=== PATIENT | male | born 1975 | race Two or more races ===

== ENCOUNTER 2020-06-29 11:03 | Outpatient (REF) | payer OTHER, SELFPAY | END 2020-06-29 11:04 | disposition home or self-care (01) | LOC: HO.LAB 11:03 | PROVIDERS: Visit Provider Internal Medicine | DX: Z20.828 Contact with and (suspected) exposure to other viral communicable diseases (principal) | CPT/HCPCS: 87635 ==

== ENCOUNTER 2020-07-10 10:02 | Outpatient (REF) | payer OTHER, SELFPAY | END 2020-07-10 10:03 | disposition home or self-care (01) | LOC: HO.LAB 10:02 | PROVIDERS: Visit Provider Internal Medicine | DX: Z20.828 Contact with and (suspected) exposure to other viral communicable diseases (principal) | CPT/HCPCS: 87635 ==

== ENCOUNTER 2020-07-26 12:36 | Outpatient (REF) | payer SELFPAY ==
[2020-07-26 15:12] LABS: Cholesterol 180 mg/dL
== END 2020-07-26 12:37 | disposition home or self-care (01) ==
LOC: HO.LNC 12:36
PROVIDERS: Visit Provider Pathology Anatomic Pathology & Clinical Pathology
DX: Z76.89 Persons encountering health services in other specified circumstances (principal)
CPT/HCPCS: 82465

== ENCOUNTER 2020-07-26 13:37 | Outpatient (REF) | payer SELFPAY | END 2020-07-26 13:38 | disposition home or self-care (01) | LOC: HO.LNC 13:37 | PROVIDERS: Visit Provider Pathology Anatomic Pathology & Clinical Pathology | DX: Z13.89 Encounter for screening for other disorder (principal) ==

== ENCOUNTER 2020-08-20 08:12 | Outpatient (REF) | payer OTHER, SELFPAY | END 2020-08-20 08:13 | disposition home or self-care (01) | LOC: HO.LAB 08:12 | PROVIDERS: Visit Provider Internal Medicine | DX: Z20.828 Contact with and (suspected) exposure to other viral communicable diseases (principal) | CPT/HCPCS: C9803; U0003 ==

== ENCOUNTER 2020-08-29 12:34 | Outpatient (REF) | payer OTHER, SELFPAY ==
[2020-08-29 13:30] LABS: Anion Gap 11 (12-20); Blood Urea Nitrogen 12 mg/dL (9-16); Carbon Dioxide 27 mmol/L (22-29); Chloride 105 mmol/L (96-108); Estimated Glomerular Filt Rate > 60; Potassium 4.5 mmol/l (3.3-5.1); Sodium 138 mmol/L (135-145)
== END 2020-08-29 12:35 | disposition home or self-care (01) ==
LOC: HO.LAB 12:34
PROVIDERS: PCP Internal Medicine; Visit Provider Internal Medicine Hypertension Specialist
DX: I10 Essential (primary) hypertension (principal); N40.0 Benign prostatic hyperplasia without lower urinary tract symptoms
CPT/HCPCS: 80051; 82565; 84520

== ENCOUNTER 2020-09-20 16:26 | Outpatient (REF) | payer OTHER, SELFPAY | END 2020-09-20 16:27 | disposition home or self-care (01) | LOC: HO.LAB 16:26 | PROVIDERS: Visit Provider Internal Medicine | DX: Z20.828 Contact with and (suspected) exposure to other viral communicable diseases (principal) | CPT/HCPCS: 36415; C9803; U0003 ==

== ENCOUNTER 2020-10-17 13:02 | Outpatient (REF) | payer SELFPAY ==
[2020-10-17 15:04] LABS: Cholesterol 143 mg/dL
== END 2020-10-17 13:03 | disposition home or self-care (01) ==
LOC: HO.LNC 13:02
PROVIDERS: Visit Provider Pathology Anatomic Pathology & Clinical Pathology
DX: Z13.89 Encounter for screening for other disorder (principal)
CPT/HCPCS: 36415; 82465

== ENCOUNTER 2020-10-23 02:58 | Emergency (ER) | payer OTHER, SELFPAY ==
--- NOTE | ~2020-10-23 | CT_ITS ---
EXAMINATION: CT ABDOMEN AND PELVIS WITH CONTRAST CLINICAL INFORMATION: Diffuse abdominal pain. COMPARISON: 04/02/2018. TECHNIQUE: Contiguous axial thin section helical images of the abdomen and pelvis were performed following the administration of 100 mL of intravenous Omnipaque 300. The data set was reformatted in the coronal and sagittal planes and reviewed on an independent workstation. The examination is significantly limited secondary to extensive and repeated patient motion. DLP: 763 mGy-cm. FINDINGS: Evaluation of the lung bases is limited secondary to extensive patient motion, though there are likely multiple areas of groundglass opacification within the lung bases, particularly within the lingula and the left lower lobe. The visualized portions of the heart are unremarkable. The liver is of normal size and attenuation without focal lesions nor intrahepatic biliary ductal dilation. A normal gallbladder is identified. There is no wall thickening or discernible pericholecystic fluid. The spleen, pancreas, adrenal glands are unremarkable. Both kidneys are of normal size and attenuation without hydronephrosis or nephrolithiasis. Following the administration of IV contrast, prompt symmetric nephrograms are displayed. There is no abdominal free fluid. There is neither mesenteric nor retroperitoneal lymphadenopathy. Normal unopacified loops of small and large bowel are identified. A normal appendix is identified. There is no pelvic free fluid. The urinary bladder is unremarkable. There is neither pelvic nor inguinal lymphadenopathy. Bone windows: Neither sclerotic nor lytic bone lesions are identified. CT/CT abdomen pelvis w con IMPRESSION: Significantly limited exam secondary to extensive and repeated patient motion. Limited evaluation of the lung bases secondary to extensive patient motion, though there are likely multiple areas of groundglass opacification within the lung bases, particularly the lingula and left lower lobe concerning for pneumonia. Recommendation is for a followup chest series to be obtained following treatment and/or resolution of symptoms to assure resolution of this appearance. No acute abdominal or pelvic inflammatory or infectious processes demonstrated on this limited exam. Automated exposure control (Care Dose) Adjustment of the mA and/or kv according to patient size (this includes techniques or standardized protocols for targeted exams where dose is matched to indication / reason for exam; i.e. extremities or head).
[2020-10-23 04:58] VITALS: BP 145/102; PULSE 107; RESP 18; TEMP 37.8; O2SAT 96; BMI 33.2
[2020-10-23 05:28] LABS: Basophils Percent Auto 0.2 % (0-2); Eosinophils Percent Auto 0.2 % (0-4); Hematocrit 44.3 % (42-52); Hemoglobin 14.7 g/dl (14.0-18.0); Lymphocytes Absolute Auto 1.9 X10*3/uL (1.2-4.9); Lymphocytes Percent Auto 34.3 % (20-40); MANUAL DIFF FLAG NO; Mean Corpuscular HGB Conc 33.2 g/dl (31.0-36.0); Mean Corpuscular Hemoglobin 28.6 pg (27.0-33.0); Mean Corpuscular Volume 86.2 fL (80-98); Mean Platelet Volume 9.1 fL (9.4-12.4); Monocytes Absolute Auto 0.4 X10*3/uL (0.1-1.2); Neutrophils Absolute Auto 3.2 X10*3/uL (2.0-8.3); Neutrophils Percent Auto 57.3 % (45-73); Platelet Count 270 X10*3/uL (160-400); Red Blood Count 5.14 X10*6/uL (4.60-5.80); Red Cell Distribution Width 12.5 % (11.0-16.0); White Blood Count 5.5 X10*3/uL (4.8-10.8)
[2020-10-23 05:34] LABS: Glucose Urine UA NEG (NEG); Leukocyte Esterase Urine NEG (NEG); Nitrite Urine NEG (NEG); Specific Gravity - Urine >= 1.030 (1.005-1.025); Urine Blood 1+ (NEG); Urine Ketones 40 MG/DL (NEG); Urine Protein TRACE MG/DL (NEG-TRACE)
[2020-10-23 05:35] LABS: Appearance Urine CLEAR; Color Urine DARK YELLOW
[2020-10-23 05:36] VITALS: BP 139/99; PULSE 112; RESP 22; TEMP 37; O2SAT 96
--- NOTE | 2020-10-23 05:39 | ED.ABDPAIN ---
HPI - Abdominal Pain General Chief Complaint: Abdominal Pain Stated Complaint: Headache/Abd pain/Nausea Time Seen by Provider: 10/23/20 05:25 Source: patient Mode of arrival: ambulatory Limitations: no limitations History of Present Illness HPI narrative: Patient comes to emergency room complaining of 3 weeks of abdominal pain. Patient reports black stools for 3 days. Patient states he has had issues with internal hemorrhoids in the past. Patient states the abdominal pain is constant, nonradiating, diffuse, sharp. Patient denies vomiting or diarrhea, complaining of constant nausea. Denies hematuria Related Data Previous Rx's Medication Instructions Recorded bisacodyl 5 mg tablet,delayed 5 mg PO BID #60 tab 07/03/20 release fesoterodine 4 mg tablet,extended 4 mg PO DAILY 90 Days #90 tab 08/01/20 release 24 hr ergocalciferol (vitamin D2) 1,250 1,250 mcg PO QWEEK #4 cap 09/15/20 mcg (50,000 unit) capsule tramadol 50 mg tablet 50 mg PO TID PRN 30 Days #90 tab 09/26/20 umeclidinium 62.5 mcg/actuation 1 inh INHALATION DAILY 30 Days #30 10/13/20 blister powder for inhalation ea azithromycin 250 mg PO DAILY 5 Days #5 tab 10/23/20 Allergies Allergy/AdvReac Type Severity Reaction Status Date / Time gabapentin [GABAPENTIN] Allergy Unknown SEVERE Unverified 05/31/20 17:48 H/A,BLURRY VISION,MOOD CHANGE Gabapentin Allergy Unknown headaches, Uncoded 04/18/20 00:00 blurring of vision, depression Review of Systems Review of Systems Constitutional : No Weight loss, No Fever, No Chills, No Night Sweats, No Fatigue, No Malaise ENT/Mouth : No Hearing loss, No Ear Pain, No Nasal Congestion, No Sinus Pain, No Hoarseness, No sore throat, No Rhinorrhea, No Swallowing Difficulty Eyes: No Eye Pain, No Swelling, No Redness, No Foreign Body, No Discharge, No Vision Changes Cardiovascular : No Chest Pain, No SOB, No Dyspnea on Exertion, No Orthopnea, No Edema, No Palpitations Respiratory : No Cough, No Sputum, No Wheezing, No Smoke Exposure, No Dyspnea Gastrointestinal : Complaining of Nausea, No Vomiting, No Diarrhea, No Constipation, complaining of diffuse abdominal pain, complaining of black stool for the last 3 days Genitourinary : no irregular bleeding, No Dysuria, No Urinary Frequency, No Hematuria, No Urinary Incontinence, No Urgency, No Flank Pain, No Urinary Flow Changes, No Hesitancy Musculoskeletal : No joint pain, No Myalgias, No Joint Swelling Skin : No Skin Lesions, No rash Neuro : No Weakness, No Numbness, No Paresthesias, No Loss of Consciousness, No Dizziness, No Headache Psych : No Anxiety/Panic, No Depression, No SI/HI/AH/VH, No Social Issues, Heme/Lymph: No Bruising, No Bleeding,No Lymphadenopathy Endocrine : No Polyuria, No Polydipsia, No Temperature Intolerance Physical Exam Vital Signs: Vital Signs: Last Vital Signs Temp 98.6 F 10/23/20 05:36 Pulse 112 H 10/23/20 05:36 Resp 22 H 10/23/20 05:42 BP 139/99 H 10/23/20 05:36 Pulse Ox 96 10/23/20 05:36 Body Mass Index 33.2 Appearance: Alert. Oriented X3. No acute distress. Eyes: Pupils equal, round and reactive to light. ENT: Pharynx normal. Neck: Normal inspection. Neck supple. No lymph nodes noted. No crepitus CVS: Normal heart rate and rhythm. Pulses normal. Normal S1 and S2 Respiratory: No respiratory distress. Breath sounds normal. No Wheezing. No rales Abdomen: Soft , mild diffuse tenderness. No rigidity. No distention. good BS x4, JOHN shows brown stool Skin: Skin warm and dry. Normal skin color. Normal skin turgor. Extremities: No lower extremity edema. No lower extremity edema. No Lacerations. No Rash Neuro: Oriented X 3. No motor deficit. No sensory deficit. Moving all extermities. No slurred speech. Course Course Course Narrative: Patient states that he feels much better, no longer having abdominal pain or headache. I discussed with the patient that his CT scan did not show any acute pathology in the abdomen, however it is possible that he is starting to develop pneumonia. I also discussed with the patient that his guaiac stool was positive, likely secondary to hemorrhoids. However, I discussed with the patient that he may need another colonoscopy. His H&H is stable. MDM - Abdominal Pain Lab Data Result diagrams: 10/23/20 05:23 10/23/20 05:23 Labs: Lab Results 10/23/20 10/23/20 10/23/20 Range/Units 05:18 05:23 05:23 WBC 5.5 (4.8-10.8) X10*3/uL RBC 5.14 (4.60-5.80) X10*6/uL Hgb 14.7 (14.0-18.0) g/dl Hct 44.3 (42-52) % MCV 86.2 (80-98) fL MCH 28.6 (27.0-33.0) pg MCHC 33.2 (31.0-36.0) g/dl RDW 12.5 (11.0-16.0) % Plt Count 270 (160-400) X10*3/uL MPV 9.1 L (9.4-12.4) fL Immature Gran % (Auto) 0.0 (0.0-0.4) % Neut % (Auto) 57.3 (45-73) % Lymph % (Auto) 34.3 (20-40) % Ransom % (Auto) 8.0 (2-11) % Eos % (Auto) 0.2 (0-4) % Baso % (Auto) 0.2 (0-2) % Lymph # (Auto) 1.9 (1.2-4.9) X10*3/uL Ransom # (Auto) 0.4 (0.1-1.2) X10*3/uL Eos # (Auto) 0.0 (0.0-0.4) X10*3/uL Baso # (Auto) 0.0 (0.0-0.2) X10*3/uL Abs Immat Gran (auto) 0.00 (0.00-0.03) X10*3/uL Absolute Neuts (auto) 3.2 (2.0-8.3) X10*3/uL Absolute Nucleated RBC 0.000 (0.0-0.012) X10*3/uL Nucleated RBC % (auto) 0.0 (0.0-0.2) /100WBC Hold Blue Top SEE NOTE Sodium (135-145) mmol/L Potassium (3.3-5.1) mmol/L Chloride (96-108) mmol/L Carbon Dioxide (22-29) mmol/L Anion Gap (12-20) BUN (9-16) mg/dL Creatinine (0.5-1.4) mg/dL Estim Creat Clear Calc Estimated GFR Random Glucose (60-115) mg/dL Lactic Acid (0.5-2.0) mmol/L Calcium (8.4-10.2) mg/dL Total Bilirubin (0.0-1.0) mg/dL Direct Bilirubin (0.0-0.5) mg/dL AST (5-37) U/L ALT (0-40) U/L Alkaline Phosphatase (39-117) U/L Total Protein (6.5-8.0) g/dL Albumin (3.5-5.0) g/dL Lipase (8-78) U/L Urine Color DARK YELLOW Urine Appearance CLEAR Urine pH 6.0 (5.0-8.0) Ur Specific [place] >= 1.030 H (1.005-1.025) Urine Protein TRACE (NEG-TRACE) MG/DL Urine Glucose (UA) NEG (NEG) MG/DL Urine Ketones 40 (NEG) MG/DL Urine Blood 1+ H (NEG) Urine Nitrite NEG (NEG) Ur Leukocyte Esterase NEG (NEG) Urine RBC 0-2 (0) /HPF Urine WBC 0-2 (0-4) /HPF Ur Squamous Epith Cells TRACE /LPF Urine Bacteria NONE /LPF Urine Mucus 3+ /LPF Stool Occult Blood (NEG) COVID-19 ([facility]) (Negative) COVID-19 Clin Com 10/23/20 10/23/20 10/23/20 Range/Units 05:23 05:23 05:24 WBC (4.8-10.8) X10*3/uL RBC (4.60-5.80) X10*6/uL Hgb (14.0-18.0) g/dl Hct (42-52) % MCV (80-98) fL MCH (27.0-33.0) pg MCHC (31.0-36.0) g/dl RDW (11.0-16.0) % Plt Count (160-400) X10*3/uL MPV (9.4-12.4) fL Immature Gran % (Auto) (0.0-0.4) % Neut % (Auto) (45-73) % Lymph % (Auto) (20-40) % Ransom % (Auto) (2-11) % Eos % (Auto) (0-4) % Baso % (Auto) (0-2) % Lymph # (Auto) (1.2-4.9) X10*3/uL Ransom # (Auto) (0.1-1.2) X10*3/uL Eos # (Auto) (0.0-0.4) X10*3/uL Baso # (Auto) (0.0-0.2) X10*3/uL Abs Immat Gran (auto) (0.00-0.03) X10*3/uL Absolute Neuts (auto) (2.0-8.3) X10*3/uL Absolute Nucleated RBC (0.0-0.012) X10*3/uL Nucleated RBC % (auto) (0.0-0.2) /100WBC Hold Blue Top Sodium 137 (135-145) mmol/L Potassium 3.6 (3.3-5.1) mmol/L Chloride 102 (96-108) mmol/L Carbon Dioxide 24 (22-29) mmol/L Anion Gap 15 (12-20) BUN 11 (9-16) mg/dL Creatinine 0.91 (0.5-1.4) mg/dL Estim Creat Clear Calc 118.1 Estimated GFR > 60 Random Glucose 114 (60-115) mg/dL Lactic Acid 0.8 (0.5-2.0) mmol/L Calcium 8.5 (8.4-10.2) mg/dL Total Bilirubin 0.6 0.6 (0.0-1.0) mg/dL Direct Bilirubin 0.3 (0.0-0.5) mg/dL AST 30 29 (5-37) U/L ALT 11 12 (0-40) U/L Alkaline Phosphatase 100 101 (39-117) U/L Total Protein 7.1 7.0 (6.5-8.0) g/dL Albumin 4.1 4.2 (3.5-5.0) g/dL Lipase 24 (8-78) U/L Urine Color Urine Appearance Urine pH (5.0-8.0) Ur Specific [place] (1.005-1.025) Urine Protein (NEG-TRACE) MG/DL Urine Glucose (UA) (NEG) MG/DL Urine Ketones (NEG) MG/DL Urine Blood (NEG) Urine Nitrite (NEG) Ur Leukocyte Esterase (NEG) Urine RBC (0) /HPF Urine WBC (0-4) /HPF Ur Squamous Epith Cells /LPF Urine Bacteria /LPF Urine Mucus /LPF Stool Occult Blood (NEG) COVID-19 ([facility]) (Negative) COVID-19 Clin Com 10/23/20 10/23/20 Range/Units 05:33 05:34 WBC (4.8-10.8) X10*3/uL RBC (4.60-5.80) X10*6/uL Hgb (14.0-18.0) g/dl Hct (42-52) % MCV (80-98) fL MCH (27.0-33.0) pg MCHC (31.0-36.0) g/dl RDW (11.0-16.0) % Plt Count (160-400) X10*3/uL MPV (9.4-12.4) fL Immature Gran % (Auto) (0.0-0.4) % Neut % (Auto) (45-73) % Lymph % (Auto) (20-40) % Ransom % (Auto) (2-11) % Eos % (Auto) (0-4) % Baso % (Auto) (0-2) % Lymph # (Auto) (1.2-4.9) X10*3/uL Ransom # (Auto) (0.1-1.2) X10*3/uL Eos # (Auto) (0.0-0.4) X10*3/uL Baso # (Auto) (0.0-0.2) X10*3/uL Abs Immat Gran (auto) (0.00-0.03) X10*3/uL Absolute Neuts (auto) (2.0-8.3) X10*3/uL Absolute Nucleated RBC (0.0-0.012) X10*3/uL Nucleated RBC % (auto) (0.0-0.2) /100WBC Hold Blue Top Sodium (135-145) mmol/L Potassium (3.3-5.1) mmol/L Chloride (96-108) mmol/L Carbon Dioxide (22-29) mmol/L Anion Gap (12-20) BUN (9-16) mg/dL Creatinine (0.5-1.4) mg/dL Estim Creat Clear Calc Estimated GFR Random Glucose (60-115) mg/dL Lactic Acid (0.5-2.0) mmol/L Calcium (8.4-10.2) mg/dL Total Bilirubin (0.0-1.0) mg/dL Direct Bilirubin (0.0-0.5) mg/dL AST (5-37) U/L ALT (0-40) U/L Alkaline Phosphatase (39-117) U/L Total Protein (6.5-8.0) g/dL Albumin (3.5-5.0) g/dL Lipase (8-78) U/L Urine Color Urine Appearance Urine pH (5.0-8.0) Ur Specific [place] (1.005-1.025) Urine Protein (NEG-TRACE) MG/DL Urine Glucose (UA) (NEG) MG/DL Urine Ketones (NEG) MG/DL Urine Blood (NEG) Urine Nitrite (NEG) Ur Leukocyte Esterase (NEG) Urine RBC (0) /HPF Urine WBC (0-4) /HPF Ur Squamous Epith Cells /LPF Urine Bacteria /LPF Urine Mucus /LPF Stool Occult Blood POS (NEG) COVID-19 ([facility]) Negative (Negative) COVID-19 Clin Com See Note Imaging Data CT scan - abdomen: Radiologist's impression: FINDINGS: Evaluation of the lung bases is limited secondary to extensive patient motion, though there are likely multiple areas of groundglass opacification within the lung bases, particularly within the lingula and the left lower lobe. The visualized portions of the heart are unremarkable. The liver is of normal size and attenuation without focal lesions nor intrahepatic biliary ductal dilation. A normal gallbladder is identified. There is no wall thickening or discernible pericholecystic fluid. The spleen, pancreas, adrenal glands are unremarkable. Both kidneys are of normal size and attenuation without hydronephrosis or nephrolithiasis. Following the administration of IV contrast, prompt symmetric nephrograms are displayed. There is no abdominal free fluid. There is neither mesenteric nor retroperitoneal lymphadenopathy. Normal unopacified loops of small and large bowel are identified. A normal appendix is identified. There is no pelvic free fluid. The urinary bladder is unremarkable. There is neither pelvic nor inguinal lymphadenopathy. Bone windows: Neither sclerotic nor lytic bone lesions are identified. CT/CT abdomen pelvis w con IMPRESSION: Significantly limited exam secondary to extensive and repeated patient motion. Limited evaluation of the lung bases secondary to extensive patient motion, though there are likely multiple areas of groundglass opacification within the lung bases, particularly the lingula and left lower lobe concerning for pneumonia. Recommendation is for a followup chest series to be obtained following treatment and/or resolution of symptoms to assure resolution of this appearance. Discharge Plan Discharge Clinical Impression: Pneumonia Qualifiers: Pneumonia type: due to unspecified organism Laterality: left Lung location: lower lobe of lung Qualified Code(s): J18.9 - Pneumonia, unspecified organism Abdominal pain Qualifiers: Abdominal location: generalized Qualified Code(s): R10.84 - Generalized abdominal pain Patient Disposition: Home, Self-Care Instructions: Community Acquired Pneumonia (ED), Abdominal Pain (ED) Additional Instructions: Please start the antibiotic tomorrow. Please follow-up with your primary care physician tomorrow. If you have any worsening or new symptoms, please return to the emergency room or call 911 Prescriptions: New azithromycin 250 mg tablet 250 mg PO DAILY 5 Days Qty: 5 RF: 0 No Action bisacodyl 5 mg tablet,delayed release (DR/EC) 5 mg PO BID Qty: 60 RF: 6 Toviaz 4 mg tablet extended release 24 hr 4 mg PO DAILY 90 Days Qty: 90 RF: 1 ergocalciferol (vitamin D2) [Vitamin D2] 1,250 mcg (50,000 unit) capsule 1,250 mcg PO QWEEK Qty: 4 RF: 5 tramadol 50 mg tablet 50 mg PO TID PRN (Reason: pain) 30 Days Qty: 90 RF: 0 Incruse Ellipta 62.5 mcg/actuation blister with device 1 inh inhalation DAILY 30 Days Qty: 30 RF: 5 PMFSH Past Medical History Medical History Hemorrhoids Hypertension Surgical History No significant past surgical history Social History Social History Alcohol intake: current Alcohol intake frequency: a few times a month Smoking Status: Never smoker Use of substances other than those prescribed or required for medical reasons: No Advance Directives: No Advance Directives Information Provided: No
[2020-10-23 05:42] VITALS: RESP 22
[2020-10-23 05:42] LABS: Lactic Acid 0.8 mmol/L (0.5-2.0)
[2020-10-23] MEDS: Morphine Sulfate 4 MG/ML CARTRIDGE IVPUSH (05:42)
[2020-10-23] MEDS: ondansetron HCL 4 MG/2 ML VIAL IVPUSH (05:42)
[2020-10-23 05:43] LABS: Mucus Urine 3+ /LPF; RBC Urine 0-2 /HPF (0); Squamous Epithelial Cell Urine TRACE /LPF; WBC Urine 0-2 /HPF (0-4)
[2020-10-23 05:47] LABS: OBS Int Ctl Valid YES; OBS1 POS (NEG)
[2020-10-23 05:54] LABS: COVID-19 Test Negative (Negative)
[2020-10-23 06:01] LABS: Alanine Aminotransferase 11 U/L (0-40); Albumin Level 4.1 g/dL (3.5-5.0); Alkaline Phosphatase 100 U/L (39-117); Anion Gap 15 (12-20); Aspartate Amino Transferase 30 U/L (5-37); Bilirubin Total 0.6 mg/dL (0.0-1.0); Blood Urea Nitrogen 11 mg/dL (9-16); Calcium 8.5 mg/dL (8.4-10.2); Carbon Dioxide 24 mmol/L (22-29); Chloride 102 mmol/L (96-108); Creatinine Clr Calc Pharmacy 118.1; Estimated Glomerular Filt Rate > 60; Glucose Random 114 mg/dL (60-115); Potassium 3.6 mmol/L (3.3-5.1); Sodium 137 mmol/L (135-145); Total Protein 7.1 g/dL (6.5-8.0)
[2020-10-23 06:06] LABS: Alanine Aminotransferase 12 U/L (0-40); Albumin Level 4.2 g/dL (3.5-5.0); Alkaline Phosphatase 101 U/L (39-117); Aspartate Amino Transferase 29 U/L (5-37); Bilirubin Direct 0.3 mg/dL (0.0-0.5); Bilirubin Total 0.6 mg/dL (0.0-1.0); Lipase 24 U/L (8-78)
[2020-10-23] MEDS: iohexoL 350 MG/ML 100 ML INFUS..BTL 85 ML IV (06:34)
[2020-10-23 07:07] VITALS: BP 128/92; PULSE 104; RESP 15; O2SAT 96
[2020-10-23] MEDS: Azithromycin 500 MG TABLET PO (07:08)
== END 2020-10-23 07:20 | disposition home or self-care (01) ==
PROVIDERS: Emergency Provider Emergency Medicine; PCP Internal Medicine
DX: J18.9 Pneumonia, unspecified organism (principal); K64.8 Other hemorrhoids; R10.9 Unspecified abdominal pain; R51.9 Headache, unspecified; R10.84 Generalized abdominal pain; Z20.822 Contact with and (suspected) exposure to COVID-19; Z79.899 Other long term (current) drug therapy
CPT/HCPCS: 36415; 74177; 80053; 80076; 81001; 82248; 82272; 83605; 83690; 85025; 87635; 96374; 96375; 99284; J2270; J2405; Q9967

== ENCOUNTER 2020-11-08 12:20 | Outpatient (REF) | payer OTHER, SELFPAY ==
--- NOTE | ~2020-11-08 | XR_ITS ---
EXAMINATION: XR CHEST CLINICAL INFORMATION: Pneumonia. COMPARISON: 07/16/2018 TECHNIQUE: 2 views of the chest were obtained. FINDINGS: Stable cardiac and mediastinal silhouette. Mild bronchial wall thickening in bilateral lower lobes. Question of patchy hazy opacity in the left lower lobe. No lobar consolidation. No effusion, edema or pneumothorax. XR/XR chest 2V IMPRESSION: Bronchial wall thickening. Left basilar opacity may reflect infiltrate/developing pneumonia. Recommendation is for a follow up chest series to be obtained following treatment and/or resolution of symptoms to assure resolution of this appearance.
== END 2020-11-08 12:21 | disposition home or self-care (01) ==
LOC: HO.XRAY 12:20
PROVIDERS: PCP Internal Medicine; Visit Provider Internal Medicine
DX: J18.9 Pneumonia, unspecified organism (principal)
CPT/HCPCS: 71046

== ENCOUNTER → 2020-11-16 12:58 | Outpatient (BNVA) | payer OTHER, SELFPAY | PROVIDERS: PCP Internal Medicine; Visit Provider Nurse Practitioner | DX: Z13.89 Encounter for screening for other disorder (principal) | CPT/HCPCS: Q3014 ==

== ENCOUNTER 2020-12-18 08:28 | Day surgery (SDC) | payer OTHER, SELFPAY ==
[2020-12-12 12:06] VITALS: BMI 34.1
--- NOTE | 2020-12-17 09:32 | P.CONAN_ITS ---
Documented by User: Ella Salas 12/17/20 09:32 HPI - Anesthesia Eval Consult details Narrative: 45yo M for Colonoscopy PMFSH Active Problems Active Problems: All Active Problems (Updated 11/16/20 @ 13:37 by JACOBO Samuel) Pneumonia (Acute) Colon cancer screening (Acute) GERD (gastroesophageal reflux disease) (Acute) Obesity (BMI 30-39.9) (Acute) Blurred vision, right eye (Acute) Abdominal pain (Acute) Overactive bladder (Acute) Lumbar degenerative disc disease (Acute) Vitamin D deficiency (Acute) Past Medical History Medical History Abdominal pain Blurred vision, right eye Hemorrhoids Hypertension Lumbar degenerative disc disease Obesity (BMI 30-39.9) Overactive bladder Vitamin D deficiency Surgical History Surgical History H/O colonoscopy Hx of eye surgery Hx of hemorrhoidectomy Hx of rectal sphincterotomy Social History Social History Household Members: None Alcohol intake: current Alcohol intake frequency: does not drink Smoking Status: Never smoker Use of substances other than those prescribed or required for medical reasons: No Have you been hit, kicked, punched, or otherwise hurt by someone within the past year? If so, by whom?: No Advance Directives Information Provided: No Recently lost weight without trying: No Meds Allergies Allergy/AdvReac Type Severity Reaction Status Date / Time gabapentin [GABAPENTIN] Allergy Unknown SEVERE Verified 11/16/20 12:59 H/A,BLURRY VISION,MOOD CHANGE Home Medications Medication Instructions Recorded Confirmed Last Taken Type amlodipine 5 mg tablet 5 mg PO DAILY 10/26/20 12/12/20 Unknown History cetirizine 10 mg tablet 10 mg PO DAILY 10/26/20 12/12/20 Unknown History Exam Exam Date and Time: December 17, [id number] Height,Weight and Vital Signs: Height 5 ft 9 in Weight 104.78 kg Assessment and Plan Assessment Anesthesia Assessment: Chart Reviewed Documented by User: Torri Francois 12/18/20 09:19 [facility] Past Medical History Medical History Abdominal pain Blurred vision, right eye Hemorrhoids Hypertension Lumbar degenerative disc disease Obesity (BMI 30-39.9) Overactive bladder Vitamin D deficiency Surgical History Surgical History H/O colonoscopy Hx of eye surgery Hx of hemorrhoidectomy Hx of rectal sphincterotomy Social History Social History Household Members: None Alcohol intake: current Alcohol intake frequency: does not drink Smoking Status: Never smoker Use of substances other than those prescribed or required for medical reasons: No Have you been hit, kicked, punched, or otherwise hurt by someone within the past year? If so, by whom?: No Advance Directives Information Provided: No Recently lost weight without trying: No Meds Allergies Allergy/AdvReac Type Severity Reaction Status Date / Time gabapentin [GABAPENTIN] Allergy Unknown SEVERE Verified 11/16/20 12:59 H/A,BLURRY VISION,MOOD CHANGE Home Medications Medication Instructions Recorded Confirmed Last Taken Type amlodipine 5 mg tablet 5 mg PO DAILY 10/26/20 12/12/20 Unknown History cetirizine 10 mg tablet 10 mg PO DAILY 10/26/20 12/12/20 Unknown History Exam Airway Mallampati Class: II TM Dist: >3cm Neck ROM: Full Assessment and Plan Assessment Anesthesia Assessment: Anesthesia Plan Discussed and Chart Reviewed Final Anesthetic Review NPO: Yes ASA Class: II Final Preanesthetic Review: No Changes in Pt Med Stat, Meds/Allgs Chart Reviewed, Consent Obtained/Reviewed and Anes Risks/Benef Reviewed Patient Risk: Low Procedure Risk: Low Assessment/Block/Sedation in SS: Assess/Block/Sedation-SS Anesthetic Plan Anesthetic Plan: MAC: Disposition: Standard PACU
[2020-12-18 08:57] VITALS: BP 129/88; PULSE 73; RESP 18; TEMP 36.4; O2SAT 99
[2020-12-18] MEDS: Lactated Ringers 1,000 ML 100 ML IVCONT (08:59)
--- NOTE | 2020-12-18 09:38 | W.PM.OPN ---
Operative Note Operative Note Date of Service: 12/18/20 Narrative: Pre-op diagnosis: Colon cancer screening, rectal bleeding Post-op diagnosis: other (colon polyps, diverticulosis, hemorrhoids) Procedure: COLONOSCOPY TILL CECUM WITH BIOPSIES AND SNARE POLYPECTOMY Consent: Indications for the procedure and potential complications of bleeding, perforation, reaction to medications and missed diagnosis were discussed with the patient and informed consent was obtained. Instrument: Olympus PCF H 190 L variable stiffness pediatric colonoscope Monitoring: Vital signs and clinical assessment, intermittent blood pressure monitoring, continuous EKG monitoring, Pulse oximetry and Carbon Dioxide monitoring were done throughout the procedure. Colon withdrawl time was 19 minutes. Procedure: The patient was placed in the left lateral decubitis position and pre-procedure medications were administered. After a digital rectal examination of the ano-rectum, the video colonoscope was inserted into the rectum and advanced through the colon to the cecum. The colonoscope was slowly withdrawn in a retrograde panoramic fashion and the colon mucosa was carefully examined including a retroflexed view of the rectum. Findings and interventions are described below. Procedure Difficulty: Without difficulty Findings: Terminal Ileum: Not evaluated Cecum: Normal Ascending Colon: Moderate diverticulosis A 4-5 mm diminutive appearing polyp in proximal ascending colon removed with the cold biopsy and Transverse Colon: 7-8 mm sessile polyp removed with a cold snare. Moderate diverticulosis Descending Colon: Moderate diverticulosis Sigmoid Colon: Moderate diverticulosis Rectum: Multiple 4-5 mm diminutive polyps on retroflexed examination of the rectum 1 was removed with the cold biopsy Ano-rectum: Large internal hemorrhoids Colon preparation: Good Impression and Post Procedure Diagnosis: Colonoscopy Findings: Three polyps removed Moderate diverticulosis seen in the entire colon Large hemorrhoids on retroflexed exam. Rectal bleeding likely from hemorrhoids - no other source found on colonoscopy. Plan: Await pathology results. Pt advised to start using Hydrocortisone rectal cream 1-2 times a day as needed for rectal bleeding. Patient to schedule a follow up appointment in the GI Clinic with Billie Mcneal NP . If bleeding persists, consider referring to Dr Kovacs for band ligation of hemorrhoids or hemorrhoidectomy (Pt is status post hemorrhoide[place] [address] Kovacs). Repeat Colonoscopy interval based on path results - in 3-5 years if polyps are adenomatous and 10 years if polyps are hyperplastic. Above findings were reviewed with the patient and colon polyps and diverticulosis handouts were given in the discharge area Surgeon: Jonathan Kern MD Anesthesia: MAC (Mallorie Rincon) Edger Machine Helper: Torri Thomas Estimated blood loss (mL): 0 Pathology: other (A. AC polyp, B. TC polyp x 1, C. Rectal polyp x 1) Condition: stable Disposition: PACU
--- NOTE | 2020-12-18 09:38 | MHC.SHP ---
Pre-Procedural Eval Section A The patient is an INPATIENT: No The History & Physical has been completed within 30 days and I have reviewed it.: No Section B Chief Complaint: Screening Details of Present Illness: Colon cancer screening, rectal bleeding Relevant Family History (Specify if Yes): No Relevant Social History: Tobacco Use (past smoker) Present Medications: see Short Stay Collaborative assessment Medical History: Significant History (Abdominal pain Blurred vision, right eye Hemorrhoids Hypertension Lumbar degenerative disc disease Obesity (BMI 30-39.9) Overactive bladder Vitamin D deficiency) History of Previous Operations: Relevant previous surgery/procedure and date(s) (History of colonoscopy) Allergies: Allergies Allergy/AdvReac Type Severity Reaction Status Date / Time gabapentin [GABAPENTIN] Allergy Unknown SEVERE Verified 11/16/20 12:59 H/A,BLURRY VISION,MOOD CHANGE Review of Systems Sugical H&P ROS: Negative: Cardiovascular, Respiratory and Psychiatric and Yes, Specify: Gastrointestinal (abd pain, rectal bleeding) Exam Surgical H&P Exam: Normal: Heart, Normal: Lungs, Normal: Extremities and Normal: Abdomen Plan Diagnosis/Plan: Unchanged I have reviewed the history and physical and performed a pertinent physical examination on my patient. No changes have occurred unless specified.
[2020-12-18 10:25] VITALS: BP 100/73; PULSE 98; RESP 16; TEMP 36.2; O2SAT 94
[2020-12-18 10:40] VITALS: BP 122/90; PULSE 84; RESP 18; TEMP 36.2; O2SAT 98
== END 2020-12-18 11:00 | disposition home or self-care (01) ==
PROVIDERS: PCP Internal Medicine; Visit Provider Internal Medicine Gastroenterology
PROC: 0DJD8ZZ Inspection of Lower Intestinal Tract, Via Natural or Artificial Opening Endoscopic (ICD-10-PCS; CPT 45378; principal; 2020-12-18 10:10)
DX: Z12.11 Encounter for screening for malignant neoplasm of colon (principal); D12.3 Benign neoplasm of transverse colon; K63.5 Polyp of colon; K62.1 Rectal polyp; K57.30 Diverticulosis of large intestine without perforation or abscess without bleeding; K64.8 Other hemorrhoids; K21.9 Gastro-esophageal reflux disease without esophagitis; E66.9 Obesity, unspecified; Z68.34 Body mass index [BMI] 34.0-34.9, adult; Z79.899 Other long term (current) drug therapy; Z88.8 Allergy status to other drugs, medicaments and biological substances
CPT/HCPCS: 45385; 45380; 88305; J3010

== ENCOUNTER → 2021-01-09 14:57 | Outpatient (BNVA) | payer OTHER, SELFPAY | PROVIDERS: PCP Internal Medicine; Visit Provider Nurse Practitioner | DX: Z13.89 Encounter for screening for other disorder (principal) | CPT/HCPCS: Q3014 ==

== ENCOUNTER → 2021-02-07 08:49 | Outpatient (BNVA) | payer OTHER, SELFPAY | PROVIDERS: PCP Internal Medicine; Referring Provider Internal Medicine; Visit Provider Surgery | DX: K64.8 Other hemorrhoids (principal) | CPT/HCPCS: 46600; 99202 ==

== ENCOUNTER → 2021-07-11 15:25 | Outpatient (BNVA) | payer OTHER, SELFPAY | PROVIDERS: PCP Internal Medicine; Visit Provider Nurse Practitioner | DX: Z13.89 Encounter for screening for other disorder (principal) | CPT/HCPCS: Q3014 ==

== ENCOUNTER 2021-07-30 07:30 | Outpatient (REF) | payer OTHER, SELFPAY ==
[2021-07-30 07:56] LABS: MANUAL DIFF FLAG NO
[2021-07-30 08:00] LABS: Basophils Percent Auto 0.5 % (0-2); Eosinophils Absolute Auto 0.2 X10*3/uL (0.0-0.4); Eosinophils Percent Auto 1.9 % (0-4); Hematocrit 47.7 % (42.0-52.0); Hemoglobin 15.5 g/dl (14.0-18.0); Imm Gran Abs Auto 0.02 X10*3/uL (0.00-0.03); Imm Gran Pct Auto 0.2 % (0.0-0.4); Lymphocytes Absolute Auto 2.8 X10*3/uL (1.2-4.9); Lymphocytes Percent Auto 33.4 % (20-40); Mean Corpuscular HGB Conc 32.5 g/dl (31.0-36.0); Mean Corpuscular Hemoglobin 28.6 pg (27.0-33.0); Mean Platelet Volume 8.9 fL (9.4-12.4); Monocytes Absolute Auto 0.6 X10*3/uL (0.1-1.2); Monocytes Percent Auto 6.7 % (2-11); Neutrophils Absolute Auto 4.7 x10*3/uL (2.0-8.3); Neutrophils Percent Auto 57.3 % (45-73); Platelet Count 289 X10*3/uL (160-400); Red Blood Count 5.42 X10*6/uL (4.60-5.80); Red Cell Distribution Width 13.2 % (11.0-16.0); White Blood Count 8.3 X10*3/uL (4.8-10.8)
[2021-07-30 08:31] LABS: Alanine Aminotransferase 13 U/L (0-40); Albumin Level 4.1 g/dL (3.5-5.0); Alkaline Phosphatase 107 U/L (39-117); Anion Gap 11 (12-20); Aspartate Amino Transferase 18 U/L (5-37); Bilirubin Total 0.7 mg/dL (0.0-1.0); Blood Urea Nitrogen 11 mg/dL (9-16); Calcium 9.3 mg/dL (8.4-10.2); Carbon Dioxide 25 mmol/L (22-29); Chloride 107 mmol/L (96-108); Cholesterol 154 mg/dL; Estimated Glomerular Filt Rate > 60; Glucose Fasting 126 mg/dL (60-99); HDL Cholesterol 28 mg/dL; LDL Cholesterol Calculated 100 mg/dl; Potassium 4.4 mmol/L (3.3-5.1); Sodium 139 mmol/L (135-145); Total Protein 6.9 g/dL (6.5-8.0); Triglycerides 133 mg/dL
[2021-07-30 08:53] LABS: TSH reflex Free T4 0.93 uIU/mL (0.32-4.0); Vitamin D 25-OH Total 32.2 ng/mL (>30)
[2021-07-30 09:05] LABS: Appearance Urine CLEAR; Color Urine YELLOW; Glucose Urine UA NEG (NEG); Leukocyte Esterase Urine NEG (NEG); Nitrite Urine NEG (NEG); PH 5.5 (5.0-8.0); Specific Gravity - Urine >= 1.030 (1.005-1.025); UACC Culture Trigger NO; Urine Blood TRACE (NEG); Urine Ketones NEG (NEG); Urine Protein NEG (NEG-TRACE)
[2021-07-30 09:18] LABS: Mucus Urine 1+ /LPF; RBC Urine 0-2 /HPF (0); Squamous Epithelial Cell Urine TRACE /LPF; WBC Urine 0 /HPF (0-4)
== END 2021-07-30 07:31 | disposition home or self-care (01) ==
LOC: HO.LAB 07:30
PROVIDERS: PCP Internal Medicine; Visit Provider Internal Medicine
DX: I10 Essential (primary) hypertension (principal); B35.1 Tinea unguium; E55.9 Vitamin D deficiency, unspecified; E78.5 Hyperlipidemia, unspecified; E66.9 Obesity, unspecified; K59.00 Constipation, unspecified; K21.9 Gastro-esophageal reflux disease without esophagitis
CPT/HCPCS: 36415; 80053; 80061; 81001; 82306; 84443; 85025

== ENCOUNTER 2021-10-21 16:57 | Emergency (ER) | payer OTHER, SELFPAY ==
[2021-10-21 17:12] VITALS: BP 122/87; PULSE 86; RESP 18; TEMP 36.5; O2SAT 97; BMI 33.2
[2021-10-21] MEDS: predniSONE 20 MG TABLET 60 MG PO (19:14)
[2021-10-21] MEDS: Ketorolac Tromethamine 60 MG/2 ML VIAL IM (19:14)
--- NOTE | 2021-10-21 19:23 | ED.BACK ---
HPI - Back Pain/Injury General Chief Complaint: Back Pain/Injury Stated Complaint: back pain Time Seen by Provider: 10/21/21 19:01 Source: patient Mode of arrival: ambulatory Limitations: no limitations History of Present Illness HPI Narrative: 38-year-old male with chronic back issues presents to ED for low back pain that began this morning. Patient denies any fall or recent trauma. Patient states no dysuria, hematuria, abdominal pain, flank pain, fever, chills, or paralysis of lower extremities. Patient denies any urinary/bowel incontinence. Patient came in for Toradol shot which he states is helpful. Patient states have follow up with tomorrow with spine surgeon/ pain managment tomorrow. Related Data Home Medications Medication Instructions Recorded Confirmed amlodipine 5 mg tablet 5 mg PO DAILY 10/26/20 07/30/21 cetirizine 10 mg tablet 10 mg PO DAILY 10/26/20 07/30/21 Previous Rx's Medication Instructions Recorded bisacodyl 5 mg tablet,delayed 5 mg PO BID #60 tab 07/03/20 release hydrocortisone 2.5 % topical cream 1 appl [place] BID PRN #30 g 11/16/20 with perineal applicator (Proctosol HC) hydrocortisone 2.5 % topical cream 1 appl NH BID-QID PRN 30 Days #30 g 12/18/20 with perineal applicator lorazepam 0.5 mg tablet 0.5 mg PO BID PRN 30 Days #60 tab 06/19/21 omeprazole 40 mg capsule,delayed 40 mg PO DAILY 30 Days #30 cap 07/11/21 release docusate sodium 100 mg capsule 100 mg PO BID #60 cap 07/31/21 (Colace) ergocalciferol (vitamin D2) 1,250 1,250 mcg PO QWEEK #4 cap 08/26/21 mcg (50,000 unit) capsule (Vitamin D2) mirabegron 50 mg tablet,extended 50 mg PO DAILY #30 tab 08/26/21 release 24 hr (Myrbetriq) tramadol 50 mg tablet 50 mg PO TID PRN 30 Days #90 tab 09/23/21 zolpidem 10 mg tablet 10 mg PO BEDTIME PRN 30 Days #30 09/23/21 tab umeclidinium 62.5 mcg/actuation 1 inh PO DAILY #30 ea 01/12/22 blister powder for inhalation (Incruse Ellipta) ketorolac 10 mg tablet 10 mg PO QID PRN 5 Days #20 tab 10/21/21 prednisone 20 mg tablet 60 mg PO DAILY 5 Days #15 tab 10/21/21 Allergies Allergy/AdvReac Type Severity Reaction Status Date / Time gabapentin [GABAPENTIN] Allergy Unknown SEVERE Verified 10/21/21 17:12 H/A,BLURRY VISION,MOOD CHANGE Review of Systems Review of Systems: Chronic back pain Yes all other systems are reviewed and are negative [facility], [facility] Past Medical History Medical History (Updated 10/21/21 @ 19:34 by EFRAIN Moreno) Abdominal pain Anxiety Asthma Benign essential hypertension Benign prostatic hyperplasia Blurred vision, right eye Constipation Dyslipidemia Hypertension Impaired fasting glucose Insomnia Lumbar degenerative disc disease Obesity (BMI 30-39.9) Obstructive sleep apnea Overactive bladder Vitamin D deficiency Surgical History H/O colonoscopy Hx of eye surgery Hx of hemorrhoidectomy Hx of rectal sphincterotomy Family History Family History Brother Diabetes Social History Social History Household Members: None Housing: Apartment Alcohol intake: current Alcohol intake frequency: holidays/special occasions only Patient Tobacco Use Status: Former Tobacco user (3.5 years ago) Quit Date: 3.5 years ago e-Cigarette/Vaping Use: Never Used Second Hand Smoke Exposure: Yes Advance Directives: No Advance Directives Information Provided: Yes service: No Current occupational status: employed and disabled Physical Exam Vital Signs: Vital Signs: Last Vital Signs Temp 97.7 F 10/21/21 17:12 Pulse 89 10/21/21 19:45 Resp 18 10/21/21 19:45 BP 126/85 10/21/21 19:45 Pulse Ox 98 10/21/21 19:45 BMI result Body Mass Index 33.2 Const: General: cooperative, healthy appearing, comfortable, no acute distress, well developed, alert, awake and Physically active Orientation/consciousness: oriented to time and patient oriented x3 HENMT: Head: Yes normal to inspection, Yes No palpable skull fracture present, Yes normocephalic, Yes atraumatic and No abrasion Eyes: General: appearance normal, both eyes and all related structures Neck: Neck: Yes normal visual inspection, Yes full ROM, Yes no lymphadenopathy, Yes no meningeal signs, Yes trachea midline, Yes supple, No anterior neck swelling and No tender Chest: Chest palpation & inspection: normal inspection of the chest and normal palpation of entire chest wall Resp: Effort & Inspection: normal respiratory effort and able to speak in complete sentences Auscultation: clear to auscultation bilaterally Cardio: Jugular venous distension: no JVD Heart sounds: S1 normal heart sound present and S2 normal heart sound present GI: Inspection: Yes normal to inspection Palpation (GI): Soft to palpation, not firm, nontender, no guarding and not rigid : General: No CVA tenderness and Yes no CVA tenderness Back/Spine/Pelvis: Back: no CVA tenderness, No CVA tenderness and back tenderness (Lumbar) Skin: General skin exam: no rashes or lesions noted and elasticity normal Neuro: General: oriented to time, patient oriented x3, gait normal, no meningeal signs and CN's II-XI intact bilaterally Cranial nerves: Yes CN's II-XII intact bilaterally Extrem: General: Yes normal to inspection and Yes full ROM Psych: Appearance: grossly normal, well kempt and not disheveled Course Course Course Narrative: No need for repeat imaging. Reevaluation(s) Reevaluation #1: Patient has normal gait. Negative for any neuro deficits. Patient denies any urinary/bowel incontinence. Patient denies any trauma any abdominal pain. Patient states no complaints. Patient does not want any imaging and will follow-up with the spine surgeon AND PAIN management doctor tomorrow. NOT SUSPECTING EPIDURAL ABSCESS, CAUDA EQUINA, OR FRACTURE Time: 19:32 Discharge Plan Discharge Clinical Impression: Chronic back pain Patient Disposition: Home, Self-Care Instructions: Chronic Back Pain (DC) Additional Instructions: Please follow-up with the spine surgeon and pain management doctor tomorrow. Return to ED immediately for any urinary/bowel incontinence, abdominal pain, nausea, vomiting, fever, chills, flank pain, dysuria, hematuria, paralysis of lower extremity, worsening back pain, or any other concerning symptoms. Prescriptions: New ketorolac 10 mg tablet 10 mg PO QID PRN (Reason: pain) 5 Days Qty: 20 0RF Rx Instructions: patient received 60mg IM Toradol in the ED prednisone 20 mg tablet 60 mg PO DAILY 5 Days Qty: 15 0RF No Action bisacodyl 5 mg tablet,delayed release (DR/EC) 5 mg PO BID Qty: 60 6RF hydrocortisone 2.5 % cream with perineal applicator 1 appl NH BID-QID PRN (Reason: hemorrhoids) 30 Days Qty: 30 2RF lorazepam 0.5 mg tablet 0.5 mg PO BID PRN (Reason: anxiety) 30 Days Qty: 60 0RF Rx Instructions: 1 tablet Orally twice a day as needed for anxiety docusate sodium [Colace] 100 mg capsule 100 mg PO BID Qty: 60 3RF ergocalciferol (vitamin D2) [Vitamin D2] 1,250 mcg (50,000 unit) capsule 1,250 mcg PO QWEEK Qty: 4 5RF Myrbetriq 50 mg tablet extended release 24 hr 50 mg PO DAILY Qty: 30 2RF tramadol 50 mg tablet 50 mg PO TID PRN (Reason: pain) 30 Days Qty: 90 0RF zolpidem 10 mg tablet 10 mg PO BEDTIME PRN (Reason: insomnia) 30 Days Qty: 30 0RF Incruse Ellipta 62.5 mcg/actuation blister with device 1 inh PO DAILY Qty: 30 5RF amlodipine 5 mg tablet 5 mg PO DAILY 0RF cetirizine 10 mg tablet 10 mg PO DAILY 0RF hydrocortisone [Proctosol HC] 2.5 % cream with perineal applicator 1 appl NH BID PRN (Reason: hemorrhoids) Qty: 30 3RF omeprazole 40 mg capsule,delayed release(DR/EC) 40 mg PO DAILY 30 Days Qty: 30 6RF Stand Alone Forms: Work/School Release Interventions: ED Discharge Assessment Last Done: 10/21/21 19:45 Discharge Date/Time: 10/21/21 19:47 Print Language: Greek
[2021-10-21 19:45] VITALS: BP 126/85; PULSE 89; RESP 18; O2SAT 98
== END 2021-10-21 19:47 | disposition home or self-care (01) ==
PROVIDERS: Emergency Provider Internal Medicine; PCP Internal Medicine
DX: G89.29 Other chronic pain (principal); M54.50 Low back pain, unspecified
CPT/HCPCS: 96372; 99284; J1885

== ENCOUNTER → 2021-12-10 13:39 | Outpatient (BNVA) | payer OTHER, SELFPAY | PROVIDERS: PCP Internal Medicine; Visit Provider Internal Medicine Pulmonary Disease | DX: J45.20 Mild intermittent asthma, uncomplicated (principal) | CPT/HCPCS: 99202 ==

== ENCOUNTER 2021-12-18 12:53 | Outpatient (REF) | payer OTHER, SELFPAY ==
--- NOTE | 2021-12-18 09:59 | PFT_ITS ---
INDICATION: Asthma. SPIROMETRY: FEV1 to FVC of 91% with an FEV1 of 3.39 L, which is 88% predicted, an FVC of 3.75 L which is 77% predicted. Post bronchodilators, the patient did have a significant improvement of the FEV1 by 12%. The maximum voluntary ventilation 74% predicted. LUNG VOLUMES: Total lung capacity 72% predicted with an expiratory reserve volume of 46% predicted. DIFFUSION CAPACITY: DLCO 90% predicted. COMPARISONS: None available. INTERPRETATION: There is no obstructive ventilatory defect, although there is a significant response to bronchodilators noted. The patient also has a mild decrease in maximum voluntary ventilation, which is secondary to likely deconditioning. Cannot rule out neuromuscular conditions. However, the patient does have a restrictive ventilatory defect, consistent with mild restrictive lung disease, probably this could be secondary to the elevated BMI, although parenchymal lung conditions and/or neuromuscular conditions cannot be ruled out. Diffusion capacity is within normal limits. Clinical correlation warranted. MD GUILLERMO Chaves/MARIO / [id number]
== END 2021-12-18 12:54 | disposition home or self-care (01) ==
LOC: HO.RESP 12:53
PROVIDERS: PCP Internal Medicine; Visit Provider Internal Medicine Pulmonary Disease
DX: J45.20 Mild intermittent asthma, uncomplicated (principal); R06.00 Dyspnea, unspecified; Z87.891 Personal history of nicotine dependence
CPT/HCPCS: 94060; 94727; 94729

== ENCOUNTER 2022-01-01 13:27 | Outpatient (REF) | payer OTHER, SELFPAY ==
[2022-01-01 14:12] LABS: MANUAL DIFF FLAG NO
[2022-01-01 14:40] LABS: Basophils Absolute Auto 0.1 X10*3/uL (0.0-0.2); Basophils Percent Auto 0.6 % (0-2); Eosinophils Absolute Auto 0.2 X10*3/uL (0.0-0.4); Eosinophils Percent Auto 2.1 % (0-4); Hematocrit 43.1 % (42.0-52.0); Hemoglobin 13.7 g/dl (14.0-18.0); Imm Gran Abs Auto 0.03 X10*3/uL (0.00-0.03); Imm Gran Pct Auto 0.4 % (0.0-0.4); Lymphocytes Absolute Auto 2.5 X10*3/uL (1.2-4.9); Mean Corpuscular HGB Conc 31.8 g/dl (31.0-36.0); Mean Corpuscular Hemoglobin 27.7 pg (27.0-33.0); Mean Corpuscular Volume 87.2 fL (80.0-98.0); Monocytes Absolute Auto 0.7 X10*3/uL (0.1-1.2); Monocytes Percent Auto 7.7 % (2-11); Neutrophils Percent Auto 59.2 % (45-73); Platelet Count 369 X10*3/uL (160-400); Red Blood Count 4.94 X10*6/uL (4.60-5.80); White Blood Count 8.5 X10*3/uL (4.8-10.8)
== END 2022-01-01 13:28 | disposition home or self-care (01) ==
LOC: HO.LAB 13:27
PROVIDERS: PCP Internal Medicine; Visit Provider Internal Medicine Pulmonary Disease
DX: J45.20 Mild intermittent asthma, uncomplicated (principal); Z91.09 Other allergy status, other than to drugs and biological substances; Z87.891 Personal history of nicotine dependence
CPT/HCPCS: 36415; 82785; 85025; 86003; 99212

== ENCOUNTER → 2022-01-22 14:17 | Outpatient (BNVA) | payer OTHER, SELFPAY | PROVIDERS: PCP Internal Medicine; Visit Provider Internal Medicine Pulmonary Disease | DX: J45.20 Mild intermittent asthma, uncomplicated (principal); Z91.09 Other allergy status, other than to drugs and biological substances | CPT/HCPCS: 99212 ==

== ENCOUNTER 2022-01-31 07:40 | Outpatient (REF) | payer OTHER, SELFPAY ==
[2022-01-31 07:50] LABS: MANUAL DIFF FLAG NO
[2022-01-31 08:04] LABS: Basophils Percent Auto 0.6 % (0-2); Eosinophils Absolute Auto 0.1 X10*3/uL (0.0-0.4); Eosinophils Percent Auto 2.1 % (0-4); Hematocrit 44.8 % (42.0-52.0); Hemoglobin 14.3 g/dl (14.0-18.0); Imm Gran Abs Auto 0.02 X10*3/uL (0.00-0.03); Imm Gran Pct Auto 0.3 % (0.0-0.4); Lymphocytes Absolute Auto 2.3 X10*3/uL (1.2-4.9); Lymphocytes Percent Auto 37.6 % (20-40); Mean Corpuscular HGB Conc 31.9 g/dl (31.0-36.0); Mean Corpuscular Hemoglobin 28.2 pg (27.0-33.0); Mean Corpuscular Volume 88.4 fL (80.0-98.0); Mean Platelet Volume 8.8 fL (9.4-12.4); Monocytes Absolute Auto 0.5 X10*3/uL (0.1-1.2); Monocytes Percent Auto 8.7 % (2-11); Neutrophils Absolute Auto 3.2 x10*3/uL (2.0-8.3); Neutrophils Percent Auto 50.7 % (45-73); Platelet Count 331 X10*3/uL (160-400); Red Blood Count 5.07 X10*6/uL (4.60-5.80); Red Cell Distribution Width 13.2 % (11.0-16.0); White Blood Count 6.2 X10*3/uL (4.8-10.8)
[2022-01-31 08:21] LABS: Estimated Average Glucose 117 mg/dL; Hemoglobin A1C 149.3061 umol/L; Hemoglobin A1c % 5.7 %
[2022-01-31 08:36] LABS: Alanine Aminotransferase 9 U/L (0-40); Alkaline Phosphatase 96 U/L (39-117); Anion Gap 9 (12-20); Aspartate Amino Transferase 16 U/L (5-37); Bilirubin Total 0.8 mg/dL (0.0-1.0); Blood Urea Nitrogen 10 mg/dL (9-16); Calcium 9.4 mg/dL (8.4-10.2); Carbon Dioxide 25 mmol/L (22-29); Chloride 108 mmol/L (96-108); Cholesterol 167 mg/dL; Estimated Glomerular Filt Rate > 60; Glucose Fasting 126 mg/dL (60-99); HDL Cholesterol 30 mg/dL; LDL Cholesterol Calculated 120 mg/dl; Potassium 4.3 mmol/L (3.3-5.1); Sodium 138 mmol/L (135-145); Total Protein 6.7 g/dL (6.5-8.0); Triglycerides 86 mg/dL
[2022-01-31 08:47] LABS: Appearance Urine HAZY; Color Urine YELLOW; Glucose Urine UA NEG (NEG); Leukocyte Esterase Urine NEG (NEG); Nitrite Urine NEG (NEG); Specific Gravity - Urine >= 1.030 (1.005-1.025); Urine Blood NEG (NEG); Urine Ketones NEG (NEG); Urine Protein NEG (NEG-TRACE)
[2022-01-31 08:50] LABS: TSH reflex Free T4 0.73 uIU/mL (0.32-4.0); Vitamin D 25-OH Total 32.1 ng/mL (>30)
== END 2022-01-31 07:41 | disposition home or self-care (01) ==
LOC: HO.LAB 07:40
PROVIDERS: PCP Internal Medicine; Visit Provider Internal Medicine
DX: E55.9 Vitamin D deficiency, unspecified (principal); E78.00 Pure hypercholesterolemia, unspecified; R73.01 Impaired fasting glucose; I10 Essential (primary) hypertension
CPT/HCPCS: 36415; 80053; 80061; 81003; 82306; 83036; 84443; 85025

== ENCOUNTER 2022-03-07 08:23 | Outpatient (REF) | payer OTHER, SELFPAY | END 2022-03-07 08:24 | disposition home or self-care (01) | LOC: HO.MDS 08:23 | PROVIDERS: Visit Provider Internal Medicine Pulmonary Disease | DX: J45.50 Severe persistent asthma, uncomplicated (principal) | CPT/HCPCS: J2357 ==

== ENCOUNTER 2022-03-13 12:44 | Outpatient (REF) | payer OTHER, SELFPAY | END 2022-03-13 12:45 | disposition home or self-care (01) | LOC: HO.MDS 12:44 | PROVIDERS: Visit Provider Internal Medicine Pulmonary Disease | DX: J45.50 Severe persistent asthma, uncomplicated (principal) | CPT/HCPCS: 96372; J2357 ==

== ENCOUNTER 2022-03-27 07:50 | Outpatient (REF) | payer OTHER, SELFPAY | END 2022-03-27 07:51 | disposition home or self-care (01) | LOC: HO.MDS 07:50 | PROVIDERS: Visit Provider Internal Medicine Pulmonary Disease | DX: J45.50 Severe persistent asthma, uncomplicated (principal) | CPT/HCPCS: 96372; J2357 ==

== ENCOUNTER 2022-04-10 07:48 | Outpatient (REF) | payer OTHER, SELFPAY | END 2022-04-10 07:49 | disposition home or self-care (01) | LOC: HO.MDS 07:48 | PROVIDERS: Visit Provider Internal Medicine Pulmonary Disease | DX: J45.50 Severe persistent asthma, uncomplicated (principal) | CPT/HCPCS: 96372; J2357 ==

== ENCOUNTER → 2022-04-15 14:07 | Outpatient (BNVA) | payer OTHER, SELFPAY | PROVIDERS: PCP Internal Medicine; Visit Provider Internal Medicine Pulmonary Disease | DX: J45.20 Mild intermittent asthma, uncomplicated (principal); Z91.09 Other allergy status, other than to drugs and biological substances; Z79.899 Other long term (current) drug therapy | CPT/HCPCS: 99212 ==

== ENCOUNTER 2022-04-24 07:50 | Outpatient (REF) | payer OTHER, SELFPAY | END 2022-04-24 07:51 | disposition home or self-care (01) | LOC: HO.MDS 07:50 | PROVIDERS: Visit Provider Internal Medicine Pulmonary Disease | DX: J45.50 Severe persistent asthma, uncomplicated (principal) | CPT/HCPCS: 96372; J2357 ==

== ENCOUNTER 2022-05-08 07:40 | Outpatient (REF) | payer OTHER, SELFPAY | END 2022-05-08 07:41 | disposition home or self-care (01) | LOC: HO.MDS 07:40 | PROVIDERS: Visit Provider Internal Medicine Pulmonary Disease | DX: J45.50 Severe persistent asthma, uncomplicated (principal) | CPT/HCPCS: 96372; J2357 ==

== ENCOUNTER 2022-05-22 07:44 | Outpatient (REF) | payer OTHER, SELFPAY | END 2022-05-22 07:45 | disposition home or self-care (01) | LOC: HO.MDS 07:44 | PROVIDERS: Visit Provider Internal Medicine Pulmonary Disease | DX: J45.50 Severe persistent asthma, uncomplicated (principal) | CPT/HCPCS: 96372; J2357 ==

== ENCOUNTER 2022-06-05 07:59 | Outpatient (REF) | payer OTHER, SELFPAY | END 2022-06-05 08:00 | disposition home or self-care (01) | LOC: HO.MDS 07:59 | PROVIDERS: Visit Provider Internal Medicine Pulmonary Disease | DX: J45.50 Severe persistent asthma, uncomplicated (principal) | CPT/HCPCS: 96372; J2357 ==

== ENCOUNTER 2022-06-19 06:58 | Outpatient (REF) | payer OTHER, SELFPAY ==
[2022-06-19 07:11] LABS: MANUAL DIFF FLAG NO
[2022-06-19 07:31] LABS: Basophils Absolute Auto 0.1 X10*3/uL (0.0-0.2); Basophils Percent Auto 0.4 % (0-2); Eosinophils Absolute Auto 0.1 X10*3/uL (0.0-0.4); Eosinophils Percent Auto 0.9 % (0-4); Hematocrit 43.9 % (42.0-52.0); Hemoglobin 14.4 g/dl (14.0-18.0); Imm Gran Abs Auto 0.04 X10*3/uL (0.00-0.03); Imm Gran Pct Auto 0.3 % (0.0-0.4); Lymphocytes Absolute Auto 3.3 X10*3/uL (1.2-4.9); Lymphocytes Percent Auto 28.7 % (20-40); Mean Corpuscular HGB Conc 32.8 g/dl (31.0-36.0); Mean Corpuscular Hemoglobin 28.9 pg (27.0-33.0); Mean Corpuscular Volume 88.2 fL (80.0-98.0); Mean Platelet Volume 8.8 fL (9.4-12.4); Monocytes Absolute Auto 0.7 X10*3/uL (0.1-1.2); Monocytes Percent Auto 5.7 % (2-11); Neutrophils Absolute Auto 7.3 x10*3/uL (2.0-8.3); Platelet Count 324 X10*3/uL (160-400); Red Blood Count 4.98 X10*6/uL (4.60-5.80); Red Cell Distribution Width 14.1 % (11.0-16.0); White Blood Count 11.4 X10*3/uL (4.8-10.8)
[2022-06-19 07:40] LABS: Estimated Average Glucose 123 mg/dL; Hemoglobin A1c % 5.9 %
[2022-06-19 07:56] LABS: Appearance Urine Clear; Color Urine Yellow; Glucose Urine UA Negative (Negative); Leukocyte Esterase Urine Negative (Negative); Nitrite Urine Negative (Negative); Urine Blood Negative (Negative); Urine Ketones Negative (Negative); Urine Protein Negative (Neg-Trace)
[2022-06-19 08:21] LABS: Alanine Aminotransferase 9 U/L (0-40); Albumin Level 4.1 g/dL (3.5-5.0); Alkaline Phosphatase 88 U/L (39-117); Anion Gap 12 (12-20); Aspartate Amino Transferase 17 U/L (5-37); Bilirubin Total 0.7 mg/dL (0.0-1.0); Blood Urea Nitrogen 14 mg/dL (9-16); Calcium 9.2 mg/dL (8.4-10.2); Carbon Dioxide 25 mmol/L (22-29); Chloride 106 mmol/L (96-108); Cholesterol 174 mg/dL; Estimated Glomerular Filt Rate > 60; Glucose Fasting 102 mg/dL (60-99); HDL Cholesterol 41 mg/dL; LDL Cholesterol Calculated 120 mg/dl; Potassium 4.6 mmol/L (3.3-5.1); Sodium 138 mmol/L (135-145); Total Protein 6.7 g/dL (6.5-8.0); Triglycerides 65 mg/dL
[2022-06-19 08:23] LABS: TSH reflex Free T4 1.37 uIU/mL (0.32-4.0); Vitamin D 25-OH Total 23.8 ng/mL (>30)
== END 2022-06-19 06:59 | disposition home or self-care (01) ==
LOC: HO.LAB 06:58
PROVIDERS: PCP Internal Medicine; Visit Provider Internal Medicine
DX: E78.00 Pure hypercholesterolemia, unspecified (principal); E55.9 Vitamin D deficiency, unspecified; I10 Essential (primary) hypertension; R73.01 Impaired fasting glucose
CPT/HCPCS: 36415; 80053; 80061; 81003; 82306; 83036; 84443; 85025

== ENCOUNTER 2022-06-19 07:22 | Outpatient (REF) | payer OTHER, SELFPAY | END 2022-06-19 07:23 | disposition home or self-care (01) | LOC: HO.MDS 07:22 | PROVIDERS: Visit Provider Internal Medicine Pulmonary Disease | DX: J45.50 Severe persistent asthma, uncomplicated (principal) | CPT/HCPCS: 96372; J2357 ==

== ENCOUNTER 2022-07-03 07:45 | Outpatient (REF) | payer OTHER, SELFPAY | END 2022-07-03 07:46 | disposition home or self-care (01) | LOC: HO.MDS 07:45 | PROVIDERS: Visit Provider Internal Medicine Pulmonary Disease | DX: J45.50 Severe persistent asthma, uncomplicated (principal) | CPT/HCPCS: 96372; J2357 ==

== ENCOUNTER 2022-07-17 08:55 | Outpatient (REF) | payer OTHER, SELFPAY | END 2022-07-17 08:56 | disposition home or self-care (01) | LOC: HO.MDS 08:55 | PROVIDERS: Visit Provider Internal Medicine Pulmonary Disease | DX: J45.50 Severe persistent asthma, uncomplicated (principal) | CPT/HCPCS: 96372 ==

== ENCOUNTER → 2022-07-29 13:53 | Outpatient (BNVA) | payer OTHER, SELFPAY | PROVIDERS: PCP Internal Medicine; Visit Provider Nurse Practitioner Family | DX: M51.36 Other intervertebral disc degeneration, lumbar region (principal); M47.816 Spondylosis without myelopathy or radiculopathy, lumbar region; M54.16 Radiculopathy, lumbar region; M46.1 Sacroiliitis, not elsewhere classified | CPT/HCPCS: 99202 ==

== ENCOUNTER 2022-08-14 07:15 | Outpatient (REF) | payer OTHER, SELFPAY | END 2022-08-14 07:16 | disposition home or self-care (01) | LOC: HO.MDS 07:15 | PROVIDERS: Visit Provider Internal Medicine Pulmonary Disease | DX: J45.50 Severe persistent asthma, uncomplicated (principal) | CPT/HCPCS: 96372 ==

== ENCOUNTER → 2022-08-22 08:20 | Outpatient (BNVA) | payer OTHER, SELFPAY | PROVIDERS: PCP Internal Medicine; Visit Provider Nurse Practitioner Family | DX: M47.26 Other spondylosis with radiculopathy, lumbar region (principal); M51.36 Other intervertebral disc degeneration, lumbar region | CPT/HCPCS: Q3014 ==

== ENCOUNTER 2022-08-28 06:56 | Outpatient (REF) | payer OTHER, SELFPAY | END 2022-08-28 06:57 | disposition home or self-care (01) | LOC: HO.MDS 06:56 | PROVIDERS: Visit Provider Internal Medicine Pulmonary Disease | DX: J45.50 Severe persistent asthma, uncomplicated (principal) | CPT/HCPCS: 96372 ==

== ENCOUNTER 2022-09-11 07:07 | Outpatient (REF) | payer OTHER, SELFPAY | END 2022-09-11 07:08 | disposition home or self-care (01) | LOC: HO.MDS 07:07 | PROVIDERS: Visit Provider Internal Medicine Pulmonary Disease | DX: J45.50 Severe persistent asthma, uncomplicated (principal) | CPT/HCPCS: 96372 ==

== ENCOUNTER 2022-09-25 07:03 | Outpatient (REF) | payer OTHER, SELFPAY | END 2022-09-25 07:04 | disposition home or self-care (01) | LOC: HO.MDS 07:03 | PROVIDERS: Visit Provider Internal Medicine Pulmonary Disease | DX: J45.50 Severe persistent asthma, uncomplicated (principal) | CPT/HCPCS: 96372; J2357 ==

== ENCOUNTER 2022-10-07 06:24 | Outpatient (REF) | payer OTHER, SELFPAY | END 2022-10-07 06:25 | disposition home or self-care (01) | LOC: CF 06:24 | PROVIDERS: Visit Provider Anesthesiology | DX: Z13.89 Encounter for screening for other disorder (principal) ==

== ENCOUNTER 2022-10-09 06:22 | Outpatient (REF) | payer OTHER, SELFPAY ==
[2022-10-09 06:34] LABS: MANUAL DIFF FLAG NO
[2022-10-09 07:33] LABS: Basophils Absolute Auto 0.1 X10*3/uL (0.0-0.2); Basophils Percent Auto 0.8 % (0-2); Eosinophils Absolute Auto 0.1 X10*3/uL (0.0-0.4); Eosinophils Percent Auto 1.8 % (0-4); Hematocrit 40.7 % (42.0-52.0); Hemoglobin 13.2 g/dl (14.0-18.0); Imm Gran Abs Auto 0.02 X10*3/uL (0.00-0.03); Imm Gran Pct Auto 0.3 % (0.0-0.4); Lymphocytes Absolute Auto 2.6 X10*3/uL (1.2-4.9); Lymphocytes Percent Auto 33.2 % (20-40); Mean Corpuscular HGB Conc 32.4 g/dl (31.0-36.0); Mean Corpuscular Hemoglobin 28.4 pg (27.0-33.0); Mean Corpuscular Volume 87.7 fL (80.0-98.0); Mean Platelet Volume 9.5 fL (9.4-12.4); Monocytes Absolute Auto 0.6 X10*3/uL (0.1-1.2); Monocytes Percent Auto 7.3 % (2-11); Neutrophils Absolute Auto 4.4 x10*3/uL (2.0-8.3); Neutrophils Percent Auto 56.6 % (45-73); Platelet Count 295 X10*3/uL (160-400); Red Blood Count 4.64 X10*6/uL (4.60-5.80); Red Cell Distribution Width 13.5 % (11.0-16.0); White Blood Count 7.8 X10*3/uL (4.8-10.8)
[2022-10-09 07:41] LABS: Estimated Average Glucose 123 mg/dL; Hemoglobin A1c % 5.9 %
[2022-10-09 08:00] LABS: Alanine Aminotransferase 10 U/L (0-40); Albumin Level 3.9 g/dL (3.5-5.0); Alkaline Phosphatase 76 U/L (39-117); Anion Gap 11 (12-20); Aspartate Amino Transferase 17 U/L (5-37); Bilirubin Total 0.5 mg/dL (0.0-1.0); Blood Urea Nitrogen 10 mg/dL (9-16); Calcium 9.1 mg/dL (8.4-10.2); Carbon Dioxide 24 mmol/L (22-29); Chloride 108 mmol/L (96-108); Cholesterol 156 mg/dL; Estimated Glomerular Filt Rate > 60; Glucose Fasting 115 mg/dL (60-99); HDL Cholesterol 29 mg/dL; LDL Cholesterol Calculated 111 mg/dl; Sodium 139 mmol/L (135-145); Total Protein 6.2 g/dL (6.5-8.0); Triglycerides 82 mg/dL
[2022-10-09 08:17] LABS: TSH reflex Free T4 0.71 uIU/mL (0.32-4.0); Vitamin D 25-OH Total 18.6 ng/mL (>30)
[2022-10-09 08:20] LABS: Appearance Urine Clear; Color Urine Yellow; Glucose Urine UA Negative (Negative); Leukocyte Esterase Urine Negative (Negative); Nitrite Urine Negative (Negative); Specific Gravity - Urine >= 1.030 (1.005-1.025); Urine Blood Negative (Negative); Urine Ketones Negative (Negative); Urine Protein Negative (Neg-Trace)
[2022-10-14 23:03] LABS: Immunoglobulin E 831 kU/L (<OR=114)
== END 2022-10-09 06:23 | disposition home or self-care (01) ==
LOC: HO.LAB 06:22
PROVIDERS: Internal Medicine Pulmonary Disease; PCP Internal Medicine; Visit Provider Internal Medicine
DX: I10 Essential (primary) hypertension (principal); E11.9 Type 2 diabetes mellitus without complications; E55.9 Vitamin D deficiency, unspecified; R30.0 Dysuria; J45.20 Mild intermittent asthma, uncomplicated; E78.00 Pure hypercholesterolemia, unspecified
CPT/HCPCS: 36415; 80053; 80061; 81003; 82306; 82785; 83036; 84443; 85025

== ENCOUNTER 2022-10-09 06:36 | Outpatient (REF) | payer OTHER, SELFPAY | END 2022-10-09 06:37 | disposition home or self-care (01) | LOC: HO.MDS 06:36 | PROVIDERS: Visit Provider Internal Medicine Pulmonary Disease | DX: J45.50 Severe persistent asthma, uncomplicated (principal) | CPT/HCPCS: 96372 ==

== ENCOUNTER 2022-10-23 06:42 | Outpatient (REF) | payer OTHER, SELFPAY | END 2022-10-23 06:43 | disposition home or self-care (01) | LOC: HO.MDS 06:42 | PROVIDERS: Visit Provider Internal Medicine Pulmonary Disease | DX: J45.50 Severe persistent asthma, uncomplicated (principal) | CPT/HCPCS: 96372 ==

== ENCOUNTER 2022-10-28 06:09 | Outpatient (REF) | payer OTHER, SELFPAY ==
--- NOTE | ~2022-10-28 | FL_ITS ---
EXAMINATION: XR FLUOROSCOPY WITH IMAGES CLINICAL INFORMATION: M47.816 - Spondylosis without myelopathy or radiculopathy, lumbar region COMPARISON: Radiographs 09/01/2019 TECHNIQUE: Fluoroscopy Supervised By: Dr. Lb Ivy. Fluoroscopy Time: 0.8 minutes. Cumulative Dose: 36.9 mGy. DAP: 10.0 Gycm2. Images: 6. FINDINGS: There are spinal needles overlying the bilateral outer L3, L4, and L5 neural foramen. There is contrast seen in the respective nerve sheaths. Some early transforaminal epidural extension is suggested. No visible vascular communication. FL/FL guidance in treatment room IMPRESSION: Fluoroscopy for pain management procedures.
== END 2022-10-28 06:10 | disposition home or self-care (01) ==
LOC: CF 06:09
PROVIDERS: Visit Provider Anesthesiology
DX: M47.816 Spondylosis without myelopathy or radiculopathy, lumbar region (principal)
CPT/HCPCS: 64493; 64494

== ENCOUNTER → 2022-10-30 08:17 | Outpatient (BNVA) | payer OTHER, SELFPAY | PROVIDERS: PCP Internal Medicine; Visit Provider Nurse Practitioner Family | DX: M47.26 Other spondylosis with radiculopathy, lumbar region (principal); M51.36 Other intervertebral disc degeneration, lumbar region | CPT/HCPCS: Q3014 ==

== ENCOUNTER 2022-11-06 07:01 | Outpatient (REF) | payer OTHER, SELFPAY | END 2022-11-06 07:02 | disposition home or self-care (01) | LOC: HO.MDS 07:01 | PROVIDERS: Visit Provider Internal Medicine Pulmonary Disease | DX: J45.50 Severe persistent asthma, uncomplicated (principal) | CPT/HCPCS: 96372 ==

== ENCOUNTER 2022-11-10 18:18 | Emergency (ER) | payer OTHER, SELFPAY ==
[2022-11-10 19:11] VITALS: BP 147/96; PULSE 92; RESP 16; TEMP 36.7; O2SAT 97; BMI 33.2
--- NOTE | 2022-11-10 19:13 | ED.BACK ---
HPI - Back Pain/Injury General Chief Complaint: Extremity Problem Stated Complaint: lower back pain numbness down leg Time Seen by Provider: 11/10/22 21:07 Related Data Previous Rx's Medication Instructions Recorded fluticasone furoate 200 1 inh inhalation DAILY 30 days #1 02/14/22 mcg-vilanterol 25 mcg/dose ea inhalation powder (Breo Ellipta) ketorolac 10 mg tablet 10 mg PO QID PRN pain 5 days #20 02/14/22 tabs omalizumab 150 mg/mL subcutaneous 300 mg (2 mL) subcut Q2W 28 days 03/10/22 syringe (Xolair) #4 mL omeprazole 40 mg capsule,delayed 40 mg PO DAILY #30 caps 03/24/22 release albuterol sulfate 90 mcg/actuation 2 puff inhalation Q4-6H PRN 04/15/22 aerosol inhaler shortness of breath or wheezing 30 days #8.5 grams lorazepam 0.5 mg tablet 0.5 mg PO BID PRN anxiety 30 days 05/09/22 #60 tabs amlodipine 5 mg tablet 5 mg PO DAILY 90 days #90 tabs 08/17/22 cetirizine 10 mg tablet 10 mg PO DAILY PRN allergy 08/17/22 symptoms 90 days #90 tabs mirabegron 50 mg tablet,extended 50 mg PO DAILY 30 days #30 tabs 09/16/22 release 24 hr (Myrbetriq) ergocalciferol (vitamin D2) 1,250 1,250 mcg PO QWEEK 3 months #13 10/10/22 mcg (50,000 unit) capsule (Vitamin caps D2) metformin 500 mg tablet,extended 500 mg PO QPM 90 days #90 tabs 10/10/22 release 24 hr umeclidinium 62.5 mcg/actuation 1 inh inhalation DAILY #30 ea 10/16/22 blister powder for inhalation (Incruse Ellipta) tramadol 50 mg tablet 50 mg PO TID PRN pain 30 days #90 10/24/22 tabs zolpidem 10 mg tablet 10 mg PO BEDTIME PRN insomnia 30 10/24/22 days #30 tabs cyclobenzaprine 10 mg tablet 10 mg PO TID PRN muscle spasm #7 11/10/22 tabs methylprednisolone 4 mg tablets in 4 mg PO DAILY #21 ea 11/10/22 a dose pack (Medrol (Mekhi)) Allergies Allergy/AdvReac Type Severity Reaction Status Date / Time gabapentin [GABAPENTIN] Allergy Unknown SEVERE Verified 10/30/22 08:18 H/A,BLURRY VISION,MOOD CHANGE PMF Past Medical History Medical History Abdominal pain Allergic rhinitis Anxiety Asthma Benign essential hypertension Benign prostatic hyperplasia Blurred vision, right eye Constipation Dyslipidemia Hypertension Impaired fasting glucose Insomnia Lumbar degenerative disc disease Obesity (BMI 30-39.9) Obstructive sleep apnea Overactive bladder Vitamin D deficiency Surgical History H/O colonoscopy Hx of eye surgery Hx of hemorrhoidectomy Hx of rectal sphincterotomy Family History Family History Brother Diabetes Social History Social History Household Members: None Housing: Apartment Alcohol intake: current Alcohol intake frequency: holidays/special occasions only Patient Tobacco Use Status: Former Tobacco user Quit Date: 3.5 years ago e-Cigarette/Vaping Use: Never Used Second Hand Smoke Exposure: Yes Advance Directives: No Advance Directives Information Provided: Yes service: No Current occupational status: employed Cognitive needs: No Hearing needs: No Vision needs: No Physical Exam Vital Signs: Vital Signs: Last Vital Signs Temp 98.3 F 11/10/22 19:52 Pulse 86 11/10/22 19:52 Resp 18 11/10/22 19:52 BP 125/86 11/10/22 19:52 Pulse Ox 100 11/10/22 19:52 O2 Del Method 11/10/22 19:52 BMI result Body Mass Index 33.2 Course Course Course Narrative: RME - 47 y/o male with history of chronic low back pain presents to the ER with worsening right sided low back pain and numbness down the leg since he had 6 injections in his back here on 10/[address] Ivy. Has been taking Tramadol. Pain is worse after the injections. No bowel/bladder incontinence. Will need chart review - treatment of pain and discharge with pain management follow up. Stable to go back to the waiting room until treatment room is available. Medications Administered Discontinued Medications Generic Name Dose Route Start Last Admin Trade Name Freq PRN Reason Stop Dose Admin Acetaminophen 975 mg 11/10/22 21:40 11/10/22 22:04 Acetaminophen 325 Mg Tablet PO 11/10/22 21:41 975 mg ONCE ONE Administration Cyclobenzaprine HCl 10 mg 11/10/22 21:40 11/10/22 22:04 Cyclobenzaprine Hcl 10 Mg Tablet PO 11/10/22 21:41 10 mg ONCE ONE Administration Dexamethasone 10 mg 11/10/22 21:40 11/10/22 22:05 Dexamethasone 2 Mg Tablet PO 11/10/22 21:41 10 mg ONCE ONE Administration Ketorolac Tromethamine 30 mg 11/10/22 21:40 11/10/22 22:05 Ketorolac Tromethamine 30 Mg/Ml Vial IM 11/10/22 21:41 30 mg ONCE ONE Administration Discharge Plan Discharge Clinical Impression: Lumbar radiculopathy, right Patient Disposition: Home, Self-Care Instructions: Lumbar Radiculopathy (ED) Prescriptions: New methylprednisolone [Medrol (Mekhi)] 4 mg tablets,dose pack 4 mg PO DAILY Qty: 21 0RF Rx Instructions: Take as directed cyclobenzaprine 10 mg tablet 10 mg PO TID PRN (Reason: muscle spasm) Qty: 7 0RF No Action Xolair 150 mg/mL syringe 300 mg subcut Q2W 28 Days Qty: 4 12RF omeprazole 40 mg capsule,delayed release(DR/EC) 40 mg PO DAILY Qty: 30 6RF lorazepam 0.5 mg tablet 0.5 mg PO BID PRN (Reason: anxiety) 30 Days Qty: 60 0RF Rx Instructions: 1 tablet Orally twice a day as needed for anxiety amlodipine 5 mg tablet 5 mg PO DAILY 90 Days Qty: 90 1RF cetirizine 10 mg tablet 10 mg PO DAILY PRN (Reason: allergy symptoms) 90 Days Qty: 90 1RF Myrbetriq 50 mg tablet extended release 24 hr 50 mg PO DAILY 30 Days Qty: 30 2RF Incruse Ellipta 62.5 mcg/actuation blister with device 1 inh inhalation DAILY Qty: 30 0RF tramadol 50 mg tablet 50 mg PO TID PRN (Reason: pain) 30 Days Qty: 90 0RF zolpidem 10 mg tablet 10 mg PO BEDTIME PRN (Reason: insomnia) 30 Days Qty: 30 0RF ketorolac 10 mg tablet 10 mg PO QID PRN (Reason: pain) 5 Days Qty: 20 0RF Rx Instructions: patient received 60mg IM Toradol in the ED Breo Ellipta 200-25 mcg/dose blister with device 1 inh inhalation DAILY 30 Days Qty: 1 6RF ergocalciferol (vitamin D2) [Vitamin D2] 1,250 mcg (50,000 unit) capsule 1,250 mcg PO QWEEK 90 Days Qty: 13 3RF metformin 500 mg tablet extended release 24 hr 500 mg PO QPM 90 Days Qty: 90 1RF albuterol sulfate 90 mcg/actuation HFA aerosol inhaler 2 puff inhalation Q4-6H PRN (Reason: shortness of breath or wheezing) 30 Days Qty: 8.5 3RF Referrals: Liam Hoskins MD [Physician] - 3 days Interventions: ED Discharge Assessment Last Done: 11/10/22 22:10 Discharge Date/Time: 11/10/22 22:11
[2022-11-10 19:52] VITALS: BP 125/86; PULSE 86; RESP 18; TEMP 36.8; O2SAT 100
--- NOTE | 2022-11-10 21:41 | ED.GENADULT ---
HPI - General Adult General Chief complaint: Extremity Problem Stated complaint: lower back pain numbness down leg Time Seen by Provider: 11/10/22 21:07 Source: patient Mode of arrival: ambulatory Limitations: no limitations History of Present Illness HPI narrative: 47-year-old male presents with lumbar radiculopathy on the right side. Patient has a longstanding history of lumbar radiculopathy. He has had multiple injections in the past. Over the last 3 days, patient's pain is become more severe which she describes in the is an 07/24. His last injection was on the 28 of October. Pain radiates the right leg. Is worse with movement and certain positions. It is associated with mild right lower extremity weakness and numbness tingling. Denies any saddle paresthesias, loss of bowel or bladder control. Denies any fevers, midline pain or other neurologic deficits. Patient often has symptoms on bilateral sides sometimes left greater than right. Symptoms are similar to his previous experience with back pain. Related Data Previous Rx's Medication Instructions Recorded fluticasone furoate 200 1 inh inhalation DAILY 30 days #1 02/14/22 mcg-vilanterol 25 mcg/dose ea inhalation powder (Breo Ellipta) ketorolac 10 mg tablet 10 mg PO QID PRN pain 5 days #20 02/14/22 tabs omalizumab 150 mg/mL subcutaneous 300 mg (2 mL) subcut Q2W 28 days 03/10/22 syringe (Xolair) #4 mL omeprazole 40 mg capsule,delayed 40 mg PO DAILY #30 caps 03/24/22 release albuterol sulfate 90 mcg/actuation 2 puff inhalation Q4-6H PRN 04/15/22 aerosol inhaler shortness of breath or wheezing 30 days #8.5 grams lorazepam 0.5 mg tablet 0.5 mg PO BID PRN anxiety 30 days 05/09/22 #60 tabs amlodipine 5 mg tablet 5 mg PO DAILY 90 days #90 tabs 08/17/22 cetirizine 10 mg tablet 10 mg PO DAILY PRN allergy 08/17/22 symptoms 90 days #90 tabs mirabegron 50 mg tablet,extended 50 mg PO DAILY 30 days #30 tabs 09/16/22 release 24 hr (Myrbetriq) ergocalciferol (vitamin D2) 1,250 1,250 mcg PO QWEEK 3 months #13 10/10/22 mcg (50,000 unit) capsule (Vitamin caps D2) metformin 500 mg tablet,extended 500 mg PO QPM 90 days #90 tabs 10/10/22 release 24 hr umeclidinium 62.5 mcg/actuation 1 inh inhalation DAILY #30 ea 10/16/22 blister powder for inhalation (Incruse Ellipta) tramadol 50 mg tablet 50 mg PO TID PRN pain 30 days #90 10/24/22 tabs zolpidem 10 mg tablet 10 mg PO BEDTIME PRN insomnia 30 10/24/22 days #30 tabs cyclobenzaprine 10 mg tablet 10 mg PO TID PRN muscle spasm #7 11/10/22 tabs methylprednisolone 4 mg tablets in 4 mg PO DAILY #21 ea 11/10/22 a dose pack (Medrol (Mekhi)) Allergies Allergy/AdvReac Type Severity Reaction Status Date / Time gabapentin [GABAPENTIN] Allergy Unknown SEVERE Verified 10/30/22 08:18 H/A,BLURRY VISION,MOOD CHANGE Review of Systems Review of Systems: CONSTITUTIONAL: Denies weight loss, fever and chills. HEENT: Denies changes in vision and hearing. RESPIRATORY: Denies SOB and cough. CV: Denies palpitations no CP. GI: Denies abdominal pain, nausea, vomiting and diarrhea. : Denies dysuria and urinary frequency. MSK: Denies myalgia and joint pain. Positive back pain SKIN: Denies rash and pruritus. NEUROLOGICAL: Denies headache and syncope. Mild paresthesias PSYCHIATRIC: Denies recent changes in mood. Denies anxiety and depression. All other ROS are negative unless in HPI PMFSH Past Medical History Medical History Abdominal pain Allergic rhinitis Anxiety Asthma Benign essential hypertension Benign prostatic hyperplasia Blurred vision, right eye Constipation Dyslipidemia Hypertension Impaired fasting glucose Insomnia Lumbar degenerative disc disease Obesity (BMI 30-39.9) Obstructive sleep apnea Overactive bladder Vitamin D deficiency Surgical History H/O colonoscopy Hx of eye surgery Hx of hemorrhoidectomy Hx of rectal sphincterotomy Family History Family History Brother Diabetes Social History Social History Household Members: None Housing: Apartment Alcohol intake: current Alcohol intake frequency: holidays/special occasions only Patient Tobacco Use Status: Former Tobacco user Quit Date: 3.5 years ago e-Cigarette/Vaping Use: Never Used Second Hand Smoke Exposure: Yes Advance Directives: No Advance Directives Information Provided: Yes service: No Current occupational status: employed Cognitive needs: No Hearing needs: No Vision needs: No Physical Exam ED Vital Signs: Vital Signs - 24 hr 11/10/22 19:11 11/10/22 19:52 Temperature 98.0 F 98.3 F Pulse Rate 92 86 Respiratory Rate 16 18 Blood Pressure 147/96 H 125/86 Pulse Oximetry 97 100 Oxygen Delivery Method Room Air Room Air BMI result Body Mass Index 33.2 GEN: Well developed, no acute distress, alert, oriented HEENT: Normocephalic, atraumatic, normal external ears, nose appears normal Eyes: Normal to appearance Neck: Supple, no lymphadenopathy Respiratory: Talks in complete sentences, no respiratory distress Extremities: No clubbing cyanosis or edema Neurologic: No focal neurologic deficits, cranial nerves 2-12 intact, gait normal, strength is 5/5 bilateral lower extremities, deep tendon reflexes are 2+ in bilateral Skin: No rash Back: Right lumbar paraspinous tenderness, no midline tenderness Course Course Course Narrative: 47-year-old male with history of lumbar radiculopathy presents with right lumbar radiculopathy. He has no saddle paresthesias or loss of bowel or bladder control to suggest acute cauda equina syndrome. Has no fevers, midline tenderness or additional focal deficits to suggest epidural abscess. His examination again is most consistent with lumbar radiculopathy associated with musculoskeletal back pain. He will receive steroids, NSAIDs, Tylenol, muscle relaxers and be discharged to follow-up with his primary care provider. I have discussed all discharge instructions. He understands the use of medications. He has tramadol at home for additional pain control. Patient does report that his doctor has recommended avoidance of NSAIDs due to a past history of renal dysfunction. However, single dose should not cause any major dysfunction. Medical Decision Making Medical Decision Making MDM Narrative: 47-year-old male presents with lumbar radiculopathy. Examination is most consistent with lumbar radiculopathy likely secondary to degenerative disc disease or spondylosis. He has no loss of bowel or bladder control to suggest acute cauda equina syndrome. Denies intravenous drug abuse, no midline tenderness, no fevers to suggest epidural abscess. Differential Diagnosis Differential Diagnoses: The differential diagnosis associated with the presentation includes (Lumbar radiculopathy, degenerative disc disease, spinal stenosis, muscle spasm, contusion) Admission/Observation Consideration of admission/observation: Escalation of care including admission/observation considered External Record Review External record reviewed: Office record (Pain management 10/30/2022) Tests considered The following testing was considered but not selected: X-ray, CT scan, MRI Prescription Management I considered prescription management with: Pain Medication Discharge Plan Discharge Clinical Impression: Lumbar radiculopathy, right Patient Disposition: Home, Self-Care Instructions: Lumbar Radiculopathy (ED) Prescriptions: New methylprednisolone [Medrol (Mekhi)] 4 mg tablets,dose pack 4 mg PO DAILY Qty: 21 0RF Rx Instructions: Take as directed cyclobenzaprine 10 mg tablet 10 mg PO TID PRN (Reason: muscle spasm) Qty: 7 0RF No Action Xolair 150 mg/mL syringe 300 mg subcut Q2W 28 Days Qty: 4 12RF omeprazole 40 mg capsule,delayed release(DR/EC) 40 mg PO DAILY Qty: 30 6RF lorazepam 0.5 mg tablet 0.5 mg PO BID PRN (Reason: anxiety) 30 Days Qty: 60 0RF Rx Instructions: 1 tablet Orally twice a day as needed for anxiety amlodipine 5 mg tablet 5 mg PO DAILY 90 Days Qty: 90 1RF cetirizine 10 mg tablet 10 mg PO DAILY PRN (Reason: allergy symptoms) 90 Days Qty: 90 1RF Myrbetriq 50 mg tablet extended release 24 hr 50 mg PO DAILY 30 Days Qty: 30 2RF Incruse Ellipta 62.5 mcg/actuation blister with device 1 inh inhalation DAILY Qty: 30 0RF tramadol 50 mg tablet 50 mg PO TID PRN (Reason: pain) 30 Days Qty: 90 0RF zolpidem 10 mg tablet 10 mg PO BEDTIME PRN (Reason: insomnia) 30 Days Qty: 30 0RF ketorolac 10 mg tablet 10 mg PO QID PRN (Reason: pain) 5 Days Qty: 20 0RF Rx Instructions: patient received 60mg IM Toradol in the ED Breo Ellipta 200-25 mcg/dose blister with device 1 inh inhalation DAILY 30 Days Qty: 1 6RF ergocalciferol (vitamin D2) [Vitamin D2] 1,250 mcg (50,000 unit) capsule 1,250 mcg PO QWEEK 90 Days Qty: 13 3RF metformin 500 mg tablet extended release 24 hr 500 mg PO QPM 90 Days Qty: 90 1RF albuterol sulfate 90 mcg/actuation HFA aerosol inhaler 2 puff inhalation Q4-6H PRN (Reason: shortness of breath or wheezing) 30 Days Qty: 8.5 3RF Referrals: Liam Hoskins MD [Physician] - 3 days
[2022-11-10] MEDS: Acetaminophen 325 MG TABLET 975 MG PO (22:04)
[2022-11-10] MEDS: Cyclobenzaprine HCl 10 MG TABLET PO (22:04)
[2022-11-10] MEDS: dexAMETHasone 2 MG TABLET 10 MG PO (22:05)
[2022-11-10] MEDS: Ketorolac Tromethamine 30 MG/ML VIAL IM (22:05)
== END 2022-11-10 22:11 | disposition home or self-care (01) ==
PROVIDERS: Emergency Provider Emergency Medicine; PCP Internal Medicine
DX: M54.16 Radiculopathy, lumbar region (principal); E78.5 Hyperlipidemia, unspecified; I10 Essential (primary) hypertension; Z87.891 Personal history of nicotine dependence; Z79.899 Other long term (current) drug therapy
CPT/HCPCS: 96372; 99283; 99284; J1885; J8540

== ENCOUNTER 2022-11-20 07:08 | Outpatient (REF) | payer OTHER, SELFPAY | END 2022-11-20 07:09 | disposition home or self-care (01) | LOC: HO.MDS 07:08 | PROVIDERS: Visit Provider Internal Medicine Pulmonary Disease | DX: J45.50 Severe persistent asthma, uncomplicated (principal) | CPT/HCPCS: 96372 ==

== ENCOUNTER 2022-11-28 09:58 | Day surgery (SDC) | payer OTHER, SELFPAY ==
[2022-11-24 16:43] VITALS: BMI 33.2
--- NOTE | 2022-11-27 11:57 | HO.ANESPROP2 ---
Documented by User: Ella Salas NP 11/27/22 11:57 HPI - Anesthesia Eval Consult details Narrative: 47yo M for Bilateral Therapeutic L3-L4-DRL5 Medial Branch Blocks PMFSH Active Problems Active Problems: All Active Problems (Updated 11/11/22 @ 00:01 by Panfilo Paniagua) Sacroiliitis (Acute) Lumbar back pain with radiculopathy affecting left lower extremity (Acute) Lumbar spondylosis (Acute) Allergic rhinitis (Acute) Environmental allergies (Acute) Throat discomfort (Acute) Onychomycosis (Acute) Otitis media (Acute) Anxiety (Acute) Insomnia (Acute) Benign prostatic hyperplasia (Acute) Obstructive sleep apnea (Acute) Constipation (Acute) Impaired fasting glucose (Acute) Asthma (Acute) Dyslipidemia (Acute) Benign essential hypertension (Acute) Hemorrhoids (Acute) Hemorrhoids, internal, with bleeding (Acute) Tubular adenoma of colon (Acute) Pneumonia (Acute) Colon cancer screening (Acute) GERD (gastroesophageal reflux disease) (Acute) Obesity (BMI 30-39.9) (Acute) Blurred vision, right eye (Acute) Abdominal pain (Acute) Overactive bladder (Acute) Lumbar degenerative disc disease (Acute) Vitamin D deficiency (Acute) Past Medical History Medical History Abdominal pain Allergic rhinitis Anxiety Asthma Benign essential hypertension Benign prostatic hyperplasia Blurred vision, right eye Constipation Dyslipidemia Hypertension Impaired fasting glucose Insomnia Lumbar degenerative disc disease Obesity (BMI 30-39.9) Obstructive sleep apnea Overactive bladder Vitamin D deficiency Family History Family History Brother Diabetes Surgical History Surgical History (Updated 11/28/22 @ 10:17 by Zuleika Ruiz RN) H/O colonoscopy History of prostate surgery Hx of eye surgery Hx of hemorrhoidectomy Hx of rectal sphincterotomy Social History Social History Household Members: None Housing: Apartment Alcohol intake: current Alcohol intake frequency: holidays/special occasions only Patient Tobacco Use Status: Former Tobacco user Quit Date: 4 yrs ago e-Cigarette/Vaping Use: Never Used Second Hand Smoke Exposure: Yes Use of substances other than those prescribed or required for medical reasons: No Are you DNR?: No Advance Directives: No Advance Directives Information Provided: Yes service: No Current occupational status: employed Cognitive needs: No Hearing needs: No Vision needs: No Meds Allergies Allergy/AdvReac Type Severity Reaction Status Date / Time gabapentin [GABAPENTIN] Allergy Unknown SEVERE Verified 11/28/22 10:24 H/A,BLURRY VISION,MOOD CHANGE Exam Exam Date and Time: November 27, 2022 1157 Height,Weight and Vital Signs: Height 5 ft 9 in Weight 102.058 kg Pertinent Lab Results Pertinent Lab Results: Laboratory Tests 10/09/22 10/09/22 06:32 06:32 WBC 7.8 Hgb 13.2 L Hct 40.7 L Plt Count 295 Sodium 139 Potassium 4.0 Chloride 108 Carbon Dioxide 24 BUN 10 Creatinine 0.96 Assessment and Plan Assessment Anesthesia Assessment: Chart Reviewed Documented by User: Paulo Juarez MD 11/28/22 11:17 [facility] Past Medical History Medical History Abdominal pain Allergic rhinitis Anxiety Asthma Benign essential hypertension Benign prostatic hyperplasia Blurred vision, right eye Constipation Dyslipidemia Hypertension Impaired fasting glucose Insomnia Lumbar degenerative disc disease Obesity (BMI 30-39.9) Obstructive sleep apnea Overactive bladder Vitamin D deficiency Family History Family History Brother Diabetes Family history of problems with anesthesia: No Surgical History Surgical History (Updated 11/28/22 @ 10:17 by Zuleika Ruiz, RN) H/O colonoscopy History of prostate surgery Hx of eye surgery Hx of hemorrhoidectomy Hx of rectal sphincterotomy History of Problems with Anesthesia: No Social History Social History Household Members: None Housing: Apartment Alcohol intake: current Alcohol intake frequency: holidays/special occasions only Patient Tobacco Use Status: Former Tobacco user Quit Date: 4 yrs ago e-Cigarette/Vaping Use: Never Used Second Hand Smoke Exposure: Yes Use of substances other than those prescribed or required for medical reasons: No Are you DNR?: No Advance Directives: No Advance Directives Information Provided: Yes service: No Current occupational status: employed Cognitive needs: No Hearing needs: No Vision needs: No Meds Allergies Allergy/AdvReac Type Severity Reaction Status Date / Time gabapentin [GABAPENTIN] Allergy Unknown SEVERE Verified 11/28/22 10:24 H/A,BLURRY VISION,MOOD CHANGE Exam Airway Mallampati Class: III TM Dist: >3cm Neck ROM: Limited Heart: rrr Lungs: cta Assessment and Plan Assessment Anesthesia Assessment: Anesthesia Plan Discussed Final Anesthetic Review Family History of Problems with Anesthesia: No History of Problems with Anesthesia: No NPO: Yes ASA Class: III Final Preanesthetic Review: No Changes in Pt Med Stat, Meds/Allgs Chart Reviewed, Consent Obtained/Reviewed and Anes Risks/Benef Reviewed Patient Risk: Intermediate Procedure Risk: Low Anesthetic Plan Anesthetic Plan: MAC: Disposition: Standard PACU
--- NOTE | ~2022-11-28 | FL_ITS ---
EXAMINATION: XR FLUOROSCOPY WITH IMAGES CLINICAL INFORMATION: Pain management. COMPARISON: None available. TECHNIQUE: Fluoroscopy Supervised By: Dr. Lb Ivy. Fluoroscopy Time: 0.8 minutes. Cumulative Dose: 10.8 mGy. DAP: 94 Gy-cm2. Images: 6. FINDINGS: There are 6 digital images obtained revealing needle positioned bilaterally adjacent to the L5, L4 and L3 vertebrae with contrast opacifying the soft tissues. Visualized bones are grossly unremarkable. FL/FL guidance in OR IMPRESSION: Fluoroscopy guidance was provided to referring physician for pain management.
[2022-11-28 10:20] VITALS: BMI 33.2
[2022-11-28 10:28] VITALS: BP 128/84; PULSE 64; RESP 15; TEMP 36.1; O2SAT 98
--- NOTE | 2022-11-28 10:56 | MHC.SHP ---
Pre-Procedural Eval Section A Date of Service: 11/28/22 The patient is an INPATIENT: No Changes since office visit: Yes Patient answered all questions The History & Physical has been completed within 30 days and I have reviewed it.: No Section B Chief Complaint: Spondylosis without myelopathy or radiculopathy, Details of Present Illness: as above Relevant Family History (Specify if Yes): No Relevant Social History: None Present Medications: see Short Stay Collaborative assessment Medical History: No relevant PMH History of Previous Operations: No relevant previous surgery Allergies: Allergies Allergy/AdvReac Type Severity Reaction Status Date / Time gabapentin [GABAPENTIN] Allergy Unknown SEVERE Verified 11/28/22 10:24 H/A,BLURRY VISION,MOOD CHANGE Review of Systems Sugical H&P ROS: Negative: Constitution, Cardiovascular, Respiratory, Neurological, Psychiatric, Hem-Onc, Allergic/Immunologic, Gastrointestinal, Genitourinary, Musculoskeletal, Integumentary, Endocrine and Eyes/Ears/Nose/Throat Exam Surgical H&P Exam: Normal: HEENT, Normal: Heart, Normal: Lungs, Normal: Extremities, Normal: Abdomen, Normal: Skin and Normal: Neurological Plan Diagnosis/Plan: Unchanged I have reviewed the history and physical and performed a pertinent physical examination on my patient. No changes have occurred unless specified. Time Spent With Patient Time: Total time managing care of this patient today ____ minutes.
--- NOTE | 2022-11-28 11:28 | P.OP_ITS ---
Operative Note Operative Note Date of Service: 11/28/22 Narrative: Therapeutic medial branch block L3,L4 dorsal ramus L5 bilateral.? ? ?Informed consent was explained to the patient. All questions were explained and? answered.? The patient was taken inside the operating room where she was positioned prone on the operating table. Time-out was performed delineating correct site, side, the nature of the procedure, patient's allergy, preoperative antibiotic if needed.? All operating room staff was participating in OR time-out procedure. ? ? The lower back was prepped with ChloraPrep and draped with sterile towels.? C- arm was brought over the operating field and sq picture of L4-, L5 vertebra and S1 AREA were delineated on the screen.? Point of interest were delineated as confluence of superior articular process of L4 and L5 vertebra bilaterally with corresponding transverse processes as well as confluence of the sacral alae bilaterally with superior articular process of S1.? The projection of the point of interest to the skin were injected with the small amount of local anesthetic lidocaine 2% 1-1.5 cc.? After that 22 gauge 5 inch spinal needle was driven sequentially to the points of interest in tunnel vision fashion. After needles gently contacted the bone at the point of interests the needle was injected with small amount of the contrast.? The injection of the contrast did not demonstrate any intravascular or intrathecal spread of the contrast.? After that injection of the? ropivacaine 0.5%-1cc mixed with kenalog was performed at each needle location.?total dose of kenalog 80 mg. ? Upon completion of the injections? needle was? removed and sterile Band-Aids were applied.? The patient tolerated procedure very well.
[2022-11-28 11:58] VITALS: BP 110/78; PULSE 83; RESP 16; TEMP 36.3; O2SAT 95
--- NOTE | 2022-11-28 12:03 | P.BOP_ITS ---
Brief Operative Note Date of Service: 11/28/22 Pre-op diagnosis: spondylosis lumbar without myelo/radiculopathy Post-op diagnosis: same Procedure: Therapeutic MBB L3- L4- L5 bilateral Surgeon: Lb Ivy MD Anesthesia: MAC Was an Commercial [employer] Pilot used for this Procedure?: No Estimated blood loss (mL): 1 Condition: stable Disposition: PACU
[2022-11-28 12:13] VITALS: BP 118/86; PULSE 66; RESP 16; O2SAT 98
[2022-11-28 12:24] VITALS: BP 124/89; PULSE 66; RESP 16; TEMP 36.6; O2SAT 98
== END 2022-11-28 12:35 | disposition home or self-care (01) ==
PROVIDERS: PCP Internal Medicine; Visit Provider Anesthesiology
PROC: (CPT 64493; principal; 2022-11-28 11:30)
DX: M47.816 Spondylosis without myelopathy or radiculopathy, lumbar region (principal); M51.36 Other intervertebral disc degeneration, lumbar region; I10 Essential (primary) hypertension; J45.909 Unspecified asthma, uncomplicated; R73.01 Impaired fasting glucose; G47.33 Obstructive sleep apnea (adult) (pediatric); E66.9 Obesity, unspecified; Z68.33 Body mass index [BMI] 33.0-33.9, adult; F41.1 Generalized anxiety disorder; Z79.51 Long term (current) use of inhaled steroids; Z79.84 Long term (current) use of oral hypoglycemic drugs; Z79.899 Other long term (current) drug therapy; Z88.8 Allergy status to other drugs, medicaments and biological substances; Z87.891 Personal history of nicotine dependence
CPT/HCPCS: 64493; 64494; J2795; J3010; J3301; Q9965; Q9967

== ENCOUNTER 2022-12-05 15:01 | Outpatient (REF) | payer OTHER, SELFPAY | END 2022-12-05 15:02 | disposition home or self-care (01) | LOC: HO.MDS 15:01 | PROVIDERS: Visit Provider Internal Medicine Pulmonary Disease | DX: J45.50 Severe persistent asthma, uncomplicated (principal) | CPT/HCPCS: 96372; J2357 ==

== ENCOUNTER → 2022-12-11 15:03 | Outpatient (BNVA) | payer OTHER, SELFPAY | PROVIDERS: PCP Internal Medicine; Visit Provider Internal Medicine Pulmonary Disease | DX: J45.20 Mild intermittent asthma, uncomplicated (principal); Z91.09 Other allergy status, other than to drugs and biological substances; Z79.899 Other long term (current) drug therapy | CPT/HCPCS: 99212 ==

== ENCOUNTER 2022-12-18 08:20 | Outpatient (REF) | payer OTHER, SELFPAY | END 2022-12-18 08:21 | disposition home or self-care (01) | LOC: HO.MDS 08:20 | PROVIDERS: Visit Provider Internal Medicine Pulmonary Disease | DX: J45.50 Severe persistent asthma, uncomplicated (principal) | CPT/HCPCS: 96372 ==

== ENCOUNTER 2023-01-01 11:04 | Outpatient (REF) | payer OTHER, SELFPAY | END 2023-01-01 11:05 | disposition home or self-care (01) | LOC: HO.MDS 11:04 | PROVIDERS: Visit Provider Internal Medicine Pulmonary Disease | DX: J45.50 Severe persistent asthma, uncomplicated (principal) | CPT/HCPCS: 96372; J2357 ==

== ENCOUNTER 2023-01-07 08:34 | Outpatient (REF) | payer OTHER, SELFPAY ==
[2023-01-07 08:47] LABS: MANUAL DIFF FLAG NO
[2023-01-07 09:01] LABS: Basophils Absolute Auto 0.1 X10*3/uL (0.0-0.2); Basophils Percent Auto 0.7 % (0-2); Eosinophils Absolute Auto 0.1 X10*3/uL (0.0-0.4); Eosinophils Percent Auto 1.4 % (0-4); Hematocrit 42.8 % (42.0-52.0); Hemoglobin 13.7 g/dl (14.0-18.0); Imm Gran Abs Auto 0.01 X10*3/uL (0.00-0.03); Imm Gran Pct Auto 0.1 % (0.0-0.4); Lymphocytes Absolute Auto 2.6 X10*3/uL (1.2-4.9); Lymphocytes Percent Auto 35.6 % (20-40); Mean Corpuscular Hemoglobin 28.2 pg (27.0-33.0); Mean Corpuscular Volume 88.1 fL (80.0-98.0); Mean Platelet Volume 8.6 fL (9.4-12.4); Monocytes Absolute Auto 0.6 X10*3/uL (0.1-1.2); Monocytes Percent Auto 8.1 % (2-11); Neutrophils Absolute Auto 3.9 x10*3/uL (2.0-8.3); Neutrophils Percent Auto 54.1 % (45-73); Platelet Count 330 X10*3/uL (160-400); Red Blood Count 4.86 X10*6/uL (4.60-5.80); Red Cell Distribution Width 13.9 % (11.0-16.0); White Blood Count 7.3 X10*3/uL (4.8-10.8)
[2023-01-07 09:17] LABS: Estimated Average Glucose 120 mg/dL; Hemoglobin A1c % 5.8 %
[2023-01-07 09:30] LABS: Alanine Aminotransferase 7 U/L (0-40); Albumin Level 3.8 g/dL (3.5-5.0); Alkaline Phosphatase 69 U/L (39-117); Anion Gap 10 (12-20); Aspartate Amino Transferase 14 U/L (5-37); Bilirubin Total 0.6 mg/dL (0.0-1.0); Blood Urea Nitrogen 13 mg/dL (9-16); Carbon Dioxide 25 mmol/L (22-29); Chloride 110 mmol/L (96-108); Cholesterol 164 mg/dL; Estimated Glomerular Filt Rate > 60; Glucose Fasting 108 mg/dL (60-99); HDL Cholesterol 33 mg/dL; LDL Cholesterol Calculated 119 mg/dl; Sodium 141 mmol/L (135-145); Triglycerides 61 mg/dL
[2023-01-07 09:48] LABS: TSH reflex Free T4 0.57 uIU/mL (0.32-4.0); Vitamin D 25-OH Total 28.1 ng/mL (>30)
== END 2023-01-07 08:35 | disposition home or self-care (01) ==
LOC: HO.LAB 08:34
PROVIDERS: PCP Internal Medicine; Visit Provider Internal Medicine
DX: E55.9 Vitamin D deficiency, unspecified (principal); I10 Essential (primary) hypertension; R73.01 Impaired fasting glucose; E78.00 Pure hypercholesterolemia, unspecified
CPT/HCPCS: 36415; 80053; 80061; 82306; 83036; 84443; 85025

== ENCOUNTER → 2023-01-08 09:27 | Outpatient (BNVA) | payer OTHER, SELFPAY | PROVIDERS: PCP Internal Medicine; Visit Provider Nurse Practitioner Family | DX: M46.1 Sacroiliitis, not elsewhere classified (principal); M51.36 Other intervertebral disc degeneration, lumbar region; M47.816 Spondylosis without myelopathy or radiculopathy, lumbar region | CPT/HCPCS: 99212 ==

== ENCOUNTER 2023-01-15 10:46 | Outpatient (REF) | payer OTHER, SELFPAY | END 2023-01-15 10:47 | disposition home or self-care (01) | LOC: HO.MDS 10:46 | PROVIDERS: Visit Provider Internal Medicine Pulmonary Disease | DX: J45.50 Severe persistent asthma, uncomplicated (principal) | CPT/HCPCS: 96372 ==

== ENCOUNTER 2023-02-20 07:27 | Outpatient (REF) | payer OTHER, SELFPAY | END 2023-02-20 07:28 | disposition home or self-care (01) | LOC: HO.MDS 07:27 | PROVIDERS: Visit Provider Internal Medicine Pulmonary Disease | DX: J45.50 Severe persistent asthma, uncomplicated (principal) | CPT/HCPCS: 96372; J2357 ==

== ENCOUNTER 2023-03-06 07:38 | Outpatient (REF) | payer OTHER, SELFPAY | END 2023-03-06 07:39 | disposition home or self-care (01) | LOC: HO.MDS 07:38 | PROVIDERS: Visit Provider Internal Medicine Pulmonary Disease | DX: J45.50 Severe persistent asthma, uncomplicated (principal) | CPT/HCPCS: 96372 ==

== ENCOUNTER 2023-03-12 10:03 | Day surgery (SDC) | payer OTHER, SELFPAY ==
[2023-03-09 14:39] VITALS: BMI 32.5
--- NOTE | 2023-03-11 10:56 | HO.ANESPROP2 ---
Documented by User: Ella Salas NP 03/11/23 10:58 HPI - Anesthesia Eval Consult details Narrative: 48yo M for Bilateral Therapeutic L3-L4-DRL5 Medial Branch Block s/p same 11/2022 with MAC [facility] Active Problems Active Problems: All Active Problems (Updated 11/28/22 @ 10:16 by Zuleika Ruiz, RN) Pneumonia (Acute) Colon cancer screening (Acute) GERD (gastroesophageal reflux disease) (Acute) Tubular adenoma of colon (Acute) Hemorrhoids, internal, with bleeding (Acute) Hemorrhoids (Acute) Otitis media (Acute) Onychomycosis (Acute) Throat discomfort (Acute) Environmental allergies (Acute) Lumbar spondylosis (Acute) Lumbar back pain with radiculopathy affecting left lower extremity (Acute) Sacroiliitis (Acute) Allergic rhinitis (Acute) Anxiety (Acute) Insomnia (Acute) Benign prostatic hyperplasia (Acute) Obstructive sleep apnea (Acute) Constipation (Acute) Impaired fasting glucose (Acute) Asthma (Acute) Dyslipidemia (Acute) Benign essential hypertension (Acute) Obesity (BMI 30-39.9) (Acute) Blurred vision, right eye (Acute) Abdominal pain (Acute) Overactive bladder (Acute) Lumbar degenerative disc disease (Acute) Vitamin D deficiency (Acute) Past Medical History Medical History Abdominal pain Allergic rhinitis Anxiety Asthma Benign essential hypertension Benign prostatic hyperplasia Blurred vision, right eye Constipation Dyslipidemia Hypertension Impaired fasting glucose Insomnia Lumbar degenerative disc disease Obesity (BMI 30-39.9) Obstructive sleep apnea Overactive bladder Vitamin D deficiency Family History Family History Brother Diabetes Family history of problems with anesthesia: No Surgical History Surgical History H/O colonoscopy History of prostate surgery History of surgery Hx of eye surgery Hx of hemorrhoidectomy Hx of rectal sphincterotomy History of Problems with Anesthesia: No Social History Social History Household Members: None Housing: Apartment Alcohol intake: current Alcohol intake frequency: holidays/special occasions only Patient Tobacco Use Status: Former Tobacco user Quit Date: 2018 e-Cigarette/Vaping Use: Never Used Second Hand Smoke Exposure: Yes Use of substances other than those prescribed or required for medical reasons: No Are you DNR?: No Advance Directives: No Advance Directives Information Provided: Yes Advance Directives on File: No service: No Current occupational status: employed Cognitive needs: No Hearing needs: No Vision needs: No Meds Allergies Allergy/AdvReac Type Severity Reaction Status Date / Time gabapentin [GABAPENTIN] Allergy Unknown SEVERE Verified 03/12/23 10:31 H/A,BLURRY VISION,MOOD CHANGE Exam Exam Date and Time: March 11, 2023 1056 Height,Weight and Vital Signs: Height 5 ft 9 in Weight 99.79 kg Pertinent Lab Results Pertinent Lab Results: Laboratory Tests 01/07/23 01/07/23 08:46 08:46 WBC 7.3 Hgb 13.7 L Hct 42.8 Plt Count 330 Sodium 141 Potassium 4.0 Chloride 110 H Carbon Dioxide 25 BUN 13 Creatinine 0.88 Assessment and Plan Assessment Anesthesia Assessment: Chart Reviewed Final Anesthetic Review Family History of Problems with Anesthesia: No History of Problems with Anesthesia: No Documented by User: Paulo Juarez MD 03/12/23 11:14 [facility] Past Medical History Medical History Abdominal pain Allergic rhinitis Anxiety Asthma Benign essential hypertension Benign prostatic hyperplasia Blurred vision, right eye Constipation Dyslipidemia Hypertension Impaired fasting glucose Insomnia Lumbar degenerative disc disease Obesity (BMI 30-39.9) Obstructive sleep apnea Overactive bladder Vitamin D deficiency Family History Family History Brother Diabetes Surgical History Surgical History H/O colonoscopy History of prostate surgery History of surgery Hx of eye surgery Hx of hemorrhoidectomy Hx of rectal sphincterotomy Social History Social History Household Members: None Housing: Apartment Alcohol intake: current Alcohol intake frequency: holidays/special occasions only Patient Tobacco Use Status: Former Tobacco user Quit Date: 2018 e-Cigarette/Vaping Use: Never Used Second Hand Smoke Exposure: Yes Use of substances other than those prescribed or required for medical reasons: No Are you DNR?: No Advance Directives: No Advance Directives Information Provided: Yes Advance Directives on File: No service: No Current occupational status: employed Cognitive needs: No Hearing needs: No Vision needs: No Meds Allergies Allergy/AdvReac Type Severity Reaction Status Date / Time gabapentin [GABAPENTIN] Allergy Unknown SEVERE Verified 03/12/23 10:31 H/A,BLURRY VISION,MOOD CHANGE Exam Airway Mallampati Class: III TM Dist: >3cm Neck ROM: Limited Heart: rrr Lungs: cta Assessment and Plan Assessment Anesthesia Assessment: Anesthesia Plan Discussed Final Anesthetic Review NPO: Yes ASA Class: III Final Preanesthetic Review: No Changes in Pt Med Stat, Meds/Allgs Chart Reviewed, Consent Obtained/Reviewed and Anes Risks/Benef Reviewed Patient Risk: Intermediate Procedure Risk: Low Anesthetic Plan Anesthetic Plan: MAC: and Agree w/ Assess. and Plan Disposition: Standard PACU
[2023-03-12] MEDS: Lactated Ringers 1,000 ML 100 ML IVCONT (10:21)
[2023-03-12 10:29] VITALS: BP 135/85; PULSE 74; RESP 18; TEMP 36.4; O2SAT 98
--- NOTE | 2023-03-12 11:33 | MHC.SHP ---
Pre-Procedural Eval Section A Date of Service: 03/12/23 The patient is an INPATIENT: No Changes since office visit: Yes Patient answered all questions The History & Physical has been completed within 30 days and I have reviewed it.: No Section B Chief Complaint: Spondylosis without myelopathy or radiculopathy Details of Present Illness: as above Relevant Family History (Specify if Yes): No Relevant Social History: None Present Medications: see Short Stay Collaborative assessment Medical History: No relevant PMH History of Previous Operations: No relevant previous surgery Allergies: Allergies Allergy/AdvReac Type Severity Reaction Status Date / Time gabapentin [GABAPENTIN] Allergy Unknown SEVERE Verified 03/12/23 10:31 H/A,BLURRY VISION,MOOD CHANGE Review of Systems Sugical H&P ROS: Negative: Constitution, Cardiovascular, Respiratory, Neurological, Psychiatric, Hem-Onc, Allergic/Immunologic, Gastrointestinal, Genitourinary, Integumentary, Endocrine and Eyes/Ears/Nose/Throat and Yes, Specify: Musculoskeletal (as above) Exam Surgical H&P Exam: Normal: HEENT, Normal: Heart, Normal: Lungs, Normal: Extremities, Normal: Abdomen, Normal: Skin and Normal: Neurological Plan Diagnosis/Plan: Unchanged I have reviewed the history and physical and performed a pertinent physical examination on my patient. No changes have occurred unless specified. Time Spent With Patient Time: Total time managing care of this patient today ____5 minutes.
--- NOTE | 2023-03-12 12:14 | P.BOP_ITS ---
Brief Operative Note Date of Service: 03/12/23 Pre-op diagnosis: spondylosis lumbar without myelo/radiculopathy Post-op diagnosis: same Procedure: Therapeutic L3- L4- L5 MBB Surgeon: Lb Ivy MD Anesthesia: MAC Was an Spring Machine Operator used for this Procedure?: No Estimated blood loss (mL): 0 Condition: stable Disposition: PACU
[2023-03-12 12:17] VITALS: BP 122/83; PULSE 93; RESP 16; TEMP 36.8; O2SAT 97
--- NOTE | 2023-03-12 12:20 | P.OP_ITS ---
Operative Note Operative Note Date of Service: 03/12/23 Narrative: Therapeutic medial branch block L3,L4 dorsal ramus L5 bilateral.? ? ?Informed consent was explained to the patient. All questions were explained and? answered.? The patient was taken inside the operating room where she was positioned prone on the operating table. ASA monitors were applied and the patient was sedated. Time-out was performed delineating correct site, side, the nature of the procedure, patient's allergy, . All operating room staff was participating in OR time-out procedure. ? ? The lower back was prepped with ChloraPrep and draped with sterile towels.? C- arm was brought over the operating field and sq picture of L4-, L5 vertebra and S1 AREA were delineated on the screen.? Point of interest were delineated as confluence of superior articular process of L4 and L5 vertebra bilaterally with corresponding transverse processes as well as confluence of the sacral alae bilaterally with superior articular process of S1.? The projection of the point of interest to the skin were injected with the small amount of local anesthetic lidocaine 2% 1-1.5 cc.? After that 22 gauge 5 inch spinal needle was driven sequentially to the points of interest in tunnel vision fashion. After needle gently contacted the bone at the point of interests the needle was injected with small amount of the contrast.? The injection of the contrast did not demonstrate any intravascular or intrathecal spread of the contrast.? After that injection of the? ropivacaine 0.5%-1cc mixed with kenalog was performed at each needle location. Total dose of kenalog was 80 mg,??after that the needles were removed and Bandaids were applied. ? Upon completion of the injections? needle was? removed and sterile Band-Aids were applied.? The patient tolerated procedure very well
[2023-03-12 12:32] VITALS: BP 122/93; PULSE 86; RESP 16; O2SAT 97
[2023-03-12 12:50] VITALS: BP 126/87; PULSE 63; RESP 16; TEMP 36.2; O2SAT 97
== END 2023-03-12 13:51 | disposition home or self-care (01) ==
PROVIDERS: PCP Internal Medicine; Visit Provider Anesthesiology
PROC: (CPT 64493; principal; 2023-03-12 11:30)
DX: M47.816 Spondylosis without myelopathy or radiculopathy, lumbar region (principal); M46.1 Sacroiliitis, not elsewhere classified; M51.36 Other intervertebral disc degeneration, lumbar region; I10 Essential (primary) hypertension; J45.909 Unspecified asthma, uncomplicated
CPT/HCPCS: 64493; 64494; J2795; J3301; Q9967

== ENCOUNTER 2023-03-20 08:02 | Outpatient (REF) | payer OTHER, SELFPAY | END 2023-03-20 08:03 | disposition home or self-care (01) | LOC: HO.MDS 08:02 | PROVIDERS: Visit Provider Internal Medicine Pulmonary Disease | DX: J45.50 Severe persistent asthma, uncomplicated (principal) | CPT/HCPCS: 96372 ==

== ENCOUNTER 2023-04-03 08:10 | Outpatient (REF) | payer OTHER, SELFPAY | END 2023-04-03 08:11 | disposition home or self-care (01) | LOC: HO.MDS 08:10 | PROVIDERS: Visit Provider Internal Medicine Pulmonary Disease | DX: J45.50 Severe persistent asthma, uncomplicated (principal) | CPT/HCPCS: 96372; J2357 ==

== ENCOUNTER 2023-04-17 07:50 | Outpatient (REF) | payer OTHER, SELFPAY | END 2023-04-17 07:51 | disposition home or self-care (01) | LOC: HO.MDS 07:50 | PROVIDERS: Visit Provider Internal Medicine Pulmonary Disease | DX: J45.50 Severe persistent asthma, uncomplicated (principal) | CPT/HCPCS: 96372 ==

== ENCOUNTER 2023-04-21 14:09 | Outpatient (AMB) | payer OTHER, SELFPAY ==
--- NOTE | 2023-04-21 14:15 | A.OFFVIS_ITS ---
Intake Vital Signs 04/21/23 14:16 Height 5 ft 9 in Weight 225 lb BMI 33.2 BP 122/90 H Blood Pressure Location Lt brachial Position Sitting Respiration 14 Pulse 75 Pulse Source Pulse Oximeter Pulse Oximetry (%) 98 Oxygen Delivery Method Room Air Intake Visit Reasons: s/p B/L Therapeutic L3-L4-DRL5 MBBs 03/12/23 Allergies gabapentin [GABAPENTIN] Allergy (Unknown, Verified 04/21/23 14:17) SEVERE H/A,BLURRY VISION,MOOD CHANGE Medication List - Last Reconciled 04/21/23 by Sabrina Angulo LPN [adjustable straight point cane with offset handle As directed] albuterol sulfate 90 mcg/actuation 2 puffs inhalation Q4-6H PRN 30 days amlodipine 5 mg PO DAILY 90 days cetirizine 10 mg PO DAILY PRN 90 days cyclobenzaprine 10 mg PO TID PRN ergocalciferol (vitamin D2) (Vitamin D2) 1,250 mcg PO QWEEK 3 months fluticasone furoate-vilanterol 200-25 mcg/dose (Breo Ellipta) 1 inh inhalation DAILY 30 days [HANDHELD SHOWER HEAD As directed] lorazepam 0.5 mg PO BID PRN 30 days metformin ER 500 mg PO QPM 90 days mirabegron ER (Myrbetriq) 50 mg PO DAILY 30 days omalizumab (Xolair) 300 mg (2 mL) subcut Q2W 28 days omeprazole 40 mg PO DAILY tramadol 50 mg PO TID PRN 30 days zolpidem 10 mg PO BEDTIME PRN 30 days HPI HPI Comments History of Present Illness Details Patient presents today to assess response to repeat Bilateral Therapeutic L3-L4 DR L5 MBBs on 03/12/[address] Ivy. Patient reports 90% ongoing pain relief and reports improved daily activities, mobility, sleep, and social interactions. Patient reports no pain with lumbar extension. Patient reports left sided radicular pain in his left leg posteriorly with intermittent weakness, numbness and tingling in his lower leg and foot. Pain increases with movements, bending or walking and improved with resting. He is interested to undergo L5-S1 TFESI for his symptoms. Denies any fever, abdominal or groin pain, bladder or bowel incontinence or saddle anesthesia. Past Procedure: 03/12/23: Bilateral Therapeutic L3-L4 DR L5 MBB- 90% ongoing pain relief 11/28/22: Bilateral Therapeutic L3-L4 DR L5 MBB- 85% ongoing pain relief 10/28/22: Bilateral Diagnostic L3-L4 DR L5 MBB-80% pain relief for 2 days PRIOR: Patient is a pleasant 47 years old male with a history of significant degenerative changes at L3-S1 presents today for initial back pain evaluation. He attributes his chronic back pain to work related injury in [place] in 2000 which has resulted in 2 herniated discs. Denies recent trauma, injury or falls. Patient moved to [place] in 2008 and was followed by [facility] and [facility] to manage his pain and has received multiple injections, mainly steroid injections, physical therapy, aqua therapy, and TENS unit. He reports the most recent injection was 2 months ago with good relief for his left sided radiculopathy symptoms. His pain is axial but also radiates into his left side and left lateral buttock, hip into his left lower extremity laterally and anteriorly in cortés with associated numbness and tingling in his lateral left thigh and toes. Patient reports weakness in his LLE. Pain is described as constant aching, hot burning, stabbing, sharp and numbness. Worse with prolonged walking, standing, changing position or cold weather changes. Patient reports pain affects his daily activities, functioning, sleep, social interactions, and quality of life. Patient reports he completed lumbar spine MRI at [facility] 2 months ago, this report is not available today. Currently he takes Tylenol and tramadol prescribed by his PCP and heat therapy with partial symptom relief. Denies any fever, malaise, abdominal or groin pain, bowel or bladder incontinence or saddle anesthesia. Patient was evaluated by Dr. Crocker in 2010 and 2016. At his last neurosurgical evaluation, Dr. Crocker discussed lumbar decompression with partial discectomy to relieve his leg symptoms or two level spinal fusion for back pain symptoms. Patient states he declined surgical options at that time. He states injections are effective but provide short term pain relief. Patient states physical therapy in the past worsened his symptoms. Denies history of diabetes. Most recent A1C was 5.9. [facility] Medical History Abdominal pain Allergic rhinitis Anxiety Asthma Benign essential hypertension Benign prostatic hyperplasia Blurred vision, right eye Constipation Dyslipidemia Hypertension Impaired fasting glucose Insomnia Lumbar degenerative disc disease Obesity (BMI 30-39.9) Obstructive sleep apnea Overactive bladder Vitamin D deficiency Surgical History H/O colonoscopy History of prostate surgery History of surgery Hx of eye surgery Hx of hemorrhoidectomy Hx of rectal sphincterotomy Family History Brother Diabetes Social History Household Members: None Housing: Apartment Alcohol intake: current Alcohol intake frequency: holidays/special occasions only Patient Tobacco Use Status: Former Tobacco user Quit Date: 2018 e-Cigarette/Vaping Use: Never Used Second Hand Smoke Exposure: Yes service: No Current occupational status: employed Cognitive needs: No Hearing needs: No Vision needs: No Review of Systems Const All systems reviewed & are unremarkable except as noted in HPI and below Physical Exam Vital Signs: Last Vital Signs Pulse 75 04/21/23 14:16 Resp 14 04/21/23 14:16 BP 122/90 H 04/21/23 14:16 Pulse Ox 98 04/21/23 14:16 Oxygen Delivery Method Room Air 04/21/23 14:16 BMI result Body Mass Index 33.2 General: Appears afebrile. Alert and oriented. Mood and affect appropriate. Follows and participates in conversation appropriately. Respiratory effort is unlabored. No cough. Able to transition from sit to stand unassisted. Ambulates with bilaterally normal heel strike and toe off. Back/Spine/Pelvis Cervical Spine: normal cervical lordosis, cervical ROM normal and No Cervical spine tenderness Thoracic/Lumbar Spine: thoracic and lumbar spine normal to inspection, Lasegue's sign positive on the left and localized, pain with thoraco-lumbar ROM, paraspinal muscle tenderness on the left greater than right, thoraco-lumbar ROM limited (due to pain) with forward flexion, No thoracic spinal tenderness, lumbar spinal tenderness at L4 and at L5 and straight leg raise positive left at 40 degrees Sacroiliac joints: bilaterally (+Jenifer, +Damon's left>right) tender to palpation Results Reviewed Results Reviewed: Assessment & Plan Assessment & Plan (1) Lumbar back pain with radiculopathy affecting left lower extremity: Code(s): M54.16 - Radiculopathy, lumbar region (2) Lumbar spondylosis: Code(s): M47.816 - Spondylosis without myelopathy or radiculopathy, lumbar region (3) Lumbar degenerative disc disease: Code(s): M51.36 - Other intervertebral disc degeneration, lumbar region (4) Sacroiliitis: Code(s): M46.1 - Sacroiliitis, not elsewhere classified Plan Patient is status post Bilateral Diagnostic L3-L4 DR L5 MBBs on 03/12/23 with ongoing 90% pain relief for low axial low back pain. For left sided radicular back pain, will schedule for Left L5-S1 TFESI with local and fluoroscopy. He has mild tenderness in projection of both sacroiliac joint as well but worse left leg pain with SLR testing with dorsiflexion. All q uestions were answered and patient is in agreement plan. Follow up after injections and sooner as needed. Justification for interventional therapy: ? Patient with average pain > 6/10 ? Patient has exhausted conservative therapy, physical therapy, opioids, muscle relaxants The risks, consequences, alternatives, and benefits of various treatment options were discussed with the patient in great detail, including conservative management, injections and procedures. I informed him of the hyperglycemic effects of steroids. Coding Level of Care Code Est Pt Level 4 (37834) Diagnoses Lumbar back pain with radiculopathy affecting left lower extremity M54.16 Lumbar spondylosis M47.816 Lumbar degenerative disc disease M51.36 Sacroiliitis M46.1
[2023-04-21 14:16] VITALS: BP 122/90; PULSE 75; RESP 14; O2SAT 98; BMI 33.2
== END 2023-04-21 14:27 | disposition home or self-care (01) ==
PROVIDERS: PCP Internal Medicine; Visit Provider Nurse Practitioner Family
DX: M54.16 Radiculopathy, lumbar region (principal); M47.816 Spondylosis without myelopathy or radiculopathy, lumbar region; M51.36 Other intervertebral disc degeneration, lumbar region; M46.1 Sacroiliitis, not elsewhere classified
CPT/HCPCS: 99214

== ENCOUNTER → 2023-04-21 14:09 | Outpatient (BNVA) | payer OTHER, SELFPAY | PROVIDERS: PCP Internal Medicine; Visit Provider Nurse Practitioner Family | DX: M54.16 Radiculopathy, lumbar region (principal); M47.816 Spondylosis without myelopathy or radiculopathy, lumbar region; M51.36 Other intervertebral disc degeneration, lumbar region; M46.1 Sacroiliitis, not elsewhere classified | CPT/HCPCS: 99212 ==

== ENCOUNTER 2023-05-01 08:06 | Outpatient (REF) | payer OTHER, SELFPAY | END 2023-05-01 08:07 | disposition home or self-care (01) | LOC: HO.MDS 08:06 | PROVIDERS: Visit Provider Internal Medicine Pulmonary Disease | DX: J45.50 Severe persistent asthma, uncomplicated (principal) | CPT/HCPCS: 96372 ==

== ENCOUNTER 2023-05-11 07:33 | Outpatient (REF) | payer OTHER, SELFPAY ==
[2023-05-11 07:42] LABS: MANUAL DIFF FLAG NO
[2023-05-11 08:19] LABS: Basophils Absolute Auto 0.1 X10*3/uL (0.0-0.2); Basophils Percent Auto 0.9 % (0-2); Eosinophils Absolute Auto 0.1 X10*3/uL (0.0-0.4); Eosinophils Percent Auto 1.8 % (0-4); Hemoglobin 13.8 g/dl (14.0-18.0); Imm Gran Abs Auto 0.02 X10*3/uL (0.00-0.03); Imm Gran Pct Auto 0.3 % (0.0-0.4); Lymphocytes Absolute Auto 2.6 X10*3/uL (1.2-4.9); Lymphocytes Percent Auto 33.1 % (20-40); Mean Corpuscular HGB Conc 32.1 g/dl (31.0-36.0); Mean Corpuscular Hemoglobin 28.9 pg (27.0-33.0); Mean Platelet Volume 9.3 fL (9.4-12.4); Monocytes Absolute Auto 0.7 X10*3/uL (0.1-1.2); Monocytes Percent Auto 8.2 % (2-11); Neutrophils Absolute Auto 4.4 x10*3/uL (2.0-8.3); Neutrophils Percent Auto 55.7 % (45-73); Platelet Count 284 X10*3/uL (160-400); Red Blood Count 4.78 X10*6/uL (4.60-5.80); Red Cell Distribution Width 13.5 % (11.0-16.0); White Blood Count 7.9 X10*3/uL (4.8-10.8)
[2023-05-11 08:25] LABS: Estimated Average Glucose 114 mg/dL; Hemoglobin A1c % 5.6 % (<6.0)
[2023-05-11 09:02] LABS: Alanine Aminotransferase 9 U/L (0-40); Albumin Level 3.9 g/dL (3.5-5.0); Alkaline Phosphatase 75 U/L (39-117); Anion Gap 10 (12-20); Aspartate Amino Transferase 15 U/L (5-37); Bilirubin Total 0.4 mg/dL (0.0-1.0); Blood Urea Nitrogen 14 mg/dL (9-16); Calcium 9.3 mg/dL (8.4-10.2); Carbon Dioxide 23 mmol/L (22-29); Chloride 112 mmol/L (96-108); Cholesterol 161 mg/dL (<200); Estimated Glomerular Filt Rate > 60; Glucose Fasting 110 mg/dL (60-99); HDL Cholesterol 30 mg/dL (>40); LDL Cholesterol Calculated 102 mg/dL (<100); Potassium 3.7 mmol/L (3.3-5.1); Sodium 141 mmol/L (135-145); Total Protein 6.8 g/dL (6.5-8.0); Triglycerides 148 mg/dL (<150)
[2023-05-11 09:23] LABS: TSH reflex Free T4 1.15 uIU/mL (0.32-4.0); Vitamin D 25-OH Total 28.6 ng/mL (>30)
[2023-05-11 10:52] LABS: Appearance Urine Clear; Color Urine Yellow; Glucose Urine UA Negative (Negative); Leukocyte Esterase Urine Negative (Negative); Nitrite Urine Negative (Negative); PH 5.5 (5.0-9.0); Specific Gravity - Urine >= 1.030 (1.005-1.025); Urine Blood Negative (Negative); Urine Ketones Trace mg/dL (Negative); Urine Protein Negative (Neg-Trace)
== END 2023-05-11 07:34 | disposition home or self-care (01) ==
LOC: HO.LAB 07:33
PROVIDERS: PCP Internal Medicine; Visit Provider Internal Medicine
DX: E78.00 Pure hypercholesterolemia, unspecified (principal); R30.0 Dysuria; R73.01 Impaired fasting glucose; E55.9 Vitamin D deficiency, unspecified; I10 Essential (primary) hypertension
CPT/HCPCS: 36415; 80053; 80061; 81003; 82306; 83036; 84443; 85025

== ENCOUNTER 2023-05-14 11:15 | Outpatient (AMB) | payer OTHER, SELFPAY ==
[2023-05-14 11:24] VITALS: BP 110/80; PULSE 79; O2SAT 98; BMI 33.1
--- NOTE | 2023-05-14 11:24 | A.OFFPC_ITS ---
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 Required: No Accompanied by: Self / Same As Patient Allergies gabapentin [GABAPENTIN] Allergy (Unknown, Verified 05/14/23 11:47) SEVERE H/A,BLURRY VISION,MOOD CHANGE Medication List - Last Reconciled 05/14/23 by Aayush Jay MD [adjustable straight point cane with offset handle As directed] albuterol sulfate 90 mcg/actuation 2 puffs inhalation Q4-6H PRN 30 days amlodipine 5 mg PO DAILY 90 days cetirizine 10 mg PO DAILY PRN 90 days cyclobenzaprine 10 mg PO TID PRN ergocalciferol (vitamin D2) (Vitamin D2) 1,250 mcg PO QWEEK 3 months fluticasone furoate-vilanterol 200-25 mcg/dose (Breo Ellipta) 1 inh inhalation DAILY 30 days [HANDHELD SHOWER HEAD As directed] lorazepam 0.5 mg PO BID PRN 30 days metformin ER 500 mg PO QPM 90 days mirabegron ER (Myrbetriq) 50 mg PO DAILY 30 days omalizumab (Xolair) 300 mg (2 mL) subcut Q2W 28 days omeprazole 40 mg PO DAILY tramadol 50 mg PO TID PRN 30 days zolpidem 10 mg PO BEDTIME PRN 30 days Tobacco use date assessed: 05/14/23 Dental Screening Dental Screen Date: 05/14/23 Did you have a dental visit in the last 12 months?: Yes Did you have a dental problem in the last 6 months where you did not have access to dental care?: No Was dental information given to patient?: Patient has dentist HPI lumbar DDD, dyslipidemia, vitamin D deficiency HPI Details Patient comes in today for his follow up visit States that he feels okay He denies any headaches or dizziness Denies any chest pains, no SOB No nausea/vomiting, no abdominal pain No change in bowel habits noted States that his low back pain remains adequately controlled with his current Rx and management; he is scheduled for a TFESI in a few weeks on 06/02/23 Needs a few of his Rx refilled today Had his follow up labs done a few days ago - to discuss his results [facility] Medical History Abdominal pain Allergic rhinitis Anxiety Asthma Benign essential hypertension Benign prostatic hyperplasia Blurred vision, right eye Constipation Dyslipidemia Hypertension Impaired fasting glucose Insomnia Lumbar degenerative disc disease Obesity (BMI 30-39.9) Obstructive sleep apnea Overactive bladder Vitamin D deficiency Surgical History H/O colonoscopy History of prostate surgery History of surgery Hx of eye surgery Hx of hemorrhoidectomy Hx of rectal sphincterotomy Family History Brother Diabetes Social History Household Members: None Housing: Apartment Alcohol intake: current Alcohol intake frequency: holidays/special occasions only Patient Tobacco Use Status: Former Tobacco user Quit Date: 2018 e-Cigarette/Vaping Use: Never Used Second Hand Smoke Exposure: Yes service: No Current occupational status: employed Cognitive needs: No Hearing needs: No Vision needs: No Questionnaire PHQ-9 Over the last 2 weeks, how often have you been bothered by any of the following problems? 1. Little interest or pleasure in doing things: not at all 2. Feeling down, depressed, or hopeless: not at all 3. Trouble falling or staying asleep, or sleeping too much: not at all 4. Feeling tired or having little energy: not at all 5. Poor appetite or overeating: not at all 6. Feeling bad about yourself - or that you are a failure or have let yourself or your family down: not at all 7. Trouble concentrating on things, such as reading the newspaper or watching television: not at all 8. Moving or speaking so slowly that other people could have noticed. Or the opposite - being so fidgety or restless that you have been moving around a lot more than usual: not at all 9. Thoughts that you would be better off or of hurting yourself in some way: not at all Total score: 0 Depression Screening Interpretation: Negative [id number] - PHQ-9 Billing: Yes Source: Developed by Drs. Александр Andre, Muriel Guido, Shiv Treadwell and colleagues, with an educational sharon from [employer]. Thrive Questionnaire Date Thrive assessed: 05/14/23 I am a: Patient What is your living situation today?: I have a steady place to live Within the past 12 months, did the food you bought not last and you didn't have the money to get more?: Never true Within the past 12 months, did you worry whether your food would run out before you got money to buy more?: Never true Do you have trouble paying for medicines?: No Do you have trouble getting transportation to medical appointments?: No Do you have trouble paying your heating and electricity bill?: No Do you have trouble taking care of your child, family member or friend?: No Do you have trouble with day-to-day activities such as bathing, preparing meals, shopping, managing finances, etc.?: No Are you currently unemployed and looking for a job?: No Are you interested in more education?: No Please select the resources that you would like help with: None Currently or been in a relationship where the following occur: no concerns reported AUDIT C Alcohol Use Questionnaire (AUDIT-C) 1. How often do you have a drink containing alcohol?: Monthly or less 2. How many drinks containing alcohol do you have on a typical day when you are drinking?: 1 or 2 3. How often do you have six or more drinks on one occasion?: Never Total Score: 1 Score Reviewed/Action Taken: Yes WILMER-7 AMB Questionnaire WILMER-7 Date WILMER - 7 assessed: 05/14/23 Feeling nervous, anxious, or on edge: 0 = Not at all Not being able to stop or control worryin = Not at all Worrying too much about different things: 0 = Not at all Trouble relaxin = Not at all Being so restless that it is hard to sit still: 0 = Not at all Becoming easily annoyed or irritable: 0 = Not at all Feeling afraid as if something awful might happen: 0 = Not at all Total WILMER-7 score (0-4 normal; 5-9 mild; 10-14 moderate; 15-21 severe): 0 Source: Developed by Muriel Lane, Shiv Treadwell and colleagues, with an educational sharon from [employer]. Review of Systems Const Denies fatigue, Denies fever(s) and Denies headache(s) ENT Denies dysphagia, Denies dizziness, Denies otalgia, Denies headache(s), Denies odynophagia and Denies sore throat Card Denies chest pain, Denies palpitations and Denies dyspnea Resp Denies cough, Denies dyspnea and Denies wheezing GI Denies abdominal pain, Denies constipation, Denies dysphagia, Denies heartburn, Denies diarrhea, Denies nausea, Denies odynophagia and Denies vomiting Denies dysuria, Denies nocturia and Denies urinary frequency Musc Reports back pain (over the lumbar spine - chronic) Neuro Denies dizziness and Denies headache(s) Endo Denies fatigue and Denies palpitations Aller/Immun Denies wheezing Physical exam (Primary Care) Vital Signs: Last Vital Signs Pulse 79 05/14/23 11:24 BP 110/80 05/14/23 11:24 Pulse Ox 98 05/14/23 11:24 Oxygen Delivery Method Room Air 05/14/23 11:24 BMI result Body Mass Index 33.1 Tobacco/Smoking Status: Tobacco use Status Tobacco use date assessed 05/14/23 05/14/23 11:28 Patient Tobacco Use Status Former Tobacco user 05/14/23 11:28 e-Cigarette/Vaping Use Never Used 05/14/23 11:28 PHQ-9: PHQ-9 Score PHQ-9: Total score 0 05/14/23 11:49 Depression Screening Interpretation: Negative Thrive Assessment: Date of Thrive Assessment Date Thrive assessed 05/14/23 05/14/23 11:28 Currently or been in a relationship where the following occur: no concerns reported Const General: no acute distress and alert HENMT Ears: TM's normal bilaterally and EAC's normal Throat: Yes posterior oropharynx normal and Yes tonsils normal (no TP congestion) Neck Neck: Yes no lymphadenopathy and Yes supple Resp Auscultation: clear to auscultation bilaterally, no rales and no wheezes Cardio Rate: regular rate Rhythm: regular rhythm Heart sounds: no murmurs GI Palpation (GI): Soft to palpation and nontender Auscultation: normal bowel sounds Back/Spine/Pelvis Thoracic/Lumbar Spine: lumbar spinal tenderness Extrem General: Yes no clubbing, cyanosis or edema Results Reviewed Results Reviewed: Laboratory Tests 05/11/23 05/11/23 05/11/23 07:41 07:41 07:41 WBC 7.9 Hgb 13.8 L Hct 43.0 Plt Count 284 Sodium 141 Potassium 3.7 Creatinine 0.85 Estimated GFR > 60 Fasting Glucose 110 H Hemoglobin A1c % 5.6 Calcium 9.3 AST 15 ALT 9 Triglycerides 148 Cholesterol 161 LDL Cholesterol, Calc 102 H HDL Cholesterol 30 L 25-OH Vitamin D Total 28.6 TSH 1.15 Ur Specific [place] Urine Protein Urine Glucose (UA) Urine Blood 05/11/23 09:16 WBC Hgb Hct Plt Count Sodium Potassium Creatinine Estimated GFR Fasting Glucose Hemoglobin A1c % Calcium AST ALT Triglycerides Cholesterol LDL Cholesterol, Calc HDL Cholesterol 25-OH Vitamin D Total TSH Ur Specific [place] >= 1.030 H Urine Protein Negative Urine Glucose (UA) Negative Urine Blood Negative Assessment and Plan Assessment & Plan (1) Lumbar degenerative disc disease: Code(s): M51.36 - Other intervertebral disc degeneration, lumbar region Plan: Reinforced activity and weight lifting restrictions Continue Tramadol 50 mg TID PRN Follow up with [facility] Pain Management as scheduled He had MBB trial a few months ago with reportedly around 85% symptomatic improvement and is scheduled for TFESI in a few weeks on 06/02/23 (2) Asthma: Code(s): J45.909 - Unspecified asthma, uncomplicated Qualifiers: Asthma complication type: uncomplicated Asthma persistence: intermittent Asthma severity: mild Qualified Code(s): J45.20 - Mild intermi ttent asthma, uncomplicated Plan: Stable Continue Incruse Ellipta 62.5 mcg 1 inhalation QD and Albuterol HFA 2 inhalations Q 6 hours PRN Is currently still on Xolair injections 300 mg every [address] up [address] Garber (pulmonary) as scheduled (3) Benign essential hypertension: Code(s): I10 - Essential (primary) hypertension Plan: Reinforced low sodium diet - goal is systolic BP of 120 mm or less Continue Amlodipine 5 mg QD (4) Dyslipidemia: Code(s): E78.5 - Hyperlipidemia, unspecified Plan: Results of his labs done a few days ago reviewed and discussed with patient Reinforced low cholesterol diet Will recheck his labs in 4 months for follow-up (5) Impaired fasting glucose: Code(s): R73.01 - Impaired fasting glucose Plan: HgbA1c was at 5.6% on his labs done a few days ago; was previously at 5.8% Reinforced low calorie diet/exercise as tolerated Continue Metformin ER 500 mg QD (6) Obstructive sleep apnea: Comment: no cpap used Code(s): G47.33 - Obstructive sleep apnea (adult) (pediatric) Plan: Continues to use his CPAP device when sleeping at night daily (7) Allergic rhinitis: Code(s): J30.9 - Allergic rhinitis, unspecified Qualifiers: Allergic rhinitis seasonality: unspecified Allergic rhinitis trigger: unspecified Qualified Code(s): J30.9 - Allergic rhinitis, unspecified Plan: Continue Cetirizine 10 mg QD PRN (8) Vitamin D deficiency: Code(s): E55.9 - Vitamin D deficiency, unspecified Plan: Improving - continue Vitamin D2 66246 units once a week (9) GERD (gastroesophageal reflux disease): Code(s): K21.9 - Gastro-esophageal reflux disease without esophagitis Qualifiers: Esophagitis presence: without esophagitis Qualified Code(s): K21.9 - Gastro-esophageal reflux disease without esophagitis Plan: Dietary restrictions reinforced Continue Omeprazole 40 mg QD Follow up with GI as scheduled (10) Constipation: Code(s): K59.00 - Constipation, unspecified Qualifiers: Constipation type: unspecified constipation type Qualified Code(s): K59.00 - Constipation, unspecified Plan: Reinforced increased oral fluids and dietary fiber Continue Bisacodyl 5 mg BID PRN (11) Overactive bladder: Code(s): N32.81 - Overactive bladder Plan: Continue Myrbetriq ER 50 mg QD Follow up with urology as scheduled (12) Benign prostatic hyperplasia: Code(s): N40.0 - Benign prostatic hyperplasia without lower urinary tract symptoms Qualifiers: Lower urinary tract symptom detail: urinary frequency Lower urinary tract symptom presence: symptoms present Qualified Code(s): N40.1 - Benign prostatic hyperplasia with lower urinary tract symptoms; R35.0 - Frequency of micturition Plan: Follow up with urology as scheduled (13) Insomnia: Code(s): G47.00 - Insomnia, unspecified Qualifiers: Insomnia type: unspecified Qualified Code(s): G47.00 - Insomnia, unspecified Plan: Sleep hygiene reinforced Continue Zolpidem 10 mg Q HS PRN (14) Anxiety: Code(s): F41.9 - Anxiety disorder, unspecified Plan: Continue Lorazepam 0.5 mg BID PRN (15) Obesity (BMI 30-39.9): Code(s): E66.9 - Obesity, unspecified Plan: Reinforced diet/exercise as tolerated/lose weight Per request, will refer him to weight management as he has been struggling trying to lose weight on his own Plan Follow up in 4 months Orders: Orders Complete Blood Count Auto Diff 4 Months I10 - Essential (primary) hypertension Comprehensive [place]. Panel Fast 4 Months E78.00 - Pure hypercholesterolemia, unspecified Lipid Panel 4 Months E78.00 - Pure hypercholesterolemia, unspecified UA CC w/rflx Micro + Cult 4 Months R30.0 - Dysuria Vitamin D 25-OH Total 4 Months E55.9 - Vitamin D deficiency, unspecified Hemoglobin A1c 4 Months R73.01 - Impaired fasting glucose Referrals Medical Weight Management Referral E66.9 - Obesity, unspecified Medications: Refilled tramadol 50 mg PO TID 30 days PRN 90 tabs 0RF pain M51.36 - Other intervertebral disc degeneration, lumbar region zolpidem 10 mg PO BEDTIME 30 days PRN 30 tabs 0RF insomnia amlodipine 5 mg PO DAILY 90 days 90 tabs 1RF albuterol sulfate 90 mcg/actuation 2 puffs inhalation Q4-6H 30 days PRN 8.5 grams 3RF shortness of breath or wheezing fluticasone furoate-vilanterol 200-25 mcg/dose (Breo Ellipta) 1 inh inhalation DAILY 30 days 1 ea 6RF Coding Level of Care Code Est Pt Level 4 (98668) Diagnoses Lumbar degenerative disc disease M51.36 Asthma J45.20 Asthma complication type: uncomplicated Asthma persistence: intermittent Asthma severity: mild Benign essential hypertension I10 Dyslipidemia E78.5 Impaired fasting glucose R73.01 Obstructive sleep apnea G47.33 Allergic rhinitis J30.9 Allergic rhinitis seasonality: unspecified Allergic rhinitis trigger: unspecified Vitamin D deficiency E55.9 GERD (gastroesophageal reflux disease) K21.9 Esophagitis presence: without esophagitis Constipation K59.00 Constipation type: unspecified constipation type Overactive bladder N32.81 Benign prostatic hyperplasia N40.1; R35.0 Lower urinary tract symptom detail: urinary frequency Lower urinary tract symptom presence: symptoms present Insomnia G47.00 Insomnia type: unspecified Anxiety F41.9 Obesity (BMI 30-39.9) E66.9
== END 2023-05-14 11:58 | disposition home or self-care (01) ==
PROVIDERS: Visit Provider Internal Medicine
DX: I10 Essential (primary) hypertension (principal); J45.20 Mild intermittent asthma, uncomplicated; E55.9 Vitamin D deficiency, unspecified; K21.9 Gastro-esophageal reflux disease without esophagitis; F41.9 Anxiety disorder, unspecified; M51.36 Other intervertebral disc degeneration, lumbar region; E78.5 Hyperlipidemia, unspecified; R73.01 Impaired fasting glucose; G47.33 Obstructive sleep apnea (adult) (pediatric); J30.9 Allergic rhinitis, unspecified; K59.00 Constipation, unspecified; N32.81 Overactive bladder
CPT/HCPCS: 99214

== ENCOUNTER 2023-05-15 08:29 | Outpatient (REF) | payer OTHER, SELFPAY | END 2023-05-15 08:30 | disposition home or self-care (01) | LOC: HO.MDS 08:29 | PROVIDERS: Visit Provider Internal Medicine Pulmonary Disease | DX: J45.50 Severe persistent asthma, uncomplicated (principal) | CPT/HCPCS: 96372 ==

== ENCOUNTER 2023-06-02 06:07 | Outpatient (REF) | payer OTHER, SELFPAY ==
--- NOTE | ~2023-06-02 | FL_ITS ---
EXAMINATION: XR FLUOROSCOPY WITH IMAGES CLINICAL INFORMATION: Radiculopathy, lumbar region. COMPARISON: None available. TECHNIQUE: Fluoroscopy Supervised By: Dr. Lb Ivy. Fluoroscopy Time: 0.6 minutes. Cumulative Dose: 13.0 mGy. DAP: 0.211 Gycm2. Images: 2. FINDINGS: Images demonstrate needle placement and contrast injection of the left epidural space at L5-S1. FL/FL guidance in treatment room IMPRESSION: Fluoroscopy guidance for pain management procedure.
== END 2023-06-02 06:08 | disposition home or self-care (01) ==
LOC: CF 06:07
PROVIDERS: Visit Provider Anesthesiology
DX: M54.16 Radiculopathy, lumbar region (principal); M47.816 Spondylosis without myelopathy or radiculopathy, lumbar region
CPT/HCPCS: 64483; J3301; Q9967

== ENCOUNTER 2023-06-02 07:20 | Outpatient (AMB) | payer OTHER, SELFPAY ==
[2023-06-02 07:26] VITALS: BP 126/80; PULSE 80; RESP 18; O2SAT 98; BMI 33.1
--- NOTE | 2023-06-02 07:26 | MHC.OFFVIS ---
Intake Vital Signs 06/02/23 07:26 06/02/23 08:41 Height 5 ft 9 in 5 ft 9 in Weight 224 lb 224 lb BMI 33.1 33.1 BP 126/80 130/74 Blood Pressure Location Lt brachial Rt brachial Position Sitting Sitting Respiration 18 18 Pulse 80 80 Pulse Source Pulse Oximeter Pulse Oximeter Pulse Oximetry (%) 98 98 Oxygen Delivery Method Room Air Room Air Comment Pre-Op post-op Intake Visit Reasons: L L5-S1 TFESI/LOCAL Allergies gabapentin [GABAPENTIN] Allergy (Unknown, Verified 06/02/23 07:27) SEVERE H/A,BLURRY VISION,MOOD CHANGE PFSH Medical History Abdominal pain Allergic rhinitis Anxiety Asthma Benign essential hypertension Benign prostatic hyperplasia Blurred vision, right eye Constipation Dyslipidemia Hypertension Impaired fasting glucose Insomnia Lumbar degenerative disc disease Obesity (BMI 30-39.9) Obstructive sleep apnea Overactive bladder Vitamin D deficiency Surgical History H/O colonoscopy History of prostate surgery History of surgery Hx of eye surgery Hx of hemorrhoidectomy Hx of rectal sphincterotomy Family History Brother Diabetes Social History Household Members: None Housing: Apartment Alcohol intake: current Alcohol intake frequency: holidays/special occasions only Patient Tobacco Use Status: Former Tobacco user Quit Date: 2018 e-Cigarette/Vaping Use: Never Used Second Hand Smoke Exposure: Yes service: No Current occupational status: employed Cognitive needs: No Hearing needs: No Vision needs: No Physical Exam Vital Signs: Last Vital Signs Pulse 80 06/02/23 08:41 Resp 18 06/02/23 08:41 BP 130/74 06/02/23 08:41 Pulse Ox 98 06/02/23 08:41 Oxygen Delivery Method Room Air 06/02/23 08:41 BMI result Body Mass Index 33.1 Assessment & Plan Assessment & Plan (1) Lumbar spondylosis: Code(s): M47.816 - Spondylosis without myelopathy or radiculopathy, lumbar region (2) Lumbar back pain with radiculopathy affecting left lower extremity: Code(s): M54.16 - Radiculopathy, lumbar region Plan Left L5- S1 Transforaminal epidural steroid injection Informed consent was thoroughly explained to the patient before the procedure. The patient came to the operating room. She was positioned prone on operating table with a pillow under her abdomen. Time-out was performed delineating correct site and side of the procedure, nature of the injection, name and date of of the patient. The lower back of the patient was prepped with ChloraPrep and draped with sterile utility towels. C-arm was brought over the operating field and sq picture of L5 vertebra was demonstrated on the screen. The left side was chosen as the side of the injection. Tilting machine ipsilateral to the right at the level of L5 the most prominent picture of the left S1 superior articular process was obtained on the screen. At the projection of the lateral border of the SAP S1 to the skin small amount of lidocaine 1% 3-4 cc was injected to anesthetize the skin and s/q tissues. After that 5 in 22 gauge Quincke point needle was inserted through the skin wheal and was advanced to were the L5-S1 foramina on anterior posterior, lateral and oblique views intermittently.When needle tip contacted the bone the needle was deviated laterally and after that medially to advance it below the SAP and into the L5- S1 foramina. On lateral view the needle appeared to be at the lateral portion of the foramina. When tip of the needle entered foramina projection on AP view injection of the contrast was performed demonstrating epidural and perineural spread of the contrast. After that injection of the treatment medicine 2 cc of preservative-free lidocaine 1% mixed with Kenalog 40 mg was injected into the foramina. Injection of the contrast and injection of the treatment medicine was observed live on the screen. No intrathecal and no intravascular spread of the contrast was noted. The needle was removed and bandaid was applied, the patient tolerated procedure well. Orders: Orders FL guidance in treatment room Today M54.16 - Radiculopathy, lumbar region Coding Level of Care Code Procedure Only Diagnoses Lumbar spondylosis M47.816 Lumbar back pain with radiculopathy affecting left lower extremity M54.16
[2023-06-02 08:41] VITALS: BP 130/74; PULSE 80; RESP 18; O2SAT 98; BMI 33.1
== END 2023-06-02 08:34 | disposition home or self-care (01) ==
LOC: HO.PMCPRC 07:20
PROVIDERS: PCP Internal Medicine; Visit Provider Anesthesiology
DX: M47.26 Other spondylosis with radiculopathy, lumbar region (principal)
CPT/HCPCS: 64483

== ENCOUNTER 2023-06-12 07:38 | Outpatient (REF) | payer OTHER, SELFPAY | END 2023-06-12 07:39 | disposition home or self-care (01) | LOC: HO.MDS 07:38 | PROVIDERS: Visit Provider Internal Medicine Pulmonary Disease | DX: J45.50 Severe persistent asthma, uncomplicated (principal) | CPT/HCPCS: 96372 ==

== ENCOUNTER 2023-06-26 12:37 | Outpatient (REF) | payer OTHER, SELFPAY | END 2023-06-26 12:38 | disposition home or self-care (01) | LOC: HO.MDS 12:37 | PROVIDERS: Visit Provider Internal Medicine Pulmonary Disease | DX: J45.50 Severe persistent asthma, uncomplicated (principal) | CPT/HCPCS: 96372 ==

== ENCOUNTER 2023-07-10 08:30 | Outpatient (REF) | payer OTHER, SELFPAY | END 2023-07-10 08:31 | disposition home or self-care (01) | LOC: HO.MDS 08:30 | PROVIDERS: Visit Provider Internal Medicine Pulmonary Disease | DX: J45.50 Severe persistent asthma, uncomplicated (principal) | CPT/HCPCS: 96372 ==

== ENCOUNTER 2023-07-24 11:31 | Outpatient (REF) | payer OTHER, SELFPAY | END 2023-07-24 11:32 | disposition home or self-care (01) | LOC: HO.MDS 11:31 | PROVIDERS: Visit Provider Internal Medicine Pulmonary Disease | DX: J45.50 Severe persistent asthma, uncomplicated (principal) | CPT/HCPCS: 96372 ==

== ENCOUNTER 2023-08-13 14:00 | Outpatient (REF) | payer OTHER, SELFPAY | END 2023-08-13 14:01 | disposition home or self-care (01) | LOC: HO.MDS 14:00 | PROVIDERS: Visit Provider Internal Medicine Pulmonary Disease | DX: J45.50 Severe persistent asthma, uncomplicated (principal) | CPT/HCPCS: 96372 ==

== ENCOUNTER 2023-08-27 09:21 | Outpatient (REF) | payer OTHER, SELFPAY | END 2023-08-27 09:22 | disposition home or self-care (01) | LOC: HO.MDS 09:21 | PROVIDERS: Visit Provider Internal Medicine Pulmonary Disease | DX: J45.50 Severe persistent asthma, uncomplicated (principal) | CPT/HCPCS: 96372 ==

== ENCOUNTER 2023-09-04 09:48 | Outpatient (AMB) | payer OTHER, SELFPAY ==
--- NOTE | 2023-09-04 09:49 | MHC.OFFVIS ---
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 Ivy. Patient reports 90% pain relief for left radicular symptoms for 3 months. He reports left sided back pain has returned last week. Pain is rated at 8/10 today. Patient reports increased back pain with movements and lumbar extension. We discussed long-term effects of repeated cortisone injections and returned to topic of peripheral nerve stimulation and RFA procedures. Patient reports he is interested to pursue Sprint PNS trial for axial low back pain, starting with left side first, followed by right side. Denies any fever, abdominal or groin pain, bladder or bowel incontinence or saddle anesthesia. Past Procedure: 06/02/23: Left L5-S1 TFESI-80% pain relief for 3 months 03/12/23: Bilateral Therapeutic L3-L4 DR L5 MBB- 90% ongoing pain relief 11/28/22: Bilateral Therapeutic L3-L4 DR L5 MBB- 85% ongoing pain relief 10/28/22: Bilateral Diagnostic L3-L4 DR L5 MBB-80% pain relief for 2 days PRIOR: Patient is a pleasant 47 years old male with a history of significant degenerative changes at L3-S1 presents today for initial back pain evaluation. He attributes his chronic back pain to work related injury in [place] in 2000 which has resulted in 2 herniated discs. Denies recent trauma, injury or falls. Patient moved to [place] in 2008 and was followed by [facility] and [facility] to manage his pain and has received multiple injections, mainly steroid injections, physical therapy, aqua therapy, and TENS unit. He reports the most recent injection was 2 months ago with good relief for his left sided radiculopathy symptoms. His pain is axial but also radiates into his left side and left lateral buttock, hip into his left lower extremity laterally and anteriorly in cortés with associated numbness and tingling in his lateral left thigh and toes. Patient reports weakness in his LLE. Pain is described as constant aching, hot burning, stabbing, sharp and numbness. Worse with prolonged walking, standing, changing position or cold weather changes. Patient reports pain affects his daily activities, functioning, sleep, social interactions, and quality of life. Patient reports he completed lumbar spine MRI at [facility] 2 months ago, this report is not available today. Currently he takes Tylenol and tramadol prescribed by his PCP and heat therapy with partial symptom relief. Denies any fever, malaise, abdominal or groin pain, bowel or bladder incontinence or saddle anesthesia. Patient was evaluated by Dr. Crocker in 2010 and 2016. At his last neurosurgical evaluation, Dr. Crocker discussed lumbar decompression with partial discectomy to relieve his leg symptoms or two level spinal fusion for back pain symptoms. Patient states he declined surgical options at that time. He states injections are effective but provide short term pain relief. Patient states physical therapy in the past worsened his symptoms. Denies history of diabetes. Most recent A1C was 5.9. [facility] Medical History Allergic rhinitis Anxiety Insomnia Benign prostatic hyperplasia Obstructive sleep apnea Constipation Impaired fasting glucose Asthma Dyslipidemia Benign essential hypertension Obesity (BMI 30-39.9) Blurred vision, right eye Abdominal pain Overactive bladder Lumbar degenerative disc disease Vitamin D deficiency Hypertension Surgical History History of surgery History of prostate surgery Hx of eye surgery Hx of hemorrhoidectomy Hx of rectal sphincterotomy H/O colonoscopy Family History Brother Diabetes Social History Household Members: None Housing: Apartment Alcohol intake: current Alcohol intake frequency: holidays/special occasions only Patient Tobacco Use Status: Former Tobacco user Quit Date: 2018 e-Cigarette/Vaping Use: Never Used Second Hand Smoke Exposure: Yes service: No Current occupational status: employed Cognitive needs: No Hearing needs: No Vision needs: No Review of Systems Const All systems reviewed & are unremarkable except as noted in HPI and below Physical Exam General: Appears afebrile. Alert and oriented. Mood and affect appropriate. Follows and participates in conversation appropriately. Respiratory effort is unlabored. No cough. Able to transition from sit to stand unassisted. Ambulates with bilaterally normal heel strike and toe off. Back/Spine/Pelvis Other: Limited lumbar ROM due to pain. Mild paraspinal tenderness to palpation in the lumbar spine. Lumbar extension reproduces moderate and flexion reproduces mild symptoms. Painful facet loading bilaterally, left>right. Cervical Spine: cervical ROM normal, cervical muscular tenderness and No Cervical spine tenderness Thoracic/Lumbar Spine: thoracic and lumbar spine normal to inspection, No Thoracic/lumbar spine scar(s), Lasegue's sign negative, straight leg raise negative bilaterally, pain with thoraco-lumbar ROM, paraspinal muscle tenderness, thoraco-lumbar ROM limited, No thoracic spinal tenderness and lumbar spinal tenderness (L4-S1) Pelvis: no buttock tenderness Sacroiliac joints: bilaterally (mild pain with +Damon's) tender to palpation Results Reviewed Results Reviewed: Assessment & Plan Assessment & Plan (1) Lumbar spondylosis: Code(s): M47.816 - Spondylosis without myelopathy or radiculopathy, lumbar region (2) Lumbar degenerative disc disease: Code(s): M51.36 - Other intervertebral disc degeneration, lumbar region (3) Sacroiliitis: Code(s): M46.1 - Sacroiliitis, not elsewhere classified Plan Schedule for Bilateral L3 medial branch Sprint PNS trial with local, oral Ativan and fluoroscopy for chronic axial low back pain. Will start with left side first, followed by the right side. Informational pamphlet provided. Expectations, risks and benefits were reviewed. Patient is aware he will be contacted to schedule this procedure. All questions were answered and patient is in agreement plan. Follow up after Sprint PNS trial and sooner as needed. Justification for interventional therapy: ? Patient with average pain > 6/10 ? Patient has exhausted conservative therapy, physical therapy, opioids, muscle relaxants ? Bilateral Diagnostic L3-L4 DR L5 MBB-80% pain relief for 2 days The risks, consequences, alternatives, and benefits of various treatment options were discussed with the patient in great detail, including conservative management, injections and procedures. Coding Level of Care Code Est Pt Level 4 (07205) Diagnoses Lumbar spondylosis M47.816 Lumbar degenerative disc disease M51.36 Sacroiliitis M46.1
[2023-09-04 09:53] VITALS: BP 133/96; PULSE 80; O2SAT 98; BMI 33.1
== END 2023-09-04 10:01 | disposition home or self-care (01) ==
PROVIDERS: PCP Internal Medicine; Visit Provider Nurse Practitioner Family
DX: M47.816 Spondylosis without myelopathy or radiculopathy, lumbar region (principal); M51.36 Other intervertebral disc degeneration, lumbar region; M46.1 Sacroiliitis, not elsewhere classified
CPT/HCPCS: 99214

== ENCOUNTER → 2023-09-04 09:48 | Outpatient (BNVA) | payer OTHER, SELFPAY | PROVIDERS: PCP Internal Medicine; Visit Provider Nurse Practitioner Family | DX: M47.816 Spondylosis without myelopathy or radiculopathy, lumbar region (principal); M51.36 Other intervertebral disc degeneration, lumbar region; M46.1 Sacroiliitis, not elsewhere classified | CPT/HCPCS: 99212 ==

== ENCOUNTER 2023-09-10 09:56 | Outpatient (REF) | payer OTHER, SELFPAY | END 2023-09-10 09:57 | disposition home or self-care (01) | LOC: HO.MDS 09:56 | PROVIDERS: Visit Provider Internal Medicine Pulmonary Disease | DX: J45.50 Severe persistent asthma, uncomplicated (principal) | CPT/HCPCS: 96372 ==

== ENCOUNTER 2023-09-22 07:22 | Outpatient (REF) | payer OTHER, SELFPAY ==
[2023-09-22 07:42] LABS: MANUAL DIFF FLAG NO
[2023-09-22 08:28] LABS: Basophils Absolute Auto 0.1 X10*3/uL (0.0-0.2); Basophils Percent Auto 0.7 % (0-2); Eosinophils Absolute Auto 0.1 X10*3/uL (0.0-0.4); Eosinophils Percent Auto 1.7 % (0-4); Hematocrit 41.8 % (42.0-52.0); Hemoglobin 13.2 g/dl (14.0-18.0); Imm Gran Abs Auto 0.02 X10*3/uL (0.00-0.03); Imm Gran Pct Auto 0.3 % (0.0-0.4); Lymphocytes Absolute Auto 2.4 X10*3/uL (1.2-4.9); Lymphocytes Percent Auto 33.9 % (20-40); Mean Corpuscular HGB Conc 31.6 g/dl (31.0-36.0); Mean Corpuscular Hemoglobin 27.5 pg (27.0-33.0); Mean Corpuscular Volume 87.1 fL (80.0-98.0); Mean Platelet Volume 9.4 fL (9.4-12.4); Monocytes Absolute Auto 0.6 X10*3/uL (0.1-1.2); Neutrophils Absolute Auto 3.8 x10*3/uL (2.0-8.3); Neutrophils Percent Auto 54.4 % (45-73); Platelet Count 306 X10*3/uL (160-400); Red Cell Distribution Width 13.7 % (11.0-16.0)
[2023-09-22 08:33] LABS: Estimated Average Glucose 117 mg/dL; Hemoglobin A1c % 5.7 % (<6.0)
[2023-09-22 09:12] LABS: Alanine Aminotransferase 7 U/L (0-40); Albumin Level 3.9 g/dL (3.5-5.0); Alkaline Phosphatase 76 U/L (39-117); Anion Gap 9 (12-20); Aspartate Amino Transferase 18 U/L (5-37); Bilirubin Total 0.7 mg/dL (0.0-1.0); Blood Urea Nitrogen 12 mg/dL (9-16); Calcium 9.3 mg/dL (8.4-10.2); Carbon Dioxide 26 mmol/L (22-29); Chloride 109 mmol/L (96-108); Cholesterol 143 mg/dL (<200); Estimated Glomerular Filt Rate > 60; Glucose Fasting 102 mg/dL (60-99); HDL Cholesterol 27 mg/dL (>40); LDL Cholesterol Calculated 97 mg/dL (<100); Potassium 3.7 mmol/L (3.3-5.1); Sodium 140 mmol/L (135-145); Total Protein 6.7 g/dL (6.5-8.0); Triglycerides 96 mg/dL (<150)
[2023-09-22 09:22] LABS: Appearance Urine Clear; Color Urine Yellow; Glucose Urine UA Negative (Negative); Leukocyte Esterase Urine Negative (Negative); Nitrite Urine Negative (Negative); PH 5.5 (5.0-9.0); Specific Gravity - Urine 1.025 (1.005-1.025); UMIC TRIGGER UACC YES; Urine Blood Trace (Negative); Urine Ketones Negative (Negative); Urine Protein Negative (Neg-Trace)
[2023-09-22 09:26] LABS: Vitamin D 25-OH Total 26.9 ng/mL (>30)
[2023-09-22 09:29] LABS: Bacteria Urine None Seen (None Seen); Hyaline Casts Urine 0-2 /LPF (0-2); RBC Urine 0-2 /HPF (0-2); Squamous Epithelial Cell Urine 0-2 /HPF (0-2); WBC Urine 0-5 /HPF (0-5)
== END 2023-09-22 07:23 | disposition home or self-care (01) ==
LOC: HO.LAB 07:22
PROVIDERS: PCP Internal Medicine; Visit Provider Internal Medicine
DX: E55.9 Vitamin D deficiency, unspecified (principal); R30.0 Dysuria; E78.00 Pure hypercholesterolemia, unspecified; R73.01 Impaired fasting glucose; I10 Essential (primary) hypertension
CPT/HCPCS: 36415; 80053; 80061; 81001; 82306; 83036; 85025

== ENCOUNTER 2023-09-24 10:08 | Outpatient (REF) | payer OTHER, SELFPAY | END 2023-09-24 10:09 | disposition home or self-care (01) | LOC: HO.MDS 10:08 | PROVIDERS: Visit Provider Internal Medicine Pulmonary Disease | DX: J45.50 Severe persistent asthma, uncomplicated (principal) | CPT/HCPCS: 96372 ==

== ENCOUNTER 2023-09-24 10:44 | Outpatient (AMB) | payer OTHER, SELFPAY ==
[2023-09-24 10:45] VITALS: BP 114/82; PULSE 74; O2SAT 99; BMI 33.4
--- NOTE | 2023-09-24 10:45 | A.OFFPC_ITS ---
Vital Signs 09/24/23 10:45 Height 5 ft 9 in Weight 226 lb BMI 33.4 BP 114/82 Blood Pressure Location Lt brachial Position Sitting Pulse 74 Pulse Source Pulse Oximeter Pulse Oximetry (%) 99 Oxygen Delivery Method Room Air Intake Visit Reasons: HTN, IFG, dyslipidemia, asthma, lumbar DDD Instrumentation Chemist Required: No Accompanied by: Self / Same As Patient Allergies gabapentin [GABAPENTIN] Allergy (Unknown, Verified 09/24/23 11:46) SEVERE H/A,BLURRY VISION,MOOD CHANGE Medication List - Last Reconciled 09/24/23 by Aayush Jay MD [adjustable straight point cane with offset handle As directed] albuterol sulfate 90 mcg/actuation 2 puffs inhalation Q4-6H PRN 30 days amlodipine 5 mg PO DAILY 90 days cetirizine 10 mg PO DAILY PRN 90 days cyclobenzaprine 10 mg PO TID PRN ergocalciferol (vitamin D2) (Vitamin D2) 1,250 mcg PO QWEEK 3 months fluticasone furoate-vilanterol 200-25 mcg/dose (Breo Ellipta) 1 inh inhalation DAILY 30 days [HANDHELD SHOWER HEAD As directed] lorazepam 0.5 mg PO BID PRN 30 days metformin ER 500 mg PO QPM 90 days mirabegron ER (Myrbetriq) 50 mg PO DAILY 30 days omalizumab (Xolair) 300 mg (2 mL) subcut Q2W 28 days omeprazole 40 mg PO DAILY tramadol 50 mg PO TID PRN 30 days zolpidem 10 mg PO BEDTIME PRN 30 days Tobacco use date assessed: 09/24/23 Dental Screening Dental Screen Date: 09/24/23 Did you have a dental visit in the last 12 months?: Yes Did you have a dental problem in the last 6 months where you did not have access to dental care?: No Was dental information given to patient?: Patient has dentist HPI HTN, IFG, dyslipidemia, asthma, lumbar DDD HPI Details Patient comes in today for his follow up visit States that he feels okay He denies any headaches or dizziness Denies any chest pains, no SOB - states that his asthma has been well-controlled on Xolair injections and he just had his injection earlier this morning No nausea/vomiting, no abdominal pain No change in bowel habits noted Needs his Vitamin D Rx refilled Is also scheduled to get his 1st dose of shingles vaccine at his pharmacy later today - states that his came down with shingles last month and is still having a hard time from it States that he did not catch it and so he scheduled his own shingles vaccine CARIN He continues to follow up with pain management for his low back pain, which he states is adequately controlled Had his follow up labs done a couple of days ago - to discuss his results [facility] Medical History Allergic rhinitis Anxiety Insomnia Benign prostatic hyperplasia Obstructive sleep apnea Constipation Impaired fasting glucose Asthma Dyslipidemia Benign essential hypertension Obesity (BMI 30-39.9) Blurred vision, right eye Abdominal pain Overactive bladder Lumbar degenerative disc disease Vitamin D deficiency Hypertension Surgical History History of surgery History of prostate surgery Hx of eye surgery Hx of hemorrhoidectomy Hx of rectal sphincterotomy H/O colonoscopy Family History Brother Diabetes Social History Household Members: None Housing: Apartment Alcohol intake: current Alcohol intake frequency: holidays/special occasions only Patient Tobacco Use Status: Former Tobacco user Quit Date: 2018 e-Cigarette/Vaping Use: Never Used Second Hand Smoke Exposure: Yes service: No Current occupational status: employed Cognitive needs: No Hearing needs: No Vision needs: No Questionnaire PHQ-9 Over the last 2 weeks, how often have you been bothered by any of the following problems? 1. Little interest or pleasure in doing things: not at all 2. Feeling down, depressed, or hopeless: not at all 3. Trouble falling or staying asleep, or sleeping too much: not at all 4. Feeling tired or having little energy: not at all 5. Poor appetite or overeating: not at all 6. Feeling bad about yourself - or that you are a failure or have let yourself or your family down: not at all 7. Trouble concentrating on things, such as reading the newspaper or watching television: not at all 8. Moving or speaking so slowly that other people could have noticed. Or the opposite - being so fidgety or restless that you have been moving around a lot more than usual: not at all 9. Thoughts that you would be better off or of hurting yourself in some way: not at all Total score: 0 Depression Screening Interpretation: Negative Depression Screening Done: Yes 62371 - PHQ-9 Billing: Yes Source: Developed by Drs. Александр Andre, Muriel Guido, Shiv Treadwell and colleagues, with an educational sharon from [employer]. Thrive Questionnaire Date Thrive assessed: 09/24/23 I am a: Patient What is your living situation today?: I have a steady place to live Within the past 12 months, did the food you bought not last and you didn't have the money to get more?: Never true Within the past 12 months, did you worry whether your food would run out before you got money to buy more?: Never true Do you have trouble paying for medicines?: No Do you have trouble getting transportation to medical appointments?: No Do you have trouble paying your heating and electricity bill?: No Do you have trouble taking care of your child, family member or friend?: No Do you have trouble with day-to-day activities such as bathing, preparing meals, shopping, managing finances, etc.?: No Are you currently unemployed and looking for a job?: No Are you interested in more education?: No Please select the resources that you would like help with: None Currently or been in a relationship where the following occur: no concerns reported AUDIT C Alcohol Use Questionnaire (AUDIT-C) 1. How often do you have a drink containing alcohol?: Monthly or less 2. How many drinks containing alcohol do you have on a typical day when you are drinking?: 1 or 2 3. How often do you have six or more drinks on one occasion?: Never Total Score: 1 Score Reviewed/Action Taken: Yes WILMER-7 AMB Questionnaire WILMER-7 Date WILMER - 7 assessed: 09/24/23 Feeling nervous, anxious, or on edge: 0 = Not at all Not being able to stop or control worryin = Not at all Worrying too much about different things: 0 = Not at all Trouble relaxin = Not at all Being so restless that it is hard to sit still: 0 = Not at all Becoming easily annoyed or irritable: 0 = Not at all Feeling afraid as if something awful might happen: 0 = Not at all Total WILMER-7 score (0-4 normal; 5-9 mild; 10-14 moderate; 15-21 severe): 0 Source: Developed by Drs. Александр Andre, Muriel Guido, Shiv Treadwell and colleagues, with an educational sharon from [employer]. Review of Systems Const Denies chills, Denies fatigue, Denies fever(s) and Denies headache(s) ENT Denies dysphagia, Denies dizziness, Denies otalgia, Denies headache(s), Denies odynophagia and Denies sore throat Card Denies chest pain, Denies palpitations and Denies dyspnea Resp Denies cough, Denies dyspnea and Denies wheezing GI Denies abdominal pain, Denies constipation, Denies dysphagia, Denies heartburn, Denies diarrhea, Denies nausea, Denies odynophagia and Denies vomiting Denies dysuria, Denies nocturia and Denies urinary frequency Musc Reports back pain (over the lumbar spine - chronic) Skin/Breast Denies rash Neuro Denies dizziness and Denies headache(s) Endo Denies fatigue and Denies palpitations Aller/Immun Denies wheezing Physical exam (Primary Care) Vital Signs: Last Vital Signs Pulse 74 09/24/23 10:45 BP 114/82 09/24/23 10:45 Pulse Ox 99 09/24/23 10:45 Oxygen Delivery Method Room Air 09/24/23 10:45 BMI result Body Mass Index 33.4 Tobacco/Smoking Status: Tobacco use Status Tobacco use date assessed 09/24/23 09/24/23 10:49 Patient Tobacco Use Status Former Tobacco user 09/24/23 10:49 e-Cigarette/Vaping Use Never Used 09/24/23 10:49 PHQ-9: PHQ-9 Score PHQ-9: Total score 0 09/24/23 10:49 Depression Screening Interpretation: Negative Thrive Assessment: Date of Thrive Assessment Date Thrive assessed 09/24/23 09/24/23 10:49 Currently or been in a relationship where the following occur: no concerns reported Const General: no acute distress and alert HENMT Ears: TM's normal bilaterally and EAC's normal Throat: Yes posterior oropharynx normal and Yes tonsils normal (no TP congestion) Neck Neck: Yes no lymphadenopathy and Yes supple Resp Auscultation: clear to auscultation bilaterally, no rales and no wheezes Cardio Rate: regular rate Rhythm: regular rhythm Heart sounds: no murmurs GI Palpation (GI): Soft to palpation and nontender Auscultation: normal bowel sounds Back/Spine/Pelvis Thoracic/Lumbar Spine: lumbar spinal tenderness Extrem General: Yes no clubbing, cyanosis or edema Results Reviewed Results Reviewed: Laboratory Tests 09/22/23 09/22/23 09/22/23 07:36 07:36 07:40 WBC 7.0 Hgb 13.2 L Hct 41.8 L Plt Count 306 Sodium Potassium 3.7 Creatinine 0.98 Estimated GFR > 60 Fasting Glucose 102 H Hemoglobin A1c % 5.7 Calcium 9.3 AST 18 ALT 7 Triglycerides 96 Cholesterol 143 LDL Cholesterol, Calc 97 HDL Cholesterol 27 L 25-OH Vitamin D Total 26.9 L Urine pH 5.5 Ur Specific [place] 1.025 Urine Protein Negative Urine Glucose (UA) Negative Urine Blood Trace H 09/22/23 07:40 WBC Hgb Hct Plt Count Sodium 140 Potassium Creatinine Estimated GFR Fasting Glucose Hemoglobin A1c % Calcium AST ALT Triglycerides Cholesterol LDL Cholesterol, Calc HDL Cholesterol 25-OH Vitamin D Total Urine pH Ur Specific [place] Urine Protein Urine Glucose (UA) Urine Blood Assessment and Plan Assessment & Plan (1) Asthma: Code(s): J45.909 - Unspecified asthma, uncomplicated Qualifiers: Asthma severity: mild Asthma persistence: intermittent Asthma complication type: uncomplicated Qualified Code(s): J45.20 - Mild intermittent asthma, uncomplicated Plan: Stable Continue Incruse Ellipta 62.5 mcg 1 inhalation QD and Albuterol HFA 2 inhalations Q 6 hours PRN Is currently still on Xolair injections 300 mg every 2 weeks - just got his injection earlier today Follow up with Dr. Garber (pulmonary) as scheduled (2) Benign essential hypertension: Code(s): I10 - Essential (primary) hypertension Plan: Reinforced low sodium diet - goal is systolic BP of 120 mm or less Continue Amlodipine 5 mg QD (3) Dyslipidemia: Code(s): E78.5 - Hyperlipidemia, unspecified Plan: Results of his labs done a couple of days ago reviewed and discussed with patient Reinforced low cholesterol diet Will recheck his labs and fasting lipids in 3 months for follow-up (4) Impaired fasting glucose: Code(s): R73.01 - Impaired fasting glucose Plan: HgbA1c was at 5.7% on his labs done a couple of days ago; was previously at 5.6% Reinforced low calorie diet/exercise as tolerated Continue Metformin ER 500 mg QD (5) Lumbar degenerative disc disease: Code(s): M51.36 - Other intervertebral disc degeneration, lumbar region Plan: Reinforced activity and weight lifting restrictions Continue Tramadol 50 mg TID PRN He had MBB trial a few months ago with reportedly around 85% symptomatic improvement; subsequently had TFESI in May 2023 and is currently being scheduled for a Sprint PNS trial Follow up with [facility] as scheduled (6) Obstructive sleep apnea: Comment: no cpap used Code(s): G47.33 - Obstructive sleep apnea (adult) (pediatric) Plan: Continues to use his CPAP device when sleeping at night daily (7) Allergic rhinitis: Code(s): J30.9 - Allergic rhinitis, unspecified Qualifiers: Allergic rhinitis trigger: unspecified Allergic rhinitis seasonality: unspecified Qualified Code(s): J30.9 - Allergic rhinitis, unspecified Plan: Continue Cetirizine 10 mg QD PRN (8) Vitamin D deficiency: Code(s): E55.9 - Vitamin D deficiency, unspecified Plan: Continue Vitamin D2 56690 units once a week - Rx refilled States that he was out of his Rx for about 3 weeks recently (9) GERD (gastroesophageal reflux disease): Code(s): K21.9 - Gastro-esophageal reflux disease without esophagitis Qualifiers: Esophagitis presence: without esophagitis Qualified Code(s): K21.9 - Gastro-esophageal reflux disease without esophagitis Plan: Dietary restrictions reinforced Continue Omeprazole 40 mg QD Follow up with GI as scheduled (10) Constipation: Code(s): K59.00 - Constipation, unspecified Qualifiers: Constipation type: unspecified constipation type Qualified Code(s): K59.00 - Constipation, unspecified Plan: Reinforced increased oral fluids and dietary fiber Continue Bisacodyl 5 mg BID PRN (11) Overactive bladder: Code(s): N32.81 - Overactive bladder Plan: Continue Myrbetriq ER 50 mg QD Follow up with urology as scheduled (12) Benign prostatic hyperplasia: Code(s): N40.0 - Benign prostatic hyperplasia without lower urinary tract symptoms Qualifiers: Lower urinary tract symptom presence: symptoms present Lower urinary tract symptom detail: urinary frequency Qualified Code(s): N40.1 - Benign prostatic hyperplasia with lower urinary tract symptoms; R35.0 - Frequency of micturition Plan: Follow up with urology as scheduled (13) Insomnia: Code(s): G47.00 - Insomnia, unspecified Qualifiers: Insomnia type: unspecified Qualified Code(s): G47.00 - Insomnia, unspecified Plan: Sleep hygiene reinforced Continue Zolpidem 10 mg Q HS PRN (14) Anxiety: Code(s): F41.9 - Anxiety disorder, unspecified Plan: Continue Lorazepam 0.5 mg BID PRN (15) Obesity (BMI 30-39.9): Code(s): E66.9 - Obesity, unspecified Plan: Reinforced diet/exercise as tolerated/lose weight Plan Follow up in 3 months Orders: Orders Comprehensive [place]. Panel Fast 3 Months E78.00 - Pure hypercholesterolemia, unspecified Hemoglobin A1c 3 Months R73.01 - Impaired fasting glucose Complete Blood Count Auto Diff 3 Months I10 - Essential (primary) hypertension Lipid Panel 3 Months E78.00 - Pure hypercholesterolemia, unspecified Medications: Refilled ergocalciferol (vitamin D2) (Vitamin D2) 1,250 mcg PO QWEEK 3 months 13 caps 3RF E55.9 - Vitamin D deficiency, unspecified Coding Level of Care Code Est Pt Level 4 (08168) Diagnoses Mild intermittent asthma without complication J45.20 Asthma severity: mild Asthma persistence: intermittent Asthma complication type: uncomplicated Benign essential hypertension I10 Dyslipidemia E78.5 Impaired fasting glucose R73.01 Lumbar degenerative disc disease M51.36 Obstructive sleep apnea G47.33 Allergic rhinitis, unspecified seasonality, unspecified trigger J30.9 Allergic rhinitis trigger: unspecified Allergic rhinitis seasonality: unspecified Vitamin D deficiency E55.9 Gastroesophageal reflux disease without esophagitis K21.9 Esophagitis presence: without esophagitis Constipation, unspecified constipation type K59.00 Constipation type: unspecified constipation type Overactive bladder N32.81 Benign prostatic hyperplasia with urinary frequency N40.1; R35.0 Lower urinary tract symptom presence: symptoms present Lower urinary tract symptom detail: urinary frequency Insomnia, unspecified type G47.00 Insomnia type: unspecified Anxiety F41.9 Obesity (BMI 30-39.9) E66.9
== END 2023-09-24 11:53 | disposition home or self-care (01) ==
PROVIDERS: PCP Internal Medicine; Visit Provider Internal Medicine
DX: J45.20 Mild intermittent asthma, uncomplicated (principal); I10 Essential (primary) hypertension; E78.5 Hyperlipidemia, unspecified; R73.01 Impaired fasting glucose; M51.36 Other intervertebral disc degeneration, lumbar region; E55.9 Vitamin D deficiency, unspecified; Z68.33 Body mass index [BMI] 33.0-33.9, adult; K21.9 Gastro-esophageal reflux disease without esophagitis; K59.00 Constipation, unspecified; N32.81 Overactive bladder; N40.1 Benign prostatic hyperplasia with lower urinary tract symptoms; E66.9 Obesity, unspecified
CPT/HCPCS: 99214

== ENCOUNTER 2023-10-08 10:28 | Outpatient (REF) | payer OTHER, SELFPAY | END 2023-10-08 10:29 | disposition home or self-care (01) | LOC: HO.MDS 10:28 | PROVIDERS: Visit Provider Internal Medicine Pulmonary Disease | DX: J45.50 Severe persistent asthma, uncomplicated (principal) | CPT/HCPCS: 96372; J2795 ==

== ENCOUNTER 2023-10-08 10:41 | Day surgery (SDC) | payer OTHER, SELFPAY ==
--- NOTE | ~2023-10-08 | FL_ITS ---
EXAMINATION: XR FLUOROSCOPY WITH IMAGES CLINICAL INFORMATION: History of lumbar radiculopathy. COMPARISON: 06/02/2023 TECHNIQUE: Fluoroscopy Supervised By: Dr. Ivy. Fluoroscopy Time: 0.1 min. Cumulative Dose: 4.03 mGy. DAP: 1.06 Gycm2. Images: 2 FL/FL guidance in OR FINDINGS AND IMPRESSION: The main purpose of this report is to document use of fluoroscopic imaging equipment during lumbar spine insertion of SPRINT PNS system. Please refer to the procedure report.
[2023-10-08 11:28] VITALS: BMI 34.3
[2023-10-08 11:57] VITALS: BP 132/93; PULSE 66; RESP 16; TEMP 36.2; O2SAT 96
[2023-10-08] MEDS: Lactated Ringers 1,000 ML 100 ML IVCONT (11:59)
--- NOTE | 2023-10-08 14:05 | P.CONAN_ITS ---
Documented by User: Ella Salas NP 10/07/23 10:43 HPI - Anesthesia Eval Consult details Narrative: 48yo M for Left L3 Medial Branch peripheral Nerve Stimulator - SPRINT s/p Bilateral Therapeutic L3-L4-DRL5 Medial Branch Block 02/2023 with GA ? mask s/p same 11/2022 with MAC PMFSH Active Problems Active Problems: All Active Problems (Updated 11/28/22 @ 10:16 by Zuleika Ruiz RN) Pneumonia (Acute) Colon cancer screening (Acute) GERD (gastroesophageal reflux disease) (Acute) Tubular adenoma of colon (Acute) Hemorrhoids, internal, with bleeding (Acute) Hemorrhoids (Acute) Otitis media (Acute) Onychomycosis (Acute) Throat discomfort (Acute) Environmental allergies (Acute) Lumbar spondylosis (Acute) Lumbar back pain with radiculopathy affecting left lower extremity (Acute) Sacroiliitis (Acute) Allergic rhinitis (Acute) Anxiety (Acute) Insomnia (Acute) Benign prostatic hyperplasia (Acute) Obstructive sleep apnea (Acute) Constipation (Acute) Impaired fasting glucose (Acute) Asthma (Acute) Dyslipidemia (Acute) Benign essential hypertension (Acute) Obesity (BMI 30-39.9) (Acute) Blurred vision, right eye (Acute) Abdominal pain (Acute) Overactive bladder (Acute) Lumbar degenerative disc disease (Acute) Vitamin D deficiency (Acute) Past Medical History Medical History Allergic rhinitis Anxiety Insomnia Benign prostatic hyperplasia Obstructive sleep apnea Constipation Impaired fasting glucose Asthma Dyslipidemia Benign essential hypertension Obesity (BMI 30-39.9) Blurred vision, right eye Abdominal pain Overactive bladder Lumbar degenerative disc disease Vitamin D deficiency Hypertension Family History Family History Brother Diabetes Family history of problems with anesthesia: No Surgical History Surgical History History of surgery History of prostate surgery Hx of eye surgery Hx of hemorrhoidectomy Hx of rectal sphincterotomy H/O colonoscopy History of Problems with Anesthesia: No Social History Social History Household Members: None Housing: Apartment Alcohol intake: current Alcohol intake frequency: holidays/special occasions only Patient Tobacco Use Status: Former Tobacco user Quit Date: 2018 e-Cigarette/Vaping Use: Never Used Second Hand Smoke Exposure: Yes service: No Current occupational status: employed Cognitive needs: No Hearing needs: No Vision needs: No Meds Allergies Allergy/AdvReac Type Severity Reaction Status Date / Time gabapentin [GABAPENTIN] Allergy Unknown SEVERE Verified 10/08/23 11:34 H/A,BLURRY VISION,MOOD CHANGE Exam Pertinent Lab Results Pertinent Lab Results: Laboratory Tests 09/22/23 07:40 WBC 7.0 Hgb 13.2 L Hct 41.8 L Plt Count 306 Sodium 140 Potassium 3.7 Chloride 109 H Carbon Dioxide 26 BUN 12 Creatinine 0.98 Assessment and Plan Assessment Anesthesia Assessment: Chart Reviewed Final Anesthetic Review Family History of Problems with Anesthesia: No History of Problems with Anesthesia: No Documented by User: Zuleika Vickers DO 10/08/23 14:09 [facility] Past Medical History Medical History Allergic rhinitis Anxiety Insomnia Benign prostatic hyperplasia Obstructive sleep apnea Constipation Impaired fasting glucose Asthma Dyslipidemia Benign essential hypertension Obesity (BMI 30-39.9) Blurred vision, right eye Abdominal pain Overactive bladder Lumbar degenerative disc disease Vitamin D deficiency Hypertension Family History Family History Brother Diabetes Family history of problems with anesthesia: No Surgical History Surgical History History of surgery History of prostate surgery Hx of eye surgery Hx of hemorrhoidectomy Hx of rectal sphincterotomy H/O colonoscopy History of Problems with Anesthesia: No Social History Social History Household Members: None Housing: Apartment Alcohol intake: current Alcohol intake frequency: holidays/special occasions only Patient Tobacco Use Status: Former Tobacco user Quit Date: 2018 e-Cigarette/Vaping Use: Never Used Second Hand Smoke Exposure: Yes service: No Current occupational status: employed Cognitive needs: No Hearing needs: No Vision needs: No Meds Allergies Allergy/AdvReac Type Severity Reaction Status Date / Time gabapentin [GABAPENTIN] Allergy Unknown SEVERE Verified 10/08/23 11:34 H/A,BLURRY VISION,MOOD CHANGE Exam Exam Date and Time: October 08, 2023 1405 Height,Weight and Vital Signs: Height 5 ft 9 in Weight 105.233 kg Vital Signs Temperature 97.1 F 10/08/23 11:57 Pulse Rate 66 10/08/23 11:57 Respiratory Rate 16 10/08/23 11:57 Blood Pressure 132/93 H 10/08/23 11:57 Pulse Oximetry 96 10/08/23 11:57 Oxygen Delivery Method Room Air 10/08/23 11:57 Temperature 97.1 F 10/08/23 11:57 Pulse Rate 66 10/08/23 11:57 Respiratory Rate 16 10/08/23 11:57 Blood Pressure 132/93 H 10/08/23 11:57 Pulse Oximetry 96 10/08/23 11:57 Oxygen Delivery Method Room Air 10/08/23 11:57 Airway Mallampati Class: III TM Dist: >3cm Neck ROM: Full Loose/Missing/Broken Teeth: No Heart: S1S2 Lungs: CTAB Assessment and Plan Assessment Anesthesia Assessment: Anesthesia Plan Discussed and Chart Reviewed Final Anesthetic Review Family History of Problems with Anesthesia: No History of Problems with Anesthesia: No NPO: Yes ASA Class: III Final Preanesthetic Review: No Changes in Pt Med Stat, Meds/Allgs Chart Reviewed, Consent Obtained/Reviewed and Anes Risks/Benef Reviewed Patient Risk: Intermediate Procedure Risk: Low Anesthetic Plan Anesthetic Plan: MAC: and Agree w/ Assess. and Plan Disposition: Standard PACU
--- NOTE | 2023-10-08 14:13 | MHC.SHP ---
Pre-Procedural Eval Section A Date of Service: 10/08/23 The patient is an INPATIENT: No Changes since office visit: Yes Patient answered all questions The History & Physical has been completed within 30 days and I have reviewed it.: No Section B Chief Complaint: Spondylosis without myelopathy or radiculopathy, Details of Present Illness: As above Relevant Family History (Specify if Yes): No Relevant Social History: None Present Medications: see Short Stay Collaborative assessment Medical History: No relevant PMH History of Previous Operations: No relevant previous surgery Allergies: Allergies Allergy/AdvReac Type Severity Reaction Status Date / Time gabapentin [GABAPENTIN] Allergy Unknown SEVERE Verified 10/08/23 11:34 H/A,BLURRY VISION,MOOD CHANGE Review of Systems Sugical H&P ROS: Negative: Constitution, Cardiovascular, Respiratory, Neurological, Psychiatric, Hem-Onc, Allergic/Immunologic, Gastrointestinal, Genitourinary, Musculoskeletal, Integumentary, Endocrine and Eyes/Ears/Nose/Throat Exam Surgical H&P Exam: Normal: HEENT, Normal: Heart, Normal: Lungs, Normal: Extremities, Normal: Abdomen, Normal: Skin and Normal: Neurological Plan Diagnosis/Plan: Unchanged I have reviewed the history and physical and performed a pertinent physical examination on my patient. No changes have occurred unless specified. Time Spent With Patient Time: Total time managing care of this patient today ____ minutes.
--- NOTE | 2023-10-08 14:56 | P.BOP_ITS ---
Brief Operative Note Date of Service: 10/08/23 Pre-op diagnosis: Spondylosis lumbar without myelopathy or radiculopathy. Post-op diagnosis: same Procedure: PNS sprint left L4 Implants: None permanent Surgeon: Lb Ivy MD Anesthesia: MAC Was an Honey Liquefier used for this Procedure?: No Estimated blood loss (mL): 1 Condition: stable Disposition: PACU
--- NOTE | 2023-10-08 14:56 | W.PM.OPN ---
Operative Note Operative Note Date of Service: 10/08/23 Narrative: Sprint PNS L4 left side After the risks, benefits and alternatives were discussed with the patient and informed consent was obtained, patient was placed in the prone position and padded to foster comfort. Time out was performed delineating correct site and side of the procedure , name and of the patient, patient participated in time out procedure. the lower back of the patient was prepped with ChloraPrep and draped with full body fenestrated drape. ?Sterily draped C-arm was brought over the operating field and clear picture of the lumbar spine was demonstrated on the screen. Left L4 lamina was chosen as the target of the tip of the needle position. Projection of the L3 lamina was chosen as the start of the needle advancement. That point was chosen as the local anesthetic infiltration point. After identifying and marking the intended target, the skin around the planned entry point and the subcutaneous tissues were injected with local anesthetic forming skin wheal.. ?A percutaneous sleeve and stimulating probe lead introduction system were assembled, inserted and advanced through the skin wheal to the? point of interest under C-arm view in oblique vision fashion, the introducer needle was delivered to a location in proximity to the multifidus muscles at the left lamina of L4. Multiple stimulation parameters were used to deliver stimulation to the? nerve in concert with stimulating at multiple positions around the nerve. Nerve target acquisition was confirmed noting generation of? in the? corresponding to the nerve being stimulated. Various electrical parameter combinations were tested, and the lead location was adjusted? until the patient indicated? overlapping the distribution of the patient?s typical region of pain. The stimulating probe was removed from the introducer and a percutaneous lead was guided through the needle and delivered to a location in similar proximity to the nerve. Final location was verified with electrical stimulation. The introducer needle was removed, and the exposed end of the percutaneous lead was attached to an external stimulator unit. Various electrical parameter combinations were again tested until the patient indicated paresthesia or muscle tension overlapping the distribution of the patient?s typical region of pain. After confirming that lead impedance was in the normal range, the external unit was detached, the needle was removed, and the lead was anchored at the skin. The lead was threaded into the connector block and electrical continuity and desired patient response was confirmed. The connector block was attached to the external stimulator unit. The site was covered with a sterile occlusive dressing and an? image was taken to document final placement. ?Upon completion of the procedure the patient was taken outside the OR where he recovered uneventfully he went home without immediate complications.
[2023-10-08 14:58] VITALS: BP 121/85; PULSE 83; RESP 12; TEMP 36.6; O2SAT 98
[2023-10-08 15:13] VITALS: BP 123/81; PULSE 68; RESP 18; TEMP 36.6; O2SAT 98
== END 2023-10-08 15:45 | disposition home or self-care (01) ==
PROVIDERS: PCP Internal Medicine; Visit Provider Anesthesiology
PROC: (CPT 64555; principal; 2023-10-08 12:40)
DX: M47.816 Spondylosis without myelopathy or radiculopathy, lumbar region (principal); G89.29 Other chronic pain; M51.36 Other intervertebral disc degeneration, lumbar region; M46.1 Sacroiliitis, not elsewhere classified; R53.1 Weakness; Z87.828 Personal history of other (healed) physical injury and trauma; R20.0 Anesthesia of skin; R20.2 Paresthesia of skin; I10 Essential (primary) hypertension; R73.01 Impaired fasting glucose; J45.909 Unspecified asthma, uncomplicated; G47.33 Obstructive sleep apnea (adult) (pediatric); Z87.891 Personal history of nicotine dependence; Z88.8 Allergy status to other drugs, medicaments and biological substances; Z79.899 Other long term (current) drug therapy; Z98.890 Other specified postprocedural states
CPT/HCPCS: 64555; C1778; J2250; J3010

== ENCOUNTER → 2023-10-08 10:41 | Outpatient (BNV) | payer OTHER, SELFPAY | PROVIDERS: PCP Internal Medicine; Visit Provider Anesthesiology | DX: M47.816 Spondylosis without myelopathy or radiculopathy, lumbar region (principal) | CPT/HCPCS: 64555 ==

== ENCOUNTER 2023-10-15 09:11 | Outpatient (AMB) | payer OTHER, SELFPAY ==
--- NOTE | 2023-10-15 09:28 | A.OFFVIS_ITS ---
Intake Vital Signs 10/15/23 09:29 Height 5 ft 9 in Weight 232 lb BMI 34.3 BP 120/84 Blood Pressure Location Lt brachial Position Sitting Respiration 18 Pulse 84 Pulse Source Pulse Oximeter Pulse Oximetry (%) 97 Oxygen Delivery Method Room Air Intake Visit Reasons: S/p (L) L3 Medial Branch SPRINT PNS 10/08/23 Allergies adhesive tape Allergy (Intermediate, Verified 10/15/23 09:27) Skin sloughing with cardiac leads and IV securement device gabapentin [GABAPENTIN] Allergy (Unknown, Verified 10/15/23 09:27) SEVERE H/A,BLURRY VISION,MOOD CHANGE HPI HPI Comments History of Present Illness Details Enmanuel presents to the office today for follow up, 1 week s/p Left L3 MB Sprint PNS placement. Patient tolerated procedure well, has been managing adjustment of stimulation with assistance from Sprint technical sales representatives without difficulties. Denies any untoward effects of the device. Pain today is 3/10, he reports pain relief with improvement of function and mobility since placement of the device. He would like to proceed with right L3 medial branch Sprint placement as discussed at previous visit. Prior: Patient presents today to assess response to Left L5-S1 TFESI on 06/02/[address] Ivy. Patient reports 90% pain relief for left radicular symptoms for 3 months. He reports left sided back pain has returned last week. Pain is rated at 8/10 today. Patient reports increased back pain with movements and lumbar extension. We discussed long-term effects of repeated cortisone injections and returned to topic of peripheral nerve stimulation and RFA procedures. Patient reports he is interested to pursue Sprint PNS trial for axial low back pain, starting with left side first, followed by right side. Denies any fever, abdominal or groin pain, bladder or bowel incontinence or saddle anesthesia. Past Procedure: 10/08/23: Left L3 MB Sprint PNS 06/02/23: Left L5-S1 TFESI-80% pain reli ef for 3 months 03/12/23: Bilateral Therapeutic L3-L4 D R L5 MBB- 90% ongoing pain relief 11/28/22: Bilateral Therapeutic L3-L4 DR L5 MBB- 85% ongoing pain relief 10/28/22: Bilateral Diagnostic L3-L4 DR L5 MBB-80% pain relief for 2 days PRIOR: Patient is a pleasant 47 years old male with a history of significant degenerative changes at L3-S1 presents today for initial back pain evaluation. He attributes his chronic back pain to work related injury in [place] in 2000 which has resulted in 2 herniated discs. Denies recent trauma, injury or falls. Patient moved to [place] in 2008 and was [place] [facility] to manage his pain and has received multiple injections, mainly steroid injections, physical therapy, aqua therapy, and TENS unit. He reports the most recent injection was 2 months ago with good relief for his left sided radiculopathy symptoms. His pain is axial but also radiates into his left side and left lateral buttock, hip into his left lower extremity laterally and anteriorly in cortés with associated numbness and tingling in his lateral left thigh and toes. Patient reports weakness in his LLE. Pain is described as constant aching, hot burning, stabbing, sharp and numbness. Worse with prolonged walking, standing, changing position or cold weather changes. Patient reports pain affects his daily activities, functioning, sleep, social interactions, and quality of life. Patient reports he completed lumbar spine MRI at [facility] 2 months ago, this report is not available today. Currently he takes Tylenol and tramadol prescribed by his PCP and heat therapy with partial symptom relief. Denies any fever, malaise, abdominal or groin pain, bowel or bladder incontinence or saddle anesthesia. Patient was evaluated by Dr. Crocker in 2010 and 2016. At his last neurosurgical evaluation, Dr. Crocker discussed lumbar decompression with partial discectomy to relieve his leg symptoms or two level spinal fusion for back pain symptoms. Patient states he declined surgical options at that time. He states injections are effective but provide short term pain relief. Patient states physical therapy in the past worsened his symptoms. Denies history of diabetes. Most recent A1C was 5.9. [facility] Medical History Allergic rhinitis Anxiety Insomnia Benign prostatic hyperplasia Obstructive sleep apnea Constipation Impaired fasting glucose Asthma Dyslipidemia Benign essential hypertension Obesity (BMI 30-39.9) Blurred vision, right eye Abdominal pain Overactive bladder Lumbar degenerative disc disease Vitamin D deficiency Hypertension Surgical History History of surgery History of prostate surgery Hx of eye surgery Hx of hemorrhoidectomy Hx of rectal sphincterotomy H/O colonoscopy Family History Brother Diabetes Social History Household Members: None Housing: Apartment Alcohol intake: current Alcohol intake frequency: holidays/special occasions only Comment: preop pain 02/21 Patient Tobacco Use Status: Former Tobacco user Quit Date: 2018 e-Cigarette/Vaping Use: Never Used Second Hand Smoke Exposure: Yes service: No Current occupational status: employed Cognitive needs: No Hearing needs: No Vision needs: No Review of Systems Const All systems reviewed & are unremarkable except as noted in HPI and below Physical Exam Vital Signs: Last Vital Signs Pulse 84 10/15/23 09:29 Resp 18 10/15/23 09:29 BP 120/84 10/15/23 09:29 Pulse Ox 97 10/15/23 09:29 Oxygen Delivery Method Room Air 10/15/23 09:29 BMI result Body Mass Index 34.3 General: awake, alert, oriented. Answers questions appropriately. Fully engaged in examination. Skin: warm, dry, intact. Sprint PNS device to lower back, insertion site without erythema or exudate. HEENT: Normocephalic. Hearing intact. Cardiac: External chest normal in appearance. Respiratory: No cough, audible wheezing or stridor. Abdomen: without gross distension. MS: No obvious swelling or deformities. Able to stand on bilateral tiptoes and bilateral heels.? Able to transition from sit to stand unassisted. Neurological: Oriented to person, place, time and situation. Thought process intact. No gait abnormalities appreciated. Psychiatric: Appropriate mood and affect. Good judgment and insight. Assessment & Plan Assessment & Plan (1) Lumbar spondylosis: Code(s): M47.816 - Spondylosis without myelopathy or radiculopathy, lumbar region (2) Lumbar degenerative disc disease: Code(s): M51.36 - Other intervertebral disc degeneration, lumbar region (3) Sacroiliitis: Code(s): M46.1 - Sacroiliitis, not elsewhere classified Plan Enmanuel presented to the office today for follow-up 1 week status post left L3 medial branch Sprint placement. Patient tolerating well, adjusting stimulation as needed without difficulty. Denies any untoward effects. Dressing was changed in the office today by Sprint technical sales representatives. Schedule for right L3 medial branch Sprint PNS trial with local and sedation. Patient advised he will be contacted to schedule the procedure. All questions and concerns were addressed, patient agrees with the plan. Follow-up in the office after procedure, sooner if needed. Coding Level of Care Code Est Pt Level 3 (79622) Diagnoses Lumbar spondylosis M47.816 Lumbar degenerative disc disease M51.36 Sacroiliitis M46.1
[2023-10-15 09:29] VITALS: BP 120/84; PULSE 84; RESP 18; O2SAT 97; BMI 34.3
== END 2023-10-15 09:41 | disposition home or self-care (01) ==
PROVIDERS: PCP Internal Medicine; Visit Provider Registered Nurse Emergency
DX: M47.816 Spondylosis without myelopathy or radiculopathy, lumbar region (principal); M51.36 Other intervertebral disc degeneration, lumbar region; M46.1 Sacroiliitis, not elsewhere classified
CPT/HCPCS: 99024

== ENCOUNTER → 2023-10-15 09:11 | Outpatient (BNVA) | payer OTHER, SELFPAY | PROVIDERS: PCP Internal Medicine; Visit Provider Registered Nurse Emergency | DX: M47.816 Spondylosis without myelopathy or radiculopathy, lumbar region (principal); M51.36 Other intervertebral disc degeneration, lumbar region; M46.1 Sacroiliitis, not elsewhere classified; Z98.890 Other specified postprocedural states | CPT/HCPCS: 99212 ==

== ENCOUNTER 2023-10-22 09:50 | Outpatient (REF) | payer OTHER, SELFPAY | END 2023-10-22 09:51 | disposition home or self-care (01) | LOC: HO.MDS 09:50 | PROVIDERS: Visit Provider Internal Medicine Pulmonary Disease | DX: J45.50 Severe persistent asthma, uncomplicated (principal) | CPT/HCPCS: 96372; J2357 ==

== ENCOUNTER 2023-11-05 11:20 | Outpatient (REF) | payer OTHER, SELFPAY | END 2023-11-05 11:21 | disposition home or self-care (01) | LOC: HO.MDS 11:20 | PROVIDERS: Visit Provider Internal Medicine Pulmonary Disease | DX: J45.50 Severe persistent asthma, uncomplicated (principal) | CPT/HCPCS: 96372 ==

== ENCOUNTER 2023-11-19 08:20 | Outpatient (REF) | payer OTHER, SELFPAY ==
[2023-11-19 08:25] VITALS: BP 128/89; PULSE 76; RESP 18; TEMP 36.3; O2SAT 99; BMI 33.2
[2023-11-19] MEDS: Omalizumab 150 MG/ML SYRINGE 300 MG SUBCUT (08:31)
--- NOTE | 2023-11-19 08:35 | HO.INF ---
08:31am- second xolair injection given in right upper arm.
== END 2023-11-19 08:21 | disposition home or self-care (01) ==
LOC: HO.MDS 08:20
PROVIDERS: Visit Provider Internal Medicine Pulmonary Disease
DX: J45.50 Severe persistent asthma, uncomplicated (principal)
CPT/HCPCS: 96372

== ENCOUNTER 2023-11-20 10:37 | Day surgery (SDC) | payer OTHER, SELFPAY ==
--- NOTE | 2023-11-19 09:26 | HO.ANESPROP2 ---
Documented by User: Ella Salas NP 11/19/23 09:27 HPI - Anesthesia Eval Consult details Narrative: 48yo M for Right L3 Medical Branch Peripheral Nerve Stimulator s/p SPRINT 09/2023 with TIVA PMFSH Active Problems Active Problems: All Active Problems (Updated 11/28/22 @ 10:16 by Zuleika Ruiz, [place]) Pneumonia (Acute) Colon cancer screening (Acute) GERD (gastroesophageal reflux disease) (Acute) Tubular adenoma of colon (Acute) Hemorrhoids, internal, with bleeding (Acute) Hemorrhoids (Acute) Otitis media (Acute) Onychomycosis (Acute) Throat discomfort (Acute) Environmental allergies (Acute) Lumbar spondylosis (Acute) Lumbar back pain with radiculopathy affecting left lower extremity (Acute) Sacroiliitis (Acute) Allergic rhinitis (Acute) Anxiety (Acute) Insomnia (Acute) Benign prostatic hyperplasia (Acute) Obstructive sleep apnea (Acute) Constipation (Acute) Impaired fasting glucose (Acute) Asthma (Acute) Dyslipidemia (Acute) Benign essential hypertension (Acute) Obesity (BMI 30-39.9) (Acute) Blurred vision, right eye (Acute) Abdominal pain (Acute) Overactive bladder (Acute) Lumbar degenerative disc disease (Acute) Vitamin D deficiency (Acute) Past Medical History Medical History Allergic rhinitis Anxiety Insomnia Benign prostatic hyperplasia Obstructive sleep apnea Constipation Impaired fasting glucose Asthma Dyslipidemia Benign essential hypertension Obesity (BMI 30-39.9) Blurred vision, right eye Abdominal pain Overactive bladder Lumbar degenerative disc disease Vitamin D deficiency Hypertension Family History Family History Brother Diabetes Family history of problems with anesthesia: No Surgical History Surgical History History of surgery History of prostate surgery Hx of eye surgery Hx of hemorrhoidectomy Hx of rectal sphincterotomy H/O colonoscopy History of Problems with Anesthesia: No Social History Social History Household Members: None Housing: Apartment Alcohol intake: current Alcohol intake frequency: holidays/special occasions only Comment: preop pain 02/21 Patient Tobacco Use Status: Former Tobacco user Quit Date: 2017 Tobacco use type: Cigarette Years Smoked: 20 Smoked in Last 30 Days: No e-Cigarette/Vaping Use: Never Used Second Hand Smoke Exposure: Yes Use of substances other than those prescribed or required for medical reasons: No Are you DNR?: No Advance Directives: No Advance Directives Information Provided: Yes service: No Current occupational status: employed Cognitive needs: No Hearing needs: No Vision needs: No Meds Allergies Allergy/AdvReac Type Severity Reaction Status Date / Time adhesive tape Allergy Intermediate Skin Verified 11/20/23 10:53 sloughing with cardiac leads and IV securement device gabapentin [GABAPENTIN] Allergy Unknown SEVERE Verified 11/20/23 10:53 H/A,BLURRY VISION,MOOD CHANGE Home Medications Medication Instructions Recorded Confirmed Last Taken Type aluminum chloride 20 % topical 1 appl topical BID 10/15/23 11/20/23 Unknown History solution (Drysol Dab-O-Matic) Exam Pertinent Lab Results Pertinent Lab Results: Laboratory Tests 09/22/23 07:40 WBC 7.0 Hgb 13.2 L Hct 41.8 L Plt Count 306 Sodium 140 Potassium 3.7 Chloride 109 H Carbon Dioxide 26 BUN 12 Creatinine 0.98 Assessment and Plan Assessment Anesthesia Assessment: Chart Reviewed Final Anesthetic Review Family History of Problems with Anesthesia: No History of Problems with Anesthesia: No Documented by User: Arnaud Donaldson MD 11/20/23 11:13 [facility] Past Medical History Medical History Allergic rhinitis Anxiety Insomnia Benign prostatic hyperplasia Obstructive sleep apnea Constipation Impaired fasting glucose Asthma Dyslipidemia Benign essential hypertension Obesity (BMI 30-39.9) Blurred vision, right eye Abdominal pain Overactive bladder Lumbar degenerative disc disease Vitamin D deficiency Hypertension Family History Family History Brother Diabetes Surgical History Surgical History History of surgery History of prostate surgery Hx of eye surgery Hx of hemorrhoidectomy Hx of rectal sphincterotomy H/O colonoscopy Social History Social History Household Members: None Housing: Apartment Alcohol intake: current Alcohol intake frequency: holidays/special occasions only Comment: preop pain 02/21 Patient Tobacco Use Status: Former Tobacco user Quit Date: 2016 Tobacco use type: Cigarette Years Smoked: 20 Smoked in Last 30 Days: No e-Cigarette/Vaping Use: Never Used Second Hand Smoke Exposure: Yes Use of substances other than those prescribed or required for medical reasons: No Are you DNR?: No Advance Directives: No Advance Directives Information Provided: Yes service: No Current occupational status: employed Cognitive needs: No Hearing needs: No Vision needs: No Meds Allergies Allergy/AdvReac Type Severity Reaction Status Date / Time adhesive tape Allergy Intermediate Skin Verified 11/20/23 10:53 sloughing with cardiac leads and IV securement device gabapentin [GABAPENTIN] Allergy Unknown SEVERE Verified 11/20/23 10:53 H/A,BLURRY VISION,MOOD CHANGE Home Medications Medication Instructions Recorded Confirmed Last Taken Type aluminum chloride 20 % topical 1 appl topical BID 10/15/23 11/20/23 Unknown History solution (Drysol Dab-O-Matic) Exam Airway Mallampati Class: IV TM Dist: <=3cm Neck ROM: Full Loose/Missing/Broken Teeth: No Heart: rrr Lungs: cta b/l Assessment and Plan Assessment Anesthesia Assessment: Anesthesia Plan Discussed Final Anesthetic Review NPO: Yes ASA Class: III Final Preanesthetic Review: No Changes in Pt Med Stat, Meds/Allgs Chart Reviewed, Consent Obtained/Reviewed and Anes Risks/Benef Reviewed Patient Risk: Intermediate Procedure Risk: Low Anesthetic Plan Anesthetic Plan: MAC: Disposition: Standard PACU
--- NOTE | ~2023-11-20 | FL_ITS ---
EXAMINATION: XR FLUOROSCOPY WITH IMAGES CLINICAL INFORMATION: Peripheral nerve stimulator COMPARISON: None available. TECHNIQUE: Fluoroscopy Supervised By: Dr. Lb Ivy. Fluoroscopy Time: 0.10.6 seconds. Cumulative Dose: 2.0775 mGy. DAP: 0.6672 Gycm2. Images: 1. FINDINGS: A single image was obtained during fluoroscopy guidance of placement of peripheral motion later for L3 medial branch nerve. Visualized bones are grossly unremarkable. FL/FL guidance in OR IMPRESSION: Fluoroscopy was provided to referring physician for L3 medial branch nerve stimulator placement.
[2023-11-20 10:55] VITALS: BMI 33.8
[2023-11-20 11:00] VITALS: BP 128/86; PULSE 68; RESP 16; TEMP 36.3; O2SAT 98
[2023-11-20] MEDS: Lactated Ringers 1,000 ML 100 ML IVCONT (11:18)
--- NOTE | 2023-11-20 11:42 | P.HPSUR_ITS ---
Pre-Procedural Eval Section A - 24 Hr Update-Section A only Date of Service: 11/20/23 The patient is an INPATIENT: No Changes since office visit: Yes Patient answered all questions The patient has been examined within 24 hours of the surgical procedure. The History & Physical has been completed within 30 days and I have reviewed it.: No Section B - Complete if H&P > 30 days Chief Complaint: Spondylosis without myelopathy or radiculopathy, Details of Present Illness: As above Relevant Family History (Specify if Yes): No Relevant Social History: None Present Medications: see Short Stay Collaborative assessment Medical History: No relevant PMH History of Previous Operations: No relevant previous surgery Allergies: Allergies Allergy/AdvReac Type Severity Reaction Status Date / Time adhesive tape Allergy Intermediate Skin Verified 11/20/23 10:53 sloughing with cardiac leads and IV securement device gabapentin [GABAPENTIN] Allergy Unknown SEVERE Verified 11/20/23 10:53 H/A,BLURRY VISION,MOOD CHANGE Review of Systems Sugical H&P ROS: Negative: Constitution, Cardiovascular, Respiratory, Neurolo gical, Psychiatric, Hem-Onc, Allergic/Immunologic, Gastrointestinal, Genitourinary, Musculoskeletal, Integumentary, Endocrine and Eyes/Ears/Nose/Throat Exam Surgical H&P Exam: Normal: HEENT, Normal: Heart, Normal: Lungs, Normal: Extremities, Normal: Abdomen, Normal: Skin and Normal: Neurological Plan Diagnosis/Plan: Unchanged I have reviewed the history and physical and performed a pertinent physical examination on my patient. No changes have occurred unless specified. Time Spent With Patient Time: Total time managing care of this patient today ____ minutes.
--- NOTE | 2023-11-20 11:43 | P.BOP_ITS ---
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 Surgeon: Lb Ivy MD Anesthesia: MAC Was an Insole Tape Stitcher Uco used for this Procedure?: No Estimated blood loss (mL): 0 Condition: stable Disposition: PACU
--- NOTE | 2023-11-20 12:30 | W.PM.OPN ---
Operative Note Operative Note Date of Service: 11/20/23 Narrative: Sprint PNS L4 right side After the risks, benefits and alternatives were discussed with the patient and informed consent was obtained, patient was placed in the prone position and padded to foster comfort. Time out was performed delineating correct site and side of the procedure , name and of the patient, patient participated in time out procedure. the lower back of the patient was prepped with ChloraPrep and draped with full body fenestrated drape. ?Sterily draped C-arm was brought over the operating field and clear picture of the lumbar spine was demonstrated on the screen. Right L4 lamina was chosen as the target of the tip of the needle position. Projection of the L3 lamina was chosen as the start of the needle advancement. That point was chosen as the local anesthetic infiltration point. After identifying and marking the intended target, the skin around the planned entry point and the subcutaneous tissues were injected with local anesthetic forming skin wheal.. ?A percutaneous sleeve and stimulating probe lead introduction system were assembled, inserted and advanced through the skin wheal to the? point of interest under C-arm view in oblique vision fashion, the introducer needle was delivered to a location in proximity to the multifidus muscles at the right lamina of L4. Multiple stimulation parameters were used to deliver stimulation to the? nerve in concert with stimulating at multiple positions around the nerve. Nerve target acquisition was confirmed noting generation of? in the? corresponding to the nerve being stimulated. Various electrical parameter combinations were tested, and the lead location was adjusted? until the patient indicated? overlapping the distribution of the patient?s typical region of pain. The stimulating probe was removed from the introducer and a percutaneous lead was guided through the needle and delivered to a location in similar proximity to the nerve. Final location was verified with electrical stimulation. The introducer needle was removed, and the exposed end of the percutaneous lead was attached to an external stimulator unit. Various electrical parameter combinations were again tested until the patient indicated paresthesia or muscle tension overlapping the distribution of the patient?s typical region of pain. After confirming that lead impedance was in the normal range, the external unit was detached, the needle was removed, and the lead was anchored at the skin. The lead was threaded into the connector block and electrical continuity and desired patient response was confirmed. The connector block was attached to the external stimulator unit. The site was covered with a sterile occlusive dressing and an? image was taken to document final placement. ?Upon completion of the procedure the patient was taken outside the OR where he recovered uneventfully he went home without immediate complications.
[2023-11-20 12:37] VITALS: BP 114/82; PULSE 68; RESP 16; TEMP 36.2; O2SAT 96
[2023-11-20 12:52] VITALS: BP 128/88; PULSE 61; RESP 16; O2SAT 98
[2023-11-20 13:07] VITALS: BP 132/90; PULSE 75; RESP 16; TEMP 36.3; O2SAT 97
== END 2023-11-20 13:45 | disposition home or self-care (01) ==
PROVIDERS: PCP Internal Medicine; Visit Provider Anesthesiology
PROC: (CPT 64555; principal; 2023-11-20 12:20)
DX: M47.816 Spondylosis without myelopathy or radiculopathy, lumbar region (principal); M51.36 Other intervertebral disc degeneration, lumbar region; G89.29 Other chronic pain; M46.1 Sacroiliitis, not elsewhere classified; I10 Essential (primary) hypertension; E78.5 Hyperlipidemia, unspecified; J45.909 Unspecified asthma, uncomplicated; G47.33 Obstructive sleep apnea (adult) (pediatric); Z79.899 Other long term (current) drug therapy; L23.1 Allergic contact dermatitis due to adhesives; Z88.8 Allergy status to other drugs, medicaments and biological substances; Z98.890 Other specified postprocedural states; Z87.891 Personal history of nicotine dependence
CPT/HCPCS: 64555; A4364; C1778; J2704; J2795

== ENCOUNTER → 2023-11-20 10:37 | Outpatient (BNV) | payer OTHER, SELFPAY | PROVIDERS: PCP Internal Medicine; Visit Provider Anesthesiology | DX: M47.816 Spondylosis without myelopathy or radiculopathy, lumbar region (principal) | CPT/HCPCS: 64555 ==

== ENCOUNTER 2023-11-27 09:28 | Outpatient (AMB) | payer OTHER, SELFPAY ==
--- NOTE | 2023-11-27 09:29 | A.OFFVIS_ITS ---
Intake Vital Signs 3 11/27/23 09:35 Height 5 ft 9 in Weight 229 lb BMI 33.8 BP 128/88 Blood Pressure Location Lt brachial Position Sitting Respiration 16 Pulse 71 Pulse Source Pulse Oximeter Pulse Oximetry (%) 98 Oxygen Delivery Method Room Air Intake Visit Reasons: S/p (R) L3 MB Sprint 11/20/23 Allergies adhesive tape Allergy (Intermediate, Verified 11/27/23 09:35) Skin sloughing with cardiac leads and IV securement device gabapentin [GABAPENTIN] Allergy (Unknown, Verified 11/27/23 09:35) SEVERE H/A,BLURRY VISION,MOOD CHANGE HPI HPI Comments 2 History of Present Illness0 Details Enmanuel presents to the office today for follow up, 1 week s/p Right L3 MB Sprint PNS placement. Patient reports ongoing 70% pain relief since procedure which he reports he tolerated procedure well. Patient has been managing adjustment of stimulation for both lower back Sprint devices. Denies any untoward effects of the device. Pain today is 3/10. Patient reports pain relief with improvement of function and mobility and better sleep since placement of the device. The dressing was removed today. Lead insertion sites look clean, dry, intact, no redness, no swelling, no pathological discharge. Area was cleansed with Chloraprep, applied Bacitracin and covered with Sprint Tegaderm film and gauze dressing. Denies any recent cough, cold, infection, fever, any significant changes in her medical history, medications or recent hospitalizations. Past Procedure: 11/20/23: Right L3 MB Sprint PNS-70% roseline n relief at 68 stimulation 10/08/23: Left L3 MB Sprint PNS-70% pain relief at 66 stimulation 06/02/23: Left L5-S1 TFESI-80% pain reli ef for 3 months 03/12/23: Bilateral Therapeutic L3-L4 D R L5 MBB- 90% ongoing pain relief 11/28/22: Bilateral Therapeutic L3-L4 DR L5 MBB- 85% ongoing pain relief 10/28/22: Bilateral Diagnostic L3-L4 DR L5 MBB-80% pain relief for 2 days PRIOR: Patient is a pleasant 47 years old male with a history of significant degenerative changes at L3-S1 presents today for initial back pain evaluation. He attributes his chronic back pain to work related injury in [place] in 2000 which has resulted in 2 herniated discs. Denies recent trauma, injury or falls. Patient moved to [place] in 2008 and was [place] [facility] to manage his pain and has received multiple injections, mainly steroid injections, physical therapy, aqua therapy, and TENS unit. He reports the most recent injection was 2 months ago with good relief for his left sided radiculopathy symptoms. His pain is axial but also radiates into his left side and left lateral buttock, hip into his left lower extremity laterally and anteriorly in cortés with associated numbness and tingling in his lateral left thigh and toes. Patient reports weakness in his LLE. Pain is described as constant aching, hot burning, stabbing, sharp and numbness. Worse with prolonged walking, standing, changing position or cold weather changes. Patient reports pain affects his daily activities, functioning, sleep, social interactions, and quality of life. Patient reports he completed lumbar spine MRI at [facility] 2 months ago, this report is not available today. Currently he takes Tylenol and tramadol prescribed by his PCP and heat therapy with partial symptom relief. Denies any fever, malaise, abdominal or groin pain, bowel or bladder incontinence or saddle anesthesia. Patient was evaluated by Dr. Crocker in 2010 and 2016. At his last neurosurgical evaluation, Dr. Crocker discussed lumbar decompression with partial discectomy to relieve his leg symptoms or two level spinal fusion for back pain symptoms. Patient states he declined surgical options at that time. He states injections are effective but provide short term pain relief. Patient states physical therapy in the past worsened his symptoms. Denies history of diabetes. Most recent A1C was 5.9. [facility] Medical History Allergic rhinitis Anxiety Insomnia Benign prostatic hyperplasia Obstructive sleep apnea Constipation Impaired fasting glucose Asthma Dyslipidemia Benign essential hypertension Obesity (BMI 30-39.9) Blurred vision, right eye Abdominal pain Overactive bladder Lumbar degenerative disc disease Vitamin D deficiency Hypertension Surgical History History of surgery History of prostate surgery Hx of eye surgery Hx of hemorrhoidectomy Hx of rectal sphincterotomy H/O colonoscopy Family History Brother Diabetes Social History Household Members: None Housing: Apartment Alcohol intake: current Alcohol intake frequency: holidays/special occasions only Patient Tobacco Use Status: Former Tobacco user Quit Date: 2016 Tobacco use type: Cigarette Years Smoked: 20 e-Cigarette/Vaping Use: Never Used Second Hand Smoke Exposure: Yes service: No Current occupational status: employed Cognitive needs: No Hearing needs: No Vision needs: No Review of Systems Const All systems reviewed & are unremarkable except as noted in HPI and below Physical Exam General: Appears afebrile. Alert and oriented. Mood and affect appropriate. Follows and participates in conversation appropriately. Respiratory effort is unlabored. Able to transition from sit to stand unassisted. Ambulates with bilaterally normal heel strike and toe off. Lead Insertion Site: Lead insertion site looks clean, dry, intact.?No pathological discharge, no swelling and no erythema. Lead site dressings were changed today in the clinic. Positive paresthesia at 66 left and 68 right lower back. Results Reviewed Results Reviewed: Assessment & Plan Assessment & Plan (1) Lumbar spondylosis: Code(s): M47.816 - Spondylosis without myelopathy or radiculopathy, lumbar region (2) Lumbar degenerative disc disease: Code(s): M51.36 - Other intervertebral disc degeneration, lumbar region Plan Enmanuel presented to the office today for follow-up 1 week status post right L3 medial branch Sprint placement. Patient tolerating well, adjusting stimulation as needed without difficulty. Denies any untoward effects. Dressing was changed for both leads today in the office. No pathological discharge, no swelling and no erythema.? All questions and concerns were addressed, patient agrees with the plan. Follow-up in the office for Sprint removals on 12/07/23 left and 01/19/24 right, and sooner if needed. Coding Level of Care Code Est Pt Level 4 (58008) Diagnoses Lumbar spondylosis M47.816 Lumbar degenerative disc disease M51.36
[2023-11-27 09:35] VITALS: BP 128/88; PULSE 71; RESP 16; O2SAT 98; BMI 33.8
== END 2023-11-27 09:50 | disposition home or self-care (01) ==
PROVIDERS: PCP Internal Medicine; Visit Provider Nurse Practitioner Family
DX: M47.816 Spondylosis without myelopathy or radiculopathy, lumbar region (principal); M51.36 Other intervertebral disc degeneration, lumbar region
CPT/HCPCS: 99024

== ENCOUNTER → 2023-11-27 09:28 | Outpatient (BNVA) | payer OTHER, SELFPAY | PROVIDERS: PCP Internal Medicine; Visit Provider Nurse Practitioner Family | DX: M47.816 Spondylosis without myelopathy or radiculopathy, lumbar region (principal); M51.36 Other intervertebral disc degeneration, lumbar region | CPT/HCPCS: 99212 ==

== ENCOUNTER 2023-11-29 19:54 | Emergency (ER) | payer OTHER, SELFPAY ==
--- NOTE | ~2023-11-29 | XR_ITS ---
EXAMINATION: XR CHEST CLINICAL INFORMATION: Shortness of breath. COMPARISON: 11/08/2020 TECHNIQUE: Frontal view of the chest was obtained. FINDINGS: No consolidation, pneumothorax, or pleural effusion. Cardiac and mediastinal contours are normal. Pulmonary vasculature is unremarkable. No acute osseous findings. XR/XR chest 1V IMPRESSION: No acute pulmonary findings.
[2023-11-29 20:14] VITALS: BP 136/93; PULSE 80; RESP 17; TEMP 36.7; O2SAT 97; BMI 33.4
[2023-11-29 21:09] LABS: MANUAL DIFF FLAG NO
[2023-11-29 21:10] LABS: Basophils Absolute Auto 0.1 X10*3/uL (0.0-0.2); Basophils Percent Auto 0.7 % (0-2); Eosinophils Absolute Auto 0.2 X10*3/uL (0.0-0.4); Eosinophils Percent Auto 2.2 % (0-4); Hematocrit 44.6 % (42.0-52.0); Hemoglobin 14.6 g/dl (14.0-18.0); Imm Gran Abs Auto 0.02 X10*3/uL (0.00-0.03); Imm Gran Pct Auto 0.2 % (0.0-0.4); Mean Corpuscular HGB Conc 32.7 g/dl (31.0-36.0); Mean Corpuscular Hemoglobin 27.7 pg (27.0-33.0); Mean Corpuscular Volume 84.6 fL (80.0-98.0); Mean Platelet Volume 8.9 fL (9.4-12.4); Monocytes Absolute Auto 0.7 X10*3/uL (0.1-1.2); Monocytes Percent Auto 7.1 % (2-11); Neutrophils Percent Auto 59.8 % (45-73); Platelet Count 298 X10*3/uL (160-400); Red Blood Count 5.27 X10*6/uL (4.60-5.80); Red Cell Distribution Width 13.9 % (11.0-16.0)
[2023-11-29 21:12] LABS: Appearance Urine Clear; Color Urine Yellow; Glucose Urine UA Negative (Negative); Leukocyte Esterase Urine Negative (Negative); Nitrite Urine Negative (Negative); Specific Gravity - Urine 1.025 (1.005-1.025); Urine Blood Negative (Negative); Urine Ketones Negative (Negative); Urine Protein Negative (Neg-Trace)
[2023-11-29 21:24] LABS: Alanine Aminotransferase 10 U/L (0-40); Albumin Level 4.1 g/dL (3.5-5.0); Alkaline Phosphatase 89 U/L (39-117); Anion Gap 10 (12-20); Aspartate Amino Transferase 18 U/L (5-37); Bilirubin Total 0.3 mg/dL (0.0-1.0); Blood Urea Nitrogen 15 mg/dL (9-16); Calcium 9.4 mg/dL (8.4-10.2); Carbon Dioxide 26 mmol/L (22-29); Chloride 109 mmol/L (96-108); Creatinine Clr Calc Pharmacy 101.2; Estimated Glomerular Filt Rate > 60; Glucose Random 109 mg/dL (60-115); Potassium 4.1 mmol/L (3.3-5.1); Sodium 141 mmol/L (135-145); Total Protein 7.3 g/dL (6.5-8.0)
--- NOTE | 2023-11-29 22:21 | ECG_ITS ---
Test Reason : CHEST WALL PAIN Blood Pressure : / mmHG Vent. Rate : 072 BPM Atrial Rate : 072 BPM P-R Int : 110 ms QRS Dur : 076 ms QT Int : 376 ms P-R-T Axes : -12 017 021 degrees QTc Int : 411 ms Sinus rhythm with short VT Otherwise normal ECG When compared with ECG of 10-JUL-2018 17:07, No significant change was found Referred By: Bethanie Otto Electronically Signed By:MOHIT XAVIER
--- NOTE | 2023-11-29 22:28 | ED_ITS ---
HPI - General Adult General Chief complaint: General Medical Stated complaint: back pain and kidney problems Time Seen by Provider: 11/29/23 22:14 Source: patient Mode of arrival: ambulatory Limitations: no limitations History of Present Illness HPI narrative: Patient comes to the emergency room complaining of bilateral lower back pain. Patient states that approximately 2 weeks ago he had his 2nd spinal stimulator inserted. Patient states that over last few days he has been having generalized malaise. Patient states that approximately 5 years ago, patient had similar symptoms and he was diagnosed with kidney injury. Patient denies abdominal pain, no fever chills. Related Data Home Medications Medication Instructions Recorded Confirmed aluminum chloride 20 % topical 1 appl topical BID 10/15/23 11/20/23 solution (Drysol Dab-O-Matic) Previous Rx's Medication Instructions Recorded omeprazole 40 mg capsule,delayed 40 mg PO DAILY #30 caps 03/24/22 release lorazepam 0.5 mg tablet 0.5 mg PO BID PRN anxiety 30 days 05/09/22 #60 tabs cyclobenzaprine 10 mg tablet 10 mg PO TID PRN muscle spasm #7 11/10/22 tabs HANDHELD SHOWER HEAD #1 ea 02/27/23 adjustable straight point cane #1 ea 02/27/23 with offset handle omalizumab 150 mg/mL subcutaneous 300 mg (2 mL) subcut Q2W 28 days 03/31/23 syringe (Xolair) #4 mL albuterol sulfate 90 mcg/actuation 2 puff inhalation Q4-6H PRN 05/14/23 aerosol inhaler shortness of breath or wheezing 30 days #8.5 grams amlodipine 5 mg tablet 5 mg PO DAILY 90 days #90 tabs 05/14/23 fluticasone furoate 200 1 inh inhalation DAILY 30 days #1 05/14/23 mcg-vilanterol 25 mcg/dose ea inhalation powder (Breo Ellipta) metformin 500 mg tablet,extended 500 mg PO QPM 90 days #90 tabs 06/17/23 release 24 hr cetirizine 10 mg tablet 10 mg PO DAILY PRN allergy 08/08/23 symptoms 90 days #90 tabs mirabegron 50 mg tablet,extended 50 mg PO DAILY 30 days #30 tabs 09/08/23 release 24 hr (Myrbetriq) ergocalciferol (vitamin D2) 1,250 1,250 mcg PO QWEEK 3 months #13 09/24/23 mcg (50,000 unit) capsule (Vitamin caps D2) tramadol 50 mg tablet 50 mg PO TID PRN pain 30 days #90 11/13/23 tabs zolpidem 10 mg tablet 10 mg PO BEDTIME PRN insomnia 30 11/13/23 days #30 tabs Allergies Allergy/AdvReac Type Severity Reaction Status Date / Time adhesive tape Allergy Intermediate Skin Verified 11/29/23 20:13 sloughing with cardiac leads and IV securement device gabapentin [GABAPENTIN] Allergy Unknown SEVERE Verified 11/29/23 20:13 H/A,BLURRY VISION,MOOD CHANGE Review of Systems 2 Review of Systems: Constitutional : No Weight loss, no fever chills, complaining of fatigue and generalized malaise ENT/Mouth : No Hearing loss, No Ear Pain, No Nasal Congestion, No Sinus Pain, No Hoarseness, No sore throat, No Rhinorrhea, No Swallowing Difficulty Eyes: No Eye Pain, No Swelling, No Redness, No Foreign Body, No Discharge, No Vision Changes Cardiovascular : No Chest Pain, No SOB, No Dyspnea on Exertion, No Orthopnea, No Edema, No Palpitations Respiratory : No Cough, No Sputum, No Wheezing, No Smoke Exposure, No Dyspnea Gastrointestinal : No Nausea, No Vomiting, No Diarrhea, No Constipation, No abdominal Pain, No Hematochezia, No Melena Genitourinary : no irregular bleeding, No Dysuria, No Urinary Frequency, No Hematuria, No Urinary Incontinence, No Urgency, No Flank Pain, No Urinary Flow Changes, No Hesitancy Musculoskeletal : Complaining of bilateral back pain around the lumbar area and the site of the stimulator. No Myalgias, No Joint Swelling Skin : No Skin Lesions, No rash Neuro : No Weakness, No Numbness, No Paresthesias, No Loss of Consciousness, No Dizziness, No Headache Psych : No Anxiety/Panic, No Depression, No SI/HI/AH/VH, No Social Issues, Heme/Lymph: No Bruising, No Bleeding,No Lymphadenopathy Endocrine : No Polyuria, No Polydipsia, No Temperature Intolerance PMFSH Past Medical History Medical History Allergic rhinitis Anxiety Insomnia Benign prostatic hyperplasia Obstructive sleep apnea Constipation Impaired fasting glucose Asthma Dyslipidemia Benign essential hypertension Obesity (BMI 30-39.9) Blurred vision, right eye Abdominal pain Overactive bladder Lumbar degenerative disc disease Vitamin D deficiency Hypertension Surgical History History of surgery History of prostate surgery Hx of eye surgery Hx of hemorrhoidectomy Hx of rectal sphincterotomy H/O colonoscopy Family History Family History Brother Diabetes Social History Social History Household Members: None Housing: Apartment Alcohol intake: current Alcohol intake frequency: holidays/special occasions only Patient Tobacco Use Status: Former Tobacco user Quit Date: 2016 Tobacco use type: Cigarette Years Smoked: 20 e-Cigarette/Vaping Use: Never Used Second Hand Smoke Exposure: Yes Advance Directives: No Advance Directives Information Provided: No service: No Current occupational status: employed Cognitive needs: No Hearing needs: No Vision needs: No Physical Exam ED Vital Signs: Vital Signs - 24 hr 11/29/23 20:14 Temperature 98.1 F Pulse Rate 80 Respiratory Rate 17 Blood Pressure 136/93 H Pulse Oximetry 97 Oxygen Delivery Method Room Air BMI result Body Mass Index 33.4 Const Other: Appearance: Alert. Oriented X3. No acute distress. Eyes: Pupils equal, round and reactive to light. ENT: Pharynx normal. Neck: Normal inspection. Neck supple. No lymph nodes noted. No crepitus CVS: Normal heart rate and rhythm. Pulses normal. Normal S1 and S2 Respiratory: No respiratory distress. Breath sounds normal. No Wheezing. No rales Abdomen: Soft and nontender. No rigidity. No distention. Back: Spinal stimulator in place, no signs of erythema, pain to palpation around the paraspinal muscles, no thoracic or lumbar spine tenderness or palpable step-offs Skin: Skin warm and dry. Normal skin color. Normal skin turgor. Extremities: No lower extremity edema. No Lacerations. No Rash Neuro: Oriented X 3. No motor deficit. No sensory deficit. Moving all extremities. No slurred speech. CN 2 through 12 grossly intact Psych: calm, cooperative, normal affect Medical Decision Making Medical Decision Making MDM Narrative: -my interpretation of labs: Normal hematology and chemistry, renal function normal, LFTs within normal limits. BNP negative, troponin normal, serology negative for influenza, COVID, RSV -patient states that besides feeling fatigued and having general malaise, sometimes he feels short of breath. No chest pain. Denies URI symptoms -my interpretation of EKG: Sinus rhythm, heart rate 72, no ST segment depression or elevation, nonspecific T-wave inversion in lead III, QTC 411 -my interpretation of chest x-ray: No acute abnormalities - Differential Diagnosis Differential Diagnoses: The differential diagnosis associated with the presentation includes (viral URI, chronic back pain) Lab Data MDM Lab Attestation statement: I reviewed the patient's lab results. 11/29/23 21:05 11/29/23 21:05 Labs: Lab Results 11/29/23 11/29/23 11/29/23 Range/Units 21:01 21:05 22:54 WBC 10.0 (4.8-10.8) X10*3/uL RBC 5.27 (4.60-5.80) X10*6/uL Hgb 14.6 (14.0-18.0) g/dl Hct 44.6 (42.0-52.0) % MCV 84.6 (80.0-98.0) fL MCH 27.7 (27.0-33.0) pg MCHC 32.7 (31.0-36.0) g/dl RDW 13.9 (11.0-16.0) % Plt Count 298 (160-400) X10*3/uL MPV 8.9 L (9.4-12.4) fL Immature Gran % (Auto) 0.2 (0.0-0.4) % Neut % (Auto) 59.8 (45-73) % Lymph % (Auto) 30.0 (20-40) % [place] % (Auto) 7.1 (2-11) % Eos % (Auto) 2.2 (0-4) % Baso % (Auto) 0.7 (0-2) % Lymph # (Auto) 3.0 (1.2-4.9) X10*3/uL [place] # (Auto) 0.7 (0.1-1.2) X10*3/uL Eos # (Auto) 0.2 (0.0-0.4) X10*3/uL Baso # (Auto) 0.1 (0.0-0.2) X10*3/uL Abs Immat Gran (auto) 0.02 (0.00-0.03) X10*3/uL Absolute Neuts (auto) 6.0 (2.0-8.3) x10*3/uL Absolute Nucleated RBC 0.000 (0.0-0.012) X10*3/uL Nucleated RBC % (auto) 0.0 (0.0-0.2) /100WBC Sodium 141 (135-145) mmol/L Potassium 4.1 (3.3-5.1) mmol/L Chloride 109 H (96-108) mmol/L Carbon Dioxide 26 (22-29) mmol/L Anion Gap 10 L (12-20) BUN 15 (9-16) mg/dL Creatinine 1.03 (0.5-1.4) mg/dL Estim Creat Clear Calc 101.2 Estimated GFR > 60 Random Glucose 109 (60-115) mg/dL Calcium 9.4 (8.4-10.2) mg/dL Total Bilirubin 0.3 (0.0-1.0) mg/dL AST 18 (5-37) U/L ALT 10 (0-40) U/L Alkaline Phosphatase 89 (39-117) U/L Troponin I High Sens < 2.7 (<3.5-35.0) ng/L B-Natriuretic Peptide < 10 (<100) pg/mL Total Protein 7.3 (6.5-8.0) g/dL Albumin 4.1 (3.5-5.0) g/dL Urine Color Yellow Urine Appearance Clear Urine pH 6.0 (5.0-9.0) Ur Specific [place] 1.025 (1.005-1.025) Urine Protein Negative (Neg-Trace) mg/dL Urine Glucose (UA) Negative (Negative) mg/dL Urine Ketones Negative (Negative) mg/dL Urine Blood Negative (Negative) Urine Nitrite Negative (Negative) Ur Leukocyte Esterase Negative (Negative) Influenza Type A (PCR) NEGATIVE (Negative) Influenza Type B (PCR) NEGATIVE (Negative) RSV RNA Qual (PCR) NEGATIVE (Negative) SARS-CoV-2 RNA (RT-PCR) NEGATIVE (Negative) Independent Interpretation I performed an independent interpretation of an: EKG and Plain X-Ray Discharge Plan Discharge Clinical Impression: Malaise, Chronic back pain Patient Disposition: Home, Self-Care Instructions: Fatigue (ED), Chronic Back Pain (DC) Additional Instructions: Please follow-up with your primary care physician tomorrow. If you have any worsening or new symptoms, please return to the emergency room or call 911 Prescriptions: No Action omeprazole 40 mg capsule,delayed release(DR/EC) 40 mg PO DAILY Qty: 30 6RF lorazepam 0.5 mg tablet 0.5 mg PO BID PRN (Reason: anxiety) 30 Days Qty: 60 0RF Rx Instructions: 1 tablet Orally twice a day as needed for anxiety (DME) adjustable straight point cane with offset handle See Rx Instructions .Route .MEDSUPPLY Qty: 1 0RF Rx Instructions: As directed (DME) HANDHELD SHOWER HEAD See Rx Instructions .Route .MEDSUPPLY Qty: 1 0RF Rx Instructions: As directed Xolair 150 mg/mL syringe 300 mg subcut Q2W 28 Days Qty: 4 12RF metformin 500 mg tablet extended release 24 hr 500 mg PO QPM 90 Days Qty: 90 1RF cetirizine 10 mg tablet 10 mg PO DAILY PRN (Reason: allergy symptoms) 90 Days Qty: 90 1RF Myrbetriq 50 mg tablet extended release 24 hr 50 mg PO DAILY 30 Days Qty: 30 2RF zolpidem 10 mg tablet 10 mg PO BEDTIME PRN (Reason: insomnia) 30 Days Qty: 30 0RF tramadol 50 mg tablet 50 mg PO TID PRN (Reason: pain) 30 Days Qty: 90 0RF cyclobenzaprine 10 mg tablet 10 mg PO TID PRN (Reason: muscle spasm) Qty: 7 0RF amlodipine 5 mg tablet 5 mg PO DAILY 90 Days Qty: 90 1RF albuterol sulfate 90 mcg/actuation HFA aerosol inhaler 2 puff inhalation Q4-6H PRN (Reason: shortness of breath or wheezing) 30 Days Qty: 8.5 3RF fluticasone furoate-vilanterol [Breo Ellipta] 200-25 mcg/dose blister with device 1 inh inhalation DAILY 30 Days Qty: 1 6RF ergocalciferol (vitamin D2) [Vitamin D2] 1,250 mcg (50,000 unit) capsule 1,250 mcg PO QWEEK 90 Days Qty: 13 3RF Drysol Dab-O-Matic 20 % solution 1 appl topical BID
[2023-11-29 22:45] LABS: Troponin-I High Sensitivity < 2.7 ng/L (<3.5-35.0)
[2023-11-29 22:48] LABS: B Type Natriuretic Peptide < 10 pg/mL (<100)
[2023-11-29 23:38] LABS: Influenza A PCR NEGATIVE (Negative); Influenza B PCR NEGATIVE (Negative); Resp Syncy Virus RNA Qual PCR NEGATIVE (Negative); SARS COV2 PCR INHOUSE NEGATIVE (Negative)
[2023-11-30 00:29] VITALS: BP 147/99; PULSE 78; RESP 18; TEMP 36.3; O2SAT 98
== END 2023-11-30 00:31 | disposition home or self-care (01) ==
PROVIDERS: Emergency Provider Emergency Medicine; PCP Internal Medicine
DX: G89.29 Other chronic pain (principal); M54.50 Low back pain, unspecified; R53.81 Other malaise; I10 Essential (primary) hypertension; Z11.52 Encounter for screening for COVID-19; Z20.828 Contact with and (suspected) exposure to other viral communicable diseases
CPT/HCPCS: 0241U; 36415; 71045; 80053; 81003; 83880; 84484; 85025; 93005; 99283; 99284

== ENCOUNTER → 2023-11-29 22:21 | Outpatient (BNV) | payer OTHER, SELFPAY | PROVIDERS: Emergency Provider Emergency Medicine; PCP Internal Medicine; Visit Provider Internal Medicine | DX: R07.9 Chest pain, unspecified (principal) | CPT/HCPCS: 93010 ==

== ENCOUNTER 2023-12-07 11:13 | Outpatient (AMB) | payer OTHER, SELFPAY ==
--- NOTE | 2023-12-07 11:15 | A.OFFVIS_ITS ---
Intake Vital Signs 3 12/07/23 11:18 Height 5 ft 9 in Weight 225 lb BMI 33.2 BP 146/91 H Blood Pressure Location Rt brachial Position Sitting Pulse 68 Pulse Source Pulse Oximeter Pulse Oximetry (%) 97 Oxygen Delivery Method Room Air Intake Visit Reasons: 60 Day (L) L3 MB SPRINT Removal Intake Note: Pain today 5/10 Care Director Required: No Accompanied by: Self / Same As Patient Allergies adhesive tape Allergy (Intermediate, Verified 12/07/23 11:25) Skin sloughing with cardiac leads and IV securement device gabapentin [GABAPENTIN] Allergy (Unknown, Verified 12/07/23 11:25) SEVERE H/A,BLURRY VISION,MOOD CHANGE HPI HPI Comments 2 History of Present Illness0 Details Enmanuel presents to the office today for Left L3 MB Sprint removal. Patient reports recent exacerbation of back pain and malaise one week ago that brought him to ER for evaluation. His labs, EKG and CXR all were normal. He was concerned about similar symptoms he had about 5 years ago when he had kidney injury. Patient reports he had turned off Sprint device few days ago and has noted some decrease in his symptoms. He states his pain today at 5/10 and better pain relief with Sprint PNS trial on the left than on the right. Denies any recent cough, cold, infection, fever, or any other significant changes in her medical history, medications or recent hospitalizations. The dressing was removed today. Lead insertion site on the left appears to be pulled out by half an inch and right lead is intact, both leads look clean, dry, intact, no redness, no swelling, no pathological discharge. Area was cleansed with Chloraprep, left lead pulled with tip intact, areas were cleansed with Chloraprep again, applied Bacitracin and covered with Sprint Tegaderm film dressing. Past Procedure: 10/08/23: left L3 MB Sprint removal-50% pain relief 11/20/23: Right L3 MB Sprint PNS-70% roseline n relief at 68 stimulation 10/08/23: Left L3 MB Sprint PNS-70% pain relief at 66 stimulation 06/02/23: Left L5-S1 TFESI-80% pain reli ef for 3 months 03/12/23: Bilateral Therapeutic L3-L4 D R L5 MBB- 90% ongoing pain relief 11/28/22: Bilateral Therapeutic L3-L4 DR L5 MBB- 85% ongoing pain relief 10/28/22: Bilateral Diagnostic L3-L4 L5 MBB-80% pain relief for 2 days PRIOR: Patient is a pleasant 47 years old male with a history of significant degenerative changes at L3-S1 presents today for initial back pain evaluation. He attributes his chronic back pain to work related injury in [place] in 2000 which has resulted in 2 herniated discs. Denies recent trauma, injury or falls. Patient moved to [place] in 2008 and was followed by [facility] management and [facility] to manage his pain and has received multiple injections, mainly steroid injections, physical therapy, aqua therapy, and TENS unit. He reports the most recent injection was 2 months ago with good relief for his left sided radiculopathy symptoms. His pain is axial but also radiates into his left side and left lateral buttock, hip into his left lower extremity laterally and anteriorly in cortés with associated numbness and tingling in his lateral left thigh and toes. Patient reports weakness in his LLE. Pain is described as constant aching, hot burning, stabbing, sharp and numbness. Worse with prolonged walking, standing, changing position or cold weather changes. Patient reports pain affects his daily activities, functioning, sleep, social interactions, and quality of life. Patient reports he completed lumbar spine MRI at [facility] 2 months ago, this report is not available today. Currently he takes Tylenol and tramadol prescribed by his PCP and heat therapy with partial symptom relief. Denies any fever, malaise, abdominal or groin pain, bowel or bladder incontinence or saddle anesthesia. Patient was evaluated by Dr. Crocker in 2010 and 2016. At his last neurosurgical evaluation, Dr. Crocker discussed lumbar decompression with partial discectomy to relieve his leg symptoms or two level spinal fusion for back pain symptoms. Patient states he declined surgical options at that time. He states injections are effective but provide short term pain relief. Patient states physical therapy in the past worsened his symptoms. Denies history of diabetes. Most recent A1C was 5.9. [facility] Medical History Allergic rhinitis Anxiety Insomnia Benign prostatic hyperplasia Obstructive sleep apnea Constipation Impaired fasting glucose Asthma Dyslipidemia Benign essential hypertension Obesity (BMI 30-39.9) Blurred vision, right eye Abdominal pain Overactive bladder Lumbar degenerative disc disease Vitamin D deficiency Hypertension Surgical History History of surgery History of prostate surgery Hx of eye surgery Hx of hemorrhoidectomy Hx of rectal sphincterotomy H/O colonoscopy Family History Brother Diabetes Social History Household Members: None Housing: Apartment Alcohol intake: current Alcohol intake frequency: holidays/special occasions only Patient Tobacco Use Status: Former Tobacco user Quit Date: 2016 Tobacco use type: Cigarette Years Smoked: 20 e-Cigarette/Vaping Use: Never Used Second Hand Smoke Exposure: Yes service: No Current occupational status: employed Cognitive needs: No Hearing needs: No Vision needs: No Review of Systems Const All systems reviewed & are unremarkable except as noted in HPI and below Reports as per HPI, Denies body aches, Denies chills, Denies difficulty sleeping, Reports fatigue, Denies fever(s), Denies headache(s), Denies malaise, Denies night sweats, Denies weakness and Denies weight loss ENT Denies headache(s) Neuro Denies headache(s) and Denies weakness Endo Reports fatigue Physical Exam Vital Signs: Last Vital Signs Pulse 68 12/07/23 11:18 BP 146/91 H 12/07/23 11:18 Pulse Ox 97 12/07/23 11:18 Oxygen Delivery Method Room Air 12/07/23 11:18 BMI result Body Mass Index 33.2 General: Appears afebrile. Alert and oriented. Mood and affect appropriate. Follows and participates in conversation appropriately. Respiratory effort is unlabored. Able to transition from sit to stand unassisted. Ambulates with bilaterally normal heel strike and toe off. Lead Insertion Site: Lead insertion site looks clean, dry, intact (left lead slightly pulled out).?No pathological discharge, no swelling and no erythema. Lead site dressings were changed today in the clinic. Left lead pulled with tip intact. Positive paresthesia at 66 right lower back. Results Reviewed Results Reviewed: Assessment & Plan Assessment & Plan (1) Chronic back pain: Code(s): M54.9 - Dorsalgia, unspecified; G89.29 - Other chronic pain (2) Muscle spasm of back: Code(s): M62.830 - Muscle spasm of back (3) Lumbar spondylosis: Code(s): M47.816 - Spondylosis without myelopathy or radiculopathy, lumbar region (4) Lumbar degenerative disc disease: Code(s): M51.36 - Other intervertebral disc degeneration, lumbar region Plan Enmanuel presented to the office today for left L3 medial branch Sprint removal. Lead removed with tip intact. Dressing was changed for both leads today in the office. No pathological discharge, no swelling and no erythema.?Denies any untoward effects. Right Sprint lead restarted at 66 with positive parasthesia. All questions and concerns were addressed, patient agrees with the plan. Follow-up in the office for right Sprint removal on 01/19/24 and sooner if needed. Orders: Orders 2 XR lumbar spine 2-3V Today G89.29 - Other chronic pain, M54.9 - Dorsalgia, unspecified, M62.830 - Muscle spasm of back Medications: New 2 tizanidine 4 mg PO BID PRN 60 tabs 0RF muscle spasticity G89.29 - Other chronic pain, M54.9 - Dorsalgia, unspecified, M62.830 - Muscle spasm of back Discontinued 2 cyclobenzaprine Discontinued Reason: Doctor's Order 10 mg PO TID PRN 7 tabs 0RF muscle spasm Coding Level of Care Code Est Pt Level 3 (52905) Diagnoses Chronic back pain M54.9; G89.29 Muscle spasm of back M62.830 Lumbar spondylosis M47.816 Lumbar degenerative disc disease M51.36
[2023-12-07 11:18] VITALS: BP 146/91; PULSE 68; O2SAT 97; BMI 33.2
== END 2023-12-07 11:40 | disposition home or self-care (01) ==
PROVIDERS: PCP Internal Medicine; Visit Provider Nurse Practitioner Family
DX: M54.9 Dorsalgia, unspecified (principal); G89.29 Other chronic pain; M62.830 Muscle spasm of back; M47.816 Spondylosis without myelopathy or radiculopathy, lumbar region; M51.36 Other intervertebral disc degeneration, lumbar region
CPT/HCPCS: 99213

== ENCOUNTER 2023-12-07 11:13 | Outpatient (REF) | payer OTHER, SELFPAY ==
--- NOTE | ~2023-12-07 | XR_ITS ---
EXAMINATION: XR LUMBOSACRAL SPINE CLINICAL INFORMATION: Muscle spasm back. COMPARISON: Lumbar spine radiographs dated 09/01/2019. TECHNIQUE: AP and lateral views of the lumbar spine and lateral view of the lumbosacral junction. FINDINGS: The vertebral bodies and posterior elements are normal. The disc spaces are preserved and the vertebral alignment is normal. There is mild anterior endplate arthropathy at L3-L4 and L5-S1. The paraspinal soft tissues are normal. Sprint PNS leads are noted projecting over the lower lumbar spine. XR/XR lumbar spine 2-3V IMPRESSION: Unremarkable examination.
== END 2023-12-07 11:14 | disposition home or self-care (01) ==
LOC: HO.XRAY 11:13
PROVIDERS: PCP Internal Medicine; Visit Provider Nurse Practitioner Family
DX: M62.830 Muscle spasm of back (principal); M54.9 Dorsalgia, unspecified; G89.29 Other chronic pain; M51.36 Other intervertebral disc degeneration, lumbar region
CPT/HCPCS: 72100; 99212

== ENCOUNTER 2023-12-07 12:04 | Outpatient (REF) | payer OTHER, SELFPAY ==
[2023-12-07 12:14] VITALS: BP 128/89; PULSE 61; RESP 16; TEMP 36.7; O2SAT 98
[2023-12-07] MEDS: Omalizumab 150 MG/ML SYRINGE 300 MG SUBCUT (12:20)
== END 2023-12-07 12:05 | disposition home or self-care (01) ==
LOC: HO.MDS 12:04
PROVIDERS: Visit Provider Internal Medicine Pulmonary Disease
DX: J45.50 Severe persistent asthma, uncomplicated (principal)
CPT/HCPCS: 96372

== ENCOUNTER 2023-12-14 11:22 | Outpatient (AMB) | payer OTHER, SELFPAY ==
[2023-12-14 11:31] VITALS: BP 123/82; PULSE 88; O2SAT 99; BMI 33.2
--- NOTE | 2023-12-14 11:31 | A.OFFVIS_ITS ---
Intake Vital Signs 3 12/14/23 11:31 Height 5 ft 9 in Weight 225 lb BMI 33.2 BP 123/82 Blood Pressure Location Lt brachial Position Sitting Pulse 88 Pulse Source Pulse Oximeter Pulse Oximetry (%) 99 Oxygen Delivery Method Room Air Intake Visit Reasons: Sprint removal Intake Note: Pain today 7/10 Allergies adhesive tape Allergy (Intermediate, Verified 12/14/23 11:32) Skin sloughing with cardiac leads and IV securement device gabapentin [GABAPENTIN] Allergy (Unknown, Verified 12/14/23 11:32) SEVERE H/A,BLURRY VISION,MOOD CHANGE HPI HPI Comments 2 History of Present Illness0 Details Enmanuel presents to the office today for Sprint site check and potential Sprint removal due to increased back pain. Patient reports worsening of back pain, malaise and chills without fever and was seen for this in ER on 11/29/23. His labs, EKG and CXR all were normal. Patient reports pain mildly decreases when he turns Sprint device off and has turned it off over 3 days ago. He states his pain today at 7/10. He reports good pain relief with Sprint PNS trial without any untoward effects with the left sided Sprint and continues to experience good pain relief on the left side. Reports localized tenderness and stiffness in the right mid and lower back. Recent lumbar xray noted below. Denies any recent cough, cold, infection, fever, or any other significant changes in her medical history, medications or recent hospitalizations. Patient requests Sprint lead to remove today. The dressing was removed today. The right lead is intact, clean, dry, intact, no swelling, no pathological discharge except mild redness noted at the insertion lead site. There is also redness, erythema and irritation noted underneath mounting cradle adhesive to the skin area. Patient reports allergy to adhesive tape but had not experienced this sensitivity with right side Sprint dressing changes. The area was cleansed with Chloraprep, right lead pulled with tip intact, areas were cleansed with Chloraprep again, applied Bacitracin and covered with sterile dressing. Past Procedure: 12/14/23: Right L3 MB Sprint removal- no pain relief 10/08/23: Left L3 MB Sprint removal-50% pain relief 11/20/23: Right L3 MB Sprint PNS-70% roseline n relief at 68 stimulation 10/08/23: Left L3 MB Sprint PNS-70% pain relief at 66 stimulation 06/02/23: Left L5-S1 TFESI-80% pain reli ef for 3 months 03/12/23: Bilateral Therapeutic L3-L4 D R L5 MBB- 90% ongoing pain relief 11/28/22: Bilateral Therapeutic L3-L4 DR L5 MBB- 85% ongoing pain relief 10/28/22: Bilateral Diagnostic L3-L4 DR L5 MBB-80% pain relief for 2 days PRIOR: Patient is a pleasant 47 years old male with a history of significant degenerative changes at L3-S1 presents today for initial back pain evaluation. He attributes his chronic back pain to work related injury in [place] in 2000 which has resulted in 2 herniated discs. Denies recent trauma, injury or falls. Patient moved to [place] in 2008 and was followed by [facility] management and [facility] to manage his pain and has received multiple injections, mainly steroid injections, physical therapy, aqua therapy, and TENS unit. He reports the most recent injection was 2 months ago with good relief for his left sided radiculopathy symptoms. His pain is axial but also radiates into his left side and left lateral buttock, hip into his left lower extremity laterally and anteriorly in cortés with associated numbness and tingling in his lateral left thigh and toes. Patient reports weakness in his LLE. Pain is described as constant aching, hot burning, stabbing, sharp and numbness. Worse with prolonged walking, standing, changing position or cold weather changes. Patient reports pain affects his daily activities, functioning, sleep, social interactions, and quality of life. Patient reports he completed lumbar spine MRI at [facility] 2 months ago, this report is not available today. Currently he takes Tylenol and tramadol prescribed by his PCP and heat therapy with partial symptom relief. Denies any fever, malaise, abdominal or groin pain, bowel or bladder incontinence or saddle anesthesia. Patient was evaluated by Dr. Crocker in 2010 and 2016. At his last neurosurgical evaluation, Dr. Crocker discussed lumbar decompression with partial discectomy to relieve his leg symptoms or two level spinal fusion for back pain symptoms. Patient states he declined surgical options at that time. He states injections are effective but provide short term pain relief. Patient states physical therapy in the past worsened his symptoms. Denies history of diabetes. Most recent A1C was 5.9. [facility] Medical History Allergic rhinitis Anxiety Insomnia Benign prostatic hyperplasia Obstructive sleep apnea Constipation Impaired fasting glucose Asthma Dyslipidemia Benign essential hypertension Obesity (BMI 30-39.9) Blurred vision, right eye Abdominal pain Overactive bladder Lumbar degenerative disc disease Vitamin D deficiency Hypertension Surgical History History of surgery History of prostate surgery Hx of eye surgery Hx of hemorrhoidectomy Hx of rectal sphincterotomy H/O colonoscopy Family History Brother Diabetes Social History Household Members: None Housing: Apartment Alcohol intake: current Alcohol intake frequency: holidays/special occasions only Patient Tobacco Use Status: Former Tobacco user Quit Date: 2016 Tobacco use type: Cigarette Years Smoked: 20 e-Cigarette/Vaping Use: Never Used Second Hand Smoke Exposure: Yes service: No Current occupational status: employed Cognitive needs: No Hearing needs: No Vision needs: No Review of Systems Const All systems reviewed & are unremarkable except as noted in HPI and below Physical Exam Vital Signs: Last Vital Signs Pulse 88 12/14/23 11:31 BP 123/82 12/14/23 11:31 Pulse Ox 99 12/14/23 11:31 Oxygen Delivery Method Room Air 12/14/23 11:31 BMI result Body Mass Index 33.2 General: Appears afebrile. Alert and oriented. Mood and affect appropriate. Follows and participates in conversation appropriately. Respiratory effort is unlabored. Able to transition from sit to stand unassisted. Ambulates with bilaterally normal heel strike and toe off. Lead Insertion Site: Lead insertion site looks clean, dry, intact No pathological discharge, no swelling and no erythema at the lead insertion site. Lead pulled with tip intact. Redness, erythema and irritation noted underneath mounting cradle adhesive to the skin area. Results Reviewed Results Reviewed: XR LUMBOSACRAL SPINE 12/07/23 CLINICAL INFORMATION: Muscle spasm back. COMPARISON: Lumbar spine radiographs dated 09/01/2019. TECHNIQUE: AP and lateral views of the lumbar spine and lateral view of the lumbosacral junction. FINDINGS: The vertebral bodies and posterior elements are normal. The disc spaces are preserved and the vertebral alignment is normal. There is mild anterior endplate arthropathy at L3-L4 and L5-S1. The paraspinal soft tissues are normal. Sprint PNS leads are noted projecting over the lower lumbar spine. IMPRESSION: Unremarkable examination. Assessment & Plan Assessment & Plan (1) Malaise and fatigue: Code(s): R53.81 - Other malaise; R53.83 - Other fatigue (2) Low back pain: Code(s): M54.50 - Low back pain, unspecified (3) Muscle spasm of back: Code(s): M62.830 - Muscle spasm of back (4) Lumbar spondylosis: Code(s): M47.816 - Spondylosis without myelopathy or radiculopathy, lumbar region Plan Lumbar spine xray reviewed with patient today. Labs ordered and advised patient to complete prior to starting Cephalexin for 5 days and take probiotic in between Cephalexin and 5 more days after the antibiotic. Side effects and precautions discussed with patient. Lab results will be called to patient. Sprint lead removed today due to worsening back pain, persistent malaise and chills with local site irritation and redness. Patient advised to continue to monitor his symptoms and call our office for any worsening of his pain or symptoms or seek medical evaluation at ER or Urgent Clinic. All questions and concerns have been answered and patient agreed with the plan. Follow up as needed. Orders: Orders 2 Erythrocyte Sedimentation Rate Today M54.50 - Low back pain, unspecified, R53.81 - Other malaise, R53.83 - Other fatigue Complete Blood Count Auto Diff Today M54.50 - Low back pain, unspecified, R53.81 - Other malaise, R53.83 - Other fatigue CRP High Sensitivity Today M54.50 - Low back pain, unspecified, R53.81 - Other malaise, R53.83 - Other fatigue Medications: New 2 lactobacillus comb no.10 (Probiotic) administer with a meal in between Cephalexin 20,000 mmu cells PO DAILY 10 days 10 caps 0RF cephalexin 1,000 mg (2 x 500 mg) PO Q12H 5 days 20 tabs 0RF Coding Level of Care Code Est Pt Level 4 (20133) Diagnoses Malaise and fatigue R53.81; R53.83 Low back pain M54.50 Muscle spasm of back M62.830 Lumbar spondylosis M47.816
== END 2023-12-14 11:54 | disposition home or self-care (01) ==
PROVIDERS: PCP Internal Medicine; Visit Provider Nurse Practitioner Family
DX: R53.81 Other malaise (principal); R53.83 Other fatigue; M54.50 Low back pain, unspecified; M62.830 Muscle spasm of back; M47.816 Spondylosis without myelopathy or radiculopathy, lumbar region
CPT/HCPCS: 99214

== ENCOUNTER → 2023-12-14 11:22 | Outpatient (BNVA) | payer OTHER, SELFPAY | PROVIDERS: PCP Internal Medicine; Visit Provider Nurse Practitioner Family | DX: M47.816 Spondylosis without myelopathy or radiculopathy, lumbar region (principal); M54.50 Low back pain, unspecified; M62.830 Muscle spasm of back; R53.81 Other malaise; R53.83 Other fatigue | CPT/HCPCS: 99212 ==

== ENCOUNTER 2023-12-15 07:38 | Outpatient (REF) | payer OTHER, SELFPAY ==
[2023-12-15 08:01] LABS: MANUAL DIFF FLAG NO
[2023-12-15 08:35] LABS: Basophils Absolute Auto 0.1 X10*3/uL (0.0-0.2); Basophils Percent Auto 0.9 % (0-2); Eosinophils Absolute Auto 0.1 X10*3/uL (0.0-0.4); Eosinophils Percent Auto 1.7 % (0-4); Hematocrit 42.6 % (42.0-52.0); Hemoglobin 13.9 g/dl (14.0-18.0); Imm Gran Abs Auto 0.02 X10*3/uL (0.00-0.03); Imm Gran Pct Auto 0.3 % (0.0-0.4); Lymphocytes Absolute Auto 2.4 X10*3/uL (1.2-4.9); Lymphocytes Percent Auto 35.4 % (20-40); Mean Corpuscular HGB Conc 32.6 g/dl (31.0-36.0); Mean Corpuscular Volume 85.9 fL (80.0-98.0); Mean Platelet Volume 8.9 fL (9.4-12.4); Monocytes Absolute Auto 0.6 X10*3/uL (0.1-1.2); Monocytes Percent Auto 8.6 % (2-11); Neutrophils Absolute Auto 3.7 x10*3/uL (2.0-8.3); Neutrophils Percent Auto 53.1 % (45-73); Platelet Count 295 X10*3/uL (160-400); Red Blood Count 4.96 X10*6/uL (4.60-5.80); Red Cell Distribution Width 14.2 % (11.0-16.0); White Blood Count 6.9 X10*3/uL (4.8-10.8)
[2023-12-15 08:36] LABS: Basophils Percent Auto 0.6 % (0-2); Eosinophils Absolute Auto 0.1 X10*3/uL (0.0-0.4); Eosinophils Percent Auto 1.6 % (0-4); Hematocrit 42.5 % (42.0-52.0); Hemoglobin 13.8 g/dl (14.0-18.0); Imm Gran Abs Auto 0.02 X10*3/uL (0.00-0.03); Imm Gran Pct Auto 0.3 % (0.0-0.4); Lymphocytes Absolute Auto 2.4 X10*3/uL (1.2-4.9); Lymphocytes Percent Auto 35.4 % (20-40); Mean Corpuscular HGB Conc 32.5 g/dl (31.0-36.0); Mean Corpuscular Hemoglobin 27.4 pg (27.0-33.0); Mean Corpuscular Volume 84.5 fL (80.0-98.0); Mean Platelet Volume 9.1 fL (9.4-12.4); Monocytes Absolute Auto 0.6 X10*3/uL (0.1-1.2); Neutrophils Absolute Auto 3.7 x10*3/uL (2.0-8.3); Neutrophils Percent Auto 54.1 % (45-73); Platelet Count 304 X10*3/uL (160-400); Red Blood Count 5.03 X10*6/uL (4.60-5.80); Red Cell Distribution Width 14.1 % (11.0-16.0); White Blood Count 6.9 X10*3/uL (4.8-10.8)
[2023-12-15 08:50] LABS: Estimated Average Glucose 120 mg/dL; Hemoglobin A1c % 5.8 % (<6.0)
[2023-12-15 09:02] LABS: Appearance Urine Clear; Color Urine Yellow; Glucose Urine UA Negative (Negative); Leukocyte Esterase Urine Negative (Negative); Nitrite Urine Negative (Negative); PH 5.5 (5.0-9.0); Specific Gravity - Urine 1.025 (1.005-1.025); Urine Blood Negative (Negative); Urine Ketones Negative (Negative); Urine Protein Negative (Neg-Trace)
[2023-12-15 09:07] LABS: Alanine Aminotransferase 10 U/L (0-40); Albumin Level 3.7 g/dL (3.5-5.0); Alkaline Phosphatase 85 U/L (39-117); Anion Gap 9 (12-20); Aspartate Amino Transferase 16 U/L (5-37); Bilirubin Total 0.4 mg/dL (0.0-1.0); Blood Urea Nitrogen 13 mg/dL (9-16); Calcium 9.2 mg/dL (8.4-10.2); Carbon Dioxide 23 mmol/L (22-29); Chloride 112 mmol/L (96-108); Cholesterol 158 mg/dL (<200); Estimated Glomerular Filt Rate > 60; Glucose Fasting 113 mg/dL (60-99); HDL Cholesterol 30 mg/dL (>40); LDL Cholesterol Calculated 108 mg/dL (<100); Potassium 3.7 mmol/L (3.3-5.1); Sodium 140 mmol/L (135-145); Total Protein 6.7 g/dL (6.5-8.0); Triglycerides 102 mg/dL (<150)
[2023-12-15 09:13] LABS: Erythrocyte Sedimentation Rate 6 MM/HR (0-15)
[2023-12-16 17:29] LABS: CRP High Sensitivity 6.2 mg/L
== END 2023-12-15 07:39 | disposition home or self-care (01) ==
LOC: HO.LAB 07:38
PROVIDERS: PCP Internal Medicine; Visit Provider Nurse Practitioner Family
DX: I10 Essential (primary) hypertension (principal); R53.81 Other malaise; R53.83 Other fatigue; R30.0 Dysuria; R73.01 Impaired fasting glucose; E78.00 Pure hypercholesterolemia, unspecified; M54.50 Low back pain, unspecified
CPT/HCPCS: 36415; 80053; 80061; 81003; 83036; 85025; 85652; 86141

== ENCOUNTER 2023-12-28 07:53 | Outpatient (REF) | payer OTHER, SELFPAY ==
[2023-12-30 14:19] LABS: CRP High Sensitivity 4.1 mg/L
== END 2023-12-28 07:54 | disposition home or self-care (01) ==
LOC: HO.LAB 07:53
PROVIDERS: PCP Internal Medicine; Visit Provider Nurse Practitioner Family
DX: R79.82 Elevated C-reactive protein (CRP) (principal)
CPT/HCPCS: 36415; 86141

== ENCOUNTER 2023-12-31 11:42 | Outpatient (AMB) | payer OTHER, SELFPAY ==
[2023-12-31 11:44] VITALS: BP 120/80; PULSE 64; O2SAT 98; BMI 32.8
--- NOTE | 2023-12-31 11:44 | MHC.PC.OV ---
Vital Signs 12/31/23 11:44 Height 5 ft 9 in Weight 222 lb 4 oz BMI 32.8 BP 120/80 Blood Pressure Location Lt brachial Position Sitting Pulse 64 Pulse Source Pulse Oximeter Pulse Oximetry (%) 98 Oxygen Delivery Method Room Air Intake Visit Reasons: 3 month f/u Opthalmic Tech Required: No Accompanied by: Self / Same As Patient Allergies adhesive tape Allergy (Intermediate, Verified 12/31/23 12:16) Skin sloughing with cardiac leads and IV securement device gabapentin [GABAPENTIN] Allergy (Unknown, Verified 12/31/23 12:16) SEVERE H/A,BLURRY VISION,MOOD CHANGE Medication List - Last Reconciled 12/31/23 by Aayush Jay MD [adjustable straight point cane with offset handle As directed] albuterol sulfate 90 mcg/actuation 2 puffs inhalation Q4-6H PRN 30 days aluminum chloride 20% (Drysol Dab-O-Matic) 1 appl topical BID amlodipine 5 mg PO DAILY 90 days cetirizine 10 mg PO DAILY PRN 90 days ergocalciferol (vitamin D2) (Vitamin D2) 1,250 mcg PO QWEEK 3 months fluticasone furoate-vilanterol 200-25 mcg/dose (Breo Ellipta) 1 inh inhalation DAILY 30 days [HANDHELD SHOWER HEAD As directed] lactobacillus comb no.10 (Probiotic) 20,000 mmu cells PO DAILY 10 days lorazepam 0.5 mg PO BID PRN 30 days metformin ER 500 mg PO QPM 90 days mirabegron ER (Myrbetriq) 50 mg PO DAILY 30 days omalizumab (Xolair) 300 mg (2 mL) subcut Q2W 28 days omeprazole 40 mg PO DAILY tizanidine 4 mg PO BID PRN tramadol 50 mg PO TID PRN 30 days zolpidem 10 mg PO BEDTIME PRN 30 days Tobacco use date assessed: 09/24/23 Dental Screening Dental Screen Date: 09/24/23 HPI 3 month f/u HPI Details Patient comes in today for his follow up visit States that his left lower back did well and continues to experience significant pain relief with the PNS but he was experiencing increased pain over his right lower back with the Sprint PNS and he had this removed a couple of weeks ago Recalls noting some skin lesions over where the PNS was removed from and he was started on oral Cephalexin, which he just finished a few days ago States that he now wake up every night with increased pain over his right lower back He denies any fever or chills; denies any headaches or dizziness Denies any chest pains, no shortness of breath No nausea /vomiting, no abdominal pain No change in bowel habits noted Had his follow up labs done a couple of weeks ago - to discuss his results [facility] Medical History Allergic rhinitis Anxiety Insomnia Benign prostatic hyperplasia Obstructive sleep apnea Constipation Impaired fasting glucose Asthma Dyslipidemia Benign essential hypertension Obesity (BMI 30-39.9) Blurred vision, right eye Abdominal pain Overactive bladder Lumbar degenerative disc disease Vitamin D deficiency Hypertension Surgical History History of surgery History of prostate surgery Hx of eye surgery Hx of hemorrhoidectomy Hx of rectal sphincterotomy H/O colonoscopy Family History Brother Diabetes Social History Household Members: None Housing: Apartment Alcohol intake: current Alcohol intake frequency: holidays/special occasions only Patient Tobacco Use Status: Former Tobacco user Quit Date: 2016 Tobacco use type: Cigarette Years Smoked: 20 e-Cigarette/Vaping Use: Never Used Second Hand Smoke Exposure: Yes service: No Current occupational status: employed Cognitive needs: No Hearing needs: No Vision needs: No Questionnaire Thrive Questionnaire Date Thrive assessed: 09/24/23 WILMER-7 AMB Questionnaire WILMER-7 Date WILMER - 7 assessed: 09/24/23 Source: Developed by Drs. Александр Andre, Muriel Guido, Shiv Treadwell and colleagues, with an educational sharon from [employer]. Review of Systems Const Denies chills, Denies fatigue, Denies fever(s) and Denies headache(s) ENT Denies dysphagia, Denies dizziness, Denies otalgia, Denies headache(s), Denies odynophagia and Denies sore throat Card Denies chest pain, Denies palpitations and Denies dyspnea Resp Denies cough, Denies dyspnea and Denies wheezing GI Denies abdominal pain, Denies constipation, Denies dysphagia, Denies heartburn, Denies diarrhea, Denies nausea, Denies odynophagia and Denies vomiting Denies dysuria, Denies nocturia and Denies urinary frequency Musc Reports back pain (over the lumbar spine - chronic; increased over right lower back lately) Skin/Breast Denies rash Neuro Denies dizziness and Denies headache(s) Endo Denies fatigue and Denies palpitations Aller/Immun Denies wheezing Physical exam (Primary Care) Vital Signs: Last Vital Signs Pulse 64 12/31/23 11:44 BP 120/80 12/31/23 11:44 Pulse Ox 98 12/31/23 11:44 Oxygen Delivery Method Room Air 12/31/23 11:44 BMI result Body Mass Index 32.8 Tobacco/Smoking Status: Tobacco use Status Tobacco use date assessed 09/24/23 12/31/23 11:46 Patient Tobacco Use Status Former Tobacco user 12/31/23 11:46 Tobacco use type Cigarette 12/31/23 11:46 e-Cigarette/Vaping Use Never Used 12/31/23 11:46 Thrive Assessment: Date of Thrive Assessment Date Thrive assessed 09/24/23 12/31/23 11:46 Const General: no acute distress and alert HENMT Ears: TM's normal bilaterally and EAC's normal Throat: Yes posterior oropharynx normal and Yes tonsils normal (no TP congestion) Neck Neck: Yes no lymphadenopathy and Yes supple Thyroid: Thyroid normal Resp Auscultation: clear to auscultation bilaterally, no rales and no wheezes Cardio Rate: regular rate Rhythm: regular rhythm Heart sounds: no murmurs GI Palpation (GI): Soft to palpation and nontender Auscultation: normal bowel sounds General: Yes no CVA tenderness Back/Spine/Pelvis Back: no CVA tenderness Thoracic/Lumbar Spine: lumbar spinal tenderness (R>L) Extrem General: Yes no clubbing, cyanosis or edema Results Reviewed Results Reviewed: Laboratory Tests 12/15/23 12/15/23 07:52 08:00 WBC 6.9 Hgb 13.8 L Hct 42.5 Plt Count 304 ESR 6 Sodium 140 Potassium 3.7 Creatinine 0.81 Estimated GFR > 60 Fasting Glucose 113 H Hemoglobin A1c % 5.8 Calcium 9.2 AST 16 ALT 10 Triglycerides 102 Cholesterol 158 LDL Cholesterol, Calc 108 H HDL Cholesterol 30 L Ur Specific [place] 1.025 Urine Protein Negative Urine Glucose (UA) Negative Urine Blood Negative Urine Nitrite Negative Ur Leukocyte Esterase Negative Assessment and Plan Assessment & Plan (1) Benign essential hypertension: Code(s): I10 - Essential (primary) hypertension Plan: Reinforced low sodium diet - goal is systolic BP of 120 mm or less Continue Amlodipine 5 mg QD (2) Dyslipidemia: Code(s): E78.5 - Hyperlipidemia, unspecified Plan: Results of his labs done a couple of weeks ago reviewed and discussed with patient Reinforced low cholesterol diet Will recheck his labs and fasting lipids in 4 months for follow-up (3) Asthma: Code(s): J45.909 - Unspecified asthma, uncomplicated Qualifiers: Asthma severity: mild Asthma persistence: intermittent Asthma complication type: uncomplicated Qualified Code(s): J45.20 - Mild intermittent asthma, uncomplicated Plan: Stable Continue Xolair injections 300 mg every 2 weeks, Incruse Ellipta 62.5 mcg 1 inhalation QD and Albuterol HFA 2 inhalations Q 6 hours PRN Follow up with Dr. Garber (pulmonary) as scheduled (4) Impaired fasting glucose: Code(s): R73.01 - Impaired fasting glucose Plan: HgbA1c was at 5.8% on his labs done a couple of weeks ago; was previously at 5.7% Reinforced low calorie diet/exercise as tolerated Continue Metformin ER 500 mg QD (5) Lumbar degenerative disc disease: Code(s): M51.36 - Other intervertebral disc degeneration, lumbar region Plan: Reinforced activity and weight lifting restrictions Continue Tramadol 50 mg TID PRN He had MBB trial last year with reportedly around 85% symptomatic improvement; subsequently had TFESI in May 2023 and later on had a Sprint PNS trial which he states helped a lot with significant pain relief over his left lower back but he unfortunately did not respond as well over his right lower back and states that he wakes at night often now with increased right lower back pain Follow up with [facility] as scheduled (6) Obstructive sleep apnea: Comment: no cpap used Code(s): G47.33 - Obstructive sleep apnea (adult) (pediatric) Plan: He continues to use his CPAP device when sleeping at night daily (7) Allergic rhinitis: Code(s): J30.9 - Allergic rhinitis, unspecified Qualifiers: Allergic rhinitis trigger: unspecified Allergic rhinitis seasonality: unspecified Qualified Code(s): J30.9 - Allergic rhinitis, unspecified Plan: Continue Cetirizine 10 mg QD PRN (8) Vitamin D deficiency: Code(s): E55.9 - Vitamin D deficiency, unspecified Plan: Continue Vitamin D2 05488 units once a week (9) GERD (gastroesophageal reflux disease): Code(s): K21.9 - Gastro-esophageal reflux disease without esophagitis Qualifiers: Esophagitis presence: without esophagitis Qualified Code(s): K21.9 - Gastro-esophageal reflux disease without esophagitis Plan: Dietary restrictions reinforced Continue Omeprazole 40 mg QD Follow up with GI as scheduled (10) Constipation: Code(s): K59.00 - Constipation, unspecified Qualifiers: Constipation type: unspecified constipation type Qualified Code(s): K59.00 - Constipation, unspecified Plan: Reinforced increased oral fluids and dietary fiber Continue Bisacodyl 5 mg BID PRN (11) Overactive bladder: Code(s): N32.81 - Overactive bladder Plan: Continue Myrbetriq ER 50 mg QD Follow up with urology as scheduled (12) Benign prostatic hyperplasia: Code(s): N40.0 - Benign prostatic hyperplasia without lower urinary tract symptoms Qualifiers: Lower urinary tract symptom presence: symptoms present Lower urinary tract symptom detail: urinary frequency Qualified Code(s): N40.1 - Benign prostatic hyperplasia with lower urinary tract symptoms; R35.0 - Frequency of micturition Plan: Follow up with urology as scheduled (13) Insomnia: Code(s): G47.00 - Insomnia, unspecified Qualifiers: Insomnia type: unspecified Qualified Code(s): G47.00 - Insomnia, unspecified Plan: Sleep hygiene reinforced Continue Zolpidem 10 mg Q HS PRN (14) Anxiety: Code(s): F41.9 - Anxiety disorder, unspecified Plan: Continue Lorazepam 0.5 mg BID PRN (15) Obesity (BMI 30-39.9): Code(s): E66.9 - Obesity, unspecified Plan: Reinforced diet/exercise as tolerated/lose weight Plan Follow up in 4 months Orders: Orders Hemoglobin A1c 4 Months R73.01 - Impaired fasting glucose Complete Blood Count Auto Diff 4 Months D64.9 - Anemia, unspecified Lipid Panel 4 Months E78.00 - Pure hypercholesterolemia, unspecified Comprehensive [place]. Panel Fast 4 Months E78.00 - Pure hypercholesterolemia, unspecified UA CC w/rflx Micro + Cult 4 Months R30.0 - Dysuria Vitamin D 25-OH Total 4 Months E55.9 - Vitamin D deficiency, unspecified Coding Level of Care Code Est Pt Level 4 (50705) Diagnoses Benign essential hypertension I10 Dyslipidemia E78.5 Mild intermittent asthma without complication J45.20 Asthma severity: mild Asthma persistence: intermittent Asthma complication type: uncomplicated Impaired fasting glucose R73.01 Lumbar degenerative disc disease M51.36 Obstructive sleep apnea G47.33 Allergic rhinitis, unspecified seasonality, unspecified trigger J30.9 Allergic rhinitis trigger: unspecified Allergic rhinitis seasonality: unspecified Vitamin D deficiency E55.9 Gastroesophageal reflux disease without esophagitis K21.9 Esophagitis presence: without esophagitis Constipation, unspecified constipation type K59.00 Constipation type: unspecified constipation type Overactive bladder N32.81 Benign prostatic hyperplasia with urinary frequency N40.1; R35.0 Lower urinary tract symptom presence: symptoms present Lower urinary tract symptom detail: urinary frequency Insomnia, unspecified type G47.00 Insomnia type: unspecified Anxiety F41.9 Obesity (BMI 30-39.9) E66.9
== END 2023-12-31 12:30 | disposition home or self-care (01) ==
PROVIDERS: PCP Internal Medicine; Visit Provider Internal Medicine
DX: I10 Essential (primary) hypertension (principal); E78.5 Hyperlipidemia, unspecified; J45.20 Mild intermittent asthma, uncomplicated; R73.01 Impaired fasting glucose; M51.36 Other intervertebral disc degeneration, lumbar region; G47.33 Obstructive sleep apnea (adult) (pediatric); J30.9 Allergic rhinitis, unspecified; E55.9 Vitamin D deficiency, unspecified; K21.9 Gastro-esophageal reflux disease without esophagitis; K59.00 Constipation, unspecified; N32.81 Overactive bladder; N40.1 Benign prostatic hyperplasia with lower urinary tract symptoms
CPT/HCPCS: 99214

== ENCOUNTER 2024-01-13 15:20 | Outpatient (AMB) | payer MEDICARE, SELFPAY ==
[2024-01-13 15:28] VITALS: BP 119/76; PULSE 71; O2SAT 97; BMI 33.8
--- NOTE | 2024-01-13 15:28 | A.OFFVIS_ITS ---
Vital Signs 01/13/24 15:28 Height 5 ft 9 in Weight 229 lb BMI 33.8 BP 119/76 Blood Pressure Location Lt brachial Position Sitting Pulse 71 Pulse Source Doppler Pulse Oximetry (%) 97 Oxygen Delivery Method Room Air Intake Visit Reasons: Asthma Allergies adhesive tape Allergy (Intermediate, Verified 01/13/24 15:32) Skin sloughing with cardiac leads and IV securement device gabapentin [GABAPENTIN] Allergy (Unknown, Verified 01/13/24 15:32) SEVERE H/A,BLURRY VISION,MOOD CHANGE HPI HPI Asthma: Details: 48-year-old gentleman, recent 20+ pack-year smoker, now followed for severe persistent asthma with significant allergic component and environmental allergies.? He has been using Xolair, Breo, and albuterol MDI with excellent control of his underlying symptoms. He denies recent exacerbations. [facility] Medical History Allergic rhinitis Anxiety Insomnia Benign prostatic hyperplasia Obstructive sleep apnea Constipation Impaired fasting glucose Asthma Dyslipidemia Benign essential hypertension Obesity (BMI 30-39.9) Blurred vision, right eye Abdominal pain Overactive bladder Lumbar degenerative disc disease Vitamin D deficiency Hypertension Surgical History History of surgery History of prostate surgery Hx of eye surgery Hx of hemorrhoidectomy Hx of rectal sphincterotomy H/O colonoscopy Family History Brother Diabetes Social History Household Members: None Housing: Apartment Alcohol intake: current Alcohol intake frequency: holidays/special occasions only Patient Tobacco Use Status: Former Tobacco user Quit Date: 2016 Tobacco use type: Cigarette Years Smoked: 20 e-Cigarette/Vaping Use: Never Used Second Hand Smoke Exposure: Yes service: No Current occupational status: employed Cognitive needs: No Hearing needs: No Vision needs: No Review of Systems Const Denies daytime sleepiness, Denies excessive sweating, Denies fatigue, Denies fever(s), Denies lethargy, Denies malaise, Denies night sweats, Denies snoring and Denies weight loss Eyes Denies blurry vision and Denies itchy eyes ENT Denies nasal congestion, Denies post nasal drip, Denies sinus pain, Denies sinus pressure and Denies other ( Thrush) Card Denies chest pain, Denies pedal edema, Denies dyspnea, Denies orthopnea and Denies paroxysmal nocturnal dyspnea Resp Denies cough, Denies hemoptysis, Denies excessive phlegm production, Denies dyspnea, Denies snoring and Denies wheezing GI Denies abdominal pain and Denies heartburn Musc Denies myalgias, Denies arthralgias and Denies joint swelling Skin/Breast Denies rash Neuro Denies memory loss and Denies seizure-like activity Psych Denies abnormal sleep pattern, Denies anxiety and Denies memory loss Endo Denies excessive sweating, Denies fatigue and Denies heat intolerance Cassius/Lymph Denies easy bruising Aller/Immun Denies itchy eyes, Denies seasonal rhinorrhea and Denies wheezing Physical Exam Vital Signs: Last Vital Signs Pulse 71 01/13/24 15:28 BP 119/76 01/13/24 15:28 Pulse Ox 97 01/13/24 15:28 Oxygen Delivery Method Room Air 01/13/24 15:28 BMI result Body Mass Index 33.8 Const General: no acute distress and alert Nutritional Appearance: not obese Orientation/consciousness: Other orientation findings ( oriented) HEENT Head: Yes atraumatic Eyes General: appearance normal, both eyes and all related structures Sclerae: sclerae normal EOM: EOMs intact bilaterally Neck Neck: Yes supple Lymphatic: no lymphadenopathy noted Resp Effort & Inspection: normal respiratory effort and no use of accessory muscles Auscultation: clear to auscultation bilaterally Cardio Rate: regular rate Rhythm: regular rhythm Heart sounds: no gallops, no murmurs and no rubs Skin General skin exam: other ( warm) Extrem General: No clubbing, No cyanosis and No edema Assessment & Plan Assessment & Plan (1) Asthma: Code(s): J45.909 - Unspecified asthma, uncomplicated Category: Medical Qualifiers: Asthma severity: mild Asthma persistence: intermittent Asthma complication type: uncomplicated Qualified Code(s): J45.20 - Mild intermittent asthma, uncomplicated Plan: Well controlled on Xolair, Breo, and albuterol MDI. (2) Environmental allergies: Code(s): Z91.09 - Other allergy status, other than to drugs and biological substances Category: Medical Plan: Well controlled on Xolair. Continue current regimen. Coding Level of Care Code Est Pt Level 4 (94566) Diagnoses Mild intermittent asthma without complication J45.20 Asthma severity: mild Asthma persistence: intermittent Asthma complication type: uncomplicated Environmental allergies Z91.09
== END 2024-01-13 15:42 | disposition home or self-care (01) ==
PROVIDERS: PCP Internal Medicine; Visit Provider Internal Medicine Pulmonary Disease
DX: J45.20 Mild intermittent asthma, uncomplicated (principal); Z91.09 Other allergy status, other than to drugs and biological substances
CPT/HCPCS: 99214

== ENCOUNTER → 2024-01-13 15:20 | Outpatient (BNVA) | payer MEDICARE, SELFPAY | PROVIDERS: PCP Internal Medicine; Visit Provider Internal Medicine Pulmonary Disease | DX: J45.20 Mild intermittent asthma, uncomplicated (principal); Z91.09 Other allergy status, other than to drugs and biological substances | CPT/HCPCS: 99212 ==

== ENCOUNTER 2024-05-18 06:12 | Outpatient (REF) | payer OTHER, SELFPAY ==
[2024-05-18 06:33] LABS: MANUAL DIFF FLAG NO
[2024-05-18 07:10] LABS: Basophils Absolute Auto 0.1 X10*3/uL (0.0-0.2); Basophils Percent Auto 0.6 % (0-2); Eosinophils Absolute Auto 0.2 X10*3/uL (0.0-0.4); Hematocrit 44.4 % (42.0-52.0); Hemoglobin 14.7 g/dl (14.0-18.0); Imm Gran Abs Auto 0.03 X10*3/uL (0.00-0.03); Imm Gran Pct Auto 0.4 % (0.0-0.4); Lymphocytes Absolute Auto 3.1 X10*3/uL (1.2-4.9); Lymphocytes Percent Auto 37.6 % (20-40); Mean Corpuscular HGB Conc 33.1 g/dl (31.0-36.0); Mean Corpuscular Hemoglobin 29.3 pg (27.0-33.0); Mean Corpuscular Volume 88.6 fL (80.0-98.0); Mean Platelet Volume 9.2 fL (9.4-12.4); Monocytes Absolute Auto 0.7 X10*3/uL (0.1-1.2); Monocytes Percent Auto 8.8 % (2-11); Neutrophils Absolute Auto 4.1 x10*3/uL (2.0-8.3); Neutrophils Percent Auto 50.6 % (45-73); Platelet Count 330 X10*3/uL (160-400); Red Blood Count 5.01 X10*6/uL (4.60-5.80); Red Cell Distribution Width 13.1 % (11.0-16.0); White Blood Count 8.1 X10*3/uL (4.8-10.8)
[2024-05-18 07:25] LABS: Estimated Average Glucose 117 mg/dL; Hemoglobin A1C 152.3518 umol/L; Hemoglobin A1c % 5.7 % (<6.0)
[2024-05-18 07:49] LABS: Alanine Aminotransferase 7 U/L (0-40); Alkaline Phosphatase 76 U/L (39-117); Anion Gap 11 (12-20); Aspartate Amino Transferase 16 U/L (5-37); Bilirubin Total 0.8 mg/dL (0.0-1.0); Blood Urea Nitrogen 12 mg/dL (9-16); Calcium 9.3 mg/dL (8.4-10.2); Carbon Dioxide 22 mmol/L (22-29); Chloride 110 mmol/L (96-108); Cholesterol 161 mg/dL (<200); Estimated Glomerular Filt Rate > 60; Glucose Fasting 102 mg/dL (60-99); HDL Cholesterol 26 mg/dL (>40); LDL Cholesterol Calculated 114 mg/dL (<100); Potassium 3.7 mmol/L (3.3-5.1); Sodium 139 mmol/L (135-145); Total Protein 6.8 g/dL (6.5-8.0); Triglycerides 107 mg/dL (<150)
[2024-05-18 07:59] LABS: Vitamin D 25-OH Total 31.1 ng/mL (>30)
== END 2024-05-18 06:13 | disposition home or self-care (01) ==
LOC: HO.LAB 06:12
PROVIDERS: PCP Internal Medicine; Visit Provider Internal Medicine
DX: R73.01 Impaired fasting glucose (principal); E78.00 Pure hypercholesterolemia, unspecified; E55.9 Vitamin D deficiency, unspecified
CPT/HCPCS: 36415; 80053; 80061; 82306; 83036; 85025

== ENCOUNTER 2024-05-19 10:42 | Outpatient (AMB) | payer OTHER, SELFPAY ==
[2024-05-19 10:53] VITALS: BP 110/80; PULSE 78; O2SAT 98; BMI 32.4
--- NOTE | 2024-05-19 10:53 | A.OFFPC_ITS ---
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 Accompanied by: Self / Same As Patient Allergies adhesive tape Allergy (Intermediate, Verified 05/19/24 11:04) Skin sloughing with cardiac leads and IV securement device gabapentin [GABAPENTIN] Allergy (Unknown, Verified 05/19/24 11:04) SEVERE H/A,BLURRY VISION,MOOD CHANGE Medication List - Last Reconciled 05/19/24 by Aayush Jay MD [adjustable straight point cane with offset handle As directed] albuterol sulfate 90 mcg/actuation 2 puffs inhalation Q4-6H PRN 30 days aluminum chloride 20% (Drysol Dab-O-Matic) 1 appl topical BID amlodipine 5 mg PO DAILY 90 days cetirizine 10 mg PO DAILY PRN 90 days ergocalciferol (vitamin D2) (Vitamin D2) 1,250 mcg PO QWEEK 3 months fluticasone furoate-vilanterol 200-25 mcg/dose (Breo Ellipta) 1 inh inhalation DAILY 30 days [HANDHELD SHOWER HEAD As directed] lactobacillus comb no.10 (Probiotic) 20,000 mmu cells PO DAILY 10 days lorazepam 0.5 mg PO BID PRN 30 days metformin ER 500 mg PO QPM 90 days mirabegron ER (Myrbetriq) 50 mg PO DAILY 30 days omeprazole 40 mg PO DAILY tizanidine 4 mg PO BID PRN tramadol 50 mg PO TID PRN 30 days zolpidem 10 mg PO BEDTIME PRN 30 days Tobacco use date assessed: 05/19/24 Dental Screening Dental Screen Date: 05/19/24 Did you have a dental visit in the last 12 months?: Yes Did you have a dental problem in the last 6 months where you did not have access to dental care?: No Was dental information given to patient?: Patient has dentist HPI 4MOF\U HPI Details Patient comes in today for his follow up visit States that he feels okay He denies any headaches or dizziness Denies any chest pains, no increased shortness of breath - states that his asthma has been doing well on his current Rx (Xolair and Breo Ellipta) No nausea /vomiting, no abdominal pain No change in bowel habits noted He also continues to experience chronic low back pain - was seeing pain management previously and had to have his SCS implant removed a few months ago due to increasing low back pain States that he is still not sure at this time what he would like to do for his chronic lower back issues but plans to check back with pain management once he gets his insurance issues taken care of States that he has not been back to pain management recently because something came up with his insurance recently Needs a few of his Rx refilled He had his follow up labs done yesterday - to discuss his results [facility] Medical History Allergic rhinitis Anxiety Insomnia Benign prostatic hyperplasia Obstructive sleep apnea Constipation Impaired fasting glucose Asthma Dyslipidemia Benign essential hypertension Obesity (BMI 30-39.9) Blurred vision, right eye Abdominal pain Overactive bladder Lumbar degenerative disc disease Vitamin D deficiency Hypertension Surgical History History of surgery History of prostate surgery Hx of eye surgery Hx of hemorrhoidectomy Hx of rectal sphincterotomy H/O colonoscopy Family History Brother Diabetes Social History Household Members: None Housing: Apartment Alcohol intake: current Alcohol intake frequency: holidays/special occasions only Patient Tobacco Use Status: Former Tobacco user Tobacco use type: Cigarette Years Smoked: 20 e-Cigarette/Vaping Use: Never Used Second Hand Smoke Exposure: Yes service: No Current occupational status: employed Cognitive needs: No Hearing needs: No Vision needs: No Questionnaire PHQ-9 Over the last 2 weeks, how often have you been bothered by any of the following problems? 1. Little interest or pleasure in doing things: not at all 2. Feeling down, depressed, or hopeless: not at all 3. Trouble falling or staying asleep, or sleeping too much: not at all 4. Feeling tired or having little energy: not at all 5. Poor appetite or overeating: not at all 6. Feeling bad about yourself - or that you are a failure or have let yourself or your family down: not at all 7. Trouble concentrating on things, such as reading the newspaper or watching television: not at all 8. Moving or speaking so slowly that other people could have noticed. Or the opposite - being so fidgety or restless that you have been moving around a lot more than usual: not at all 9. Thoughts that you would be better off or of hurting yourself in some way: not at all Total score: 0 Depression Screening Interpretation: Negative Depression Screening Done: Yes 71330 - PHQ-9 Billing: Yes Source: Developed by Drs. Александр Andre, Muriel Guido, Shiv Treadwell and colleagues, with an educational sharon from [employer]. Thrive Questionnaire Date Thrive assessed: 05/19/24 I am a: Patient What is your living situation today?: I have a steady place to live Within the past 12 months, did the food you bought not last and you didn't have the money to get more?: Never true Within the past 12 months, did you worry whether your food would run out before you got money to buy more?: Never true Do you have trouble paying for medicines?: No Do you have trouble getting transportation to medical appointments?: No Do you have trouble paying your heating and electricity bill?: No Do you have trouble taking care of your child, family member or friend?: No Do you have trouble with day-to-day activities such as bathing, preparing meals, shopping, managing finances, etc.?: No Are you currently unemployed and looking for a job?: No Are you interested in more education?: No Please select the resources that you would like help with: None Currently or been in a relationship where the following occur: No concerns reported THRIVE Score: 0 AUDIT C Alcohol Use Questionnaire (AUDIT-C) 1. How often do you have a drink containing alcohol?: Monthly or less 2. How many drinks containing alcohol do you have on a typical day when you are drinking?: 1 or 2 3. How often do you have six or more drinks on one occasion?: Never Total Score: 1 Score Reviewed/Action Taken: Yes WILMER-7 AMB Questionnaire WILMER-7 Date WILMER - 7 assessed: 05/19/24 Feeling nervous, anxious, or on edge: 0 = Not at all Not being able to stop or control worryin = Not at all Worrying too much about different things: 0 = Not at all Trouble relaxin = Not at all Being so restless that it is hard to sit still: 0 = Not at all Becoming easily annoyed or irritable: 0 = Not at all Feeling afraid as if something awful might happen: 0 = Not at all Total WILMER-7 score (0-4 normal; 5-9 mild; 10-14 moderate; 15-21 severe): 0 Source: Developed by Drs. Александр Andre, Muriel Guido, Shiv Treadwell and colleagues, with an educational sharon from [employer]. Review of Systems Const Denies chills, Denies fatigue, Denies fever(s) and Denies headache(s) ENT Denies dysphagia, Denies dizziness, Denies otalgia, Denies headache(s), Denies odynophagia and Denies sore throat Card Denies chest pain, Denies palpitations and Denies dyspnea Resp Denies cough, Denies dyspnea and Denies wheezing GI Denies abdominal pain, Denies constipation, Denies dysphagia, Denies heartburn, Denies diarrhea, Denies nausea, Denies odynophagia and Denies vomiting Denies dysuria, Denies nocturia and Denies urinary frequency Musc Reports back pain (over the lumbar spine - chronic) Skin/Breast Denies rash Neuro Denies dizziness and Denies headache(s) Endo Denies fatigue and Denies palpitations Aller/Immun Denies wheezing Physical exam (Primary Care) Vital Signs: Last Vital Signs Pulse 78 05/19/24 10:53 BP 110/80 05/19/24 10:53 Pulse Ox 98 05/19/24 10:53 Oxygen Delivery Method Room Air 05/19/24 10:53 BMI result Body Mass Index 32.4 Tobacco/Smoking Status: Tobacco use Status Tobacco use date assessed 05/19/24 05/19/24 10:58 Patient Tobacco Use Status Former Tobacco user 05/19/24 10:58 Tobacco use type Cigarette 05/19/24 10:58 e-Cigarette/Vaping Use Never Used 05/19/24 10:58 PHQ-9: PHQ-9 Score PHQ-9: Total score 0 05/19/24 10:58 Depression Screening Interpretation: Negative Thrive Assessment: Date of Thrive Assessment Date Thrive assessed 05/19/24 05/19/24 10:58 Currently or been in a relationship where the following occur: No concerns reported Const General: no acute distress and alert HENMT Ears: TM's normal bilaterally and EAC's normal Throat: Yes posterior oropharynx normal and Yes tonsils normal (no TP congestion) Neck Neck: Yes no lymphadenopathy and Yes supple Thyroid: Thyroid normal Resp Auscultation: clear to auscultation bilaterally, no rales and no wheezes Cardio Rate: regular rate Rhythm: regular rhythm Heart sounds: no murmurs GI Palpation (GI): Soft to palpation and nontender Auscultation: normal bowel sounds General: Yes no CVA tenderness Back/Spine/Pelvis Back: no CVA tenderness Thoracic/Lumbar Spine: lumbar spinal tenderness (R>L) Extrem General: Yes no clubbing, cyanosis or edema Results Reviewed Results Reviewed: Laboratory Tests 12/15/23 05/18/24 07:52 06:32 WBC 8.1 Hgb 14.7 Hct 44.4 Plt Count 330 Sodium 139 Potassium 3.7 Creatinine 0.87 Estimated GFR > 60 Fasting Glucose 102 H Hemoglobin A1c % 5.7 Calcium 9.3 AST 16 ALT 7 Triglycerides 107 Cholesterol 161 LDL Cholesterol, Calc 114 H HDL Cholesterol 26 L 25-OH Vitamin D Total 31.1 Ur Specific [place] 1.025 Urine Protein Negative Urine Glucose (UA) Negative Urine Blood Negative Urine Nitrite Negative Ur Leukocyte Esterase Negative Assessment and Plan Assessment & Plan (1) Dyslipidemia: Code(s): E78.5 - Hyperlipidemia, unspecified Plan: Results of his labs done yesterday reviewed and discussed with patient Reinforced low cholesterol diet Will recheck his labs and fasting lipids in 4 months for follow-up (2) Benign essential hypertension: Code(s): I10 - Essential (primary) hypertension Plan: Reinforced low sodium diet - goal is systolic BP of 120 mm or less Continue Amlodipine 5 mg QD (3) Asthma: Code(s): J45.909 - Unspecified asthma, uncomplicated Qualifiers: Asthma severity: mild Asthma persistence: intermittent Asthma complication type: uncomplicated Qualified Code(s): J45.20 - Mild intermittent asthma, uncomplicated Plan: Stable - he appears to be doing well with his asthma lately Continue Xolair injections 300 mg every 2 weeks, Breo Ellipta 200-25 mcg 1 inhalation QD and Albuterol HFA 2 inhalations Q 6 hours PRN Follow up with Dr. Garber (pulmonary) as scheduled (4) Impaired fasting glucose: Code(s): R73.01 - Impaired fasting glucose Plan: His HgbA1c remains normal at 5.7% on his labs done yesterday; was previously at 5.8% a few months ago Reinforced low calorie diet/exercise as tolerated Continue Metformin ER 500 mg QD (5) Lumbar degenerative disc disease: Code(s): M51.36 - Other intervertebral disc degeneration, lumbar region Plan: Reinforced activity and weight lifting restrictions Continue Tramadol 50 mg TID PRN He had MBB trial last year with reportedly around 85% symptomatic improvement; subsequently had TFESI in May 2023 and later on had a Sprint PNS trial which he states helped a lot with significant pain relief over his left lower back but he unfortunately did not respond as well over his right lower back and states that he wakes at night often now with increased right lower back pain He had his Sprint lead removed a few months ago due to increasing pain with the leads in place Follow up with [facility] Pain Management as scheduled (6) Obstructive sleep apnea: Comment: no cpap used Code(s): G47.33 - Obstructive sleep apnea (adult) (pediatric) Plan: He continues to use his CPAP device when sleeping at night daily (7) Allergic rhinitis: Code(s): J30.9 - Allergic rhinitis, unspecified Qualifiers: Allergic rhinitis trigger: unspecified Allergic rhinitis seasonality: unspecified Qualified Code(s): J30.9 - Allergic rhinitis, unspecified Plan: Continue Cetirizine 10 mg QD PRN (8) Vitamin D deficiency: Code(s): E55.9 - Vitamin D deficiency, unspecified Plan: Continue Vitamin D2 89701 units once a week (9) GERD (gastroesophageal reflux disease): Code(s): K21.9 - Gastro-esophageal reflux disease without esophagitis Qualifiers: Esophagitis presence: without esophagitis Qualified Code(s): K21.9 - Gastro-esophageal reflux disease without esophagitis Plan: Dietary restrictions reinforced Continue Omeprazole 40 mg QD Follow up with GI as scheduled (10) Constipation: Code(s): K59.00 - Constipation, unspecified Qualifiers: Constipation type: unspecified constipation type Qualified Code(s): K59.00 - Constipation, unspecified Plan: Reinforced increased oral fluids and dietary fiber Continue Bisacodyl 5 mg BID PRN (11) Overactive bladder: Code(s): N32.81 - Overactive bladder Plan: Continue Myrbetriq ER 50 mg QD Follow up with urology as scheduled (12) Benign prostatic hyperplasia: Code(s): N40.0 - Benign prostatic hyperplasia without lower urinary tract symptoms Qualifiers: Lower urinary tract symptom presence: symptoms present Lower urinary tract symptom detail: urinary frequency Qualified Code(s): N40.1 - Benign prostatic hyperplasia with lower urinary tract symptoms; R35.0 - Frequency of micturition Plan: Follow up with urology as scheduled (13) Insomnia: Code(s): G47.00 - Insomnia, unspecified Qualifiers: Insomnia type: unspecified Qualified Code(s): G47.00 - Insomnia, unspecified Plan: Sleep hygiene reinforced Continue Zolpidem 10 mg Q HS PRN (14) Anxiety: Code(s): F41.9 - Anxiety disorder, unspecified Plan: Continue Lorazepam 0.5 mg BID PRN (15) Obesity (BMI 30-39.9): Code(s): E66.9 - Obesity, unspecified Plan: Reinforced diet/exercise as tolerated/lose weight - he has been able to lose at least 10 pounds since his last visit Plan Follow up in 4 months Orders: Orders Lipid Panel 4 Months E78.00 - Pure hypercholesterolemia, unspecified Comprehensive [place]. Panel Fast 4 Months E78.00 - Pure hypercholesterolemia, unspecified UA CC w/rflx Micro + Cult 4 Months R30.0 - Dysuria TSH reflex Free T4 4 Months E78.00 - Pure hypercholesterolemia, unspecified Complete Blood Count Auto Diff 4 Months D64.9 - Anemia, unspecified Vitamin D 25-OH Total 4 Months E55.9 - Vitamin D deficiency, unspecified Hemoglobin A1c 4 Months E11.9 - Type 2 diabetes mellitus without complications Medications: Refilled zolpidem 10 mg PO BEDTIME 30 days PRN 30 tabs 1RF insomnia tramadol 50 mg PO TID 30 days PRN 90 tabs 0RF pain M51.36 - Other intervertebral disc degeneration, lumbar region ergocalciferol (vitamin D2) (Vitamin D2) 1,250 mcg PO QWEEK 3 months 13 caps 3RF E55.9 - Vitamin D deficiency, unspecified Coding Level of Care Code Est Pt Level 4 (73982) Complex EM visit Add On G2211 Diagnoses Dyslipidemia E78.5 Benign essential hypertension I10 Mild intermittent asthma without complication J45.20 Asthma severity: mild Asthma persistence: intermittent Asthma complication type: uncomplicated Impaired fasting glucose R73.01 Lumbar degenerative disc disease M51.36 Obstructive sleep apnea G47.33 Allergic rhinitis, unspecified seasonality, unspecified trigger J30.9 Allergic rhinitis trigger: unspecified Allergic rhinitis seasonality: unspecified Vitamin D deficiency E55.9 Gastroesophageal reflux disease without esophagitis K21.9 Esophagitis presence: without esophagitis Constipation, unspecified constipation type K59.00 Constipation type: unspecified constipation type Overactive bladder N32.81 Benign prostatic hyperplasia with urinary frequency N40.1; R35.0 Lower urinary tract symptom presence: symptoms present Lower urinary tract symptom detail: urinary frequency Insomnia, unspecified type G47.00 Insomnia type: unspecified Anxiety F41.9 Obesity (BMI 30-39.9) E66.9
== END 2024-05-19 11:26 | disposition home or self-care (01) ==
PROVIDERS: PCP Internal Medicine; Visit Provider Internal Medicine
DX: E78.5 Hyperlipidemia, unspecified (principal); I10 Essential (primary) hypertension; J45.20 Mild intermittent asthma, uncomplicated; R73.01 Impaired fasting glucose; M51.36 Other intervertebral disc degeneration, lumbar region; G47.33 Obstructive sleep apnea (adult) (pediatric); J30.9 Allergic rhinitis, unspecified; E55.9 Vitamin D deficiency, unspecified; K21.9 Gastro-esophageal reflux disease without esophagitis; K59.00 Constipation, unspecified; N32.81 Overactive bladder; N40.1 Benign prostatic hyperplasia with lower urinary tract symptoms; R35.0 Frequency of micturition; G47.00 Insomnia, unspecified; F41.9 Anxiety disorder, unspecified; E66.9 Obesity, unspecified
CPT/HCPCS: 99214; G2211

== ENCOUNTER 2024-05-26 09:11 | Outpatient (REF) | payer OTHER, SELFPAY ==
--- NOTE | ~2024-05-26 | XR_ITS ---
EXAMINATION: XR KNEE, RIGHT CLINICAL INFORMATION: Right knee pain COMPARISON: None available. TECHNIQUE: Three views of the right knee. FINDINGS: No fracture or malalignment. No significant joint space narrowing. Prominent enthesophyte at the superior pole of the patella. No joint effusion. A small rounded density in the mid aspect of the femoral metaphysis most likely represents a bone island. XR/XR knee RT 3V IMPRESSION: 1. No acute osseous abnormality of the right knee. 2. Prominent patellar enthesophyte. Electronically signed by: Davon Zamudio MD 06/01/2024 11:05 AM EDT
== END 2024-05-26 09:12 | disposition home or self-care (01) ==
LOC: HO.XRAY 09:11
PROVIDERS: PCP Internal Medicine; Visit Provider Nurse Practitioner Family
DX: M25.561 Pain in right knee (principal)
CPT/HCPCS: 73562

== ENCOUNTER 2024-05-26 09:11 | Outpatient (AMB) | payer OTHER, SELFPAY ==
--- NOTE | 2024-05-26 09:13 | MHC.OFFVIS ---
Vital Signs 05/26/24 09:16 Height 5 ft 9 in Weight 225 lb BMI 33.2 BP 139/89 Blood Pressure Location Rt brachial Position Sitting Pulse 68 Pulse Source Pulse Oximeter Pulse Oximetry (%) 99 Oxygen Delivery Method Room Air Intake Visit Reasons: Follow Up Intake Note: Pain today 04/23 Physician Surgeon Required: No Accompanied by: Self / Same As Patient Allergies adhesive tape Allergy (Intermediate, Verified 05/26/24 09:16) Skin sloughing with cardiac leads and IV securement device gabapentin [GABAPENTIN] Allergy (Unknown, Verified 05/26/24 09:16) SEVERE H/A,BLURRY VISION,MOOD CHANGE HPI Comments Details: Patient presents today for follow-up for chronic low back pain. Denies any recent trauma, injury, or falls. Patient reports axial low back pain and also radiates into his left leg laterally and posteriorly with associated numbness, tingling in his left calf and toes. Radicular pain is worse than axial. Patient reports therapeutic injection last May has provided him significant left leg pain relief with partial low back pain and would like to repeat it. He also reports recent onset of anterior right knee pain with localized tenderness in patella but not joint lines. Currently he is managing his symptoms with Tylenol, tramadol 50 mg TID prn (prescribed by PCP), heat, activity modifications, and rest. Pain has been affecting his ADLs, mobility, sleep and work. Denies any fever or chills, abdominal pain, foot drop, weakness, bladder or bowel dysfunction or saddle anesthesia. PRIOR: Enmanuel presents to the office today for Sprint site check and potential Sprint removal due to increased back pain. Patient reports worsening of back pain, malaise and chills without fever and was seen for this in ER on 11/29/23. His labs, EKG and CXR all were normal. Patient reports pain mildly decreases when he turns Sprint device off and has turned it off over 3 days ago. He states his pain today at 7/10. He reports good pain relief with Sprint PNS trial without any untoward effects with the left sided Sprint and continues to experience good pain relief on the left side. Reports localized tenderness and stiffness in the right mid and lower back. Recent lumbar xray noted below. Denies any recent cough, cold, infection, fever, or any other significant changes in her medical history, medications or recent hospitalizations. Patient requests Sprint lead to remove today. The dressing was removed today. The right lead is intact, clean, dry, intact, no swelling, no pathological discharge except mild redness noted at the insertion lead site. There is also redness, erythema and irritation noted underneath mounting cradle adhesive to the skin area. Patient reports allergy to adhesive tape but had not experienced this sensitivity with right side Sprint dressing changes. The area was cleansed with Chloraprep, right lead pulled with tip intact, areas were cleansed with Chloraprep again, applied Bacitracin and covered with sterile dressing. Past Procedure: 12/14/23: Right L3 MB Sprint removal- no pain relief 10/08/23: Left L3 MB Sprint removal-50% pain relief 11/20/23: Right L3 MB Sprint PNS-70% pain relief at 68 stimulation 10/08/23: Left L3 MB Sprint PNS-70% pain relief at 66 stimulation 06/02/23: Left L5-S1 TFESI-80% pain relief for 3 months 03/12/23: Bilateral Therapeutic L3-L4 DR L5 MBB- 90% ongoing pain relief 11/28/22: Bilateral Therapeutic L3-L4 DR L5 MBB- 85% ongoing pain relief 10/28/22: Bilateral Diagnostic L3-L4 DR L5 MBB-80% pain relief for 2 days PRIOR: Patient is a pleasant 47 years old male with a history of significant degenerative changes at L3-S1 presents today for initial back pain evaluation. He attributes his chronic back pain to work related injury in [place] in 2000 which has resulted in 2 herniated discs. Denies recent trauma, injury or falls. Patient moved to [place] in 2008 and was followed by [facility] and [facility] to manage his pain and has received multiple injections, mainly steroid injections, physical therapy, aqua therapy, and TENS unit. He reports the most recent injection was 2 months ago with good relief for his left sided radiculopathy symptoms. His pain is axial but also radiates into his left side and left lateral buttock, hip into his left lower extremity laterally and anteriorly in cortés with associated numbness and tingling in his lateral left thigh and toes. Patient reports weakness in his LLE. Pain is described as constant aching, hot burning, stabbing, sharp and numbness. Worse with prolonged walking, standing, changing position or cold weather changes. Patient reports pain affects his daily activities, functioning, sleep, social interactions, and quality of life. Patient reports he completed lumbar spine MRI at [facility] 2 months ago, this report is not available today. Currently he takes Tylenol and tramadol prescribed by his PCP and heat therapy with partial symptom relief. Denies any fever, malaise, abdominal or groin pain, bowel or bladder incontinence or saddle anesthesia. Patient was evaluated by Dr. Crocker in 2010 and 2016. At his last neurosurgical evaluation, Dr. Crocker discussed lumbar decompression with partial discectomy to relieve his leg symptoms or two level spinal fusion for back pain symptoms. Patient states he declined surgical options at that time. He states injections are effective but provide short term pain relief. Patient states physical therapy in the past worsened his symptoms. Denies history of diabetes. Most recent A1C was 5.9. [facility] Medical History Allergic rhinitis Anxiety Insomnia Benign prostatic hyperplasia Obstructive sleep apnea Constipation Impaired fasting glucose Asthma Dyslipidemia Benign essential hypertension Obesity (BMI 30-39.9) Blurred vision, right eye Abdominal pain Overactive bladder Lumbar degenerative disc disease Vitamin D deficiency Hypertension Surgical History History of surgery History of prostate surgery Hx of eye surgery Hx of hemorrhoidectomy Hx of rectal sphincterotomy H/O colonoscopy Family History Brother Diabetes Social History Household Members: None Housing: Apartment Alcohol intake: current Alcohol intake frequency: holidays/special occasions only Patient Tobacco Use Status: Former Tobacco user Tobacco use type: Cigarette Years Smoked: 20 e-Cigarette/Vaping Use: Never Used Second Hand Smoke Exposure: Yes service: No Current occupational status: employed Cognitive needs: No Hearing needs: No Vision needs: No Review of Systems Const All systems reviewed & are unremarkable except as noted in HPI and below Physical Exam Vital Signs: Last Vital Signs Pulse 68 05/26/24 09:16 BP 139/89 05/26/24 09:16 Pulse Ox 99 05/26/24 09:16 Oxygen Delivery Method Room Air 05/26/24 09:16 BMI result Body Mass Index 33.2 General: Appears afebrile. Alert and oriented. Mood and affect appropriate. Follows and participates in conversation appropriately. Respiratory effort is unlabored. No cough. Able to transition from sit to stand unassisted. Ambulates with bilaterally normal heel strike and toe off. Back/Spine/Pelvis Cervical Spine: cervical ROM normal, cervical muscular tenderness and No Cervical spine tenderness Thoracic/Lumbar Spine: thoracic and lumbar spine normal to inspection, No Thoracic/lumbar spine scar(s), Lasegue's sign positive on the left and localized, pain with thoraco-lumbar ROM, paraspinal muscle tenderness on the left greater than right, thoraco-lumbar ROM limited (due to pain) with forward flexion, No thoracic spinal tenderness, lumbar spinal tenderness at L4 and at L5 and straight leg raise positive left Pelvis: buttock tenderness on the left and sciatic notch tenderness on the left Sacroiliac joints: bilaterally (+Jenifer, +Damon's left>right) tender to palpation Extrem General: Yes capillary refill normal, Yes no clubbing, cyanosis or edema and Yes no calf tenderness Right lower extremity: knee Details: normal to inspection, tenderness Location: of the patella; not of the medial joint line and not of the lateral joint line, normal ROM and crepitus; no swelling, no ecchymosis and no unusual warmth Results Reviewed Results Reviewed: XR LUMBOSACRAL SPINE 12/07/23 CLINICAL INFORMATION: Muscle spasm back. COMPARISON: Lumbar spine radiographs dated 09/01/2019. TECHNIQUE: AP and lateral views of the lumbar spine and lateral view of the lumbosacral junction. FINDINGS: The vertebral bodies and posterior elements are normal. The disc spaces are preserved and the vertebral alignment is normal. There is mild anterior endplate arthropathy at L3-L4 and L5-S1. The paraspinal soft tissues are normal. Sprint PNS leads are noted projecting over the lower lumbar spine. IMPRESSION: Unremarkable examination. Assessment & Plan Assessment & Plan (1) Low back pain: Code(s): M54.50 - Low back pain, unspecified Category: Medical (2) Right knee pain: Code(s): M25.561 - Pain in right knee Category: Medical (3) Lumbar back pain with radiculopathy affecting left lower extremity: Code(s): M54.16 - Radiculopathy, lumbar region Category: Medical (4) Lumbar spondylosis: Code(s): M47.816 - Spondylosis without myelopathy or radiculopathy, lumbar region Category: Medical (5) Lumbar degenerative disc disease: Code(s): M51.36 - Other intervertebral disc degeneration, lumbar region Category: Medical (6) Sacroiliitis: Code(s): M46.1 - Sacroiliitis, not elsewhere classified Category: Medical Plan Right knee xray to assess for degenerative changes and degree of arthritis. For left sided radicular back pain, will schedule for Left L5-S1 TFESI with local and fluoroscopy. Patient has good results with this injection last May, which provided him 80% pain relief >3 months. Script send to Celecoxib and tizanidine. Side effects and precautions were discussed with patient. All questions were answered and patient is in agreement plan. Follow up after injections and sooner as needed. Justification for interventional therapy: ? Patient with average pain > 6/10 ? Patient has exhausted conservative therapy, physical therapy, opioids, muscle relaxants The risks, consequences, alternatives, and benefits of various treatment options were discussed with the patient in great detail, including conservative management, injections and procedures. I informed him of the hyperglycemic effects of steroids. Orders: Orders XR knee RT 3V Today M25.561 - Pain in right knee Medications: New celecoxib Take it with food and full glass of water 200 mg PO BID PRN 30 caps 0RF pain M25.561 - Pain in right knee, M54.50 - Low back pain, unspecified Refilled tizanidine 4 mg PO BID PRN 60 tabs 2RF muscle spasticity G89.29 - Other chronic pain, M54.9 - Dorsalgia, unspecified, M62.830 - Muscle spasm of back Coding Level of Care Code Est Pt Level 4 (57294) Complex EM visit Add On G2211 Diagnoses Low back pain M54.50 Right knee pain M25.561 Lumbar back pain with radiculopathy affecting left lower extremity M54.16 Lumbar spondylosis M47.816 Lumbar degenerative disc disease M51.36 Sacroiliitis M46.1
[2024-05-26 09:16] VITALS: BP 139/89; PULSE 68; O2SAT 99; BMI 33.2
== END 2024-05-26 09:31 | disposition home or self-care (01) ==
PROVIDERS: PCP Internal Medicine; Visit Provider Nurse Practitioner Family
DX: M54.50 Low back pain, unspecified (principal); M25.561 Pain in right knee; M54.16 Radiculopathy, lumbar region; M47.816 Spondylosis without myelopathy or radiculopathy, lumbar region; M51.36 Other intervertebral disc degeneration, lumbar region; M46.1 Sacroiliitis, not elsewhere classified
CPT/HCPCS: 99214

== ENCOUNTER 2024-07-12 06:05 | Outpatient (REF) | payer OTHER, SELFPAY | END 2024-07-12 06:06 | disposition home or self-care (01) | LOC: CF 06:05 | PROVIDERS: Visit Provider Anesthesiology | DX: M47.816 Spondylosis without myelopathy or radiculopathy, lumbar region (principal); M54.16 Radiculopathy, lumbar region | CPT/HCPCS: 64483; J2003; J3301; Q9967 ==

== ENCOUNTER 2024-07-12 07:18 | Outpatient (AMB) | payer OTHER, SELFPAY ==
--- OUTSIDE RECORDS SUMMARY | 2024-07-12 07:22 | XMS_ITS | Continuity of Care Document ---
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 ACCT R [id number] Date(s): 07/16/22 - 08/15/22 [facility] [address] [place] [id number]- Attending Physician: Karishma Benavidez Admitting Physician: Karishma Benavidez Referring Physician: Karishma Benavidez Allergies, Adverse Reactions, Alerts Substance Reaction Severity Status gabapentin blurry vision Active Medications amLODIPine 2.5 mg oral tablet 2.5 mg, 1, tablet, By Mouth, Daily, # 30 tablet, Refills 0, Maintenance, 10/29/16 14:54:25 Start Date: 10/29/16 Status: Ordered Ativan 0.5 mg oral tablet 0.5 tablet = 0.25 mg, By Mouth, 2 times a day, 0 Refills, Maintenance, Tablet Start Date: 08/12/12 Status: Ordered Dulcolax 5 mg oral enteric coated tablet 1 tablet = 5 mg, By Mouth, Daily, 0 Refills, Maintenance Start Date: 08/12/12 Status: Ordered Flexeril 10 mg oral tablet 1 tablet = 10 mg, By Mouth, 3 times a day, PRN for spasm, # 30 tablet, 0 Refills, Maintenance, Tablet Start Date: 08/12/12 Status: Ordered GlycoLax = 17 Gm, By Mouth, Daily, 0 Refills, Maintenance Start Date: 08/12/12 Status: Ordered ibuprofen 400 mg oral tablet 2 tablet = 800 mg, By Mouth, 3 times a day, 0 Refills, Maintenance Start Date: 08/12/12 Status: Ordered Misc Rx Maintenance, Solera resp injection twice per month, 04/04/22 15:07:00 EDT, Supply Start Date: 04/04/22 Status: Ordered Tramadol = 100 mg, By Mouth, Every 8 hours, Maintenance, 04/04/22 15:17:00 EDT Start Date: 04/04/22 Status: Ordered Vitamin D3 50,000 intl units oral capsule 1 capsule = 50,000 International_Units, By Mouth, Every week, # 12 capsule, 0 Refills, Maintenance,Capsule Start Date: 08/12/12 Status: Ordered zolpidem 10 mg oral tablet 1 tablet = 10 mg, By Mouth, Daily at bedtime, PRN for sleep, 0 Refills, Maintenance, Tablet Start Date: 08/12/12 Status: Ordered Problem List Condition Confirmation Course Effective Dates Status Health St atus Informant Anxiety Confirmed Active Depression Confirmed Active HTN (hypertension) Confirmed Active Lumbar radiculitis Confirmed Active Social History Social History Type Response Smoking Status Current every day tanvi sharp entered on: 10/10/15 Sex Patient Care team information Care Team Personnel Name: Pierre GOMEZ, Aayush Hendricks Position: Reference Physician Member Role: PCP Address: Address: [address] [place] [address] Drive [address] [place] [address]- Care Team Related Persons Name: DANNY GARCIA Address: [place] [address]
[2024-07-12 07:35] VITALS: BP 125/84; PULSE 66; RESP 17; O2SAT 98
--- NOTE | 2024-07-12 08:39 | MHC.OFFVIS ---
Vital Signs 07/12/24 07:35 07/12/24 08:40 BP 125/84 127/86 Blood Pressure Location Lt brachial Lt brachial Position Sitting Sitting Respiration 17 17 Pulse 66 69 Pulse Source Pulse Oximeter Pulse Oximeter Pulse Oximetry (%) 98 99 Oxygen Delivery Method Room Air Room Air Comment Pre-op Post-op Intake Visit Reasons: LEFT L5, S1 TFESI Allergies adhesive tape Allergy (Intermediate, Verified 07/12/24 08:41) Skin sloughing with cardiac leads and IV securement device gabapentin [GABAPENTIN] Allergy (Unknown, Verified 07/12/24 08:41) SEVERE H/A,BLURRY VISION,MOOD CHANGE Medication List - Last Reconciled 07/12/24 by Sosa Taylor [adjustable straight point cane with offset handle As directed] albuterol sulfate 90 mcg/actuation 2 puffs inhalation Q4-6H PRN 30 days aluminum chloride 20% (Drysol Dab-O-Matic) 1 appl topical BID amlodipine 5 mg PO DAILY 90 days celecoxib 200 mg PO BID PRN cetirizine 10 mg PO DAILY PRN 90 days ergocalciferol (vitamin D2) (Vitamin D2) 1,250 mcg PO QWEEK 3 months fluticasone furoate-vilanterol 200-25 mcg/dose (Breo Ellipta) 1 inh inhalation DAILY 30 days [HANDHELD SHOWER HEAD As directed] lactobacillus comb no.10 (Probiotic) 20,000 mmu cells PO DAILY 10 days lorazepam 0.5 mg PO BID PRN 30 days metformin ER 500 mg PO QPM 90 days mirabegron ER (Myrbetriq) 50 mg PO DAILY 30 days omeprazole 40 mg PO DAILY tizanidine 4 mg PO BID PRN tramadol 50 mg PO TID PRN 30 days zolpidem 10 mg PO BEDTIME PRN 30 days PFSH Medical History Allergic rhinitis Anxiety Insomnia Benign prostatic hyperplasia Obstructive sleep apnea Constipation Impaired fasting glucose Asthma Dyslipidemia Benign essential hypertension Obesity (BMI 30-39.9) Blurred vision, right eye Abdominal pain Overactive bladder Lumbar degenerative disc disease Vitamin D deficiency Hypertension Surgical History History of surgery History of prostate surgery Hx of eye surgery Hx of hemorrhoidectomy Hx of rectal sphincterotomy H/O colonoscopy Family History Brother Diabetes Social History Household Members: None Housing: Apartment Alcohol intake: current Alcohol intake frequency: holidays/special occasions only Patient Tobacco Use Status: Former Tobacco user Tobacco use type: Cigarette Years Smoked: 20 e-Cigarette/Vaping Use: Never Used Second Hand Smoke Exposure: Yes service: No Current occupational status: employed Cognitive needs: No Hearing needs: No Vision needs: No Physical Exam Vital Signs: Last Vital Signs Pulse 69 07/12/24 08:40 Resp 17 07/12/24 08:40 BP 127/86 07/12/24 08:40 Pulse Ox 99 07/12/24 08:40 Oxygen Delivery Method Room Air 07/12/24 08:40 Assessment & Plan Assessment & Plan (1) Lumbar spondylosis: Code(s): M47.816 - Spondylosis without myelopathy or radiculopathy, lumbar region Category: Medical (2) Lumbar back pain with radiculopathy affecting left lower extremity: Code(s): M54.16 - Radiculopathy, lumbar region Category: Medical Plan Left L5- S1 Transforaminal epidural steroid injection Informed consent was thoroughly explained to the patient before the procedure. The patient came to the operating room. She was positioned prone on operating table with a pillow under her abdomen. Time-out was performed delineating correct site and side of the procedure, nature of the injection, name and date of of the patient. The lower back of the patient was prepped with ChloraPrep and draped with sterile utility towels. C-arm was brought over the operating field and sq picture of L5 vertebra was demonstrated on the screen. The left side was chosen as the side of the injection. Tilting machine ipsilateral to the right at the level of L5 the most prominent picture of the left S1 superior articular process was obtained on the screen. At the projection of the lateral border of the SAP S1 to the skin small amount of lidocaine 1% 3-4 cc was injected to anesthetize the skin and s/q tissues. After that 5 in 22 gauge Quincke point needle was inserted through the skin wheal and was advanced to were the L5-S1 foramina on anterior posterior, lateral and oblique views intermittently.When needle tip contacted the bone the needle was deviated laterally and after that medially to advance it below the SAP and into the L5- S1 foramina. On lateral view the needle appeared to be at the lateral portion of the foramina. When tip of the needle entered foramina projection on AP view injection of the contrast was performed demonstrating epidural and perineural spread of the contrast. After that injection of the treatment medicine 2 cc of preservative-free lidocaine 1% mixed with Kenalog 40 mg was injected into the foramina. Injection of the contrast and injection of the treatment medicine was observed live on the screen. No intrathecal and no intravascular spread of the contrast was noted. The needle was removed and bandaid was applied, the patient tolerated procedure well. Orders: Orders FL guidance in treatment room Today M54.16 - Radiculopathy, lumbar region Coding Level of Care Code Procedure Only Diagnoses Lumbar spondylosis M47.816 Lumbar back pain with radiculopathy affecting left lower extremity M54.16
[2024-07-12 08:40] VITALS: BP 127/86; PULSE 69; RESP 17; O2SAT 99
== END 2024-07-12 08:39 | disposition home or self-care (01) ==
LOC: HO.PMCPRC 07:18
PROVIDERS: PCP Internal Medicine; Visit Provider Anesthesiology
DX: M54.16 Radiculopathy, lumbar region (principal)
CPT/HCPCS: 64483

== ENCOUNTER 2024-08-08 08:37 | Outpatient (AMB) | payer OTHER, SELFPAY ==
--- NOTE | 2024-08-08 08:44 | A.OFFVIS_ITS ---
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 Ivy. Patient reports no pain relief since procedure. He reports worsening left sided radicular pain into his left buttock and and lateral left cortés with associated cramping, numbness and tingling. Patient reports he called out from work last week twice due to exacerbation of back pain with any activities, especially walking, prolonged standing, sitting, bending, twisting or lifting. He has been taking tramadol 50 mg TID prn prescribed by his PCP, NSAIDs, Tylenol, topical applications, heat, activity modifications and rest with continued symptoms. Denies any fever or chills, abdominal pain, foot drop, weakness, bladder or bowel dysfunction or saddle anesthesia. Patient also continues to report anterior right knee pain just above patella but not in the joint lines with mild decrease in his ROM. Recent xray showed prominent patellar enthesophyte. He is interested in Orthopedic evaluation. Past Procedure: 07/12/24: Left L5-S1 TFESI-no pain relief 12/14/23: Right L3 MB Sprint removal- no pain relief 10/08/23: Left L3 MB Sprint removal-50% pain relief 11/20/23: Right L3 MB Sprint PNS-70% pain relief at 68 stimulation 10/08/23: Left L3 MB Sprint PNS-70% pain relief at 66 stimulation 06/02/23: Left L5-S1 TFESI-80% pain relief for 3 months 03/12/23: Bilateral Therapeutic L3-L4 DR L5 MBB- 90% ongoing pain relief 11/28/22: Bilateral Therapeutic L3-L4 DR L5 MBB- 85% ongoing pain relief 10/28/22: Bilateral Diagnostic L3-L4 DR Uri SAGASTUME-80% pain relief for 2 days PRIOR: Patient is a pleasant 47 years old male with a history of significant degenerative changes at L3-S1 presents today for initial back pain evaluation. He attributes his chronic back pain to work related injury in [place] in 2000 which has resulted in 2 herniated discs. Denies recent trauma, injury or falls. Patient moved to [place] in 2008 and was [place] [facility] [place] [facility] [place] [facility] to manage his pain and has received multiple injections, mainly steroid injections, physical therapy, aqua therapy, and TENS unit. He reports the most recent injection was 2 months ago with good relief for his left sided radiculopathy symptoms. His pain is axial but also radiates into his left side and left lateral buttock, hip into his left lower extremity laterally and anteriorly in cortés with associated numbness and tingling in his lateral left thigh and toes. Patient reports weakness in his LLE. Pain is described as constant aching, hot burning, stabbing, sharp and numbness. Worse with prolonged walking, standing, changing position or cold weather changes. Patient reports pain affects his daily activities, functioning, sleep, social interactions, and quality of life. Patient reports he completed lumbar spine MRI at [facility] 2 months ago, this report is not available today. Currently he takes Tylenol and tramadol prescribed by his PCP and heat therapy with partial symptom relief. Denies any fever, malaise, abdominal or groin pain, bowel or bladder incontinence or saddle anesthesia. Patient was evaluated by Dr. Crocker in 2010 and 2016. At his last neurosurgical evaluation, Dr. Crocker discussed lumbar decompression with partial discectomy to relieve his leg symptoms or two level spinal fusion for back pain symptoms. Patient states he declined surgical options at that time. He states injections are effective but provide short term pain relief. Patient states physical therapy in the past worsened his symptoms. Denies history of diabetes. Most recent A1C was 5.9. [facility] Medical History Allergic rhinitis Anxiety Insomnia Benign prostatic hyperplasia Obstructive sleep apnea Constipation Impaired fasting glucose Asthma Dyslipidemia Benign essential hypertension Obesity (BMI 30-39.9) Blurred vision, right eye Abdominal pain Overactive bladder Lumbar degenerative disc disease Vitamin D deficiency Hypertension Surgical History History of surgery History of prostate surgery Hx of eye surgery Hx of hemorrhoidectomy Hx of rectal sphincterotomy H/O colonoscopy Family History Brother Diabetes Social History Household Members: None Housing: Apartment Alcohol intake: current Alcohol intake frequency: holidays/special occasions only Patient Tobacco Use Status: Former Tobacco user Tobacco use type: Cigarette Years Smoked: 20 e-Cigarette/Vaping Use: Never Used Second Hand Smoke Exposure: Yes service: No Current occupational status: employed Cognitive needs: No Hearing needs: No Vision needs: No Review of Systems Const All systems reviewed & are unremarkable except as noted in HPI and below Physical Exam Vital Signs: Last Vital Signs Pulse 74 08/08/24 08:48 BP 143/88 H 08/08/24 08:48 Pulse Ox 97 08/08/24 08:48 Oxygen Delivery Method Room Air 08/08/24 08:48 BMI result Body Mass Index 33.2 General: Appears afebrile. Alert and oriented. Mood and affect appropriate. Follows and participates in conversation appropriately. Respiratory effort is unlabored. No cough. Able to transition from sit to stand unassisted. Ambulates with normal heel strike and toe off on the right, increased pain with heel/toe stand on the left. Back/Spine/Pelvis Cervical Spine: cervical ROM normal, cervical muscular tenderness and No Cervical spine tenderness Thoracic/Lumbar Spine: thoracic and lumbar spine normal to inspection, No Thoracic/lumbar spine scar(s), Lasegue's sign positive on the left and localized, pain with thoraco-lumbar ROM, paraspinal muscle tenderness on the left greater than right, thoraco-lumbar ROM limited (due to pain) with forward flexion, No thoracic spinal tenderness, lumbar spinal tenderness at L4 and at L5 and straight leg raise positive left at 50 degrees Pelvis: buttock tenderness on the left and sciatic notch tenderness on the left Sacroiliac joints: bilaterally (+Jenifer, +Damon's left>right) tender to palpation Extrem General: Yes capillary refill normal, Yes no clubbing, cyanosis or edema and Yes no calf tenderness Right lower extremity: knee Details: normal to inspection, tenderness Location: of the patella; not of the medial joint line and not of the lateral joint line, normal ROM and crepitus; no swelling, no ecchymosis and no unusual warmth Results Reviewed Results Reviewed: XR LUMBOSACRAL SPINE 12/07/23 CLINICAL INFORMATION: Muscle spasm back. COMPARISON: Lumbar spine radiographs dated 09/01/2019. FINDINGS: The vertebral bodies and posterior elements are normal. The disc spaces are preserved and the vertebral alignment is normal. There is mild anterior endplate arthropathy at L3-L4 and L5-S1. The paraspinal soft tissues are normal. Sprint PNS leads are noted projecting over the lower lumbar spine. IMPRESSION: Unremarkable examination. XR KNEE 3V, RIGHT 05/26/24 CLINICAL INFORMATION: Right knee pain FINDINGS: No fracture or malalignment. No significant joint space narrowing. Prominent enthesophyte at the superior pole of the patella. No joint effusion. A small rounded density in the mid aspect of the femoral metaphysis most likely represents a bone island. IMPRESSION: 1. No acute osseous abnormality of the right knee. 2. Prominent patellar enthesophyte. Assessment & Plan Assessment & Plan (1) Low back pain: Code(s): M54.50 - Low back pain, unspecified Category: Medical (2) Right knee pain: Code(s): M25.561 - Pain in right knee Category: Medical (3) Lumbar back pain with radiculopathy affecting left lower extremity: Code(s): M54.16 - Radiculopathy, lumbar region Category: Medical (4) Lumbar spondylosis: Code(s): M47.816 - Spondylosis without myelopathy or radiculopathy, lumbar region Category: Medical (5) Lumbar degenerative disc disease: Code(s): M51.36 - Other intervertebral disc degeneration, lumbar region Category: Medical (6) Sacroiliitis: Code(s): M46.1 - Sacroiliitis, not elsewhere classified Category: Medical Plan Patient is status post left L5-S1 TFESI with no pain relief. He continues to suffer from significant left sided radiculopathy and has been missing work last week due to worsening pain. We will proceed with updating his lumbar spine MRI to assess for neural integrity and compression and follow up on previous MRI findings. Orthopedic referral for further evaluation of right knee pain with prominent patellar enthesophyte. He reports partial relief with Celebrex. Refills sent for Celecoxib and tizanidine. Side effects and precautions were reviewed with patient. Script sent for Medrol Mekhi if worsening symptoms in the next 1-2 weeks. All questions were answered and patient is in agreement plan. Follow up for MRI results and sooner as needed. Orders: Orders 2 MR lumbar spine wo con Today M51.36 - Other intervertebral disc degeneration, lumbar region, M54.16 - Radiculopathy, lumbar region Referrals 2 Orthopedics Referral M25.561 - Pain in right knee Medications: New 2 methylprednisolone (Medrol (Mekhi)) PO PER PKG DIR 21 ea 0RF M54.16 - Radiculopathy, lumbar region Changed 2 From tizanidine 4 mg PO BID PRN 60 tabs 2RF muscle spasticity G89.29 - Other chronic pain, M54.9 - Dorsalgia, unspecified, M62.830 - Muscle spasm of back To tizanidine 4 mg PO TID PRN 90 tabs 2RF muscle spasticity G89.29 - Other chronic pain, M54.9 - Dorsalgia, unspecified, M62.830 - Muscle spasm of back Refilled 2 celecoxib Take it with food and full glass of water 200 mg PO BID PRN 30 caps 3RF pain M25.561 - Pain in right knee, M54.50 - Low back pain, unspecified Coding Level of Care Code Est Pt Level 4 (84404) Complex EM visit Add On G2211 Diagnoses Low back pain M54.50 Right knee pain M25.561 Lumbar back pain with radiculopathy affecting left lower extremity M54.16 Lumbar spondylosis M47.816 Lumbar degenerative disc disease M51.36 Sacroiliitis M46.1
[2024-08-08 08:48] VITALS: BP 143/88; PULSE 74; O2SAT 97; BMI 33.2
== END 2024-08-08 09:10 | disposition home or self-care (01) ==
PROVIDERS: PCP Internal Medicine; Visit Provider Nurse Practitioner Family
DX: M54.50 Low back pain, unspecified (principal); M25.561 Pain in right knee; M54.16 Radiculopathy, lumbar region; M47.816 Spondylosis without myelopathy or radiculopathy, lumbar region; M51.369 Other intervertebral disc degeneration, lumbar region without mention of lumbar back pain or lower extremity pain; M46.1 Sacroiliitis, not elsewhere classified
CPT/HCPCS: 99214

== ENCOUNTER → 2024-08-08 08:37 | Outpatient (BNVA) | payer OTHER, SELFPAY | PROVIDERS: PCP Internal Medicine; Visit Provider Nurse Practitioner Family ==

== ENCOUNTER 2024-08-18 12:58 | Outpatient (REF) | payer OTHER, SELFPAY ==
--- NOTE | ~2024-08-18 | XR_ITS ---
EXAMINATION: XR PRE-MRI SCREENING-LUMBAR SPINE CLINICAL INFORMATION: Pre-MRI screening. COMPARISON: CT abdomen/pelvis dated 10/23/2020. TECHNIQUE: AP, lateral, and coned-down views of the lumbar spine. FINDINGS: Normal vertebral body alignment. The lumbar lordosis is maintained. No acute fracture or subluxation. No loss of vertebral body height. Loss of intervertebral disc height with small endplate osteophytes at L5-S1. Tiny anterior endplate osteophytes at L3-L4 and L4-L5. Findings are slightly progressed. No concerning lytic or blastic osseous lesion. No abnormal soft tissue calcification. XR/XR pre mri screening IMPRESSION: 1. No radiopaque foreign body. 2. Mild degenerative disc disease at L3 through S1, slightly progressed. Electronically signed by: Madhav Weaver MD 08/18/2024 03:19 PM [facility]IL[facility] PAULSON
== END 2024-08-18 12:59 | disposition home or self-care (01) ==
LOC: HO.XRAY 12:58
PROVIDERS: PCP Internal Medicine; Visit Provider Radiology Diagnostic Radiology
DX: Z13.89 Encounter for screening for other disorder (principal)

== ENCOUNTER 2024-08-25 09:59 | Outpatient (REF) | payer OTHER, SELFPAY | END 2024-08-25 10:00 | disposition home or self-care (01) | LOC: HO.HOSX 09:59 | PROVIDERS: PCP Internal Medicine; Visit Provider Physician Assistant | DX: M25.561 Pain in right knee (principal); M25.562 Pain in left knee | CPT/HCPCS: 73565 ==

== ENCOUNTER 2024-08-25 09:59 | Outpatient (AMB) | payer OTHER, SELFPAY ==
--- NOTE | 2024-08-25 10:07 | A.OFFVIS_ITS ---
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 Patient reports his knee pain has been present for about 3-4 months. He follows pain management for his back and was referred to orthopedics for an evaluation of knee pain. He has intermittent pain located at the anterior aspect of knee. Denies numbness or tingling. Finds no relief with Tylenol. No previous tx. Allergies adhesive tape Allergy (Intermediate, Verified 08/25/24 10:08) Skin sloughing with cardiac leads and IV securement device gabapentin [GABAPENTIN] Allergy (Unknown, Verified 08/25/24 10:08) SEVERE H/A,BLURRY VISION,MOOD CHANGE Medication List - Last Reconciled 08/25/24 by Elpidio Espinosa PA-C [adjustable straight point cane with offset handle As directed] albuterol sulfate 90 mcg/actuation 2 puffs inhalation Q4-6H PRN 30 days aluminum chloride 20% (Drysol Dab-O-Matic) 1 appl topical BID amlodipine 5 mg PO DAILY 90 days cetirizine 10 mg PO DAILY PRN 90 days ergocalciferol (vitamin D2) (Vitamin D2) 1,250 mcg PO QWEEK 3 months [HANDHELD SHOWER HEAD As directed] lorazepam 0.5 mg PO BID PRN 30 days meloxicam 15 mg PO DAILY PRN metformin ER 500 mg PO QPM 90 days methylprednisolone (Medrol (Mekhi)) PO PER PKG DIR mirabegron ER (Myrbetriq) 50 mg PO DAILY 30 days tizanidine 4 mg PO TID PRN tramadol 50 mg PO TID PRN 30 days zolpidem 10 mg PO BEDTIME PRN 30 days HPI 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 He denies injury. States he has pain with stairs. He also has pain with walking He states the pain is intermittent. He states he is taking muscle relaxers for the back which helps a little for the knee. [facility] Medical History Allergic rhinitis Anxiety Insomnia Benign prostatic hyperplasia Obstructive sleep apnea Constipation Impaired fasting glucose Asthma Dyslipidemia Benign essential hypertension Obesity (BMI 30-39.9) Blurred vision, right eye Abdominal pain Overactive bladder Lumbar degenerative disc disease Vitamin D deficiency Hypertension Surgical History History of surgery History of prostate surgery Hx of eye surgery Hx of hemorrhoidectomy Hx of rectal sphincterotomy H/O colonoscopy Family History Brother Diabetes Social History (Updated 08/25/24 @ 10:20 by ANDRADE Chery) Household Members: None Housing: Apartment Alcohol intake: current Alcohol intake frequency: holidays/special occasions only Patient Tobacco Use Status: Former Tobacco user Tobacco use type: Cigarette Years Smoked: 20 e-Cigarette/Vaping Use: Never Used Second Hand Smoke Exposure: Yes service: No Current occupational status: employed 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 Lateral retropatellar Tenderness, no medial or lateral joint line tenderness. ROM full with crepitus. Negative steinmans. No ligamentous laxity. NVI. Results Reviewed Results Reviewed: X-rays of the right knee obtained in the office today show well-preserved joint space mild lateralization of the patella Assessment & Plan Assessment & Plan (1) Patellofemoral arthritis of right knee: Code(s): M17.11 - Unilateral primary osteoarthritis, right knee Category: Medical Plan: We discussed options today which include physical therapy and anti-inflammatory use. I also discussed with him the benefits of a steroid injection which she would like to hold off on this time. Order was placed for therapy and a prescription for Celebrex was sent to the pharmacy he will take this twice a day for 2 weeks. If symptoms persist or worsen he will contact our office for a cortisone injection otherwise follow-up as needed. Orders: Orders XR knee standing BI Today M25.561 - Pain in right knee, M25.562 - Pain in left knee PT Evaluation and Treatment Today M17.11 - Unilateral primary osteoarthritis, right knee Medications: New celecoxib (Celebrex) 200 mg PO BID 60 caps 3RF 30 days Coding Level of Care Code New Pt Level 3 (76661) Complex EM visit Add On G2211 Diagnoses Patellofemoral arthritis of right knee M17.11
[2024-08-25 10:20] VITALS: BMI 33.2
== END 2024-08-25 10:38 | disposition home or self-care (01) ==
PROVIDERS: PCP Internal Medicine; Visit Provider Physician Assistant
DX: M17.11 Unilateral primary osteoarthritis, right knee (principal)
CPT/HCPCS: 99203

== ENCOUNTER 2024-09-14 14:45 | Outpatient (REF) | payer OTHER, SELFPAY ==
--- NOTE | ~2024-09-14 | MR_ITS ---
EXAMINATION: MR LUMBAR SPINE WITHOUT CONTRAST CLINICAL INFORMATION: Radiculopathy with bilateral leg weakness, numbness and pain. COMPARISON: None available. TECHNIQUE: MRI of the lumbar spine was obtained using routine sequences without contrast. FINDINGS: There is normal lumbar lordosis. The vertebral heights, alignment and disc heights are normal. Mild disc desiccation changes seen at L3-4, L4-5 and L5-S1 disc levels. The T12-L1, L1-2 and L2-3 disc levels are unremarkable. At L3-4 disc level there is a mild diffuse bulge flattening the ventral thecal sac without spinal canal stenosis. There is mild inferolateral recess narrowing of bilateral neural foramina. At L4-5 disc level there is broad-based diffuse bulge flattening the ventral thecal sac without spinal canal stenosis. There is mild mild inferolateral recess narrowing of bilateral neural foramina . At L5-S1 disc level there is moderate size disc bulge in close approximation to the exiting bilateral S1 nerve roots. There is no spinal canal stenosis. The bone marrow signal and paravertebral soft tissues are normal. Conus medullaris terminates at T12-L1 disc level and appears normal in morphology. MR/MR lumbar spine wo con IMPRESSION: Multilevel degenerative disc bulges L3-4 through L5-S1 disc level most prominent at the L1 5-S1 disc level. There is no spinal canal stenosis. However there is inferolateral recess narrowing at all disc levels. The disc bulge is in close approximation to the exiting bilateral S1 nerve roots at the L5-S1 disc level. Electronically signed by: Ramirez Saavedra MD 09/15/2024 07:53 AM EST
== END 2024-09-14 14:46 | disposition home or self-care (01) ==
LOC: HO.MRI 14:45
PROVIDERS: PCP Internal Medicine; Visit Provider Nurse Practitioner Family
DX: M54.16 Radiculopathy, lumbar region (principal); M51.369 Other intervertebral disc degeneration, lumbar region without mention of lumbar back pain or lower extremity pain
CPT/HCPCS: 72148

== ENCOUNTER → 2024-09-14 14:53 | Outpatient (BNV) | payer OTHER, SELFPAY | PROVIDERS: PCP Internal Medicine; Visit Provider Radiology Diagnostic Radiology | DX: M54.16 Radiculopathy, lumbar region (principal) | CPT/HCPCS: 72148 ==

== ENCOUNTER 2024-09-21 16:04 | Outpatient (AMB) | payer OTHER, SELFPAY ==
--- NOTE | 2024-09-21 16:05 | MHC.PC.OV ---
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: No Accompanied by: Self / Same As Patient Allergies adhesive tape Allergy (Intermediate, Verified 09/26/24 09:39) Skin sloughing with cardiac leads and IV securement device gabapentin [GABAPENTIN] Allergy (Unknown, Verified 09/26/24 09:39) SEVERE H/A,BLURRY VISION,MOOD CHANGE Medication List - Last Reconciled 09/21/24 by BUD Martinez [adjustable straight point cane with offset handle As directed] albuterol sulfate 90 mcg/actuation 2 puffs inhalation Q4-6H PRN 30 days aluminum chloride 20% (Drysol Dab-O-Matic) 1 appl topical BID amlodipine 5 mg PO DAILY 90 days celecoxib (Celebrex) 200 mg PO BID 30 days cetirizine 10 mg PO DAILY PRN 90 days ergocalciferol (vitamin D2) (Vitamin D2) 1,250 mcg PO QWEEK 3 months [HANDHELD SHOWER HEAD As directed] lorazepam 0.5 mg PO BID PRN 30 days meloxicam 15 mg PO DAILY PRN metformin ER 500 mg PO QPM 90 days mirabegron ER (Myrbetriq) 50 mg PO DAILY 30 days tramadol 50 mg PO TID PRN 30 days zolpidem 10 mg PO BEDTIME PRN 30 days Tobacco use date assessed: 09/21/24 Dental Screening Dental Screen Date: 09/21/24 Did you have a dental visit in the last 12 months?: Yes Did you have a dental problem in the last 6 months where you did not have access to dental care?: No Was dental information given to patient?: Patient has dentist HPI 4 month f/u HPI Details Patient is a 49 year old male with significant past medical history of to tubular adenoma of colon, GERD, internal hemorrhoids, lumbar back pain with radiculopathy affecting left lower extremity, sacroiliitis, benign hypertension, overactive bladder, BPH Patient is presenting today for follow up appointment Patient reports that he has no new concerns today. He is still dealing with his back pain. Reports that he will be having a follow-up colonoscopy at the end of this month. He had a colonoscopy in 2020 that showed some precancerous polyps that were removed. He reports that he has no change in his bowel habits, but he did noticed that his stool odor has been stronger He reports that his urinary frequency continues. He reports that he has been going eight times a night, at times. He reports that he has been restricting his fluids intake when he is going out in public to avoid the need to go to the bathroom. However, the patient reports that he is compliant with taking his Myrbetriq-he reports that he does not want to focus on his bladder issues at this time. He does not want to see a urologist at this time because he is aware of the process and he had a traumatizing experience going to urology. reports that he wants to deal with his back first He requested to get his testosterone level checked with his next labs due to his low energy. He is also having trouble sleeping as well due to his urinary symptoms. The patient denies chest pain, SOB, heart palpitation, dizziness [facility] Medical History (Updated 09/26/24 @ 15:00 by JACOBO Samuel) Lumbar degenerative disc disease Abdominal pain Blurred vision, right eye Environmental allergies Throat discomfort Onychomycosis Otitis media Hemorrhoids Colon cancer screening Pneumonia Muscle spasm of back Low back pain Malaise and fatigue Elevated C-reactive protein Right knee pain Allergic rhinitis Anxiety Insomnia Benign prostatic hyperplasia Obstructive sleep apnea Constipation Impaired fasting glucose Asthma Dyslipidemia Benign essential hypertension Obesity (BMI 30-39.9) Overactive bladder Vitamin D deficiency Hypertension Surgical History History of surgery History of prostate surgery Hx of eye surgery Hx of hemorrhoidectomy Hx of rectal sphincterotomy H/O colonoscopy Family History Brother Diabetes Social History Household Members: None Housing: Apartment Alcohol intake: current Alcohol intake frequency: holidays/special occasions only Patient Tobacco Use Status: Former Tobacco user Tobacco use type: Cigarette Years Smoked: 20 e-Cigarette/Vaping Use: Never Used Second Hand Smoke Exposure: Yes service: No Current occupational status: employed 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 1. Little interest or pleasure in doing things: not at all 2. Feeling down, depressed, or hopeless: not at all 3. Trouble falling or staying asleep, or sleeping too much: not at all 4. Feeling tired or having little energy: not at all 5. Poor appetite or overeating: not at all 6. Feeling bad about yourself - or that you are a failure or have let yourself or your family down: not at all 7. Trouble concentrating on things, such as reading the newspaper or watching television: not at all 8. Moving or speaking so slowly that other people could have noticed. Or the opposite - being so fidgety or restless that you have been moving around a lot more than usual: not at all 9. Thoughts that you would be better off or of hurting yourself in some way: not at all Total score: 0 Depression Screening Interpretation: Negative Depression Screening Done: Yes [id number] - PHQ-9 Billing: Yes Source: Developed by Drs. Александр Andre, Muriel Guido, Shiv Treadwell and colleagues, with an educational sharon from [employer]. Thrive Questionnaire Date Thrive assessed: 09/21/24 I am a: Patient What is your living situation today?: I have a steady place to live Within the past 12 months, did the food you bought not last and you didn't have the money to get more?: Never true Within the past 12 months, did you worry whether your food would run out before you got money to buy more?: Never true Do you have trouble paying for medicines?: No Do you have trouble getting transportation to medical appointments?: No Do you have trouble paying your heating and electricity bill?: No Do you have trouble taking care of your child, family member or friend?: No Do you have trouble with day-to-day activities such as bathing, preparing meals, shopping, managing finances, etc.?: No Are you currently unemployed and looking for a job?: No Are you interested in more education?: No Please select the resources that you would like help with: None Currently or been in a relationship where the following occur: No concerns reported THRIVE Score: 0 AUDIT C Alcohol Use Questionnaire (AUDIT-C) 1. How often do you have a drink containing alcohol?: Monthly or less 2. How many drinks containing alcohol do you have on a typical day when you are drinking?: 1 or 2 3. How often do you have six or more drinks on one occasion?: Never Total Score: 1 Score Reviewed/Action Taken: Yes WILMER-7 AMB Questionnaire WILMER-7 Date WILMER - 7 assessed: 09/21/24 Feeling nervous, anxious, or on edge: 0 = Not at all Not being able to stop or control worryin = Not at all Worrying too much about different things: 0 = Not at all Trouble relaxin = Not at all Being so restless that it is hard to sit still: 0 = Not at all Becoming easily annoyed or irritable: 0 = Not at all Feeling afraid as if something awful might happen: 0 = Not at all Total WILMER-7 score (0-4 normal; 5-9 mild; 10-14 moderate; 15-21 severe): 0 Source: Developed by Drs. Александр Andre, Muriel Guido, Shiv Treadwell and colleagues, with an educational sharon from [employer]. WILMER-7 Assessment Billing WILMER-7 Assessment Tool: WILMER-7 Assessment 19778 Review of Systems Const Details: Denies chills, Denies fatigue, Denies fever(s), Denies headache(s) and Denies weakness HEENT Denies change in vision, Denies dizziness, Denies headache(s), Denies hearing loss, Denies nasal congestion, Denies sinus pain, Denies sinus pressure and Denies sore throat Card Denies chest pain, Denies lightheadedness, Denies dyspnea and Denies other (palpitations) Resp Denies cough, Denies dyspnea and Denies wheezing GI Denies abdominal pain, Denies melena, Denies hematochezia, Denies change in bowel habits, Denies dyspepsia and Denies nausea Denies hematuria and Denies dysuria, reports urinary frequency Musc reports ongoing lower back pain over the lumbar region-chronic, post neurostimulator, reports arthralgia Skin/Breast Denies rash, Denies unusual bruising and Denies wounds Neuro Denies abnormal gait, Denies dizziness, Denies headache(s), Denies memory loss, Denies numbness, Denies Sensory deficit (Neuro), Denies tingling and Denies weakness Psych Denies anxiety, Denies depression and Denies memory loss Endo Denies cold intolerance, reports low energy, Denies heat intolerance, Cassius/Lymph Denies easy bleeding and Denies easy bruising Aller/Immun Denies wheezing Physical exam (Primary Care) Vital Signs: Last Vital Signs Temp 96.9 F 09/21/24 16:06 Pulse 71 09/21/24 16:06 BP 116/82 09/21/24 16:06 Pulse Ox 97 09/21/24 16:06 Oxygen Delivery Method Room Air 09/21/24 16:06 BMI result Body Mass Index 33.1 Tobacco/Smoking Status: Tobacco use Status Tobacco use date assessed 09/21/24 09/21/24 16:13 Patient Tobacco Use Status Former Tobacco user 09/21/24 16:13 Tobacco use type Cigarette 09/21/24 16:13 e-Cigarette/Vaping Use Never Used 09/21/24 16:13 PHQ-9: PHQ-9 Score PHQ-9: Total score 0 09/23/24 11:57 Depression Screening Interpretation: Negative Thrive Assessment: Date of Thrive Assessment Date Thrive assessed 09/21/24 09/21/24 16:13 Currently or been in a relationship where the following occur: No concerns reported Const Other: General: no acute distress, well developed, alert and awake Nutritional Appearance: well nourished Orientation/consciousness: patient oriented x3 HENMT Head: Yes normocephalic and Yes atraumatic Ears: hearing grossly normal bilaterally and TM's normal bilaterally Mouth: Normal oral and palatal mucosa present and moist mucous membranes Teeth and gingiva: dentition normal Throat: Yes oropharynx normal Eyes Pupils: Equal, round and reactive pupils present and Pupil accommodation reflex normal Neck Neck: Yes normal visual inspection Thyroid: Thyroid normal Lymphatic: no lymphadenopathy noted Chest Chest palpation & inspection: normal inspection of the chest Resp Effort & Inspection: normal respiratory effort Auscultation: clear to auscultation bilaterally Cardio Rate: regular rate Rhythm: regular rhythm Heart sounds: S1 normal heart sound present, S2 normal heart sound present, no gallops, no murmurs and no rubs GI Palpation (GI): Soft to palpation, nontender Auscultation: normal bowel sounds General: Yes no CVA tenderness Back/Spine/Pelvis Back: no CVA tenderness Thoracic/Lumbar Spine: lumbar spinal tenderness (R>L) Skin General: warm and dry Lesions: no lesions Nails: normal Extrem General: Yes normal to inspection, No edema and No calf tenderness Psych Appearance: grossly normal Affect: normal affect Attitude: cooperative Thought process: Normal thought process present Results Reviewed Results Reviewed: Laboratory Tests 09/22/24 09/22/24 07:30 07:49 WBC 8.0 RBC 4.98 Hgb 14.7 Hct 44.6 Plt Count 293 Sodium 143 Potassium 4.0 Chloride 112 H BUN 12 Creatinine 0.80 Estimated GFR > 60 Fasting Glucose 114 H Hemoglobin A1c % 5.9 AST 18 ALT 8 Alkaline Phosphatase 77 Triglycerides 79 Cholesterol 158 LDL Cholesterol, Calc 111 H HDL Cholesterol 32 L 25-OH Vitamin D Total 25.0 L TSH 0.65 Urine Color Yellow Urine Appearance Clear Urine pH 5.5 Ur Specific [place] >= 1.030 H Urine Protein Negative Urine Glucose (UA) Negative Urine Ketones Negative Urine Blood Negative Urine Nitrite Negative Ur Leukocyte Esterase Negative Coding Level of Care Code Est Pt Level 4 (15602) Diagnoses Benign essential hypertension I10 Dyslipidemia E78.5 Obstructive sleep apnea G47.33 Mild intermittent asthma without complication J45.20 Asthma complication type: uncomplicated Asthma persistence: intermittent Asthma severity: mild Gastroesophageal reflux disease without esophagitis K21.9 Esophagitis presence: without esophagitis Vitamin D deficiency E55.9 Lumbar back pain with radiculopathy affecting left lower extremity M54.16 Overactive bladder N32.81 Low energy R53.83 Insomnia, unspecified type G47.00 Insomnia type: unspecified Obesity (BMI 30-39.9) E66.9 Tubular adenoma of colon D12.6 Additional Codes WILMER-7 Assessment Billing - WILMER-7 Assessment Tool: WILMER-7 Assessment 49274 ([id number]) PHQ-9 - 63123 - PHQ-9 Billing: Yes ([id number]) Assessment & Plan Assessment & Plan (1) Benign essential hypertension: Code(s): I10 - Essential (primary) hypertension Category: Medical Plan: Blood pressure within goal Reinforced dash diet Continue amlodipine 5 mg (2) Dyslipidemia: Code(s): E78.5 - Hyperlipidemia, unspecified Category: Medical Plan: LDL 111 slight decreased from previous, HDL 32 slightly increased previous Dietary restrictions reinforced/activity as tolerated (3) Obstructive sleep apnea: Comment: no cpap used Code(s): G47.33 - Obstructive sleep apnea (adult) (pediatric) Category: Medical Plan: Continue CPAP at night Follow up with sleep medicine as scheduled (4) Asthma: Code(s): J45.909 - Unspecified asthma, uncomplicated Category: Medical Qualifiers: Asthma complication type: uncomplicated Asthma persistence: intermittent Asthma severity: mild Qualified Code(s): J45.20 - Mild intermittent asthma, uncomplicated Plan: The patient was taking xolair 300mg inject, reports that he has not taken this for awhile and he has been stable He is currently using albuterol sulfate 90 mcg/actuation 2 puffs 4-6 hr prn Follow up with pulmonology as scheduled/as needed (5) GERD (gastroesophageal reflux disease): Code(s): K21.9 - Gastro-esophageal reflux disease without esophagitis Category: Medical Qualifiers: Esophagitis presence: without esophagitis Qualified Code(s): K21.9 - Gastro-esophageal reflux disease without esophagitis Plan: Reinforced dietary restriction (6) Vitamin D deficiency: Code(s): E55.9 - Vitamin D deficiency, unspecified Category: Medical Plan: vitamin D 25.0, slightly lower than previous Continue ergocalciferol 1250 mcg q.week We will repeat labs in 4 months (7) Lumbar back pain with radiculopathy affecting left lower extremity: Code(s): M54.16 - Radiculopathy, lumbar region Category: Medical Plan: Patient reports that he is within a follow up MRI-post Neuro stimulator Continue Celebrex 200 mg b.i.d., continue meloxicam 15 mg p.o. daily-the patient is aware that he can take both of these medications on the same day Continue tramadol 50 mg t.i.d. p.r.n. Reinforced weight/activity restrictions (8) Overactive bladder: Code(s): N32.81 - Overactive bladder Category: Medical Plan: Continue mirabegron 50 mg encouraged the patient to follow up with urology (9) Low energy: Code(s): R53.83 - Other fatigue Category: Medical Plan: Reports lack of sleep due to urinary frequency but also wants to test his testosterone to rule out if this is the cause of his increased tiredness Testosterone serum ordered (10) Insomnia: Code(s): G47.00 - Insomnia, unspecified Category: Medical Qualifiers: Insomnia type: unspecified Qualified Code(s): G47.00 - Insomnia, unspecified Plan: Encourage sleep hygiene-this is difficult for the patient due to his urinary symptoms He has frequent nocturia; he continues on mirabegron 50 mg-He is not interested in going back to urology at this time Continues zolpidem 10 mg at bedtime. (11) Obesity (BMI 30-39.9): Code(s): E66.9 - Obesity, unspecified Category: Medical Plan: Reinforced dietary restriction and activity as tolerated Recheck labs in 4 months (12) Tubular adenoma of colon: Comment: 2020 scope repeat 3-5 years Code(s): D12.6 - Benign neoplasm of colon, unspecified Category: Medical Plan: follow-up colonoscopy at the end of this month. He had a colonoscopy in 2020 that showed some precancerous polyps were removed. Follow up with GI as scheduled Plan Patient to follow up in 4 months; blood work about a week before appointment I personally spent 29 minutes reviewing the chart, caring for the patient and documenting after the visit. Orders: Orders Complete Blood Count Auto Diff 4 Months J45.50 - Severe persistent asthma, uncomplicated, K21.9 - Gastro-esophageal reflux disease without esophagitis, F41.9 - Anxiety disorder, unspecified, G47.00 - Insomnia, unspecified, N40.1 - Benign prostatic hyperplasia with lower urinary tract symptoms, R35.0 - Frequency of micturition, G47.33 - Obstructive sleep apnea (adult) (pediatric), R73.01 - Impaired fasting glucose, K59.00 - Constipation, unspecified, E78.5 - Hyperlipidemia, unspecified, I10 - Essential (primary) hypertension, E66.9 - Obesity, unspecified, E55.9 - Vitamin D deficiency, unspecified Vitamin D 25-OH Total 4 Months J45.50 - Severe persistent asthma, uncomplicated, K21.9 - Gastro-esophageal reflux disease without esophagitis, F41.9 - Anxiety disorder, unspecified, G47.00 - Insomnia, unspecified, N40.1 - Benign prostatic hyperplasia with lower urinary tract symptoms, R35.0 - Frequency of micturition, G47.33 - Obstructive sleep apnea (adult) (pediatric), R73.01 - Impaired fasting glucose, K59.00 - Constipation, unspecified, E78.5 - Hyperlipidemia, unspecified, I10 - Essential (primary) hypertension, E66.9 - Obesity, unspecified, E55.9 - Vitamin D deficiency, unspecified UA CC w/rflx Micro + Cult 4 Months J45.50 - Severe persistent asthma, uncomplicated, K21.9 - Gastro-esophageal reflux disease without esophagitis, F41.9 - Anxiety disorder, unspecified, G47.00 - Insomnia, unspecified, N40.1 - Benign prostatic hyperplasia with lower urinary tract symptoms, R35.0 - Frequency of micturition, G47.33 - Obstructive sleep apnea (adult) (pediatric), R73.01 - Impaired fasting glucose, K59.00 - Constipation, unspecified, E78.5 - Hyperlipidemia, unspecified, I10 - Essential (primary) hypertension, E66.9 - Obesity, unspecified, E55.9 - Vitamin D deficiency, unspecified Testosterone, Free/Total 09/21/24 R53.83 - Other fatigue Comprehensive [place]. Panel Fast 4 Months J45.50 - Severe persistent asthma, uncomplicated, K21.9 - Gastro-esophageal reflux disease without esophagitis, F41.9 - Anxiety disorder, unspecified, G47.00 - Insomnia, unspecified, N40.1 - Benign prostatic hyperplasia with lower urinary tract symptoms, R35.0 - Frequency of micturition, G47.33 - Obstructive sleep apnea (adult) (pediatric), R73.01 - Impaired fasting glucose, K59.00 - Constipation, unspecified, E78.5 - Hyperlipidemia, unspecified, I10 - Essential (primary) hypertension, E66.9 - Obesity, unspecified, E55.9 - Vitamin D deficiency, unspecified Hemoglobin A1c 4 Months J45.50 - Severe persistent asthma, uncomplicated, K21.9 - Gastro-esophageal reflux disease without esophagitis, F41.9 - Anxiety disorder, unspecified, G47.00 - Insomnia, unspecified, N40.1 - Benign prostatic hyperplasia with lower urinary tract symptoms, R35.0 - Frequency of micturition, G47.33 - Obstructive sleep apnea (adult) (pediatric), R73.01 - Impaired fasting glucose, K59.00 - Constipation, unspecified, E78.5 - Hyperlipidemia, unspecified, I10 - Essential (primary) hypertension, E66.9 - Obesity, unspecified, E55.9 - Vitamin D deficiency, unspecified Lipid Panel 4 Months J45.50 - Severe persistent asthma, uncomplicated, K21.9 - Gastro-esophageal reflux disease without esophagitis, F41.9 - Anxiety disorder, unspecified, G47.00 - Insomnia, unspecified, N40.1 - Benign prostatic hyperplasia with lower urinary tract symptoms, R35.0 - Frequency of micturition, G47.33 - Obstructive sleep apnea (adult) (pediatric), R73.01 - Impaired fasting glucose, K59.00 - Constipation, unspecified, E78.5 - Hyperlipidemia, unspecified, I10 - Essential (primary) hypertension, E66.9 - Obesity, unspecified, E55.9 - Vitamin D deficiency, unspecified TSH reflex Free T4 4 Months J45.50 - Severe persistent asthma, uncomplicated, K21.9 - Gastro-esophageal reflux disease without esophagitis, F41.9 - Anxiety disorder, unspecified, G47.00 - Insomnia, unspecified, N40.1 - Benign prostatic hyperplasia with lower urinary tract symptoms, R35.0 - Frequency of micturition, G47.33 - Obstructive sleep apnea (adult) (pediatric), R73.01 - Impaired fasting glucose, K59.00 - Constipation, unspecified, E78.5 - Hyperlipidemia, unspecified, I10 - Essential (primary) hypertension, E66.9 - Obesity, unspecified, E55.9 - Vitamin D deficiency, unspecified
[2024-09-21 16:06] VITALS: BP 116/82; PULSE 71; TEMP 36.1; O2SAT 97; BMI 33.1
== END 2024-09-21 16:50 | disposition home or self-care (01) ==
PROVIDERS: PCP Internal Medicine
DX: I10 Essential (primary) hypertension (principal); E78.5 Hyperlipidemia, unspecified; G47.33 Obstructive sleep apnea (adult) (pediatric); J45.20 Mild intermittent asthma, uncomplicated; K21.9 Gastro-esophageal reflux disease without esophagitis; E55.9 Vitamin D deficiency, unspecified; M54.16 Radiculopathy, lumbar region; N32.81 Overactive bladder; R53.83 Other fatigue; G47.00 Insomnia, unspecified; E66.9 Obesity, unspecified; D12.6 Benign neoplasm of colon, unspecified

== ENCOUNTER → 2024-09-21 16:04 | Outpatient (BNVA) | payer OTHER, SELFPAY | PROVIDERS: PCP Internal Medicine | DX: I10 Essential (primary) hypertension (principal); E78.5 Hyperlipidemia, unspecified; G47.33 Obstructive sleep apnea (adult) (pediatric); J45.20 Mild intermittent asthma, uncomplicated; K21.9 Gastro-esophageal reflux disease without esophagitis; E55.9 Vitamin D deficiency, unspecified; M54.16 Radiculopathy, lumbar region; N32.81 Overactive bladder; R53.83 Other fatigue; G47.00 Insomnia, unspecified; E66.9 Obesity, unspecified; Z86.0101 Personal history of adenomatous and serrated colon polyps; Z79.899 Other long term (current) drug therapy; Z99.89 Dependence on other enabling machines and devices | CPT/HCPCS: 96127 ==

== ENCOUNTER 2024-09-22 07:39 | Outpatient (REF) | payer OTHER, SELFPAY ==
[2024-09-22 07:51] LABS: MANUAL DIFF FLAG NO
[2024-09-22 08:00] LABS: Basophils Absolute Auto 0.1 X10*3/uL (0.0-0.2); Basophils Percent Auto 0.6 % (0-2); Eosinophils Absolute Auto 0.2 X10*3/uL (0.0-0.4); Eosinophils Percent Auto 1.9 % (0-4); Hematocrit 44.6 % (42.0-52.0); Hemoglobin 14.7 g/dl (14.0-18.0); Imm Gran Abs Auto 0.02 X10*3/uL (0.00-0.03); Imm Gran Pct Auto 0.3 % (0.0-0.4); Lymphocytes Absolute Auto 2.5 X10*3/uL (1.2-4.9); Lymphocytes Percent Auto 31.2 % (20-40); Mean Corpuscular Hemoglobin 29.5 pg (27.0-33.0); Mean Corpuscular Volume 89.6 fL (80.0-98.0); Mean Platelet Volume 8.7 fL (9.4-12.4); Monocytes Absolute Auto 0.6 X10*3/uL (0.1-1.2); Neutrophils Absolute Auto 4.7 x10*3/uL (2.0-8.3); Platelet Count 293 X10*3/uL (160-400); Red Blood Count 4.98 X10*6/uL (4.60-5.80); Red Cell Distribution Width 13.5 % (11.0-16.0)
[2024-09-22 08:08] LABS: Estimated Average Glucose 123 mg/dL; Hemoglobin A1c % 5.9 % (<6.0); Total Hemoglobin (HGBA1C) 3894.4023 umol/L
[2024-09-22 08:09] LABS: Appearance Urine Clear; Color Urine Yellow; Glucose Urine UA Negative (Negative); Leukocyte Esterase Urine Negative (Negative); Nitrite Urine Negative (Negative); PH 5.5 (5.0-9.0); Specific Gravity - Urine >= 1.030 (1.005-1.025); Urine Blood Negative (Negative); Urine Ketones Negative (Negative); Urine Protein Negative (Neg-Trace)
[2024-09-22 08:22] LABS: Alanine Aminotransferase 8 U/L (0-40); Alkaline Phosphatase 77 U/L (39-117); Anion Gap 10 (12-20); Aspartate Amino Transferase 18 U/L (5-37); Bilirubin Total 0.5 mg/dL (0.0-1.0); Blood Urea Nitrogen 12 mg/dL (9-16); Calcium 9.3 mg/dL (8.4-10.2); Carbon Dioxide 25 mmol/L (22-29); Chloride 112 mmol/L (96-108); Cholesterol 158 mg/dL (<200); Estimated Glomerular Filt Rate > 60; Glucose Fasting 114 mg/dL (60-99); HDL Cholesterol 32 mg/dL (>40); LDL Cholesterol Calculated 111 mg/dL (<100); Sodium 143 mmol/L (135-145); Total Protein 6.7 g/dL (6.5-8.0); Triglycerides 79 mg/dL (<150)
[2024-09-22 08:38] LABS: TSH reflex Free T4 0.65 uIU/mL (0.32-4.0)
== END 2024-09-22 07:40 | disposition home or self-care (01) ==
LOC: HO.LAB 07:39
PROVIDERS: PCP Internal Medicine; Visit Provider Internal Medicine
DX: E78.00 Pure hypercholesterolemia, unspecified (principal); D64.9 Anemia, unspecified; E55.9 Vitamin D deficiency, unspecified; R30.0 Dysuria; E11.9 Type 2 diabetes mellitus without complications
CPT/HCPCS: 36415; 80053; 80061; 81003; 82306; 83036; 84443; 85025

== ENCOUNTER 2024-09-26 09:29 | Outpatient (REF) | payer OTHER, SELFPAY ==
--- NOTE | ~2024-09-26 | XR_ITS ---
CLINICAL HISTORY: M47.816 - Spondylosis without myelopathy or radiculopathy, lumbar region 4 views lumbar spine Comparison: None Findings: Normal alignment. No acute fractures or dislocation. Normal lumbar spine bone mineralization There is gross anatomic alignment. There is no change in alignment neutral, flexion or extension views. There are multilevel small lumbar spine osteophytes. There is bilateral sclerosis of the SI joints. There may be small erosions. IMPRESSION: No acute findings, no acute fractures Mild multilevel spondylosis no change in the alignment on neutral, flexion or extension views Bilateral sacroiliitis This document has been electronically signed by: Александр Raya MD on 09/28/2024 08:57:16
== END 2024-09-26 09:30 | disposition home or self-care (01) ==
LOC: HO.HOSX 09:29
PROVIDERS: PCP Internal Medicine; Referring Provider Nurse Practitioner Family; Visit Provider Physician Assistant
DX: M47.816 Spondylosis without myelopathy or radiculopathy, lumbar region (principal)
CPT/HCPCS: 72110

== ENCOUNTER 2024-09-26 09:29 | Outpatient (AMB) | payer OTHER, SELFPAY ==
--- NOTE | 2024-09-26 09:36 | A.SPINEOV_ITS ---
Vital Signs 09/26/24 09:39 Height 5 ft 9 in Weight 224 lb BMI 33.1 Intake Visit Reasons: LBP Intake Note: Mr. Fleming is here today c/o low back pain. Business Continuity Coordinator Required: No Allergies adhesive tape Allergy (Intermediate, Verified 09/26/24 09:39) Skin sloughing with cardiac leads and IV securement device gabapentin [GABAPENTIN] Allergy (Unknown, Verified 09/26/24 09:39) SEVERE H/A,BLURRY VISION,MOOD CHANGE Physical Exam Vital Signs: BMI result Body Mass Index 33.1 Assessment & Plan Assessment & Plan (1) Lumbar spondylosis: Code(s): M47.816 - Spondylosis without myelopathy or radiculopathy, lumbar region Category: Medical Plan Dear Angelina, Thank you for referring Mr Fleming to our office today. 49-year-old male with history of chronic back pain going back over 20 years. It started when he had to live something very heavy in 2000 and felt a pop in his back. Since then the pain has steadily gotten worse, he describes it as encompassing his whole lower lumbar region. It will radiate down his left leg into the top of his foot at times. The pain is aggravated with standing, bending but can also be present at night. He takes tramadol and Tylenol try to help deal with the pain. He can not take NSAIDs because of history of a renal failure issue a number of years ago. He has tried gabapentin but it gave him visual changes in vision loss. He has undergone numerous rounds of conservative treatment in the forms of physical therapy and has been to at least 3 pain centers in the area and undergone does ends and does not have injections. In general, he does report though that the injections give him some temporary relief for number of weeks. He also had a muscle stimulator trialed, but apparently there was some kind of localized reaction to the metal or topical infection so it was removed. He comes today with an MRI showing a degenerative disc at L5-S1. PMH: He is a history of prediabetes, he is on metformin but he was placed on it for weight loss. He just had an A1c done in it was 5.9. History of hypertension, hemorrhoids, he has had 3 surgeries to fix that, he has colon polyps and was recently told he might have 1 that was precancerous. He has a history of BPH, a few years back he underwent some kind of intra office procedure with and it resulted in the patient having severe retention and apparently went into renal failure. He was in the hospital for about a week. That cleared up but he still has a severe urinary urgency and frequency. He was not sure if there was scar tissue and there or something else. Apparently there was another procedure being planned at some point. Denies any history of heart attacks, stroke, lung disorders, major abdominal surgery, blood clots, bleeding etc.. Social hx: He does not smoke, occasionally drinks alcohol, no recreational drugs Medications: Ambien, amlodipine, tramadol, metformin, Celebrex, vitamin-D, Myrbetriq Allergies: Gabapentin gives him visual loss. Physical exam: She is awake alert oriented no acute distress, slow to stand up, has difficulty maintaining an erect posture, he has full strength and normal reflexes of the lower extremities. Imaging review: Lumbar MRI done at [facility], compared to MRI done in 2021 at the [facility], and this shows a moderately degenerative disc at L5-S1 with mild foraminal narrowing, no signs of overt nerve compression. No spondylolisthesis. There is no Modic endplate changes or signs of endplate disruption. Impression: 49-year-old male presents with chronic low back pain centered across the whole lower lumbar region, started in 2020 when he was lifting something heavy and heard a pop. The only thing I see on his imaging is a degenerative disc at L5-S1 which appears to be more degenerative toward the backside of the endplate where there is more collapse. I explained to the patient that findings like this are very difficult to explain diffuse severe back pain. Sometimes these are just normal findings. However, when a patient has had such debilitating back pain and has trialed all the other conservative measures and has no other options, Dr. Pritchard sometimes will offer surgery as a last option. I will talk with him and see if he thinks this patient might be a candidate for an artificial disc versus lumbar fusion. I will get back to the patient once I have a chance to review the imaging with Dr. Pritchard. Thank you for allowing us to care for your patient. The total time spent with this visit with this patient was 45 minutes reviewing history, physical exam, lumbar imaging review, and implementation of treatment plan or further diagnostic testing Tera Pritchard MD,PhD [facility] Orders: Orders XR lumbar spine 4V min Today M47.816 - Spondylosis without myelopathy or radiculopathy, lumbar region Coding Level of Care Code New Pt Level 4 (58065) Diagnoses Lumbar spondylosis M47.816
[2024-09-26 09:39] VITALS: BMI 33.1
== END 2024-09-26 10:48 | disposition home or self-care (01) ==
PROVIDERS: PCP Internal Medicine; Referring Provider Nurse Practitioner Family; Visit Provider Physician Assistant
DX: M47.816 Spondylosis without myelopathy or radiculopathy, lumbar region (principal)
CPT/HCPCS: 99204

== ENCOUNTER 2024-10-03 09:04 | Outpatient (AMB) | payer OTHER, SELFPAY ==
[2024-10-03 09:14] VITALS: BMI 36.0
--- NOTE | 2024-10-03 09:14 | A.OFFVIS_ITS ---
Vital Signs 10/03/24 09:14 Height 5 ft 9 in Weight 244 lb BMI 36.0 Intake Visit Reasons: Newprob-LT elbow pain/numbness Intake Note: Enmanuel is a 49 year old right hand dominant male who presents today for a new problem visit for a evaluation of his left hand. States he has numbness and tingling for the last 2 months and is constant thought out the day. States its only on his small and ring finger. Denies past injections or O.T. No EMG done. Allergies adhesive tape Allergy (Intermediate, Verified 10/03/24 09:18) Skin sloughing with cardiac leads and IV securement device gabapentin [GABAPENTIN] Allergy (Unknown, Verified 10/03/24 09:18) SEVERE H/A,BLURRY VISION,MOOD CHANGE HPI HPI Newprob-LT elbow pain/numbness: Details: Enmanuel is a 49 year old right hand dominant male who presents today for a new problem visit for a evaluation of his left hand. States he has numbness and tingling for the last 2 months and is constant thought out the day. Patient states that 1 day, he began to experience significant pain in the medial aspect of his left elbow, and since then has experienced this numbness in the left hand. The patient states that States its only on his small and ring finger. Denies past injections or O.T. No EMG done. [facility] Medical History (Updated 10/03/24 @ 10:19 by EFRAIN Roberson) Lumbar degenerative disc disease Abdominal pain Blurred vision, right eye Environmental allergies Throat discomfort Onychomycosis Otitis media Hemorrhoids Colon cancer screening Pneumonia Muscle spasm of back Low back pain Malaise and fatigue Elevated C-reactive protein Right knee pain Allergic rhinitis Anxiety Insomnia Benign prostatic hyperplasia Obstructive sleep apnea Constipation Impaired fasting glucose Asthma Dyslipidemia Benign essential hypertension Obesity (BMI 30-39.9) Overactive bladder Vitamin D deficiency Hypertension Surgical History History of surgery History of prostate surgery Hx of eye surgery Hx of hemorrhoidectomy Hx of rectal sphincterotomy H/O colonoscopy Family History Brother Diabetes Social History (Updated 10/03/24 @ 09:19 by Zahraa Evans [facility]) Household Members: None Housing: Apartment Alcohol intake: current Alcohol intake frequency: holidays/special occasions only Patient Tobacco Use Status: Former Tobacco user Tobacco use type: Cigarette Years Smoked: 20 e-Cigarette/Vaping Use: Never Used Second Hand Smoke Exposure: Yes service: No Current occupational status: employed 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 Normal sensation to all other digits in the left hand today. Normal sensation in the tips of all digits of the right hand today. No thenar or intrinsic wasting. Good APB muscle firing and good finger cross. Vascular: Capillary refill brisk. ROM: Patient can make a fist and extend all their digits. Skin: No lacerations or abrasions noted. General: No ecchymosis. No erythema or evidence of infection. Assessment & Plan Assessment & Plan (1) Numbness and tingling in left hand: Code(s): R20.0 - Anesthesia of skin; R20.2 - Paresthesia of skin Category: Medical Plan 1. Numbness and tingling of left hand Symptoms constant daily, worse at night No EMG done At this time, patient was referred for EMG and nerve conduction study to assess the health of the nerves of the left upper extremity Patient will follow-up after EMG and nerve conduction study for results review and discussion of further treatment options if indicated Patient was amenable to this plan Patient will follow-up after EMG and nerve conduction study, sooner with any acute concerns Orders: Orders NE electromyogram (EMG) Today R20.0 - Anesthesia of skin, R20.2 - Paresthesia of skin NE nerve conduction velocity Today R20.0 - Anesthesia of skin, R20.2 - Paresthesia of skin Coding Level of Care Code Est Pt Level 3 (20042) Diagnoses Numbness and tingling in left hand R20.0; R20.2
== END 2024-10-03 09:31 | disposition home or self-care (01) ==
PROVIDERS: PCP Internal Medicine
DX: R20.0 Anesthesia of skin (principal); R20.2 Paresthesia of skin
CPT/HCPCS: 99213

== ENCOUNTER → 2024-10-03 09:04 | Outpatient (BNVA) | payer OTHER, SELFPAY | PROVIDERS: PCP Internal Medicine ==

== ENCOUNTER 2024-11-07 14:38 | Emergency (ER) | payer OTHER, SELFPAY ==
[2024-11-07 15:48] VITALS: BP 168/93; PULSE 74; RESP 16; TEMP 36.1; O2SAT 98; BMI 15.1
--- NOTE | 2024-11-07 15:48 | ED_ITS ---
HPI - Nausea/Vomiting/Diarrhea General Chief complaint: Abdominal Pain Stated complaint: abd pain blood in stools Time Seen by Provider: 11/07/24 16:57 Source: patient Mode of arrival: ambulatory Limitations: no limitations History of Present Illness ED Provider: HPI Narrative: Patient's history of gastric reflux disease on omeprazole 40 mg daily moderate diverticulosis multiple polyp and internal hemorrhoid in the colonoscopy done on 01/02 comes here as for 1 month been having off and on dark stool with nausea no significant abdominal pain patient has had labs done prior to my evaluation which showed hemoglobin of 14.8hct 45.0 Related Data Home Medications ?Medication ?Instructions ?Recorded ?Confirmed aluminum chloride 20 % topical 1 appl topical BID 10/15/23 09/21/24 solution (Drysol Dab-O-Matic) Previous Rx's ?Medication ?Instructions ?Recorded lorazepam 0.5 mg tablet 0.5 mg PO BID PRN anxiety 30 days 05/09/22 #60 tabs HANDHELD SHOWER HEAD #1 ea 02/27/23 adjustable straight point cane #1 ea 02/27/23 with offset handle albuterol sulfate 90 mcg/actuation 2 puff inhalation Q4-6H PRN 05/14/23 aerosol inhaler shortness of breath or wheezing 30 days #8.5 grams mirabegron 50 mg tablet,extended 50 mg PO DAILY 30 days #30 tabs 03/04/24 release 24 hr (Myrbetriq) ergocalciferol (vitamin D2) 1,250 1,250 mcg PO QWEEK 3 months #13 05/19/24 mcg (50,000 unit) capsule (Vitamin caps D2) metformin 500 mg tablet,extended 500 mg PO QPM 90 days #90 tabs 06/07/24 release 24 hr amlodipine 5 mg tablet 5 mg PO DAILY 90 days #90 tabs 08/05/24 cetirizine 10 mg tablet 10 mg PO DAILY PRN allergy 08/05/24 symptoms 90 days #90 tabs meloxicam 15 mg tablet 15 mg PO DAILY PRN pain #30 tabs 08/14/24 celecoxib 200 mg capsule (Celebrex) 200 mg PO BID 30 days #60 caps 08/25/24 tramadol 50 mg tablet 50 mg PO TID PRN pain 30 days #90 10/17/24 tabs zolpidem 10 mg tablet 10 mg PO BEDTIME PRN insomnia 30 10/17/24 days #30 tabs sucralfate 1 gram tablet 1 g PO TID #90 tabs 11/07/24 Allergies Allergy/AdvReac Type Severity Reaction Status Date / Time adhesive tape Allergy Intermediate Skin Verified 11/07/24 15:52 sloughing with cardiac leads and IV securement device gabapentin [GABAPENTIN] Allergy Unknown SEVERE Verified 11/07/24 15:52 H/A,BLURRY VISION,MOOD CHANGE Review of Systems 2 Review of Systems: Yes all other systems are reviewed and are negative [facility] Past Medical History Medical History Lumbar degenerative disc disease Abdominal pain Blurred vision, right eye Environmental allergies Throat discomfort Onychomycosis Otitis media Hemorrhoids Colon cancer screening Pneumonia Muscle spasm of back Low back pain Malaise and fatigue Elevated C-reactive protein Right knee pain Allergic rhinitis Anxiety Insomnia Benign prostatic hyperplasia Obstructive sleep apnea Constipation Impaired fasting glucose Asthma Dyslipidemia Benign essential hypertension Obesity (BMI 30-39.9) Overactive bladder Vitamin D deficiency Hypertension Surgical History History of surgery History of prostate surgery Hx of eye surgery Hx of hemorrhoidectomy Hx of rectal sphincterotomy H/O colonoscopy Family History Family History Brother Diabetes Social History Social History Household Members: None Housing: Apartment Alcohol intake: current Alcohol intake frequency: holidays/special occasions only Patient Tobacco Use Status: Former Tobacco user Tobacco use type: Cigarette Years Smoked: 20 e-Cigarette/Vaping Use: Never Used Second Hand Smoke Exposure: Yes Advance Directives: No Advance Directives Information Provided: Yes Do you have a plan to hurt others: No Plan service: No Current occupational status: employed 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 Oriented X3. No acute distress. Eyes: No pallor or icterus ENT: Pharynx normal. Oral Mucosa moist Neck: Normal inspection. Neck supple. CVS: Normal heart rate and rhythm. Pulses normal. Respiratory: No respiratory distress. Equal air entry bilateral, no wheezing/rales/rhonchi Abdomen: Soft and nontender. Bowel sounds are present, no mass palpable, no CVA tenderness Skin: Skin warm and dry. Normal skin color. Normal skin turgor. rectal: Brown stool guaiac neck Extremities: No lower extremity edema. No calf tenderness Neuro: Oriented X 3. No motor deficit. No sensory deficit.No cerebellar signs , cranial nerves II-XII intact Course Course Course Narrative: This is a Rapid Medical Examination (RME) performed by Shin Silva PA-C in triage. Full HPI, ROS, assessment and treatment plan per primary provider in the Main ED. 49 yo male here for eval of black tarry odorous stools. no shelby blood. saw dr. love, had cancerous polyps on colonoscopy. has been trying to establish care w/ new GI however having difficulty. Plan: labs, obs Medical Decision Making Medical Decision Making [facility] Narrative: Patient with minor hemoccult GI bleed no shelby bleeding does have intermittent black and brown stool today he had a brown stool no significant abdominal pain does have history of good had colonoscopy and endoscopy in 2020 advised to continue omeprazole and sucralfate and see GI for repeat colonoscopy/endoscopy Differential Diagnosis Differential Diagnoses: The differential diagnosis associated with the presentation includes Admission/Observation Consideration of admission/observation: Escalation of care including admission/observation considered Lab Data [facility] Lab Attestation statement: I reviewed the patient's lab results. 11/07/24 16:27 11/07/24 16:27 Labs: Lab Results 11/07/24 11/07/24 Range/Units 16:27 17:49 WBC 9.1 (4.8-10.8) X10*3/uL RBC 5.12 (4.60-5.80) X10*6/uL Hgb 14.8 (14.0-18.0) g/dl Hct 45.0 (42.0-52.0) % MCV 87.9 (80.0-98.0) fL MCH 28.9 (27.0-33.0) pg MCHC 32.9 (31.0-36.0) g/dl RDW 12.9 (11.0-16.0) % Plt Count 295 (160-400) X10*3/uL MPV 8.9 L (9.4-12.4) fL Immature Gran % (Auto) 0.2 (0.0-0.4) % Neut % (Auto) 59.9 (45-73) % Lymph % (Auto) 30.7 (20-40) % [place] % (Auto) 6.9 (2-11) % Eos % (Auto) 1.5 (0-4) % Baso % (Auto) 0.8 (0-2) % Lymph # (Auto) 2.8 (1.2-4.9) X10*3/uL [place] # (Auto) 0.6 (0.1-1.2) X10*3/uL Eos # (Auto) 0.1 (0.0-0.4) X10*3/uL Baso # (Auto) 0.1 (0.0-0.2) X10*3/uL Abs Immat Gran (auto) 0.02 (0.00-0.03) X10*3/uL Absolute Neuts (auto) 5.5 (2.0-8.3) x10*3/uL Absolute Nucleated RBC 0.000 (0.0-0.012) X10*3/uL Nucleated RBC % (auto) 0.0 (0.0-0.2) /100WBC PT 11.6 (10.9-12.4) SEC INR 1.0 (0.9-1.1) APTT 30.2 (26.0-36.8) SEC Sodium 139 (135-145) mmol/L Potassium 4.3 (3.3-5.1) mmol/L Chloride 111 H (96-108) mmol/L Carbon Dioxide 21 L (22-29) mmol/L Anion Gap 11 L (12-20) BUN 13 (9-16) mg/dL Creatinine 0.76 (0.5-1.4) mg/dL Estim Creat Clear Calc 75.4 Estimated GFR > 60 Random Glucose 86 (60-115) mg/dL Calcium 9.3 (8.4-10.2) mg/dL Magnesium 2.1 (1.6-2.6) mg/dL Total Bilirubin 0.6 (0.0-1.0) mg/dL AST 29 (5-37) U/L ALT 11 (0-40) U/L Total Protein 7.5 (6.5-8.0) g/dL Albumin 4.0 (3.5-5.0) g/dL Lipase 17 (8-78) U/L Stool Occult Blood POSITIVE (NEGATIVE) Discharge Plan Discharge Clinical Impression: GERD (gastroesophageal reflux disease), Chronic GI bleeding Patient Disposition: Home, Self-Care Instructions: Gastrointestinal Bleeding (ED) Additional Instructions: Continue take omeprazole Take sucralfate 3 times a day before meals Follow with bi lead further management Prescriptions: New sucralfate 1 gram tablet 1 g PO TID Qty: 90 0RF No Action lorazepam 0.5 mg tablet 0.5 mg PO BID PRN (Reason: anxiety) 30 Days Qty: 60 0RF Rx Instructions: 1 tablet Orally twice a day as needed for anxiety (DME) adjustable straight point cane with offset handle See Rx Instructions .Route .MEDSUPPLY Qty: 1 0RF Rx Instructions: As directed (DME) HANDHELD SHOWER HEAD See Rx Instructions .Route .MEDSUPPLY Qty: 1 0RF Rx Instructions: As directed Myrbetriq 50 mg tablet extended release 24 hr 50 mg PO DAILY 30 Days Qty: 30 2RF metformin 500 mg tablet extended release 24 hr 500 mg PO QPM 90 Days Qty: 90 1RF amlodipine 5 mg tablet 5 mg PO DAILY 90 Days Qty: 90 1RF cetirizine 10 mg tablet 10 mg PO DAILY PRN (Reason: allergy symptoms) 90 Days Qty: 90 1RF meloxicam 15 mg tablet 15 mg PO DAILY PRN (Reason: pain) Qty: 30 0RF Rx Instructions: Take it with food and full glass of water. Avoid other NSAIDs. tramadol 50 mg tablet 50 mg PO TID PRN (Reason: pain) 30 Days Qty: 90 0RF zolpidem 10 mg tablet 10 mg PO BEDTIME PRN (Reason: insomnia) 30 Days Qty: 30 1RF albuterol sulfate 90 mcg/actuation HFA aerosol inhaler 2 puff inhalation Q4-6H PRN (Reason: shortness of breath or wheezing) 30 Days Qty: 8.5 3RF ergocalciferol (vitamin D2) [Vitamin D2] 1,250 mcg (50,000 unit) capsule 1,250 mcg PO QWEEK 90 Days Qty: 13 3RF Drysol Dab-O-Matic 20 % solution 1 appl topical BID celecoxib [Celebrex] 200 mg capsule 200 mg PO BID 30 Days Qty: 60 3RF Referrals: Jonathan Kern MD [Physician] - 1 week Interventions: ED Discharge Assessment Last Done: 11/07/24 19:21 Discharge Date/Time: 11/07/24 19:22 Print Language: Welsh
[2024-11-07 16:34] LABS: MANUAL DIFF FLAG NO
[2024-11-07 16:35] LABS: Basophils Percent Auto 0.8 % (0-2); Eosinophils Percent Auto 1.5 % (0-4); Hemoglobin 14.8 g/dl (14.0-18.0); Imm Gran Pct Auto 0.2 % (0.0-0.4); Lymphocytes Percent Auto 30.7 % (20-40); Mean Corpuscular HGB Conc 32.9 g/dl (31.0-36.0); Mean Corpuscular Hemoglobin 28.9 pg (27.0-33.0); Mean Corpuscular Volume 87.9 fL (80.0-98.0); Mean Platelet Volume 8.9 fL (9.4-12.4); Monocytes Percent Auto 6.9 % (2-11); Neutrophils Percent Auto 59.9 % (45-73); Platelet Count 295 X10*3/uL (160-400); Red Blood Count 5.12 X10*6/uL (4.60-5.80); Red Cell Distribution Width 12.9 % (11.0-16.0); White Blood Count 9.1 X10*3/uL (4.8-10.8)
[2024-11-07 16:36] LABS: Basophils Absolute Auto 0.1 X10*3/uL (0.0-0.2); Eosinophils Absolute Auto 0.1 X10*3/uL (0.0-0.4); Imm Gran Abs Auto 0.02 X10*3/uL (0.00-0.03); Lymphocytes Absolute Auto 2.8 X10*3/uL (1.2-4.9); Monocytes Absolute Auto 0.6 X10*3/uL (0.1-1.2); Neutrophils Absolute Auto 5.5 x10*3/uL (2.0-8.3)
[2024-11-07 16:42] LABS: Prothrombin Time 11.6 SEC (10.9-12.4)
[2024-11-07 16:44] LABS: Partial Thromboplastin Time 30.2 SEC (26.0-36.8)
[2024-11-07 17:12] LABS: Alanine Aminotransferase 11 U/L (0-40); Anion Gap 11 (12-20); Aspartate Amino Transferase 29 U/L (5-37); Bilirubin Total 0.6 mg/dL (0.0-1.0); Blood Urea Nitrogen 13 mg/dL (9-16); Calcium 9.3 mg/dL (8.4-10.2); Carbon Dioxide 21 mmol/L (22-29); Chloride 111 mmol/L (96-108); Creatinine Clr Calc Pharmacy 75.4; Estimated Glomerular Filt Rate > 60; Glucose Random 86 mg/dL (60-115); Lipase 17 U/L (8-78); Magnesium 2.1 mg/dL (1.6-2.6); Potassium 4.3 mmol/L (3.3-5.1); Sodium 139 mmol/L (135-145); Total Protein 7.5 g/dL (6.5-8.0)
[2024-11-07 17:49] VITALS: BP 118/80; PULSE 67; RESP 14; TEMP 36.9; O2SAT 97
[2024-11-07 17:58] LABS: OBS Int Ctl Valid YES; OBS1 POSITIVE (NEGATIVE)
--- OUTSIDE RECORDS SUMMARY | 2024-11-07 18:36 | XMS_ITS | Data Portability ---
Author Organization [facility], [address] Address [address] [place] [id number] Assessment No assessment recorded. Plan of Treatment Reminders Order Date Submit Date Provider Last Modified By Organization Details Last Modified Time Details Appointments None recorded. Lab Mycobacteri um tuberculosi s stimulated gamma interferon, qual, blood 2023 024 [facility] ([place]), [address] [place], [address], 4 14:06:54 Mycobacteri um tuberculosi s stimulated gamma interferon, qual, blood 2023 024 [facility] [address] [place], [address], 4 12:06:27 Referral None recorded. Procedures None recorded. Surgeries None recorded. Imaging None recorded. Medication Orders None recorded. Patient TargetsNo targets recorded. Patient Instructions Encounter Date Encounter Id Patient Instructions Last Modified By Organization Details Last Modified Time 02/29/2024 [id number] learning about tuberculosis (TB) [email or web address] Not available 02/29/2024 10:20:32 Reason for Referral None Reported. Results Created Date Observation Date Name Description Value Unit Range Abnormal Flag Note LastModifiedBy Organization Detail LastModifiedTime 02/22/2002/25/2024 QUANT IFERO N-TB GOLD PLUS quantiferon incubation TNP Test not perfo rmed. 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 Pleas e resub iwona if clini grant indic ated. Not Available [facility] ([facility]) [address] [facility] [address], [place], [address], 02/25/2024 12:06:27 02/22/20 24 02/25/2024 QUANT IFERO N-TB GOLD PLUS quantiferon- TB gold plus TNP Test not perfo rmed Not Available [facility] ([facility]) [address] [facility] [address], [place], [address], 02/25/2024 12:06:27 02/22/20 24 02/25/[address] PROBL EM request problem TNP Test not perfo rmed. 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 Pleas e resub iwona if clini grant indic ated. TEST: [id number] Quant iFERO N-TB Gold Plus Not Available [facility] ([facility]) [address] [facility] [address], [place], [address], 02/25/2024 12:06:28 02/29/20 24 03/02/2024 QUANT IFERO N-TB GOLD PLUS quantiferon incubation INCUBA TION PERFOR MED. Not Available [facility] ([facility]) [address] [facility] [address], [place], [address], 03/03/2024 14:06:54 02/29/20 24 03/02/2024 QUANT IFERO N-TB GOLD PLUS quantiferon criteria COMMEN T Quant iFERO N-TB Gold Plus is a quali tativ e indir ect test for M tuber culos is infec tion (incl uding disea se) and is inten ded for use in conju nctio n with risk asses sment , radio graph y, and other medic al and diagn ostic evalu ation s. The Quant iFERO N-TB Gold Plus resul t is deter mined by subtr actin g the Nil value from eithe r TB antig en (Ag) value . The Mitog en tube serve s as a contr ol for the test. Not Available [facility] ([facility]) [address] [place], [address], 03/03/2024 14:06:54 02/29/20 24 03/03/2024 QUANT IFERO N-TB GOLD PLUS quantiferon TB1 Ag value 0.03 IU/mL Not Available [facility] ([facility]) [address] [place], [address], 03/03/2024 14:06:54 02/29/20 24 03/03/2024 QUANT IFERO N-TB GOLD PLUS quantiferon TB2 Ag value 0.02 IU/mL Not Available [facility] ([facility]) [address] [place], [address], 03/03/2024 14:06:54 02/29/20 24 03/03/2024 QUANT IFERO N-TB GOLD PLUS quantiferon nil value 0.02 IU/mL Not Available [facility] ([facility]) [address] [place], [address], 03/03/2024 14:06:54 02/29/20 24 03/03/2024 QUANT IFERO N-TB GOLD PLUS quantiferon mitogen value >10.00 IU/mL Not Available [facility] ([facility]) [address] [place], [address], 03/03/2024 14:06:54 02/29/20 24 03/03/2024 QUANT IFERO N-TB GOLD PLUS quantiferon- TB gold plus NEGATI VE negati ve No respo nse to M tuber culos is antig ens detec jewell. Infec tion with M tuber culos is is unlik shilpi, but high risk indiv idual s shoul d be consi dered for addit ional testi ng (ATS/ IDSA/ CDC Clini keisha Pract ice Guide lines , 2017) . The refer ence range is an Antig en minus Nil resul t of <0.35 IU/mL . Chemi lumin escen ce immun oassa y metho dolog y Not Available [facility] ([facility]) [address], [place], [address], 03/03/2024 14:06:54 Result Notes None recorded. Procedures Surgical History Date Name Laterality Status Provider Name and Address Organization Details Recorded Time OC-UDS Send Out Template NON DOT completed Angelita ZUNIGA - [facility] 02/22/2024 09:15:37 Imaging Results None recorded. Procedure Notes None recorded. Medical Equipment None Reported. Medications Name Sig Start Date Stop Date Status Note LastModified by Organization Details LastModified Time cetirizine 10 mg tablet TAKE ONE TABLET BY MOUTH EVERY DAY NEEDED FOR ALLERGY SYMPTOMS active Not Available Not Available No t Available tizanidine 4 mg tablet TAKE ONE TABLET BY MOUTH TWICE A DAY NEEDED FOR MUSCLE SPASTICITY active Not Available Not Available N ot Available amlodipine 5 mg tablet TAKE ONE TABLET BY MOUTH EVERY DAY active Not Available Not Available No t Available tramadol 50 mg tablet TAKE ONE TABLET BY MOUTH THREE TIMES A DAY NEEDED FOR PAIN active Not Available Not Available No t Available cephalexin 500 mg capsule TAKE TWO CAPSULES BY MOUTH EVERY 12 HOURS FOR 5 DAYS active Not Available Not Available N ot Available Drysol Dab-O-Matic 20 % topical solution APPLY TOPICALLY TWICE DAILY TO FEET active Not Available Not Available No t Available zolpidem 10 mg tablet TAKE ONE TABLET BY MOUTH DAILY AT BEDTIME NEEDED FOR INSOMNIA active Not Available Not Available No t Available albuterol sulfate HFA 90 mcg/actuatio n aerosol inhaler INHALE 2 PUFFS EVERY 4-6 HOURS NEEDED FOR SHORTNESS OF BREATH OR WHEEZING active Not Available Not Available Not Available Vitamin D2 1,250 mcg (50,000 unit) capsule TAKE 1 CAPSULE BY MOUTH EVERY WEEK active Not Available Not Available No t Available metformin ER 500 mg tablet,exten ded release 24 hr TAKE ONE TABLET BY MOUTH EVERY DAY IN THE EVENING active Not Available Not Available No t Available mirabegron ER 50 mg tablet,exten ded release 24 hr TAKE ONE TABLET BY MOUTH EVERY DAY active Not Available Not Available No t Available Breo Ellipta 200 mcg-25 mcg/dose powder for inhalation INHALE ONE PUFF BY MOUTH EVERY DAY active Not Available Not Available No t Available Xolair 150 mg/mL subcutaneous syringe active Not Available Not Available Not Available Vitals None Recorded Social History None recorded. Functional Status None recorded. Mental Status None recorded. Family History Nothing Reported. Medical History No medical history recorded. Past Encounters Encounter ID Performer Location Encounter Start Date Encounter Closed Date Diagnosis/Indication Diagnosis SNOMED-CT Code Diagnosis ICD10 Code Diagnosis Note [id number] [place] [address] [address] 02/22/2024 08:53:41 02/22/2024 09:30:14 History and physical examination, occupation 731767023 Z02.1 [id number] Saundra Soriano, PIE [employer]F [address] [address] 02/29/2024 09:58:51 02/29/2024 10:50:41 Tuberculosis screening 261516109 Z11.1 Health Concerns Section Related Observation LastModified by Organization Detai ls LastModified Time None Recorded Concern Status LastModified by Organization Details LastModified Time None Recorded Advance Directives Directive None Recorded Payers Encounter Date Sequence Insurance Name Policy Number Policy Gonsalves Covered Member ID Gonsalves Member ID Guarantor Name 02/22/2024 OC[facility] OC-ES[employer] Enmanuel Fleming 02/29/2024 [facility] OC-[facility] Enmanuel Fleming
--- OUTSIDE RECORDS SUMMARY | 2024-11-07 18:36 | XMS_ITS | Clinical Summary ---
Author Organization [facility] Address [address] [place] [address] Phone Care Team Providers Care Emergency Medicine Specialist Name Role Phone Aayush Jay MD Primary Care Provider [phone]- [phone] Allergies Active Allergy Reactions Criticality Noted Date Comments Gabapentin Other (see comments) 11/01/2019 Vision issus blurries Medications albuterol HFA (PROVENTIL HFA;VENTOLIN HFA) 108 (90 Base) MCG/ACT inhaler Inhale 2 puffs every 4 (four) hours Active bisacodyl (DULCOLAX) 5 MG EC tablet Take 1 tablet by mouth 1 (one) time each day Active cetirizine (ZyrTEC) 10 MG tablet Take 10 mg by mouth 1 (one) time each day 1 Active cholecalciferol (VITAMIN D-3) 1.25 MG (09867 UT) tablet Take by mouth Activ e docusate sodium (COLACE) 100 MG capsule Take 100 mg by mouth 2 (two) times a day 1 Active ergocalciferol 1.25 MG (18823 UT) capsule Take 50,000 Units by mouth 1 Active LORazepam (ATIVAN) 0.5 MG tablet Take 0.5 mg by mouth 2 (two) times a day if needed 1 Active Myrbetriq 50 MG tablet sustained-relea se 24 hour Take 1 tablet by mouth 1 (one) time each day 1 Active omeprazole (PriLOSEC) [address] capsule TAKE ONE CAPSULE BY MOUTH EVERY DAY IN THE MORNING 1 Active predniSONE (DELTASONE) 10 MG tablet TAKE 4 TABLETS BY MOUTH ONCE DAILY FOR 2 DAYS, THEN 3 TABLETS DAILY FOR 2 DAYS, THEN 2 TABLETS DAILY FOR 2 DAYS, THEN 1 TABLET DAILY FOR 2 D 1 Active traMADol (ULTRAM) 50 MG tablet TAKE ONE TABLET BY MOUTH THREE TIMES A DAY IF NEEDED FOR PAIN 1 Active tiotropium (Spiriva HandiHaler) 18 MCG per inhalation capsule Active tamsulosin (FLOMAX) 0.4 MG 24 hr capsule Take 1 capsule by mouth 1 (one) time each day Active polyethylene glycol (GLYCOLAX) 17 GM/SCOOP powder 1 Scoop by Other route 1 (one) time each day Active Incruse Ellipta 62.5 MCG/INH aerosol powder TAKE 1 INHALATION DAILY 1 Active zolpidem (AMBIEN) 10 MG tablet TAKE ONE TABLET BY MOUTH AT BEDTIME NEEDED FOR INSOMNIA 1 Active amLODIPine (NORVASC) 5 MG tablet Take 1 tablet (5 mg total) by mouth 1 (one) time each day 90 tablet 2 1 Active Active Problems Problem Noted Date Diagnosed Date Anxiety 02/03/2022 Depressive disorder 02/03/2022 Radiculitis due to rupture of lumbar interverteb ral disc 02/03/2022 Essential hypertension 05/15/2021 Benign prostatic hyperplasia 05/15/2021 Gastro-esophageal reflux disease without esophag itis 05/15/2021 Hyperlipidemia 05/15/2021 Impaired fasting glycemia 05/15/2021 Bronchitis 08/18/2018 Dyspnea on exertion 08/18/2018 Family History Relation Status Comments Father Alive Mother Alive Social History Tobacco Use Types Packs/Day Years Used Date Smoking Tobacco: Former Smokeless Tobacco: Never Alcohol Use Standard Drinks/Week Comments Yes 0 (1 standard drink = 0.6 oz pure alcohol) Alcoholic Drinks/day: Occasional social drink Sex and Gender Information Value Date Recorded Sex Assigned at Not on file Legal Sex Male 5:14 PM EST Gender Identity Not on file Sexual Orientation Not on file Last Filed Vital Signs Vital Sign Reading Time Taken Comments Blood Pressure 112/84 03/12/2023 3:58 PM EDT Pulse 88 03/12/2023 3:58 PM EDT Temperature - - Respiratory Rate - - Oxygen Saturation 96% 03/12/2023 3:58 PM EDT Inhaled Oxygen Concentration - - Weight 103 kg (228 lb) 03/12/2023 3:58 PM EDT Height 175.3 cm (5' 9 ) 03/12/2023 3:58 PM EDT Body Mass Index 33.67 03/12/2023 3:58 PM EDT Plan of Treatment Health Maintenance Due Date Last Done Comments Pneumococcal Vaccine: Pediat rics (0 to 5 Years) and At-Risk Patients (6 to 64 Years) (1 of 2 - PCV) 1979 Hepatitis B Vaccine (1 of 3 - 19+ 3-dose series) 02/07 Colorectal Cancer Screening: Annual FOBT 2022 Colorectal Cancer Screening: Colonoscopy 2022 Colorectal Cancer Screening: Sigmoidoscopy 2022 Influenza Vaccine (#1) 2024 Insurance ([id number]) [facility] [id number] ([id number]) Care Teams Emergency Medicine Specialist Relationship Specialty Start Date End Date Aayush Jay MD [address] [place] [address] PCP - General 09/24/20
[2024-11-07 19:02] VITALS: BP 121/92; PULSE 68; RESP 12; TEMP 36.7; O2SAT 98
[2024-11-07 19:21] VITALS: BP 121/92; PULSE 68; RESP 12; TEMP 36.7; O2SAT 98
[2024-11-07 19:44] LABS: Alkaline Phosphatase 80 U/L (39-117)
== END 2024-11-07 19:22 | disposition home or self-care (01) ==
PROVIDERS: Physician Assistant Medical; Emergency Provider Internal Medicine; PCP Internal Medicine
DX: K21.9 Gastro-esophageal reflux disease without esophagitis (principal); K92.2 Gastrointestinal hemorrhage, unspecified; Z79.899 Other long term (current) drug therapy
CPT/HCPCS: 36415; 80053; 82272; 83690; 83735; 85025; 85610; 85730; 99283

== ENCOUNTER 2024-11-09 15:21 | Outpatient (REF) | payer OTHER, SELFPAY ==
--- NOTE | 2024-11-09 15:24 | EMG_ITS ---
Chief complaint: Chronic on and off neck pain, 5-6 months of numbness on left 5th and 4th digits, left elbow pain Reason for referral: Evaluate for ulnar neuropathy Referred by: Juancarlos ZUNIGA Procedure done: Left upper extremity NCS/EMG Precautions and/or limitations: None The limb temperature was monitored continuously and remained between 32-36 degrees C during the performance of the NCS. Ulnar motor NCS was performed with moderate elbow flexion between 70-90 degrees, with across-elbow distance of 10 cm. Nerve Conduction Studies Anti Sensory Summary Table ?Stim Site NR Onset (ms) Norm Onset (ms) Peak (ms) Norm Peak (ms) O-P Amp (?V) Norm O-P Amp Site1 Site2 Delta-0 (ms) Dist (cm) Easton (m/s) Norm Easton (m/s) Left Median Anti Sensory (2nd Digit) Wrist ? 2.6 3.3 <3.6 44.1 >10 Wrist 2nd Digit 2.6 14.0 54 Left Radial Anti Sensory (Thumb) Forearm ? 1.9 2.1 <3.1 21.4 Forearm Thumb 1.9 0.0 Left Ulnar Anti Sensory (5th Digit) Wrist ? 2.2 2.8 <3.7 58.7 >15.0 Wrist 5th Digit 2.2 14.0 64 Motor Summary Table ?Stim Site NR Onset (ms) Norm Onset (ms) O-P Amp (mV) Norm O-P Amp iAmp (mV) Amp (1st) (%) Site1 Site2 Delta-0 (ms) Dist (cm) Easton (m/s) Norm Easton (m/s) Left Median Motor (Abd Poll Brev) Wrist ? 3.3 <3.9 11.0 >4.5 13.1 100.0 Elbow Wrist 3.3 22.5 68 >45 Elbow ? 6.6 10.5 12.8 95.5 Left Ulnar Motor (Abd Dig Minimi) Wrist ? 2.3 <3.0 10.2 >5 12.5 100.0 B Elbow Wrist 3.2 20.5 64 >45 B Elbow ? 5.5 10.1 12.0 99.0 A Elbow B Elbow 1.5 10.0 67 >45 A Elbow ? 7.0 8.9 11.1 87.3 Left Ulnar Motor (FDI) Wrist ? 3.0 <3.0 15.2 >5 19.2 100.0 B Elbow Wrist 3.4 19.5 57 >45 B Elbow ? 6.4 13.3 17.3 87.5 A Elbow B Elbow 1.6 10.0 63 >45 A Elbow ? 8.0 11.3 15.0 74.3 EMG ?Side Muscle Nerve Root Ins Act Fibs Psw Amp Dur Poly Recrt Int Pat Comment Left 1stDorInt Ulnar C8-T1 Incr 1+ 1+ Nml Nml 0 Nml Complete Left FlexCarRad Median C6-7 Nml Nml Nml Nml Nml 0 Nml Complete Left Biceps Musculocut C5-6 Incr 1+ 1+ Nml Nml 0 Nml Complete Left Triceps Radial C6-7-8 Nml Nml Nml Nml Nml 0 Nml Complete Left Deltoid Axillary C5-6 Incr 1+ 1+ Nml Nml 0 Nml Complete Left FlexCarpiUln Ulnar C8,T1 Nml Nml Nml Nml Nml 0 Nml Complete Paraspinal EMG ?Side Muscle Nerve Root Ins Act Fibs Psw Comment Right Cervical Upper Rami Nml Nml Nml Right Cervical Mid Rami Nml Nml Nml Right Cervical Lower Rami Nml Nml Nml Left Cervical Upper Rami Nml Nml Nml Left Cervical Mid Rami Incr 1+ 1+ Left Cervical Lower Rami Incr 1+ 1+ FINDINGS: All motor and sensory nerves tested showed normal latencies, amplitudes and conduction velocities. Concentric needle EMG was performed in selected muscles of the left upper extremity and bilateral cervical paraspinals (right side tested for comparison). Study revealed signs of electric abnormalities as shown in the table above. Left FDI, biceps and deltoid muscles showed increased insertional activity, PSWs and fibrillations. Left mid-lower cervical paraspinals showed increased insertional activity, PSWs and fibrillations. IMPRESSION: 1. This is an abnormal study. 2. There is electrodiagnostic evidence for left mid-lower cervical radiculopathy. 3. There is no electrodiagnostic evidence for median neuropathy, ulnar neuropathy, or brachial plexopathy. CLINICAL COMMENT: Further clinical correlation recommended. Thank you for your kind referral. Ludmila Carl MD, MOHAMUD Board Certified, [place] [employer] and Rehabilitation (ABPMR) Board Certified, [place] Board [employer] Electrodiagnostic Medicine (ABEM) CODIN [id number] MTDD
--- OUTSIDE RECORDS SUMMARY | 2024-11-09 18:56 | XMS_ITS | Clinical Summary ---
Author Organization [facility] Address [address] [place] [address] Phone Care Team Providers Care Housing Development Specialist Name Role Phone Aayush Jay MD Primary Care Provider [phone]- [phone] Allergies Active Allergy Reactions Criticality Noted Date [...] 1 Active cholecalciferol (VITAMIN D-3) 1.25 MG (50953 UT) tablet Take by mouth Activ e docusate sodium (COLACE) 100 MG capsule Take 100 mg by mouth 2 (two) times a day 1 Active ergocalciferol 1.25 MG (41971 UT) capsule Take 50,000 Units by mouth [...] Vaccine (#1) 2024 Insurance ([id number]) [employer] [facility] [id number] ([id number]) Care Teams Housing Development Specialist Relationship Specialty Start Date End Date Aayush Jay MD [address] [place] [address] PCP - General 09/24/20
--- OUTSIDE RECORDS SUMMARY | 2024-11-09 18:56 | XMS_ITS | Data Portability ---
Author Organization [facility], [address] Address [address] [place] [phone] Assessment No assessment recorded. Plan of Treatment Reminders Order Date Submit Date Provider Last Modified By Organization Details Last Modified Time Details Appointments None recorded. Lab Mycobacteri um tuberculosi s stimulated gamma interferon, qual, blood 2023 024 [facility] ([place]), [address] [place], [address], 4 14:06:54 Mycobacteri um tuberculosi s stimulated gamma interferon, qual, blood 2023 024 [facility] [address] [place], [address], 4 12:06:27 Referral None recorded. Procedures None recorded. Surgeries None recorded. Imaging None recorded. Medication Orders None recorded. Patient TargetsNo targets recorded. Patient Instructions Encounter Date Encounter Id Patient Instructions Last Modified By Organization Details Last Modified Time 02/29/2024 [id number] learning about tuberculosis (TB) [email or web address] Not available 02/29/2024 10:20:32 Reason for Referral None Reported. Results Created Date Observation Date Name Description Value Unit Range Abnormal Flag Note LastModifiedBy Organization Detail LastModifiedTime 02/22/20 24 02/25/2024 QUANT IFERO N-TB GOLD PLUS quantiferon incubation TNP Test not perfo rmed. 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 Pleas e resub iwona if clini grant indic ated. Not Available [facility] ([facility]) [address] [facility], [place], [address], 02/25/2024 12:06:27 02/22/20 24 02/25/2024 QUANT IFERO N-TB GOLD PLUS quantiferon- TB gold plus TNP Test not perfo rmed Not Available [facility] ([facility]) [address] [facility], [place], [address], 02/25/2024 12:06:27 02/22/20 24 02/25/[address] PROBL EM request problem TNP Test not perfo rmed. 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 Pleas e resub iwona if clini grant indic ated. TEST: [id number] Quant iFERO N-TB Gold Plus Not Available [facility] ([facility]) [address] [facility], [place], [address], 02/25/2024 12:06:28 02/29/20 24 03/02/2024 QUANT IFERO N-TB GOLD PLUS quantiferon incubation INCUBA TION PERFOR MED. Not Available [facility] ([facility]) [address] [facility], [place], [address], 03/03/2024 14:06:54 02/29/20 24 03/02/2024 QUANT IFERO [...] ol for the test. Not Available [facility] ([facility]) [address] [place], [address], 03/03/2024 14:06:54 02/29/20 24 03/03/2024 QUANT IFERO N-TB GOLD PLUS quantiferon TB1 Ag value 0.03 IU/mL Not Available [facility] ([facility]) [address] [place], [address], 03/03/2024 14:06:54 02/29/20 24 03/03/2024 QUANT IFERO N-TB GOLD PLUS quantiferon TB2 Ag value 0.02 IU/mL Not Available [facility] ([facility]) [address] [place], [address], 03/03/2024 14:06:54 02/29/20 24 03/03/2024 QUANT IFERO N-TB GOLD PLUS quantiferon nil value 0.02 IU/mL Not Available [facility] ([facility]) [address] [place], [address], 03/03/2024 14:06:54 02/29/20 24 03/03/2024 QUANT IFERO N-TB GOLD PLUS quantiferon mitogen value >10.00 IU/mL Not Available [facility] ([facility]) [address] [place], [address], 03/03/2024 14:06:54 02/29/20 24 03/03/2024 QUANT IFERO [...] y metho dolog y Not Available [facility] ([facility]) [address], [place], [address], 03/03/2024 14:06:54 Result Notes None recorded. Procedures [...] SNOMED-CT Code Diagnosis ICD10 Code Diagnosis Note [id number] [place] [address] [address] 02/22/2024 08:53:41 02/22/2024 09:30:14 History and physical examination, occupation [id number] Z02.1 [id number] Saundra Soriano, ERP DEVELOPER [address] [address] 02/29/2024 09:58:51 02/29/2024 10:50:41 Tuberculosis screening 173698807 Z11.1 Health Concerns Section Related Observation LastModified by Organization Detai ls LastModified Time None Recorded Concern Status LastModified by Organization Details LastModified Time None Recorded Advance Directives Directive None Recorded Payers Encounter Date Sequence Insurance Name Policy Number Policy Gonsalves Covered Member ID Gonsalves Member ID Guarantor Name 02/22/2024 OC-ES[facility]EN [facility] OC-ES[employer] Enmanuel Fleming 02/29/2024 OC[facility]ESCREEN [facility] OC-ESCREEN Enmanuel Fleming
== END 2024-11-09 15:22 | disposition home or self-care (01) ==
LOC: HO.NEURO 15:21
PROVIDERS: PCP Internal Medicine
DX: R20.0 Anesthesia of skin (principal); R20.2 Paresthesia of skin
CPT/HCPCS: 95885; 95886; 95909

== ENCOUNTER → 2024-11-09 15:24 | Outpatient (BNV) | payer OTHER, SELFPAY | PROVIDERS: PCP Internal Medicine; Visit Provider Physical Medicine & Rehabilitation | DX: M54.12 Radiculopathy, cervical region (principal) | CPT/HCPCS: 95885; 95886; 95909 ==

== ENCOUNTER 2024-11-10 08:47 | Outpatient (AMB) | payer OTHER, SELFPAY ==
--- NOTE | 2024-11-10 09:12 | MHC.PC.OV ---
Vital Signs 11/10/24 09:13 Height 5 ft 9 in Weight 223 lb BMI 32.9 BP 100/62 Blood Pressure Location Lt brachial Position Sitting Pulse 71 Pulse Source Pulse Oximeter Temp 97.1 F Temp Source Temporal Artery Scan Pulse Oximetry (%) 98 Oxygen Delivery Method Room Air Intake Visit Reasons: Black Stool Intake Note: Patient is here to follow up on Black stool. Fruit Grader Operator Required: No Automobile Body Repairer Helper: Not Required per policy Accompanied by: Self / Same As Patient Allergies adhesive tape Allergy (Intermediate, Verified 11/10/24 09:18) Skin sloughing with cardiac leads and IV securement device gabapentin [GABAPENTIN] Allergy (Unknown, Verified 11/10/24 09:18) SEVERE H/A,BLURRY VISION,MOOD CHANGE Medication List - Last Reconciled 11/10/24 by BUD Martinez [adjustable straight point cane with offset handle As directed] albuterol sulfate 90 mcg/actuation 2 puffs inhalation Q4-6H PRN 30 days aluminum chloride 20% (Drysol Dab-O-Matic) 1 appl topical BID amlodipine 5 mg PO DAILY 90 days celecoxib (Celebrex) 200 mg PO BID 30 days cetirizine 10 mg PO DAILY PRN 90 days ergocalciferol (vitamin D2) (Vitamin D2) 1,250 mcg PO QWEEK 3 months [HANDHELD SHOWER HEAD As directed] lorazepam 0.5 mg PO BID PRN 30 days meloxicam 15 mg PO DAILY PRN metformin ER 500 mg PO QPM 90 days mirabegron ER (Myrbetriq) 50 mg PO DAILY 30 days sucralfate 1 g PO TID tramadol 50 mg PO TID PRN 30 days zolpidem 10 mg PO BEDTIME PRN 30 days Tobacco use date assessed: 11/10/24 Dental Screening Dental Screen Date: 09/21/24 HPI Black Stool HPI Details Patient is a 49-year-old male with significant past medical history GERD, tubular adenoma of colon, hemorrhoids, internal bleeding, obstructive sleep The patient is presenting today with concerns GI bleed The patient was seen in the emergency room on 11/07/2024 for black tarry stool The patient was recommended to follow up with GI. Sucralfate 1g TID was added for the patient to take before meals The patient reports that he has not picked up this medication as yet. Discussed with patient that he should brain picker the medication and started to give him some relief while he wait to be seen Discussed with the patient that he should not take any NSAIDs at this time The patient reports that he has been trying to see GI for a while now Reports that he was placed on the schedule but the doctor that was supposed to see him left the practice and he had to start all over again The patient reports that this happened a 2nd time. He reports that this went on for up was 3 years and then he was told that he had to be scheduled as a new patient due to the extended between his last visit The patient reports that he has been having black tarry stool, sometime it is brown and then he goes back to black tarry again He reports that he is having a lot of stomach pain especially in epigastric region Reports that his stool has been having a strong odor with mucous He reports that his abdominal pain is all over but is more severe in the epigastric region He reports that he gets nauseous after eating and he is unable able to finish a meal This abdominal pain is 6/10 now, but increases in 10/10 intermittently The patient is requesting if he could be seen sooner by GI, reports that he has an upcoming appointment but would like to be seen sooner [facility] Medical History Lumbar degenerative disc disease Abdominal pain Blurred vision, right eye Environmental allergies Throat discomfort Onychomycosis Otitis media Hemorrhoids Colon cancer screening Pneumonia Muscle spasm of back Low back pain Malaise and fatigue Elevated C-reactive protein Right knee pain Allergic rhinitis Anxiety Insomnia Benign prostatic hyperplasia Obstructive sleep apnea Constipation Impaired fasting glucose Asthma Dyslipidemia Benign essential hypertension Obesity (BMI 30-39.9) Overactive bladder Vitamin D deficiency Hypertension Surgical History History of surgery History of prostate surgery Hx of eye surgery Hx of hemorrhoidectomy Hx of rectal sphincterotomy H/O colonoscopy Family History Brother Diabetes Social History Household Members: None Housing: Apartment Alcohol intake: current Alcohol intake frequency: holidays/special occasions only Patient Tobacco Use Status: Former Tobacco user Tobacco use type: Cigarette Years Smoked: 20 e-Cigarette/Vaping Use: Never Used Second Hand Smoke Exposure: Yes service: No Current occupational status: employed 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 Александр Andre, Muriel Guido, Shiv Treadwell and colleagues, with an educational sharon from [employer]. Review of Systems Const Details: Denies chills, +fatigue, Denies fever(s), Denies headache(s) and Denies weakness HEENT Denies change in vision, Denies dizziness, Denies headache(s), Denies hearing loss, Denies nasal congestion, Denies sinus pain, Denies sinus pressure and Denies sore throat Card Denies chest pain, Denies lightheadedness, Denies dyspnea and Denies other (palpitations) Resp Denies cough, Denies dyspnea and Denies wheezing GI +abdominal pain, + melena, +hematochezia, + change in bowel habits, +dyspepsia and +nausea Denies hematuria and Denies dysuria Physical exam (Primary Care) Vital Signs: Last Vital Signs Temp 97.1 F 11/10/24 09:13 Pulse 71 11/10/24 09:13 BP 100/62 11/10/24 09:13 Pulse Ox 98 11/10/24 09:13 Oxygen Delivery Method Room Air 11/10/24 09:13 BMI result Body Mass Index 32.9 Tobacco/Smoking Status: Tobacco use Status Tobacco use date assessed 11/10/24 11/10/24 09:16 Patient Tobacco Use Status Former Tobacco user 11/10/24 09:16 Tobacco use type Cigarette 11/10/24 09:16 e-Cigarette/Vaping Use Never Used 11/10/24 09:16 Thrive Assessment: Date of Thrive Assessment Date Thrive assessed 09/21/24 11/10/24 09:16 Const Other: General: no acute distress, well developed, alert and awake Nutritional Appearance: well nourished Orientation/consciousness: patient oriented x3 HENMT Head: Yes normocephalic and Yes atraumatic Eyes Pupils: Equal, round and reactive pupils present and Pupil accommodation reflex normal EOM: EOMs intact bilaterally Neck Neck: Yes normal visual inspection, Yes no lymphadenopathy and Yes trachea midline Thyroid: Thyroid normal Resp Effort & Inspection: normal respiratory effort Auscultation: clear to auscultation bilaterally Cardio Rate: regular rate Rhythm: regular rhythm Heart sounds: S1 normal heart sound present, S2 normal heart sound present, no gallops, no murmurs and no rubs GI Palpation (GI): No Abdominal aortic bruit present, +epigastric pain, abdomen soft and tender throughout all quadrants, worse in the epigastric region, no rebound tenderness Auscultation: hyperactive bowel sounds General: Yes no CVA tenderness Results Reviewed Results Reviewed: Laboratory Tests 09/22/24 11/07/24 07:30 16:27 WBC 9.1 RBC 5.12 Hgb 14.8 Hct 45.0 MCV 87.9 Plt Count 295 Sodium 139 Potassium 4.3 Chloride 111 H Carbon Dioxide 21 L Anion Gap 11 L BUN 13 Creatinine 0.76 Estimated GFR > 60 Calcium 9.3 Magnesium 2.1 AST 29 ALT 11 Alkaline Phosphatase 80 Total Protein 7.5 Albumin 4.0 Lipase 17 Urine Color Yellow Urine Appearance Clear Urine pH 5.5 Ur Specific [place] >= 1.030 H Urine Protein Negative Urine Glucose (UA) Negative Urine Ketones Negative Urine Blood Negative Urine Nitrite Negative Ur Leukocyte Esterase Negative Coding Level of Care Code Est Pt Level 4 (36903) Diagnoses Gastroesophageal reflux disease without esophagitis K21.9 Esophagitis presence: without esophagitis Tubular adenoma of colon D12.6 Hemorrhoids, internal, with bleeding K64.8 Gastrointestinal hemorrhage with melena K92.1 GI bleed type/associated pathology: melena Time Spent (min) 38 Assessment & Plan Assessment & Plan (1) GERD (gastroesophageal reflux disease): Code(s): K21.9 - Gastro-esophageal reflux disease without esophagitis Category: Medical Qualifiers: Esophagitis presence: without esophagitis Qualified Code(s): K21.9 - Gastro-esophageal reflux disease without esophagitis Plan: Reinforced dietary restriction, refrain from eating close to bedtime The patient was prescribed sucralfate 1 g t.i.d. in-hospital Patient reports that he has not pick this medication up yet. Discussed with patient that this medication will help his symptoms and at least he will have a little bit more comfort while waiting for his upcoming appointment (2) Tubular adenoma of colon: Comment: 2020 scope repeat 3-5 years Code(s): D12.6 - Benign neoplasm of colon, unspecified Category: Medical Plan: Patient reports that they found cancerous polyps in his colon 3 years ago. He is concerned that the polyps have returned and he is asking if his GI visit could be expedited. Discussed with patient that I will reach out to GI to see what they could done but this is not guaranteed (3) Hemorrhoids, internal, with bleeding: Comment: confirmed moderate on 2020 scope Code(s): K64.8 - Other hemorrhoids Category: Medical Plan: Patient reports a history of hemorrhoids, he reports having a procedure done but he is not sure of the name Discussed with patient that this could be the cause of the small amount of bright blood that he has been seeing intermittently Refrain from sitting on the toilet for extended periods, take measures to prevent constipation, like increasing fluids intake and fiber in the diet (4) GI bleed: Code(s): K92.2 - Gastrointestinal hemorrhage, unspecified Category: Medical Qualifiers: GI bleed type/associated pathology: melena Qualified Code(s): K92.1 - Melena Plan: The patient reports that he has been having melena on and off. Reports that sometimes, his stools are brown then they go back to being black. Discussed with the patient not take any NSAIDs, the patient reports that he is only taking his blood pressure medication at this time. Encouraged the pateint to go brain picker his sucrulfate 1g and starting taking before meals Medications: Discontinued celecoxib (Celebrex) Discontinued Reason: Doctor's Order 200 mg PO BID 30 days 60 caps 3RF meloxicam Take it with food and full glass of water. Avoid other NSAIDs. Discontinued Reason: Doctor's Order 15 mg PO DAILY PRN 30 tabs 0RF pain M47.816 - Spondylosis without myelopathy or radiculopathy, lumbar region, M51.36 - Other intervertebral disc degeneration, lumbar region, M54.50 - Low back pain, unspecified
[2024-11-10 09:13] VITALS: BP 100/62; PULSE 71; TEMP 36.2; O2SAT 98; BMI 32.9
--- OUTSIDE RECORDS SUMMARY | 2024-11-10 09:20 | XMS_ITS | Clinical Summary ---
Author Organization [facility] Address [address] [place] [address] Phone Care Team Providers Care Tapping Machine Operator Name Role Phone Aayush Jay MD Primary Care Provider [phone]- [phone] Allergies Active Allergy Reactions Criticality Noted Date [...] 1 Active cholecalciferol (VITAMIN D-3) 1.25 MG (37275 UT) tablet Take by mouth Activ e docusate sodium (COLACE) 100 MG capsule Take 100 mg by mouth 2 (two) times a day 1 Active ergocalciferol 1.25 MG (80421 UT) capsule Take 50,000 Units by mouth [...] Vaccine (#1) 2024 Insurance ([id number]) [employer] [id number] ([id number]) Care Teams Tapping Machine Operator Relationship Specialty Start Date End Date Aayush Jay MD [address] [place] [address] PCP - General 09/24/20
== END 2024-11-10 09:38 | disposition home or self-care (01) ==
PROVIDERS: PCP Internal Medicine
DX: K21.9 Gastro-esophageal reflux disease without esophagitis (principal); D12.6 Benign neoplasm of colon, unspecified; K64.8 Other hemorrhoids; K92.1 Melena

== ENCOUNTER → 2024-11-10 08:47 | Outpatient (BNVA) | payer OTHER, SELFPAY | PROVIDERS: PCP Internal Medicine ==

== ENCOUNTER 2024-12-01 12:55 | Outpatient (AMB) | payer OTHER, SELFPAY ==
--- NOTE | 2024-12-01 13:08 | A.SPINEOV_ITS ---
Intake Visit Reasons: Left hand numbness Intake Note: Mr. Fleming is here today c/o hand numbness. 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 We know this gentleman from previous evaluation of his lumbar spine. What he has been dealing with over the last 5-6 months has been a left-sided neck pain going into his trapezius, then starts again at his elbow going into his medial forearm down into his 3rd 4th and 5th digits. There is associated numbness of his 3rd 4th and 5th digits as well. The pinky fingers completely numb. The pain has been escalating and it is getting to the point now where he is having a hard time using his left hand. He has noticed weakness and some clumsiness with it. He takes Tylenol, but can not take Motrin secondary to previous kidney issues. He also has a history of a GI bleed as well. The pain is troubling him during work and sleeping hours. He has not yet done any dedicated conservative management. On my exam he does have weakness of his finger intrinsics and some slight weakness of his hand grasp. I would rate this as 4/5. He does report some tingling and response to Tinel sign at the ulnar groove. He has complete loss of sensation of the pinky finger and ring finger on the left hand. Strength and reflexes otherwise normal in the proximal shoulder and elbow area. EMG done a few weeks back did not reveal ulnar neuropathy, but did reveal a lower to mid cervical radiculopathy Impression: Mr. Fleming appears to be developing a lower cervical radiculopathy, most likely C8, over the last 5-6 months that did not respond to tincture of time, Tylenol and an EMG excluding ulnar neuropathy. Because of the progression of the weakness in his hand, and the EMG showing an active radiculopathy, I am going to order a cervical MRI. I did admonished him that [facility] which is his insurance carrier will require physical therapy for 6 weeks but that because of the progression of the numbness and weakness I think that is reasonable to start with the MRI 1st. Total amount of time spent in this visit was 20 minutes in discussion of symptoms, ordering imaging and EMG results and subsequent plan of care Tera Pritchard MD,PhD [facility] Orders: Orders MR cervical spine wo con Today M54.12 - Radiculopathy, cervical region Coding Level of Care Code Est Pt Level 3 (33469) Diagnoses Cervical radiculopathy M54.12
--- OUTSIDE RECORDS SUMMARY | 2024-12-01 15:20 | XMS_ITS | Data Portability ---
Author Organization [facility], [address] Address [address] [place] [id number] Assessment No assessment recorded. Plan of Treatment Reminders Order Date Submit Date Provider Last Modified By Organization Details Last Modified Time Details Appointments None recorded. Lab Mycobacteri um tuberculosi s stimulated gamma interferon, qual, blood 2023 024 [place] [facility] [address] [place], [address], 4 14:06:54 Mycobacteri um tuberculosi s stimulated gamma interferon, qual, blood 2023 024 [place] [facility] [address] [place], [address], 4 12:06:27 Referral None recorded. Procedures None recorded. Surgeries None recorded. Imaging None recorded. Medication Orders None recorded. Patient TargetsNo targets recorded. Patient Instructions Encounter Date Encounter Id Patient Instructions Last Modified By Organization Details Last Modified Time 02/29/2024 [id number] learning about tuberculosis (TB) [email or web address] Not available [...] clini grant indic ated. Not Available [facility] ([facility]) [address], [place], [address], 02/25/2024 12:06:27 02/22/20 24 02/25/2024 QUANT IFERO N-TB GOLD PLUS quantiferon- TB gold plus TNP Test not perfo rmed Not Available [facility] ([facility]) [address] [facility], [place], [address], 02/25/2024 12:06:27 02/22/20 24 02/25/[address] PROBL EM request problem TNP Test not perfo rmed. 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 Pleas e resub iwona if clini grant indic ated. TEST: [id number] Quant iFERO N-TB Gold Plus Not Available [facility] ([facility]) [address] [facility], [place], [address], 02/25/2024 12:06:28 02/29/20 24 03/02/2024 QUANT IFERO N-TB GOLD PLUS quantiferon incubation INCUBA TION PERFOR MED. Not Available [facility] ([facility]) [address] [facility], [place], [address], 03/03/2024 14:06:54 02/29/20 24 03/02/2024 QUANT IFERO [...] ol for the test. Not Available [facility] ([facility]) [address] [place], [address], 03/03/2024 14:06:54 02/29/20 24 03/03/2024 QUANT IFERO N-TB GOLD PLUS quantiferon TB1 Ag value 0.03 IU/mL Not Available [facility]) [address] [place], [address], 03/03/2024 14:06:54 02/29/20 24 03/03/2024 QUANT IFERO N-TB GOLD PLUS quantiferon TB2 Ag value 0.02 IU/mL Not Available [facility] [address] [place], [address], 03/03/2024 14:06:54 02/29/20 24 03/03/2024 QUANT IFERO N-TB GOLD PLUS quantiferon nil value 0.02 IU/mL Not Available [facility] ([facility] [address] [place], [address], 03/03/2024 14:06:54 02/29/20 24 03/03/2024 QUANT IFERO N-TB GOLD PLUS quantiferon mitogen value >10.00 IU/mL Not Available [facility] [address] [place], [address], 03/03/2024 14:06:54 02/29/20 24 03/03/2024 QUANT IFERO [...] y metho dolog y Not Available [facility] ([facility]) [address], [place], [address], 03/03/2024 14:06:54 Result Notes None recorded. Procedures [...] SNOMED-CT Code Diagnosis ICD10 Code Diagnosis Note [id number] [place] [address] [id number] 02/22/2024 08:53:41 02/22/2024 09:30:14 History and physical examination, occupation [id number] Z02.1 [id number] Saundra Soriano, [employer] [address] [address] 02/29/2024 09:58:51 02/29/2024 10:50:41 Tuberculosis screening [id number] Z11.1 Health Concerns Section Related Observation LastModified by Organization Detai ls LastModified Time None Recorded Concern Status LastModified by Organization Details LastModified Time None Recorded Advance Directives Directive None Recorded Payers Encounter Date Sequence Insurance Name Policy Number Policy Gonsalves Covered Member ID Gonsalves Member ID Guarantor Name 02/22/2024 [employer] [facility] [employer] Enmanuel Fleming 02/29/2024 [facility] Enmanuel Fleming
--- OUTSIDE RECORDS SUMMARY | 2024-12-01 15:20 | XMS_ITS | Clinical Summary ---
Author Organization [facility] Address [address] [place] [address] Phone Care Team Providers Care Shredding Machine Knife Changer Name Role Phone Aayush Jay MD Primary Care Provider [phone]- [phone] Allergies Active Allergy Reactions Criticality Noted Date [...] 1 Active cholecalciferol (VITAMIN D-3) 1.25 MG (70347 UT) tablet Take by mouth Activ e docusate sodium (COLACE) 100 MG capsule Take 100 mg by mouth 2 (two) times a day 1 Active ergocalciferol 1.25 MG (15618 UT) capsule Take 50,000 Units by mouth [...] Vaccine (#1) 2024 Insurance ([id number]) [employer] [id number] ([id number]) Care Teams Shredding Machine Knife Changer Relationship Specialty Start Date End Date Aayush Jay MD [address] [place] [address] PCP - General 09/24/20
== END 2024-12-01 13:47 | disposition home or self-care (01) ==
LOC: HO.HNS 12:56
PROVIDERS: PCP Internal Medicine; Visit Provider Physician Assistant
DX: M54.12 Radiculopathy, cervical region (principal)
CPT/HCPCS: 99213

== ENCOUNTER → 2024-12-01 12:55 | Outpatient (BNVA) | payer OTHER, SELFPAY | PROVIDERS: PCP Internal Medicine; Visit Provider Physician Assistant ==

== ENCOUNTER 2024-12-11 09:51 | Outpatient (REF) | payer OTHER, SELFPAY ==
--- NOTE | ~2024-12-11 | MR_ITS ---
EXAMINATION: MR CERVICAL SPINE WITHOUT CONTRAST CLINICAL INFORMATION: Radiculopathy, left-sided cervical region. COMPARISON: None available. TECHNIQUE: MRI of the cervical spine was obtained using routine sequences without contrast. FINDINGS: Craniocervical junction is intact. No bone marrow STIR signal abnormality. Marginal osteophyte formation, disc desiccation at C5-6 and to a lesser extent C4-5 and C6-7 levels. There is a 1 mm retrolisthesis C5-6 and likely C6-7 and C4-5 levels. The cervical spinal cord signal is normal. C2-3: No disc herniation. No neuroforamina stenosis. C3-4: Disc osteophyte complex formation. No cord compression. No neuroforamina stenosis. C4-5: Disc osteophyte complex formation resulting in ventral deformity of the thecal sac. No neuroforamina stenosis. C5-6: Disc osteophyte complex formation resulting in ventral spinal cord deformity. There is facet joint and ligamentum flavum hypertrophy producing the AP diameter of the thecal sac. Bilateral neuroforamina stenosis. C6-7: Disc osteophyte complex formation. Ventral deformity of the thecal sac. Left neuroforamina stenosis. C7-T1: No disc herniation. No neuroforamina stenosis. No prevertebral compartment hematoma, mass or fluid collection. Flow-void signal within the main vessels is normal. Codominant vertebral arteries. MR/MR cervical spine wo con IMPRESSION: Cervical spondylosis C5-6 resulting in central spinal canal and bilateral neuroforamina stenosis without cord edema and or myelopathy. Left neuroforamina and C6-7 on a degenerative basis. Electronically signed by: Jim Domingo MD 12/12/2024 11:38 AM EDT
== END 2024-12-11 09:52 | disposition home or self-care (01) ==
LOC: HO.MRI 09:51
PROVIDERS: PCP Internal Medicine; Visit Provider Physician Assistant
DX: M54.12 Radiculopathy, cervical region (principal)
CPT/HCPCS: 72141

== ENCOUNTER → 2024-12-11 09:57 | Outpatient (BNV) | payer OTHER, SELFPAY | PROVIDERS: PCP Internal Medicine; Visit Provider Radiology Diagnostic Radiology | DX: M54.12 Radiculopathy, cervical region (principal); M47.812 Spondylosis without myelopathy or radiculopathy, cervical region | CPT/HCPCS: 72141 ==

== ENCOUNTER 2024-12-30 12:50 | Outpatient (AMB) | payer OTHER, SELFPAY ==
--- NOTE | 2024-12-30 13:14 | HO.SPINEOV ---
Intake Visit Reasons: F/u Intake Note: Mr. Fleming is here today for a F/u when Dr. Pritchard is in office. Research Laboratory Technician Required: No Allergies adhesive tape Allergy (Intermediate, Verified 12/01/24 13:27) Skin sloughing with cardiac leads and IV securement device gabapentin [GABAPENTIN] Allergy (Unknown, Verified 12/01/24 13:27) SEVERE H/A,BLURRY VISION,MOOD CHANGE Assessment & Plan Assessment & Plan (1) Ulnar neuropathy: Code(s): G56.20 - Lesion of ulnar nerve, unspecified upper limb Category: Medical Plan Mr Fleming is here in follow-up. Please refer to my previous note for the specifics of his problem. His cervical MRI was reviewed today with Dr. Pritchard and we do not see any compression at the C7-T1 area which would explain weakness in the hand as well as numbness going into his 4th and 5th digits. We examined the patient again today together and listening to his story again, so much of the symptoms are coming from the elbow pain which is then radiating down into his hand causing numbness and weakness. Despite the EMG not showing cubital tunnel syndrome or ulnar neuropathy, clinically this is exactly what he is presenting with. We know that EMGs are not 100% reliable. He has loss of sensation of the 4th and 5th digits, some wasting of the interosseous muscles as well as weakness of the interosseous muscles. Dr. Pritchard believes the patient would be a good candidate for a left ulnar nerve decompression. We did offer him the option of going back up to see the team that sent him to us that also does ulnar nerve decompression but he wished to stay here under Dr. Pritchard care for the surgery. We have tentatively arranged it for February 16. All pertinent risks and benefits were discussed. Total amount of time spent in this visit was 20 minutes in discussion of symptoms, cervical imaging results and subsequent plan of care Tera Pritchard MD,PhD [facility] Coding Level of Care Code Est Pt Level 3 (12893) Diagnoses Ulnar neuropathy G56.20
--- OUTSIDE RECORDS SUMMARY | 2024-12-30 13:23 | XMS_ITS | Clinical Summary ---
Author Organization [facility] Address [address] [place] [address] Phone Care Team Providers Care Pattern Changer Name Role Phone Aayush Jay MD Primary Care Provider [phone]- [phone] Allergies Active Allergy Reactions Criticality Noted Date [...] 1 Active cholecalciferol (VITAMIN D-3) 1.25 MG (44966 UT) tablet Take by mouth Activ e docusate sodium (COLACE) 100 MG capsule Take 100 mg by mouth 2 (two) times a day 1 Active ergocalciferol 1.25 MG (64240 UT) capsule Take 50,000 Units by mouth [...] Health Maintenance Due Date Last Done Comments Hepatitis B Vaccine (1 of 3 - 19+ 3-dose series) 02/07 Pneumococcal Vaccine: 50+ Years (1 of 2 - PCV) 992 Colorectal Cancer Screening: Annual FOBT 2022 Colorectal Cancer Screening: Colonoscopy 2022 Colorectal Cancer Screening: Sigmoidoscopy 2022 Influenza Vaccine (Season Ended) 2025 Insurance (A2793) ([id number]) Care Teams Pattern Changer Relationship Specialty Start Date End Date Aayush Jay MD [address] [place] [address] PCP - General 09/24/20
--- OUTSIDE RECORDS SUMMARY | 2024-12-30 13:23 | XMS_ITS | Data Portability ---
Author Organization [facility], [address] Address [address] [place] [id number] Assessment No assessment recorded. Plan of Treatment Reminders Order Date Submit Date Provider Last Modified By Organization Details Last Modified Time Details Appointments None recorded. Lab Mycobacteri um tuberculosi s stimulated gamma interferon, qual, blood 2023 024 [facility] [address] [place], [address], 4 14:06:54 Mycobacteri um tuberculosi s stimulated gamma interferon, qual, blood 2023 024 [facility] [address] [place], [address], 4 12:06:27 Referral None recorded. Procedures None recorded. Surgeries None recorded. Imaging None recorded. Medication Orders None recorded. Patient TargetsNo targets recorded. Patient Instructions Encounter Date Encounter Id Patient Instructions Last Modified By Organization Details Last Modified Time 02/29/2024 [id number] learning about tuberculosis (TB) [email or web address] Not available [...] clini grant indic ated. Not Available [facility] ([facility]) [address] [facility], [place], [address], 02/25/2024 12:06:27 02/22/20 24 02/25/2024 QUANT IFERO N-TB GOLD PLUS quantiferon- TB gold plus TNP Test not perfo rmed Not Available [facility] ([facility]) [address] [facility], [place], [address], 02/25/2024 12:06:27 02/22/20 24 02/25/[address] PROBL EM request problem TNP Test not perfo rmed. 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 Pleas e resub iwona if clini grant indic ated. TEST: [id number] 9 Quant iFERO N-TB Gold Plus Not Available [facility] ([facility]) [address] [facility], [place], [address], 02/25/2024 12:06:28 02/29/20 24 03/02/2024 QUANT IFERO N-TB GOLD PLUS quantiferon incubation INCUBA TION PERFOR MED. Not Available [facility] ([facility]) [address] [facility], [place], [address], 03/03/2024 14:06:54 02/29/20 24 03/02/2024 QUANT IFERO [...] ol for the test. Not Available [facility] ([facility]) [address] [place], [address], 03/03/2024 14:06:54 02/29/20 24 03/03/2024 QUANT IFERO N-TB GOLD PLUS quantiferon TB1 Ag value 0.03 IU/mL Not Available [facility] ([facility]) [address] [place], [address], 03/03/2024 14:06:54 02/29/20 24 03/03/2024 QUANT IFERO N-TB GOLD PLUS quantiferon TB2 Ag value 0.02 IU/mL Not Available [facility] ([facility]) [address] [place], [address], 03/03/2024 14:06:54 02/29/20 24 03/03/2024 QUANT IFERO N-TB GOLD PLUS quantiferon nil value 0.02 IU/mL Not Available [facility] ([facility]) [address] [place], [address], 03/03/2024 14:06:54 02/29/20 24 03/03/2024 QUANT IFERO N-TB GOLD PLUS quantiferon mitogen value >10.00 IU/mL Not Available [facility] ([facility]) [address] [place], [address], 03/03/2024 14:06:54 02/29/20 24 03/03/2024 QUANT IFERO [...] y metho dolog y Not Available [facility] ([facility]) [address], [place], [address], 03/03/2024 14:06:54 Result Notes None recorded. Procedures [...] SNOMED-CT Code Diagnosis ICD10 Code Diagnosis Note [id number] [place] [address] [address] 02/22/2024 08:53:41 02/22/2024 09:30:14 History and physical examination, occupation 800719453 Z02.1 [id number] Saundra Soriano, BENEFITS MANAGER [address] [address] 02/29/2024 09:58:51 02/29/2024 10:50:41 Tuberculosis screening 900852164 Z11.1 Health Concerns Section Related Observation LastModified by Organization Detai ls LastModified Time None Recorded Concern Status LastModified by Organization Details LastModified Time None Recorded Advance Directives Directive None Recorded Payers Encounter Date Sequence Insurance Name Policy Number Policy Gonsalves Covered Member ID Gonsalves Member ID Guarantor Name 02/22/2024 OC-[facility] [facility] [employer] Enmanuel Fleming 02/29/2024 [facility] Enmanuel Fleming
== END 2024-12-30 13:50 | disposition home or self-care (01) ==
LOC: HO.HNS 12:50
PROVIDERS: PCP Internal Medicine; Visit Provider Physician Assistant
DX: G56.20 Lesion of ulnar nerve, unspecified upper limb (principal)
CPT/HCPCS: 99213

== ENCOUNTER 2025-01-10 14:57 | Outpatient (AMB) | payer OTHER, SELFPAY ==
[2025-01-10 15:01] VITALS: BP 126/70; PULSE 80; O2SAT 99; BMI 33.2
--- NOTE | 2025-01-10 15:01 | MHC.OFFVIS ---
Vital Signs 01/10/25 15:01 Height 5 ft 9 in Weight 225 lb BMI 33.2 BP 126/70 Blood Pressure Location Rt brachial Position Sitting Pulse 80 Pulse Source Pulse Oximeter Pulse Oximetry (%) 99 Oxygen Delivery Method Room Air Intake Visit Reasons: colo screening Intake Note: NEW PATIENT for repeat colo screening. Chief Complaint; C.O. recent ED admission for abd pain, melena/hematochezia (dark red), loose oily stools, as well as a foul smell to the stool more so than normal. Pt denies any additional sx at this time and reports last colo was in 2020 w/ Dr. Schumacher. 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 male with past medical history of cervical radiculopathy, arthritis of the right knee, asthma, GERD, history of tubular adenoma, hemorrhoids, lumbar spondylosis, allergic rhinitis, insomnia, BPH, MONTEZ, constipation, dyslipidemia, hypertension, overactive bladder is here today for pre colonoscopy screening.? Patient was sent to us by his PCP.? Last colonoscopy in December 2020 showed work tubular adenoma. Patient was seen in the ER recently for rectal bleed. History of hemorrhoids.? Hemorrhoidectomy in his late 30s. Patient denies any other gastrointestinal symptoms at present.? However patient does admits that he had couple episodes of black stool and also stool that was very greasy and mood she and stuck to the toilet and hard to flush. Denies any personal or family history of gastrointestinal disease or CRC.? Denies history of difficulty with sedation or anesthesia in the past.? History of sleep apnea.? Denies any history of cardiac, renal, pulmonary, or hepatic disease.?? No history of infectious? diseases like hepatitis A, B, C, HIV or tuberculosis.? Patient is not on any anticoagulation [facility] Medical History Lumbar degenerative disc disease Abdominal pain Blurred vision, right eye Environmental allergies Throat discomfort Onychomycosis Otitis media Hemorrhoids Colon cancer screening Pneumonia Muscle spasm of back Low back pain Malaise and fatigue Elevated C-reactive protein Right knee pain Allergic rhinitis Anxiety Insomnia Benign prostatic hyperplasia Obstructive sleep apnea Constipation Impaired fasting glucose Asthma Dyslipidemia Benign essential hypertension Obesity (BMI 30-39.9) Overactive bladder Vitamin D deficiency Hypertension Surgical History History of surgery History of prostate surgery Hx of eye surgery Hx of hemorrhoidectomy Hx of rectal sphincterotomy H/O colonoscopy Family History Brother Diabetes Social History Household Members: None Housing: Apartment Alcohol intake: current Alcohol intake frequency: holidays/special occasions only Patient Tobacco Use Status: Former Tobacco user Tobacco use type: Cigarette Years Smoked: 20 e-Cigarette/Vaping Use: Never Used Second Hand Smoke Exposure: Yes service: No Current occupational status: employed 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 [employer] Cognitive needs: No Hearing needs: No Vision needs: No Physical Exam Vital Signs: Last Vital Signs Pulse 80 01/10/25 15:01 BP 126/70 01/10/25 15:01 Pulse Ox 99 01/10/25 15:01 Oxygen Delivery Method Room Air 01/10/25 15:01 BMI result Body Mass Index 33.2 Assessment & Plan Assessment & Plan (1) GERD (gastroesophageal reflux disease): Code(s): K21.9 - Gastro-esophageal reflux disease without esophagitis Category: Medical Qualifiers: Esophagitis presence: without esophagitis Qualified Code(s): K21.9 - Gastro-esophageal reflux disease without esophagitis (2) Tubular adenoma of colon: Code(s): D12.6 - Benign neoplasm of colon, unspecified Category: Medical (3) Screen for colon cancer: Code(s): Z12.11 - Encounter for screening for malignant neoplasm of colon Plan Patient denies any cardiac or respiratory symptoms.? Reports mood she and greasy stool. Patient was encouraged to take fiber. Will check vitamin B12, folate and vitamin-D level. Currently patient is not on any PPI and reports acid reflux. Denies any nausea or vomiting. Reports occasional dyspepsia without dysphagia or odynophagia. Patient will start taking pantoprazole daily. Avoid dietary triggers and with a 2nd. Staying upright for minimal 3 hours after meals discussed with patient. Patient will be sent for upper endoscopy to rule out gastritis, esophagitis, duodenitis, H pylori, Segura's. Patient denies any issues with anesthesia in the past.? History of sleep apnea.? No history infectious diseases in the past or present.? Not on any anticoagulation therapy.? No family or personal history of colon cancer or polyps.? Patient denies melena, hematochezia, unintentional weight loss or ribbon like stools.? Discussed at length the pre-procedure,? prep, diet & medications as well as what to expect prior, during and after the procedure.?? Stressed the importance of good bowel prep.? Recommended the use of Vaseline or Calmoseptine OTC & baby wipes with bowel movements to promote comfort.? ?Patient verbalizes understanding and agrees to plan of care.? She was given the opportunity to ask questions and all questions answered.? We will see her after the procedure.? Orders: Orders Vitamin B12 and Folate Today R19.7 - Diarrhea, unspecified Vitamin D 25-OH (D2 and D3) Today E55.9 - Vitamin D deficiency, unspecified Medications: New bisacodyl (Dulcolax (bisacodyl)) take 4 tabs at noon the day before your colonoscopy 20 mg (4 x 5 mg) PO ONCE 1 day 4 tabs 0RF Z12.11 - Encounter for screening for malignant neoplasm of colon polyethylene glycol 3350 (Miralax) As directed by gastroenterology department at [facility] 238 grams PO ONCE 238 grams 0RF Z12.11 - Encounter for screening for malignant neoplasm of colon pantoprazole take one tablet half an hour before breakfast 40 mg PO DAILY 90 tabs 2RF K21.9 - Gastro-esophageal reflux disease without esophagitis Coding Level of Care Code New Pt Level 4 (52362) Diagnoses Gastroesophageal reflux disease without esophagitis K21.9 Esophagitis presence: without esophagitis Tubular adenoma of colon D12.6 Screen for colon cancer Z12.11 Time Spent (min) 45 Comment 30 minutes spent with patient and additional 15 minutes spent reviewing his records
== END 2025-01-10 16:27 | disposition home or self-care (01) ==
LOC: HO.HGI 14:58
PROVIDERS: PCP Internal Medicine; Visit Provider Nurse Practitioner Family
DX: K21.9 Gastro-esophageal reflux disease without esophagitis (principal); Z12.11 Encounter for screening for malignant neoplasm of colon; Z86.0101 Personal history of adenomatous and serrated colon polyps
CPT/HCPCS: 99203

== ENCOUNTER 2025-02-09 08:55 | Day surgery (SDC) | payer OTHER, SELFPAY ==
--- OUTSIDE RECORDS SUMMARY | 2025-01-12 07:37 | XMS_ITS | Clinical Summary ---
Author Organization [facility] Address [address] [place] [address] Phone Care Team Providers Care Plastics Fabrication Supervisor Name Role Phone Aayush Jay MD Primary Care Provider [phone]- [phone] Allergies Active Allergy Reactions Criticality Noted Date [...] 1 Active cholecalciferol (VITAMIN D-3) 1.25 MG (86273 UT) tablet Take by mouth Activ e docusate sodium (COLACE) 100 MG capsule Take 100 mg by mouth 2 (two) times a day 1 Active ergocalciferol 1.25 MG (56310 UT) capsule Take 50,000 Units by mouth [...] Ended) 2025 Insurance (A2793) (A2793) Care Teams Plastics Fabrication Supervisor Relationship Specialty Start Date End Date Aayush Jay MD [address] [place] [address] PCP - General 09/24/20
--- OUTSIDE RECORDS SUMMARY | 2025-01-12 07:37 | XMS_ITS | Data Portability ---
Author Organization [facility], [address] Address [address] [place] [id number] Assessment No assessment recorded. Plan of Treatment Reminders Order Date Submit Date Provider Last Modified By Organization Details Last Modified Time Details Appointments None recorded. Lab Mycobacteri um tuberculosi s stimulated gamma interferon, qual, blood 2023 024 [facility]), [address] [place], [address], 4 14:06:54 Mycobacteri um tuberculosi s stimulated gamma interferon, qual, blood 2023 024 [facility] [address] [place], [address], 4 12:06:27 Referral None recorded. Procedures None recorded. Surgeries None recorded. Imaging None recorded. Medication Orders None recorded. Patient TargetsNo targets recorded. Patient Instructions Encounter Date Encounter Id Patient Instructions Last Modified By Organization Details Last Modified Time 02/29/2024 [id number] learning about tuberculosis (TB) [email or web address] Not available [...] clini grant indic ated. Not Available [facility] ([facility]) [address] [facility], [place], [address], 02/25/2024 12:06:27 02/22/20 24 02/25/2024 QUANT IFERO N-TB GOLD PLUS quantiferon- TB gold plus TNP Test not perfo rmed Not Available [facility] ([facility]) [address] [facility], [place], [address], 02/25/2024 12:06:27 02/22/20 24 02/25/[address] PROBL EM request problem TNP Test not perfo rmed. 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 Pleas e resub iwona if clini grant indic ated. TEST: [id number] 9 Quant iFERO N-TB Gold Plus Not Available [facility] ([facility]) [address] [facility], [place], [address], 02/25/2024 12:06:28 02/29/20 24 03/02/2024 QUANT IFERO N-TB GOLD PLUS quantiferon incubation INCUBA TION PERFOR MED. Not Available [facility] ([facility]) [address] [facility], [place], [address], 03/03/2024 14:06:54 02/29/20 24 03/02/2024 QUANT IFERO [...] ol for the test. Not Available [facility] ([facility]) [address] [place], [address], 03/03/2024 14:06:54 02/29/20 24 03/03/2024 QUANT IFERO N-TB GOLD PLUS quantiferon TB1 Ag value 0.03 IU/mL Not Available [facility] ([facility]) [address] [place], [address], 03/03/2024 14:06:54 02/29/20 24 03/03/2024 QUANT IFERO N-TB GOLD PLUS quantiferon TB2 Ag value 0.02 IU/mL Not Available [facility] ([facility]) [address] [place], [address], 03/03/2024 14:06:54 02/29/20 24 03/03/2024 QUANT IFERO N-TB GOLD PLUS quantiferon nil value 0.02 IU/mL Not Available [facility] ([facility]) [address] [place], [address], 03/03/2024 14:06:54 02/29/20 24 03/03/2024 QUANT IFERO N-TB GOLD PLUS quantiferon mitogen value >10.00 IU/mL Not Available [facility] ([facility]) [address] [place], [address], 03/03/2024 14:06:54 02/29/20 24 03/03/2024 QUANT IFERO [...] y metho dolog y Not Available [facility] ([facility]) [address], [place], [address], 03/03/2024 14:06:54 Result Notes None recorded. Procedures [...] SNOMED-CT Code Diagnosis ICD10 Code Diagnosis Note [id number] [place] [address] [address] 02/22/2024 08:53:41 02/22/2024 09:30:14 History and physical examination, occupation [id number] Z02.1 [id number] Saundra Soriano, QA TESTER [address] [address] 02/29/2024 09:58:51 02/29/2024 10:50:41 Tuberculosis screening [id number] Z11.1 Health Concerns Section Related Observation LastModified by Organization Detai ls LastModified Time None Recorded Concern Status LastModified by Organization Details LastModified Time None Recorded Advance Directives Directive None Recorded Payers Encounter Date Sequence Insurance Name Policy Number Policy Gonsalves Covered Member ID Gonsalves Member ID Guarantor Name 02/22/2024 OC-ESCREEN [facility] OC-[employer] Enmanuel Fleming 02/29/2024 [facility] Enmanuel Fleming
[2025-02-07 09:10] VITALS: BMI 33.7
--- NOTE | 2025-02-08 09:52 | HO.ANESPROP2 ---
Documented by User: Ella Salas NP 02/08/25 09:54 HPI - Anesthesia Eval Consult details Narrative: 50yo M for Left Ulna Nerve Decompression PMFSH Active Problems Active Problems: All Active Problems Ulnar neuropathy (Acute) Cervical radiculopathy (Acute) GI bleed (Acute) Numbness and tingling in left hand (Acute) Low energy (Acute) Patellofemoral arthritis of right knee (Acute) Severe persistent allergic asthma (Acute) GERD (gastroesophageal reflux disease) (Acute) Tubular adenoma of colon (Acute) Hemorrhoids, internal, with bleeding (Acute) Lumbar spondylosis (Acute) Lumbar back pain with radiculopathy affecting left lower extremity (Acute) Sacroiliitis (Acute) Allergic rhinitis (Acute) Anxiety (Acute) Insomnia (Acute) Benign prostatic hyperplasia (Acute) Obstructive sleep apnea (Acute) Constipation (Acute) Impaired fasting glucose (Acute) Asthma (Acute) Dyslipidemia (Acute) Benign essential hypertension (Acute) Obesity (BMI 30-39.9) (Acute) Overactive bladder (Acute) Vitamin D deficiency (Acute) Past Medical History Medical History Lumbar degenerative disc disease Abdominal pain Blurred vision, right eye Environmental allergies Throat discomfort Onychomycosis Otitis media Hemorrhoids Colon cancer screening Pneumonia Muscle spasm of back Low back pain Malaise and fatigue Elevated C-reactive protein Right knee pain Allergic rhinitis Anxiety Insomnia Benign prostatic hyperplasia Obstructive sleep apnea Constipation Impaired fasting glucose Asthma Dyslipidemia Benign essential hypertension Obesity (BMI 30-39.9) Overactive bladder Vitamin D deficiency Hypertension Family History Family History Brother Diabetes Family history of problems with anesthesia: No Surgical History Surgical History History of surgery History of prostate surgery Hx of eye surgery Hx of hemorrhoidectomy Hx of rectal sphincterotomy H/O colonoscopy History of Problems with Anesthesia: No Social History Social History Household Members: None Housing: Apartment Are you a primary field care advocate to a significant other at home: No Do you presently have visiting nurse or other home services: No Alcohol intake: current Alcohol intake frequency: holidays/special occasions only Patient Tobacco Use Status: Former Tobacco user Tobacco use type: Cigarette Years Smoked: 20 e-Cigarette/Vaping Use: Never Used Second Hand Smoke Exposure: Yes Use of substances other than those prescribed or required for medical reasons: No Have you been hit, kicked, punched, or otherwise hurt by someone within the past year? 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 Cognitive needs: No Hearing needs: No Vision needs: No Meds Allergies Allergy/AdvReac Type Severity Reaction Status Date / Time adhesive tape Allergy Intermediate Skin Verified 02/09/25 09:37 sloughing with cardiac leads and IV securement device gabapentin [GABAPENTIN] Allergy Unknown SEVERE Verified 02/09/25 09:37 H/A,BLURRY VISION,MOOD CHANGE Home Medications ?Medication ?Instructions ?Recorded ?Confirmed ?Last Taken ?Type aluminum chloride 20 % topical 1 appl topical BID 10/15/23 11/10/24 Unknown History solution (Drysol Dab-O-Matic) Exam Height,Weight and Vital Signs: Height 5 ft 9 in Weight 103.419 kg Pertinent Lab Results Pertinent Lab Results: Laboratory Tests 11/07/24 16:27 WBC 9.1 Hgb 14.8 Hct 45.0 Plt Count 295 Sodium 139 Potassium 4.3 Chloride 111 H Carbon Dioxide 21 L BUN 13 Creatinine 0.76 Narrative Narrative: EKG 2023 Vent. Rate : 072 BPM Atrial Rate : 072 BPM P-R Int : 110 ms QRS Dur : 076 ms QT Int : 376 ms P-R-T Axes : -12 017 021 degrees QTc Int : 411 ms Sinus rhythm with short [place] Otherwise normal ECG When compared with ECG of 10-JUL-2018 17:07, No significant change was found Assessment and Plan Assessment Anesthesia Assessment: Chart Reviewed Final Anesthetic Review Family History of Problems with Anesthesia: No History of Problems with Anesthesia: No Documented by User: Cam Rodriguez MD 02/09/25 10:52 [facility] Past Medical History Medical History Lumbar degenerative disc disease Abdominal pain Blurred vision, right eye Environmental allergies Throat discomfort Onychomycosis Otitis media Hemorrhoids Colon cancer screening Pneumonia Muscle spasm of back Low back pain Malaise and fatigue Elevated C-reactive protein Right knee pain Allergic rhinitis Anxiety Insomnia Benign prostatic hyperplasia Obstructive sleep apnea Constipation Impaired fasting glucose Asthma Dyslipidemia Benign essential hypertension Obesity (BMI 30-39.9) Overactive bladder Vitamin D deficiency Hypertension Functional capacity: independent ambulation Family History Family History Brother Diabetes Surgical History Surgical History History of surgery History of prostate surgery Hx of eye surgery Hx of hemorrhoidectomy Hx of rectal sphincterotomy H/O colonoscopy Social History Social History Household Members: None Housing: Apartment Are you a primary field care advocate to a significant other at home: No Do you presently have visiting nurse or other home services: No Alcohol intake: current Alcohol intake frequency: holidays/special occasions only Patient Tobacco Use Status: Former Tobacco user Tobacco use type: Cigarette Years Smoked: 20 e-Cigarette/Vaping Use: Never Used Second Hand Smoke Exposure: Yes Use of substances other than those prescribed or required for medical reasons: No Have you been hit, kicked, punched, or otherwise hurt by someone within the past year? 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 Cognitive needs: No Hearing needs: No Vision needs: No Meds Allergies Allergy/AdvReac Type Severity Reaction Status Date / Time adhesive tape Allergy Intermediate Skin Verified 02/09/25 09:37 sloughing with cardiac leads and IV securement device gabapentin [GABAPENTIN] Allergy Unknown SEVERE Verified 02/09/25 09:37 H/A,BLURRY VISION,MOOD CHANGE Home Medications ?Medication ?Instructions ?Recorded ?Confirmed ?Last Taken ?Type aluminum chloride 20 % topical 1 appl topical BID 10/15/23 11/10/24 Unknown History solution (Drysol Dab-O-Matic) Exam Exam Date and Time: January 2025 Airway Mallampati Class: II TM Dist: >3cm Neck ROM: Full Loose/Missing/Broken Teeth: No (rrr) Heart: rrr Lungs: cta Assessment and Plan Final Anesthetic Review NPO: Yes ASA Class: II Final Preanesthetic Review: No Changes in Pt Med Stat, Meds/Allgs Chart Reviewed, Consent Obtained/Reviewed and Anes Risks/Benef Reviewed Patient Risk: Low Procedure Risk: Low Anesthetic Plan Anesthetic Plan: GA Disposition: Standard PACU
[2025-02-09 09:39] VITALS: BP 130/88; PULSE 74; RESP 14; TEMP 36.2; O2SAT 99; BMI 33.2
--- NOTE | 2025-02-09 10:01 | MHC.SHP ---
Pre-Procedural Eval Section A - 24 Hr Update-Section A only Date of Service: 02/09/25 The patient is an INPATIENT: No Section B - Complete if H&P > 30 days Chief Complaint: Lesion of ulnar nerve, unspecified upper limb Details of Present Illness: Left hand numbness Allergies: Allergies Allergy/AdvReac Type Severity Reaction Status Date / Time adhesive tape Allergy Intermediate Skin Verified 02/09/25 09:37 sloughing with cardiac leads and IV securement device gabapentin [GABAPENTIN] Allergy Unknown SEVERE Verified 02/09/25 09:37 H/A,BLURRY VISION,MOOD CHANGE Review of Systems Sugical H&P ROS: Negative: Constitution, Cardiovascular, Respiratory, Neurological, Psychiatric, Hem-Onc, Allergic/Immunologic, Gastrointestinal, Genitourinary, Musculoskeletal, Integumentary, Endocrine and Eyes/Ears/Nose/Throat Exam Surgical H&P Exam: Normal: HEENT, Normal: Heart, Normal: Lungs, Normal: Extremities, Normal: Abdomen, Normal: Skin and Normal: Neurological (Awake, alert) Plan Diagnosis/Plan: Unchanged I have reviewed the history and physical and performed a pertinent physical examination on my patient. No changes have occurred unless specified. Left ulnar nerve decompression Time Spent With Patient Time: Total time managing care of this patient today _5___ minutes.
[2025-02-09] MEDS: Lactated Ringers 1,000 ML 100 ML IVCONT (10:12)
[2025-02-09] MEDS: ceFAZolin Sodium/Dextrose,Iso 2 GM/50 ML PIGGYBACK IV (11:04)
--- NOTE | 2025-02-09 11:04 | W.PM.OPN ---
Operative Note Operative Note Date of Service: 02/09/25 Narrative: Diagnosis: Left cubital tunnel syndrome Procedure: Left ulnar nerve decompression Surgeon: Sean Pritchard MD PhD Description procedure: This 50-year-old male with a left cubital tunnel syndrome. The patient was offered a decompression of the ulnar nerve. The procedure complications were explained. The patient was consented. The patient was brought to the operating room, where moderate sedation was applied. Prepping and draping was done followed by time-out. Marcaine was injected. A semicircular incision was made above the medial epicondyle. Dissection was carried out towards the ulnar nerve. This included dissection of the crossing ligaments. The ulnar nerve was identified and with the Metzenbaum scissor its trajectory was opened proximally and distally until the disappeared under the carpi ulnaris muscle. Hemostasis was done. The incision was closed with 3 interrupted sutures. A compressive INA wrap was used for hemostasis. All sponge and needle counts were correct. Patient was transported to the recovery room. Anesthesia: Moderate sedation and local anesthetic Blood loss: Minimal Complications: None Disposition: Discharge home
--- NOTE | 2025-02-09 11:09 | P.DS_ITS ---
DS: Providers Provider Date of Service: 02/09/25 Date of discharge: 02/09/25 Primary care physician: Aayush Jay MD Admitting clinician: Sean Pritchard DS: Diagnosis Discharge Diagnosis (1) Ulnar neuropathy: Status: Acute DS: Summary Time Attestation Discharge Coordination Time (in mins): 4 Quality: Safe Use of Opioids Does Pt have an Active Cancer Diagnosis on the Problem List?: No Quality: Stroke Does the patient have a stroke diagnosis?: No Physical Exam Vital Signs: Vital Signs: Last Vital Signs Temp 97.2 F 02/09/25 09:39 Pulse 74 02/09/25 09:39 Resp 14 02/09/25 09:39 BP 130/88 02/09/25 09:39 Pulse Ox 99 02/09/25 09:39 O2 Del Method Room Air 02/09/25 09:39 BMI result Body Mass Index 33.2 Discharge Plan Discharge Patient Disposition: Home, Self-Care Referrals: Aayush Jay MD [Primary Care Provider] - 1 Week Discharge Medications: New oxycodone 5 mg tablet 5 mg PO Q4H PRN (Reason: pain) Qty: 10 0RF Rx Instructions: Partial Fill upon patient request. Continued lorazepam 0.5 mg tablet 0.5 mg PO BID PRN (Reason: anxiety) 30 Days Qty: 60 0RF Rx Instructions: 1 tablet Orally twice a day as needed for anxiety (DME) adjustable straight point cane with offset handle See Rx Instructions .Route .MEDSUPPLY Qty: 1 0RF Rx Instructions: As directed (DME) HANDHELD SHOWER HEAD See Rx Instructions .Route .MEDSUPPLY Qty: 1 0RF Rx Instructions: As directed Myrbetriq 50 mg tablet extended release 24 hr 50 mg PO DAILY 30 Days Qty: 30 2RF metformin 500 mg tablet extended release 24 hr 500 mg PO QPM 90 Days Qty: 90 1RF tramadol 50 mg tablet 50 mg PO TID PRN (Reason: pain) 30 Days Qty: 90 0RF zolpidem 10 mg tablet 10 mg PO BEDTIME PRN (Reason: insomnia) 30 Days Qty: 30 1RF amlodipine 5 mg tablet 5 mg PO DAILY 90 Days Qty: 90 1RF cetirizine 10 mg tablet 10 mg PO DAILY PRN (Reason: allergy symptoms) 90 Days Qty: 90 1RF albuterol sulfate 90 mcg/actuation HFA aerosol inhaler 2 puff inhalation Q4-6H PRN (Reason: shortness of breath or wheezing) 30 Days Qty: 8.5 3RF ergocalciferol (vitamin D2) [Vitamin D2] 1,250 mcg (50,000 unit) capsule 1,250 mcg PO QWEEK 90 Days Qty: 13 3RF Drysol Dab-O-Matic 20 % solution 1 appl topical BID bisacodyl [Dulcolax (bisacodyl)] 5 mg tablet,delayed release (DR/EC) 20 mg PO ONCE 1 Days Qty: 4 0RF Rx Instructions: take 4 tabs at noon the day before your colonoscopy polyethylene glycol 3350 [Miralax] 17 gram/dose powder 238 g PO ONCE Qty: 238 0RF Rx Instructions: As directed by gastroenterology department at [facility] pantoprazole 40 mg tablet,delayed release (DR/EC) 40 mg PO DAILY Qty: 90 2RF Rx Instructions: take one tablet half an hour before breakfast Discharge Orders: Discharge Order (Routine); Ordered 02/09/25 Ordered By: Tera Beth Diet: Advance to usual diet Activity Restrictions/Additional Instructions: After your ulnar nerve release we ask you follow these guidelines: You may remove your dorcas wrap on post op day 3, as well as the dressing unde rneath it There are sutures in your wound, and you will need these removed 10-14 days after surgery. Please call the office to arrange this visit, You can use your arm as much as you like, however, please avoid straining or heavy lifting It will help swelling in your elbow to keep it elevated when you are not using it. You can shower on post op day 1, but please keep wound dry You can drive when you feel comfortable and are off narcotics If you experience any signs of infection such as fever, chills or redness/discharge from your wound,please call office right away Print Language: Somali
[2025-02-09 11:44] VITALS: BP 126/79; PULSE 96; RESP 16; TEMP 36.3; O2SAT 97
[2025-02-09 11:49] VITALS: BP 129/83; PULSE 77; RESP 17; O2SAT 100
[2025-02-09 11:54] VITALS: BP 124/84; PULSE 92; RESP 17; O2SAT 95
[2025-02-09 11:59] VITALS: BP 143/99; PULSE 67; RESP 17; O2SAT 96
[2025-02-09 12:15] VITALS: BP 146/102; PULSE 67; RESP 17; O2SAT 97
== END 2025-02-09 12:55 | disposition home or self-care (01) ==
PROVIDERS: PCP Internal Medicine; Visit Provider Neurological Surgery
PROC: (CPT 64718; principal; 2025-02-09 12:40)
DX: G56.22 Lesion of ulnar nerve, left upper limb (principal); R20.0 Anesthesia of skin; R20.2 Paresthesia of skin; I10 Essential (primary) hypertension; R73.01 Impaired fasting glucose; E78.5 Hyperlipidemia, unspecified; J45.909 Unspecified asthma, uncomplicated; G47.33 Obstructive sleep apnea (adult) (pediatric); L23.1 Allergic contact dermatitis due to adhesives; Z79.899 Other long term (current) drug therapy; Z88.8 Allergy status to other drugs, medicaments and biological substances; Z98.890 Other specified postprocedural states; Z87.891 Personal history of nicotine dependence
CPT/HCPCS: 64718; J0690; J1100; J2003; J2405; J2704; J3010

== ENCOUNTER → 2025-02-09 08:55 | Outpatient (BNV) | payer OTHER, SELFPAY | PROVIDERS: PCP Internal Medicine; Visit Provider Physician Assistant | DX: G56.22 Lesion of ulnar nerve, left upper limb (principal) | CPT/HCPCS: 64718; 99499 ==

== ENCOUNTER 2025-02-13 13:06 | Outpatient (AMB) | payer OTHER, SELFPAY ==
--- NOTE | 2025-02-13 13:06 | HO.SPINEOV ---
Intake Visit Reasons: incision check Intake Note: Mr. Fleming is here today for an incision check. Tipple Worker Required: No Allergies adhesive tape Allergy (Intermediate, Verified 02/13/25 13:07) Skin sloughing with cardiac leads and IV securement device gabapentin [GABAPENTIN] Allergy (Unknown, Verified 02/13/25 13:07) SEVERE H/A,BLURRY VISION,MOOD CHANGE Assessment & Plan Assessment & Plan (1) S/P cubital tunnel release: Code(s): Z98.890 - Other specified postprocedural states Category: Medical Plan Procedure: Left ulnar nerve decompression Enmanuel comes in today for an acute follow up visit after he accidently scratched the scab off of his incision site. He is POD:4 s/p left cubital tunnel release with Dr. Pritchard. He reports that overall he has been doing well since his surgery. He states that he is using his arm without issue. He has essentially been back to regular activity, but has been mindful about how much he is lifting. He asked if he can return to golf / fishing, which I advised him against at least for a couple of weeks so he can heal from surgery without overexerting the muscles near the surgical site. No new neurological deficits on exam. Incision was notably open but still fairly well approximated. The edges of the incision were notably serosanguineous but no active drainage or bleeding was noted. I cleansed the area and approximated it with steri-strips. Enmanuel understands that the steri strips will likely fall off on their own, but he can remove them in 7 days if they do not. We will follow up with him routinely in 6 weeks for his 2nd postop appointment. Coding Level of Care Code Global (11590) Diagnoses S/P cubital tunnel release Z98.890
--- OUTSIDE RECORDS SUMMARY | 2025-02-13 14:07 | XMS_ITS | Data Portability ---
Author Organization [facility], [address] Address [address] [place] [address] Assessment No assessment recorded. Plan of Treatment Reminders Order Date Submit Date Provider Last Modified By Organization Details Last Modified Time Details Appointments None recorded. Lab Mycobacteri um tuberculosi s stimulated gamma interferon, qual, blood 2023 024 [facility] ([place]), [address] [place], [address], 4 14:06:54 Mycobacteri um tuberculosi s stimulated gamma interferon, qual, blood 2023 024 [facility] [address] [place], [address], 4 12:06:27 Referral None recorded. Procedures None recorded. Surgeries None recorded. Imaging None recorded. Medication Orders None recorded. Patient TargetsNo targets recorded. Patient Instructions Encounter Date Encounter Id Patient Instructions Last Modified By Organization Details Last Modified Time 02/29/2024 [id number] learning about tuberculosis (TB) [email or web address] Not available [...] clini grant indic ated. Not Available [facility] ([facility]) [address] [facility], [place], [address], 02/25/2024 12:06:27 02/22/20 24 02/25/2024 QUANT IFERO N-TB GOLD PLUS quantiferon- TB gold plus TNP Test not perfo rmed Not Available [facility] ([facility]) [address] [facility], [place], [address], 02/25/2024 12:06:27 02/22/20 24 02/25/[address] PROBL EM request problem TNP Test not perfo rmed. 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 Pleas e resub iwona if clini grant indic ated. TEST: [id number] Quant iFERO N-TB Gold Plus Not Available [facility] ([facility]) [address] [facility], [place], [address], 02/25/2024 12:06:28 02/29/20 24 03/02/2024 QUANT IFERO N-TB GOLD PLUS quantiferon incubation INCUBA TION PERFOR MED. Not Available [facility] ([facility]) [address] [facility], [place], [address], 03/03/2024 14:06:54 02/29/20 24 03/02/2024 QUANT IFERO [...] ol for the test. Not Available [facility] ([facility]) [address] [place], [address], 03/03/2024 14:06:54 02/29/20 24 03/03/2024 QUANT IFERO N-TB GOLD PLUS quantiferon TB1 Ag value 0.03 IU/mL Not Available [facility] ([facility]) [address] [place], [address], 03/03/2024 14:06:54 02/29/20 24 03/03/2024 QUANT IFERO N-TB GOLD PLUS quantiferon TB2 Ag value 0.02 IU/mL Not Available [facility] ([facility]) [address] [place], [address], 03/03/2024 14:06:54 02/29/20 24 03/03/2024 QUANT IFERO N-TB GOLD PLUS quantiferon nil value 0.02 IU/mL Not Available [facility] ([facility]) [address] [place], [address], 03/03/2024 14:06:54 02/29/20 24 03/03/2024 QUANT IFERO N-TB GOLD PLUS quantiferon mitogen value >10.00 IU/mL Not Available [facility] ([facility]) [address] [place], [address], 03/03/2024 14:06:54 02/29/20 24 03/03/2024 QUANT IFERO [...] y metho dolog y Not Available [facility] ([facility]) [address], [place], [address], 03/03/2024 14:06:54 Result Notes None recorded. 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
== END 2025-02-13 13:14 | disposition home or self-care (01) ==
LOC: HO.HNS 13:06
PROVIDERS: PCP Internal Medicine; Visit Provider Physician Assistant
DX: Z98.890 Other specified postprocedural states (principal)
CPT/HCPCS: 99024

== ENCOUNTER 2025-03-23 07:20 | Day surgery (SDC) | payer OTHER, SELFPAY ==
--- OUTSIDE RECORDS SUMMARY | 2025-02-20 16:35 | XMS_ITS | Data Portability ---
Author Organization [facility], [address] Address [address] [place] [id number] Assessment No assessment recorded. Plan of Treatment Reminders Order Date Submit Date Provider Last Modified By Organization Details Last Modified Time Details Appointments None recorded. Lab Mycobacteri um tuberculosi s stimulated gamma interferon, qual, blood 2023 024 [facility] ([place]), [address] [place], [address], 4 14:06:54 Mycobacteri um tuberculosi s stimulated gamma interferon, qual, blood 2023 024 [facility] [address] [place], [address], 4 12:06:27 Referral None recorded. Procedures None recorded. Surgeries None recorded. Imaging None recorded. Medication Orders None recorded. Patient TargetsNo targets recorded. Patient Instructions Encounter Date Encounter Id Patient Instructions Last Modified By Organization Details Last Modified Time 02/29/2024 [id number] learning about tuberculosis (TB) [email or web address] Not available [...] clini grant indic ated. Not Available [facility] ([facility]) [address] [facility], [place], [address], 02/25/2024 12:06:27 02/22/20 24 02/25/2024 QUANT IFERO N-TB GOLD PLUS quantiferon- TB gold plus TNP Test not perfo rmed Not Available [facility] ([facility]) [address] [facility], [place], [address], 02/25/2024 12:06:27 02/22/20 24 02/25/[address] PROBL EM request problem TNP Test not perfo rmed. 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 Pleas e resub iwona if clini grant indic ated. TEST: [id number] 9 Quant iFERO N-TB Gold Plus Not Available [facility] ([facility]) [address] [facility], [place], [address], 02/25/2024 12:06:28 02/29/20 24 03/02/2024 QUANT IFERO N-TB GOLD PLUS quantiferon incubation INCUBA TION PERFOR MED. Not Available [facility] ([facility]) [address] [facility], [place], [address], 03/03/2024 14:06:54 02/29/20 24 03/02/2024 QUANT IFERO [...] ol for the test. Not Available [facility] ([facility]) [address] [place], [address], 03/03/2024 14:06:54 02/29/20 24 03/03/2024 QUANT IFERO N-TB GOLD PLUS quantiferon TB1 Ag value 0.03 IU/mL Not Available [facility] ([facility]) [address] [place], [address], 03/03/2024 14:06:54 02/29/20 24 03/03/2024 QUANT IFERO N-TB GOLD PLUS quantiferon TB2 Ag value 0.02 IU/mL Not Available [facility] ([facility]) [address] [place], [address], 03/03/2024 14:06:54 02/29/20 24 03/03/2024 QUANT IFERO N-TB GOLD PLUS quantiferon nil value 0.02 IU/mL Not Available [facility] ([facility]) [address] [place], [address], 03/03/2024 14:06:54 02/29/20 24 03/03/2024 QUANT IFERO N-TB GOLD PLUS quantiferon mitogen value >10.00 IU/mL Not Available [facility] ([facility]) [address] [place], [address], 03/03/2024 14:06:54 02/29/20 24 03/03/2024 QUANT IFERO [...] y metho dolog y Not Available [facility] ([facility]) [address], [place], [address], 03/03/2024 14:06:54 Result Notes None recorded. Procedures [...] SNOMED-CT Code Diagnosis ICD10 Code Diagnosis Note [id number] [place] [address] [address] 02/22/2024 08:53:41 02/22/2024 09:30:14 History and physical examination, occupation [id number] Z02.1 [id number] Saundra BuiFERCHO [employer] [address] [address] 02/29/2024 09:58:51 02/29/2024 10:50:41 Tuberculosis screening [id number] Z11.1 Health Concerns Section Related Observation LastModified by Organization Detai ls LastModified Time None Recorded Concern Status LastModified by Organization Details LastModified Time None Recorded Advance Directives Directive None Recorded Payers Insurance Date Sequence Insurance Name Policy Number Policy Gonsalves Covered Member ID Gonsalves Member ID Guarantor Name 02/22/2024 OC-ESCREEN [facility] OC-ESCREEN Enmanuel Fleming
[2025-03-21 10:51] VITALS: BMI 33.2
--- NOTE | 2025-03-22 12:20 | P.CONAN_ITS ---
Documented by User: Ella Salas NP 03/22/25 12:22 HPI - Anesthesia Eval Consult details Narrative: 50yo M for Upper Endoscopy and Colonoscopy s/p ulna nerve decompression 01/2025 with GA-LMA 5 PMF Active Problems Active Problems: All Active Problems S/P cubital tunnel release (Acute) Ulnar neuropathy (Acute) Cervical radiculopathy (Acute) GI bleed (Acute) Numbness and tingling in left hand (Acute) Low energy (Acute) Patellofemoral arthritis of right knee (Acute) Severe persistent allergic asthma (Acute) GERD (gastroesophageal reflux disease) (Acute) Tubular adenoma of colon (Acute) Hemorrhoids, internal, with bleeding (Acute) Lumbar spondylosis (Acute) Lumbar back pain with radiculopathy affecting left lower extremity (Acute) Sacroiliitis (Acute) Allergic rhinitis (Acute) Anxiety (Acute) Insomnia (Acute) Benign prostatic hyperplasia (Acute) Obstructive sleep apnea (Acute) Constipation (Acute) Impaired fasting glucose (Acute) Asthma (Acute) Dyslipidemia (Acute) Benign essential hypertension (Acute) Obesity (BMI 30-39.9) (Acute) Overactive bladder (Acute) Vitamin D deficiency (Acute) Past Medical History Medical History Lumbar degenerative disc disease Abdominal pain Blurred vision, right eye Environmental allergies Throat discomfort Onychomycosis Otitis media Hemorrhoids Colon cancer screening Pneumonia Muscle spasm of back Low back pain Malaise and fatigue Elevated C-reactive protein Right knee pain Allergic rhinitis Anxiety Insomnia Benign prostatic hyperplasia Obstructive sleep apnea Constipation Impaired fasting glucose Asthma Dyslipidemia Benign essential hypertension Obesity (BMI 30-39.9) Overactive bladder Vitamin D deficiency Hypertension Family History Family History Brother Diabetes Family history of problems with anesthesia: No Surgical History Surgical History History of surgery History of prostate surgery Hx of eye surgery Hx of hemorrhoidectomy Hx of rectal sphincterotomy H/O colonoscopy History of Problems with Anesthesia: No Social History Social History Household Members: None Housing: Apartment Are you a primary geriatric care manager to a significant other at home: No Do you presently have visiting nurse or other home services: No Alcohol intake: current Alcohol intake frequency: does not drink Comment: counts correct Patient Tobacco Use Status: Former Tobacco user Tobacco use type: Cigarette Years Smoked: 20 e-Cigarette/Vaping Use: Never Used Second Hand Smoke Exposure: No Use of substances other than those prescribed or required for medical reasons: No Have you been hit, kicked, punched, or otherwise hurt by someone within the past year? 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 Cognitive needs: No Hearing needs: No Vision needs: No Meds Allergies Allergy/AdvReac Type Severity Reaction Status Date / Time adhesive tape Allergy Intermediate Skin Verified 02/13/25 13:07 sloughing with cardiac leads and IV securement device gabapentin (GABAPENTIN) Allergy Unknown SEVERE Verified 02/13/25 13:07 H/A,BLURRY VISION,MOOD CHANGE Home Medications ?Medication ?Instructions ?Recorded ?Confirmed ?Last Taken ?Type aluminum chloride 20 % topical 1 appl topical BID 10/0711/10/24 Unknown History solution (Drysol Dab-O-Matic) Exam Height,Weight and Vital Signs: Height 5 ft 9 in Weight 102.058 kg Pertinent Lab Results Pertinent Lab Results: Laboratory Tests 11/07/24 16:27 WBC 9.1 Hgb 14.8 Hct 45.0 Plt Count 295 Sodium 139 Potassium 4.3 Chloride 111 H Carbon Dioxide 21 L BUN 13 Creatinine 0.76 Narrative Narrative: EKG 2023 Vent. Rate : 072 BPM Atrial Rate : 072 BPM P-R Int : 110 ms QRS Dur : 076 ms QT Int : 376 ms P-R-T Axes : -12 017 021 degrees QTc Int : 411 ms Sinus rhythm with short NV Otherwise normal ECG When compared with ECG of 10-JUL-2018 17:07, No significant change was found Assessment and Plan Assessment Anesthesia Assessment: Chart Reviewed Final Anesthetic Review Family History of Problems with Anesthesia: No History of Problems with Anesthesia: No Documented by User: Carlos Maldonado MD 03/23/25 08:07 [facility] Past Medical History Medical History Lumbar degenerative disc disease Abdominal pain Blurred vision, right eye Environmental allergies Throat discomfort Onychomycosis Otitis media Hemorrhoids Colon cancer screening Pneumonia Muscle spasm of back Low back pain Malaise and fatigue Elevated C-reactive protein Right knee pain Allergic rhinitis Anxiety Insomnia Benign prostatic hyperplasia Obstructive sleep apnea Constipation Impaired fasting glucose Asthma Dyslipidemia Benign essential hypertension Obesity (BMI 30-39.9) Overactive bladder Vitamin D deficiency Hypertension Family History Family History Brother Diabetes Surgical History Surgical History History of surgery History of prostate surgery Hx of eye surgery Hx of hemorrhoidectomy Hx of rectal sphincterotomy H/O colonoscopy Social History Social History Household Members: None Housing: Apartment Are you a primary geriatric care manager to a significant other at home: No Do you presently have visiting nurse or other home services: No Alcohol intake: current Alcohol intake frequency: does not drink Comment: counts correct Patient Tobacco Use Status: Former Tobacco user Tobacco use type: Cigarette Years Smoked: 20 e-Cigarette/Vaping Use: Never Used Second Hand Smoke Exposure: No Use of substances other than those prescribed or required for medical reasons: No Have you been hit, kicked, punched, or otherwise hurt by someone within the past year? 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 Cognitive needs: No Hearing needs: No Vision needs: No Meds Allergies Allergy/AdvReac Type Severity Reaction Status Date / Time adhesive tape Allergy Intermediate Skin Verified 02/13/25 13:07 sloughing with cardiac leads and IV securement device gabapentin (GABAPENTIN) Allergy Unknown SEVERE Verified 02/13/25 13:07 H/A,BLURRY VISION,MOOD CHANGE Home Medications ?Medication ?Instructions ?Recorded ?Confirmed ?Last Taken ?Type aluminum chloride 20 % topical 1 appl topical BID 10/0711/10/24 Unknown History solution (Drysol Dab-O-Matic) Exam Airway Mallampati Class: II TM Dist: <=3cm Neck ROM: Full Loose/Missing/Broken Teeth: No Heart: ok Lungs: ok Assessment and Plan Assessment Anesthesia Assessment: Anesthesia Plan Discussed Final Anesthetic Review NPO: Yes ASA Class: III Final Preanesthetic Review: No Changes in Pt Med Stat, Meds/Allgs Chart Revi ewed, Consent Obtained/Reviewed and Anes Risks/Benef Reviewed Patient Risk: Intermediate Procedure Risk: Intermediate Anesthetic Plan Anesthetic Plan: Agree w/ Assess. and Plan and TIVA Disposition: Standard PACU
--- NOTE | 2025-03-23 07:32 | P.HPSUR_ITS ---
Pre-Procedural Eval Section A - 24 Hr Update-Section A only Date of Service: 03/23/25 Section B - Complete if H&P > 30 days Chief Complaint: gerd,screening Relevant Family History (Specify if Yes): No Relevant Social History: None Present Medications: see Short Stay Collaborative assessment Medical History: Significant History (Lumbar degenerative disc disease Abdominal pain Blurred vision, right eye Environmental allergies Throat discomfort Onychomycosis Otitis media Hemorrhoids Colon cancer screening Pneumonia Muscle spasm of back Low back pain Malaise and fatigue Elevated C-reactive protein Righ t knee pain Allergic rhin) History of Previous Operations: Relevant previous surgery/procedure and date(s) (History of surgery History of prostate surgery Hx of eye surgery Hx of hemorrhoidectomy Hx of rectal sphincterotomy H/O colonoscopy) Allergies: Allergies Allergy/AdvReac Type Severity Reaction Status Date / Time adhesive tape Allergy Intermediate Skin Verified 02/13/25 13:07 sloughing with cardiac leads and IV securement device gabapentin (GABAPENTIN) Allergy Unknown SEVERE Verified 02/13/25 13:07 H/A,BLURRY VISION,MOOD CHANGE Review of Systems Sugical H&P ROS: Negative: Constitution, Cardiovascular, Respiratory, Neurological, Psychiatric, Hem-Onc, Allergic/Immunologic, Gastrointestinal, Genitourinary, Musculoskeletal, Integumentary, Endocrine and Eyes/Ears/Nose/Throat Exam Surgical H&P Exam: Normal: HEENT, Normal: Heart, Normal: Lungs, Normal: Extremities, Normal: Abdomen, Normal: Skin and Normal: Neurological Plan Diagnosis/Plan: Unchanged I have reviewed the history and physical and performed a pertinent physical examination on my patient. No changes have occurred unless specified. Time Spent With Patient Time: Total time managing care of this patient today ____ minutes.
[2025-03-23 07:45] VITALS: BMI 32.7
[2025-03-23 07:53] VITALS: BP 128/86; PULSE 67; RESP 16; TEMP 36.2; O2SAT 97
[2025-03-23] MEDS: Lactated Ringers 1,000 ML 100 ML IVCONT (08:02)
--- NOTE | 2025-03-23 09:28 | P.OPN-COLO_ITS ---
Colonoscopy Operative Note Operative Note Date of Service: 03/23/25 Narrative: Operative Information Procedure Description: EGD, Colonoscopy Indication: GERD, epigastric pain and hx of colon polyps Anesthesia: MAC FLEXIBLE TRANSORAL UPPER GASTROINTESTINAL ENDOSCOPY AND COLONOSCOPY PROCEDURE NOTE UPPER ENDOSCOPY Consent: Indications for the procedure and potential complications of bleeding, perforation, reaction to medications and missed diagnosis were discussed with the patient and informed consent was obtained. Instrument: Olympus GIF H 190 J mid size upper endoscope Monitoring: Vital signs and clinical assessment, continuous EKG monitoring, Pulse oximetry, Carbon Dioxide monitoring and blood pressure monitoring were done throughout the procedure. Procedure: The patient was placed in the left lateral decubitis position and pre-procedure medications were administered and a bite block was placed. The endoscope was inserted into the mouth and advanced under direct vision to the third part of duodenum. A careful inspection was made as the upper endoscope was withdrawn including a retroflexed examination of the proximal stomach; Findings and interventions are described below. Findings: Larynx:normal Esophagus: GE junction at 40 cm, diaphragm hiatus at 40 cm, mild bogginess and erythema at GEJ, bx taken from here and distal, proximal esophagus Stomach: patchy erythema. Biopsies were obtained. Grade 2 flap valve on retroflexed examination of the cardia. Duodenum: mild duodenitis Intervention: Biopsies as noted above, COLONOSCOPY Instrument: Olympus variable stiffness pediatric scope 190L Colonoscopy Monitoring: Vital signs and clinical assessment, continuous EKG monitoring, Pulse oximetry, Carbon Dioxide monitoring and blood pressure monitoring were done throughout the procedure. Colon withdrawal time was 40 minutes. Procedure: The patient was placed in the left lateral decubitis position and pre-procedure medications were administered. After a digital rectal examination of the ano-rectum, the video colonoscope was inserted into the rectum and advanced through the colon to the cecum/TI. The colonoscope was slowly withdrawn in a retrograde panoramic fashion and the colon mucosa was carefully examined including a retroflexed view of the rectum. Findings and interventions are described below. Procedure Difficulty: easy Findings: Terminal Ileum-normal Cecum:normal Ascending Colon: x2 sessile polyps, 8-10 mm, one removed with cold snare and one removed with cold forceps Transverse Colon -normal Descending Colon:normal Sigmoid Colon: moderate diverticulosis Rectum: Retroflexion with small internal hemorrhoids, grade I, x 4 sessile polyps 5-7 mm removed with cold snare Anorectum - normal Colon preparation: [place] Bowel Preparation Scale Right colon; 2 Transverse colon: 2 Left colon; 2 (0 = Unprepared colon segment with mucosa not seen due to solid stool that cannot be cleared. 1 = Portion of mucosa of the colon segment seen, but other areas of the colon segment not well seen due to staining, residual stool and/or opaque liquid. 2 = Minor amount of residual staining, small fragments of stool and/or opaque liquid, but mucosa of colon segment seen well. 3 = Entire mucosa of colon segment seen well with no residual staining, small fragments of stool or opaque liquid) Impression and Post Procedure Diagnosis: Endoscopy Findings: esophagitis gastritis duodenitis Colonoscopy Findings: diverticulosis colon polyps internal hemorrhoids Plan: Await Pathology results Repeat Colonoscopy in 5 years or earlier if clinically indicated High fiber diet leaflet avoid straining at stool, epsom salts and sitz bath, anusol supps or cream GERD precautions -check compliance with PPI Above findings were reviewed with the patient and relevant handouts were provided if indicated.
[2025-03-23 09:33] VITALS: BP 112/78; PULSE 82; RESP 20; TEMP 36.9; O2SAT 95
[2025-03-23 09:48] VITALS: BP 127/88; PULSE 70; RESP 18; TEMP 36.7; O2SAT 97
== END 2025-03-23 10:13 | disposition home or self-care (01) ==
PROVIDERS: PCP Internal Medicine; Visit Provider Internal Medicine Gastroenterology
PROC: (CPT 45385; principal; 2025-03-23 09:30)
DX: Z12.11 Encounter for screening for malignant neoplasm of colon (principal); D12.2 Benign neoplasm of ascending colon; K62.1 Rectal polyp; K57.30 Diverticulosis of large intestine without perforation or abscess without bleeding; K64.0 First degree hemorrhoids; Z86.0101 Personal history of adenomatous and serrated colon polyps; K21.9 Gastro-esophageal reflux disease without esophagitis; K29.80 Duodenitis without bleeding; K22.89 Other specified disease of esophagus; K29.60 Other gastritis without bleeding; Q39.8 Other congenital malformations of esophagus; I10 Essential (primary) hypertension; E78.5 Hyperlipidemia, unspecified; J45.909 Unspecified asthma, uncomplicated; G47.33 Obstructive sleep apnea (adult) (pediatric); Z87.891 Personal history of nicotine dependence; Z79.899 Other long term (current) drug therapy
CPT/HCPCS: 45385; 45380; 43239; 88305; 88313; 88342; J2003; J2704

== ENCOUNTER → 2025-03-23 07:20 | Outpatient (BNV) | payer OTHER, SELFPAY | PROVIDERS: PCP Internal Medicine; Visit Provider Internal Medicine Gastroenterology | DX: K20.90 Esophagitis, unspecified without bleeding (principal); K29.90 Gastroduodenitis, unspecified, without bleeding; Z12.11 Encounter for screening for malignant neoplasm of colon; K63.5 Polyp of colon; K57.90 Diverticulosis of intestine, part unspecified, without perforation or abscess without bleeding; Z86.0100 Personal history of colon polyps, unspecified | CPT/HCPCS: 43239; 45380; 45385 ==

== ENCOUNTER 2025-03-27 09:35 | Outpatient (AMB) | payer OTHER, SELFPAY ==
--- NOTE | 2025-03-27 09:38 | HO.SPINEOV ---
Intake Visit Reasons: 2nd post op Intake Note: Mr. Fleming is here today for his 2nd post op. Rn Recovery Required: No Allergies adhesive tape Allergy (Intermediate, Verified 03/27/25 09:42) Skin sloughing with cardiac leads and IV securement device gabapentin (GABAPENTIN) Allergy (Unknown, Verified 03/27/25 09:42) SEVERE H/A,BLURRY VISION,MOOD CHANGE Assessment & Plan Assessment & Plan (1) S/P cubital tunnel release: Code(s): Z98.890 - Other specified postprocedural states Category: Medical Plan Procedure: Left ulnar nerve decompression Enmanuel comes in today for his 2nd postop appointment s/p left cubital tunnel release with Dr. Pritchard. To recap he scratched off the scab in his incision and was seen for an acute postop visit shortly after surgery. His incision has healed up nicely since then. He reports that he has been continuing essentially regular activity as he was during his prior visit. He is very satisfied overall with the surgery and only reports very mild tingling over his 5th phalanx on the left side. No new neurological deficits. The patient has full range of motion of his left upper extremity. His incision is closed and well healed. There is no need for continued routine follow up with the patient. He may be discharged. Carroll Pritchard MD,PhD [facility] Coding Level of Care Code Global (59905) Diagnoses S/P cubital tunnel release Z98.890
--- OUTSIDE RECORDS SUMMARY | 2025-03-27 10:00 | XMS_ITS | Data Portability ---
Author Organization [facility] [address] Address [address] [place] [address] Assessment No assessment recorded. Plan of Treatment Reminders Order Date Submit Date Provider Last Modified By Organization Details Last Modified Time Details Appointments None recorded. Lab Mycobacteri um tuberculosi s stimulated gamma interferon, qual, blood 2023 024 [employer] [facility] [address] [place], [address], 4 14:06:54 Mycobacteri um tuberculosi s stimulated gamma interferon, qual, blood 2023 024 [facility] [address] [place], [address], 4 12:06:27 Referral None recorded. Procedures None recorded. Surgeries None recorded. Imaging None recorded. Medication Orders None recorded. Patient TargetsNo targets recorded. Patient Instructions Encounter Date Encounter Id Patient Instructions Last Modified By Organization Details Last Modified Time 02/29/2024 [id number] learning about tuberculosis (TB) [email or web address] Not available [...] clini grant indic ated. Not Available [facility] ([facility]) [address] [place], [address], 02/25/2024 12:06:27 02/22/20 24 02/25/2024 QUANT IFERO N-TB GOLD PLUS quantiferon- TB gold plus TNP Test not perfo rmed Not Available [facility] ([facility]) [address] [place], [address], 02/25/2024 12:06:27 02/22/20 24 02/25/[address] PROBL EM request problem TNP Test not perfo rmed. The speci men submi tted does not meet the labor randyy 's crite tad for accep tabil ity (spec imen was not recei tanner withi n 16 hours of colle ction ). Pleas e resub iwona if clini grant indic ated. TEST: 61804 9 Quant iFERO N-TB Gold Plus Not Available [facility] ([facility]) [address] [place], [address], 02/25/2024 12:06:28 02/29/20 24 03/02/2024 QUANT IFERO N-TB GOLD PLUS quantiferon incubation INCUBA TION PERFOR MED. Not Available [facility] ([facility]) [address] [place], [address], 03/03/2024 14:06:54 02/29/20 24 03/02/2024 QUANT IFERO [...] ol for the test. Not Available [facility] ([facility]) [address] [place], [address], 03/03/2024 14:06:54 02/29/20 24 03/03/2024 QUANT IFERO N-TB GOLD PLUS quantiferon TB1 Ag value 0.03 IU/mL Not Available [facility] ([facility]) [address] [place], [address], 03/03/2024 14:06:54 02/29/20 24 03/03/2024 QUANT IFERO N-TB GOLD PLUS quantiferon TB2 Ag value 0.02 IU/mL Not Available [facility] ([facility]) [address] [place], [address], 03/03/2024 14:06:54 02/29/20 24 03/03/2024 QUANT IFERO N-TB GOLD PLUS quantiferon nil value 0.02 IU/mL Not Available [facility] ([facility]) [address] [place], [address], 03/03/2024 14:06:54 02/29/20 24 03/03/2024 QUANT IFERO N-TB GOLD PLUS quantiferon mitogen value >10.00 IU/mL Not Available [facility] ([facility]) [address] [place], [address], 03/03/2024 14:06:54 02/29/20 24 03/03/2024 QUANT IFERO [...] y metho dolog y Not Available [facility] ([facility]) [address], [place], [address], 03/03/2024 14:06:54 Result Notes None recorded. Procedures Surgical History Date Name Laterality Status Provider Name and Address Organization Details Recorded Time OC-UDS Send Out Template NON DOT completed Angelita Bryant PA - [facility] 02/22/2024 09:15:37 Imaging Results [...] SNOMED-CT Code Diagnosis ICD10 Code Diagnosis Note [id number] [place] [address] [address] 02/22/2024 08:53:41 02/22/2024 09:30:14 History and physical examination, occupation [id number] Z02.1 [id number] Saundra Soriano, FERCHO [address] [address] 02/29/2024 09:58:51 02/29/2024 10:50:41 Tuberculosis screening [id number] Z11.1 Health Concerns Section Related Observation LastModified by Organization Detai ls LastModified Time None Recorded Concern Status LastModified by Organization Details LastModified Time None Recorded Advance Directives Directive None Recorded Payers Insurance Date Sequence Insurance Name Policy Number Policy Gonsalves Covered Member ID Gonsalves Member ID Guarantor Name 02/22/2024 OC-ESCREEN [facility] OC-ESCREEN Enmanuel Fleming
--- OUTSIDE RECORDS SUMMARY | 2025-03-27 10:00 | XMS_ITS | Clinical Summary ---
Author Organization [facility] Address [address] [place] [address] Phone Care Team Providers Care Railroad Detective Name Role Phone Aayush Jay MD Primary Care Provider [phone]- [phone] Allergies Active Allergy Reactions Criticality Noted Date [...] 1 Active cholecalciferol (VITAMIN D-3) 1.25 MG (07692 UT) tablet Take by mouth Activ e docusate sodium (COLACE) 100 MG capsule Take 100 mg by mouth 2 (two) times a day 1 Active ergocalciferol 1.25 MG (31024 UT) capsule Take 50,000 Units by mouth [...] Colonoscopy 2022 Colorectal Cancer Screening: Sigmoidoscopy 2022 Pneumococcal Vaccine: 50+ Years (1 of 1 - PCV) 023 Influenza Vaccine (#1) 2025 Insurance (A2793) (A2793) Care Teams Railroad Detective Relationship Specialty Start Date End Date Aayush Jay MD [address] [place] [address] PCP - General 09/24/20
== END 2025-03-27 09:51 | disposition home or self-care (01) ==
LOC: HO.HNS 09:35
PROVIDERS: PCP Internal Medicine; Visit Provider Physician Assistant
DX: Z98.890 Other specified postprocedural states (principal)
CPT/HCPCS: 99024

== ENCOUNTER 2025-05-16 07:23 | Outpatient (REF) | payer OTHER, SELFPAY ==
--- OUTSIDE RECORDS SUMMARY | 2025-05-16 07:26 | XMS_ITS | Clinical Summary ---
Author Organization [facility] Address [address] [place] [address] Phone Care Team Providers Care Manager Of Network Name Role Phone Unknown, Unknown Primary Care Provider Hayden lable Allergies Active Allergy Reactions Criticality Noted Date Comments Gabapentin Other (See Comments),Headaches,Ment al Status Change 11/01/2019 Vision issus blurries Medications zolpidem (AMBIEN) 10 mg tablet Take 10 mg by mouth nightly at bedtime. Active amLODIPine (NORVASC) 5 MG tablet Take 5 mg by mouth daily. Active cholecalciferol (VITAMIN D3) 50,000 unit tablet Take by mouth once a week. Active traMADoL (ULTRAM) 50 mg tablet Take 50 mg by mouth every 6 (six) hours as needed for pain (specific location in comments). Active tiotropium (SPIRIVA HANDIHALER) 18 mcg inhalation capsule Inhale 18 mcg into the lungs daily. Active Social History Tobacco Use Types Packs/Day Years Used Date Smoking Tobacco: Former Cigarettes 1 30 0 03/17/1988 - 03/17/2018 Smokeless Tobacco: Never Alcohol Use Standard Drinks/Week Comments Yes 0 (1 standard drink = 0.6 oz pur e alcohol) Education Answer Date Recorded Are you interested in more education? Not on julio e 01/09/2023 Are you concerned about learning? Not on file 01/09/2023 No 01/09/2023 No 01/09/2023 Digital Access Answer Date Recorded No 2023 No 2023 No 2023 Reliable internet access at home? Not on file 2023 Device with a working camera? Not on file Sex and Gender Information Value Date Recorded Sex Assigned at Not on file Legal Sex Male 12:02 PM EST Gender Identity Not on file Sexual Orientation Not on file Last Filed Vital Signs Vital Sign Reading Time Taken Comments Blood Pressure 125/88 11/01/2019 12:54 PM EST Pulse 93 11/01/2019 12:54 PM EST Temperature - - Respiratory Rate - - Oxygen Saturation - - Inhaled Oxygen Concentration - - Weight 106.2 kg (234 lb 3.2 oz) 020 12:54 PM EST Height 175.3 cm (5' 9 ) 11/01/2019 12:5 4 PM EST Body Mass Index 34.59 11/01/2019 12:54 PM EST Plan of Treatment Health Maintenance Due Date Last Done Comments LIPID PANEL 1973 DEPRESSION SCREENING 1985 SMOKING Hx and SMOKELESS TOBACCO SCREENING 1986 HEPATITIS C SCREENING 1991 HIV ONE-TIME SCREENING (18-6 5 YEARS) 1991 COLOGUARD 2018 COLONOSCOPY 2018 COLORECTAL CANCER SCREENING 2018 FIT TEST 2018 FOBT 2018 SIGMOIDOSCOPY 2018 VIRTUAL COLONOSCOPY 2018 PNEUMOCOCCAL VACCINES (50+ years) (1 of 1 - PCV) 2023 ZOSTER VACCINES (1 of 2) 2023 COVID-19 VACCINE (2 - 2023-2 5 season) 2024 11/28/2020 Adult Td,Tdap Booster 12/11/2028 12/11/2018 , 09/21/2012 HEPATITIS A VACCINES Aged Out No long er eligible based on patient's age to complete this topic HIB VACCINES Aged Out No longer eligi ble based on patient's age to complete this topic MENINGOCOCCAL VACCINES (ACWY) Aged Out No longer eligible based on patient's age to complete this topic MENINGOCOCCAL VACCINES (B) Aged Out N o longer eligible based on patient's age to complete this topic Medical Devices Not on file Insurance [facility]IC[facility] & [facility] B [place] [facility] PART A & [facility] [place] A & [facility] & B HEALTH MEDICARE PART A & B [facility] & [facility] Care Teams Manager Of Network Relationship Specialty Start Date End Date Unknown, Unknown, PCP - General 10/12/19 Additional Source Comments The information contained in this document represents components of the legal health record. It is not the complete legal health record.[facility]
--- OUTSIDE RECORDS SUMMARY | 2025-05-16 07:26 | XMS_ITS | Clinical Summary ---
Author Organization [facility] Address [address] [place] [address] Phone Care Team Providers Care Air Table Operator Name Role Phone Aayush Jay MD Primary Care Provider [phone]- [phone] Allergies Active Allergy Reactions Criticality Noted Date [...] 1 Active cholecalciferol (VITAMIN D-3) 1.25 MG (02507 UT) tablet Take by mouth Activ e docusate sodium (COLACE) 100 MG capsule Take 100 mg by mouth 2 (two) times a day 1 Active ergocalciferol 1.25 MG (25533 UT) capsule Take 50,000 Units by mouth [...] (#1) 2025 Insurance (A2793) ([id number]) Care Teams Air Table Operator Relationship Specialty Start Date End Date Aayush Jay MD [address] [place] [address] PCP - General 09/24/20
[2025-05-16 07:51] LABS: MANUAL DIFF FLAG NO
[2025-05-16 08:25] LABS: Hematocrit 44.5 % (42.0-52.0); Hemoglobin 15.1 g/dl (14.0-18.0); Imm Gran Abs Auto 0.03 X10*3/uL (0.00-0.03); Imm Gran Pct Auto 0.4 % (0.0-0.4); Lymphocytes Absolute Auto 2.6 X10*3/uL (1.2-4.9); Mean Corpuscular HGB Conc 33.9 g/dl (31.0-36.0); Mean Corpuscular Hemoglobin 29.3 pg (27.0-33.0); Mean Corpuscular Volume 86.2 fL (80.0-98.0); NRBC Abs Auto 0.000 X10*3/uL (0.0-0.012); NRBC Pct Auto 0.0 /100WBC (0.0-0.2); Platelet Count 302 X10*3/uL (160-400); Red Blood Count 5.16 X10*6/uL (4.60-5.80); White Blood Count 8.1 X10*3/uL (4.8-10.8)
[2025-05-16 08:36] LABS: Appearance Urine Clear; Glucose Urine UA Negative (Negative); PH 5.5 (5.0-9.0); Specific Gravity - Urine 1.025 (1.005-1.025); UMIC TRIGGER UACC YES
[2025-05-16 09:02] LABS: Alanine Aminotransferase 10 U/L (0-40); Albumin Level 4.4 g/dL (3.5-5.0); Alkaline Phosphatase 102 U/L (39-117); Anion Gap 12 (12-20); Aspartate Amino Transferase 20 U/L (5-37); Blood Urea Nitrogen 12 mg/dL (9-16); Calcium 9.1 mg/dL (8.4-10.2); Carbon Dioxide 26 mmol/L (22-29); Chloride 108 mmol/L (96-108); Cholesterol 186 mg/dL (<200); Estimated Glomerular Filt Rate > 60; HDL Cholesterol 26 mg/dL (>40); Potassium 3.8 mmol/L (3.3-5.1); Sodium 142 mmol/L (135-145); Total Protein 7.1 g/dL (6.5-8.0); Triglycerides 115 mg/dL (<150)
[2025-05-20 15:03] LABS: Testosterone, Free 75.9 pg/mL (35.0-155.0)
== END 2025-05-16 07:24 | disposition home or self-care (01) ==
LOC: HO.LAB 07:23
PROVIDERS: PCP Internal Medicine
DX: I10 Essential (primary) hypertension (principal); E78.5 Hyperlipidemia, unspecified; G47.33 Obstructive sleep apnea (adult) (pediatric); R73.01 Impaired fasting glucose; E55.9 Vitamin D deficiency, unspecified; K59.00 Constipation, unspecified; K21.9 Gastro-esophageal reflux disease without esophagitis; N40.1 Benign prostatic hyperplasia with lower urinary tract symptoms; R35.0 Frequency of micturition; G47.00 Insomnia, unspecified; F41.9 Anxiety disorder, unspecified; E66.9 Obesity, unspecified; J45.20 Mild intermittent asthma, uncomplicated; M51.360 Other intervertebral disc degeneration, lumbar region with discogenic back pain only; N32.81 Overactive bladder
CPT/HCPCS: 36415; 80053; 80061; 81001; 82306; 83036; 84402; 84403; 84443; 85025; 96127

== ENCOUNTER 2025-05-16 13:00 | Outpatient (AMB) | payer OTHER, SELFPAY ==
[2025-05-16 13:06] VITALS: BP 128/86; PULSE 82; O2SAT 96
--- NOTE | 2025-05-16 13:06 | MHC.PC.OV ---
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 Required: No Accompanied by: Self / Same As Patient Allergies adhesive tape Allergy (Intermediate, Verified 05/16/25 13:44) Skin sloughing with cardiac leads and IV securement device gabapentin (GABAPENTIN) Allergy (Unknown, Verified 05/16/25 13:44) SEVERE H/A,BLURRY VISION,MOOD CHANGE Medication List - Last Reconciled 05/16/25 by Aayush Jay MD [adjustable straight point cane with offset handle As directed] albuterol sulfate 90 mcg/actuation 2 puffs inhalation Q4-6H PRN 30 days aluminum chloride 20% (Drysol Dab-O-Matic) 1 appl topical BID amlodipine 5 mg PO DAILY 90 days bisacodyl (Dulcolax (bisacodyl)) 20 mg (4 x 5 mg) PO ONCE 1 day bisacodyl (Dulcolax (bisacodyl)) 20 mg (4 x 5 mg) PO ONCE 1 day cetirizine 10 mg PO DAILY PRN 90 days ergocalciferol (vitamin D2) (Vitamin D2) 1,250 mcg PO QWEEK 3 months [HANDHELD SHOWER HEAD As directed] lorazepam 0.5 mg PO BID PRN 30 days metformin ER 500 mg PO QPM 90 days mirabegron ER (Myrbetriq) 50 mg PO DAILY 30 days oxycodone 5 mg PO Q4H PRN pantoprazole 40 mg PO DAILY polyethylene glycol 3350 (Miralax) 238 grams PO ONCE tramadol 50 mg PO TID PRN 30 days zolpidem 10 mg PO BEDTIME PRN 30 days Tobacco use date assessed: 05/16/25 Dental Screening Dental Screen Date: 05/16/25 Did you have a dental visit in the last 12 months?: Yes Did you have a dental problem in the last 6 months where you did not have access to dental care?: No Was dental information given to patient?: Patient has dentist HPI htn/asthma/GERD/IFG HPI Details Patient comes in today for his follow up visit - was last seen by me almost a year ago on 05/19/2024 States that he underwent cubital tunnel release surgery on the left arm by Dr. Pritchard back on 02/09/2025 He also had his screening colonoscopy done a couple of months ago on 03/23/25 - (+) TA and he was recommended for a repeat colonoscopy in 5 years Patient states that he feels okay He denies any headaches or dizziness Denies any chest pains, no increased shortness of breath No nausea/vomiting, no abdominal pain No change in bowel habits noted Needs a few of his Rx refilled He had his follow up labs done earlier today - to discuss his results [facility] Medical History Lumbar degenerative disc disease Abdominal pain Blurred vision, right eye Environmental allergies Throat discomfort Onychomycosis Otitis media Hemorrhoids Colon cancer screening Pneumonia Muscle spasm of back Low back pain Malaise and fatigue Elevated C-reactive protein Right knee pain Allergic rhinitis Anxiety Insomnia Benign prostatic hyperplasia Obstructive sleep apnea Constipation Impaired fasting glucose Asthma Dyslipidemia Benign essential hypertension Obesity (BMI 30-39.9) Overactive bladder Vitamin D deficiency Hypertension Surgical History History of surgery History of prostate surgery Hx of eye surgery Hx of hemorrhoidectomy Hx of rectal sphincterotomy H/O colonoscopy Family History Brother Diabetes Social History Household Members: None Housing: Apartment Are you a primary intensive care unit nurse to a significant other at home: No Do you presently have visiting nurse or other home services: No Alcohol intake: current Alcohol intake frequency: does not drink Comment: counts correct Patient Tobacco Use Status: Former Tobacco user Tobacco use type: Cigarette Years Smoked: 20 e-Cigarette/Vaping Use: Never Used Second Hand Smoke Exposure: No service: No Current occupational status: employed 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 1. Little interest or pleasure in doing things: not at all 2. Feeling down, depressed, or hopeless: not at all 3. Trouble falling or staying asleep, or sleeping too much: not at all 4. Feeling tired or having little energy: not at all 5. Poor appetite or overeating: not at all 6. Feeling bad about yourself - or that you are a failure or have let yourself or your family down: not at all 7. Trouble concentrating on things, such as reading the newspaper or watching television: not at all 8. Moving or speaking so slowly that other people could have noticed. Or the opposite - being so fidgety or restless that you have been moving around a lot more than usual: not at all 9. Thoughts that you would be better off or of hurting yourself in some way: not at all Total score: 0 Depression Screening Interpretation: Negative Depression Screening Done: Yes 60507 - PHQ-9 Billing: Yes Source: Developed by Drs. Александр Andre, Muriel Guido, Shiv Treadwell and colleagues, with an educational sharon from [employer]. Thrive Questionnaire Date Thrive assessed: 09/21/24 I am a: Patient What is your living situation today?: I have a steady place to live Within the past 12 months, did the food you bought not last and you didn't have the money to get more?: I choose not to answer this question Within the past 12 months, did you worry whether your food would run out before you got money to buy more?: I choose not to answer this question Do you have trouble paying for medicines?: I choose not to answer this question Do you have trouble getting transportation to medical appointments?: I choose not to answer this question Do you have trouble paying your heating and electricity bill?: I choose not to answer this question Do you have trouble taking care of your child, family member or friend?: I choose not to answer this question Do you have trouble with day-to-day activities such as bathing, preparing meals, shopping, managing finances, etc.?: I choose not to answer this question Are you currently unemployed and looking for a job?: I choose not to answer this question Are you interested in more education?: I choose not to answer this question Please select the resources that you would like help with: None Currently or been in a relationship where the following occur: I choose not to answer THRIVE Score: 0 AUDIT C Alcohol Use Questionnaire (AUDIT-C) 1. How often do you have a drink containing alcohol?: Never Total Score: 0 Score Reviewed/Action Taken: Yes WILMER-7 AMB Questionnaire WILMER-7 Date WILMER - 7 assessed: 09/21/24 Feeling nervous, anxious, or on edge: 0 = Not at all Not being able to stop or control worryin = Not at all Worrying too much about different things: 0 = Not at all Trouble relaxin = Not at all Being so restless that it is hard to sit still: 0 = Not at all Becoming easily annoyed or irritable: 0 = Not at all Feeling afraid as if something awful might happen: 0 = Not at all Total WILMER-7 score (0-4 normal; 5-9 mild; 10-14 moderate; 15-21 severe): 0 Source: Developed by Drs. Александр Andre, Muriel Guido, Shiv Treadwell and colleagues, with an educational sharon from [employer]. Review of Systems Const Denies chills, Denies fatigue, Denies fever(s) and Denies headache(s) ENT Denies dysphagia, Denies dizziness, Denies otalgia, Denies headache(s), Denies odynophagia and Denies sore throat Card Denies chest pain, Denies palpitations and Denies dyspnea Resp Denies cough, Denies dyspnea and Denies wheezing GI Denies abdominal pain, Denies constipation, Denies dysphagia, Denies heartburn, Denies diarrhea, Denies nausea, Denies odynophagia and Denies vomiting Denies dysuria, Denies nocturia and Denies urinary frequency Musc Reports back pain (over the lumbar spine - chronic) Skin/Breast Denies rash Neuro Denies dizziness and Denies headache(s) Endo Denies fatigue and Denies palpitations Aller/Immun Denies wheezing Physical exam (Primary Care) Vital Signs: Last Vital Signs Pulse 82 05/16/25 13:06 BP 128/86 05/16/25 13:06 Pulse Ox 96 05/16/25 13:06 Oxygen Delivery Method Room Air 05/16/25 13:06 Tobacco/Smoking Status: Tobacco use Status Tobacco use date assessed 05/16/25 05/16/25 13:11 Patient Tobacco Use Status Former Tobacco user 05/16/25 13:07 Tobacco use type Cigarette 05/16/25 13:07 e-Cigarette/Vaping Use Never Used 05/16/25 13:07 PHQ-9: PHQ-9 Score PHQ-9: Total score 0 05/16/25 13:48 Depression Screening Interpretation: Negative Thrive Assessment: Date of Thrive Assessment Date Thrive assessed 09/21/24 05/16/25 13:07 Currently or been in a relationship where the following occur: I choose not to answer Const General: no acute distress and alert HENMT Ears: TM's normal bilaterally and EAC's normal Throat: Yes posterior oropharynx normal and Yes tonsils normal (no TP congestion) Neck Neck: Yes no lymphadenopathy and Yes supple Thyroid: Thyroid normal Resp Auscultation: clear to auscultation bilaterally, no rales and no wheezes Cardio Rate: regular rate Rhythm: regular rhythm Heart sounds: no murmurs GI Palpation (GI): Soft to palpation and nontender Auscultation: normal bowel sounds General: Yes no CVA tenderness Back/Spine/Pelvis Back: no CVA tenderness Thoracic/Lumbar Spine: lumbar spinal tenderness (R>L) Extrem General: Yes no clubbing, cyanosis or edema Results Reviewed Results Reviewed: Laboratory Tests 05/16/25 05/16/25 07:46 07:49 WBC 8.1 Hgb 15.1 Hct 44.5 Plt Count 302 Sodium 142 Potassium 3.8 Creatinine 0.93 Estimated GFR > 60 Fasting Glucose 112 H Hemoglobin A1c % 6.1 H Calcium 9.1 AST 20 ALT 10 Triglycerides 115 Cholesterol 186 LDL Cholesterol, Calc 137 H HDL Cholesterol 26 L 25-OH Vitamin D Total 31.3 TSH 0.84 Ur Specific [place] 1.025 Urine Protein Negative Urine Glucose (UA) Negative Urine Blood Negative Urine Nitrite Negative Ur Leukocyte Esterase Trace H Coding Level of Care Code Est Pt Level 4 (86683) Diagnoses Benign essential hypertension I10 Dyslipidemia E78.5 Obstructive sleep apnea G47.33 Impaired fasting glucose R73.01 Mild intermittent asthma without complication J45.20 Asthma severity: mild Asthma persistence: intermittent Asthma complication type: uncomplicated Vitamin D deficiency E55.9 Degeneration of intervertebral disc of lumbar region with discogenic back pain M51.360 Disc-related pain type: discogenic back pain only Constipation, unspecified constipation type K59.00 Constipation type: unspecified constipation type GERD without esophagitis K21.9 Overactive bladder N32.81 Benign prostatic hyperplasia with urinary frequency N40.1; R35.0 Lower urinary tract symptom presence: symptoms present Lower urinary tract symptom detail: urinary frequency Insomnia, unspecified type G47.00 Insomnia type: unspecified Anxiety F41.9 Obesity (BMI 30-39.9) E66.9 Additional Codes PHQ-9 - 38028 - PHQ-9 Billing: Yes ([id number]) Assessment & Plan Assessment & Plan (1) Benign essential hypertension: Code(s): I10 - Essential (primary) hypertension Category: Medical Plan: Reinforced low sodium diet - goal is systolic BP of 120 mm or less Continue Amlodipine 5 mg QD (2) Dyslipidemia: Code(s): E78.5 - Hyperlipidemia, unspecified Category: Medical Plan: Results of his labs done yesterday reviewed and discussed with patient Reinforced low cholesterol diet Will recheck his labs and fasting lipids in 4 months for follow up (3) Obstructive sleep apnea: Comment: no cpap used Code(s): G47.33 - Obstructive sleep apnea (adult) (pediatric) Category: Medical Plan: Follow up with Sleep Medicine as scheduled (4) Impaired fasting glucose: Code(s): R73.01 - Impaired fasting glucose Category: Medical Plan: His HgbA1c was 6.1% on his labs done yesterday Reinforced low calorie diet/exercise as tolerated (5) Asthma: Code(s): J45.909 - Unspecified asthma, uncomplicated Category: Medical Qualifiers: Asthma severity: mild Asthma persistence: intermittent Asthma complication type: uncomplicated Qualified Code(s): J45.20 - Mild intermittent asthma, uncomplicated Plan: Controlled - he appears to be doing well with his asthma lately Continue Xolair injections 300 mg every 2 weeks, Breo Ellipta 200-25 mcg 1 inhalation QD and Albuterol HFA 2 inhalations Q 6 hours PRN Follow up with Dr. Garber (pulmonary) as scheduled (6) Vitamin D deficiency: Code(s): E55.9 - Vitamin D deficiency, unspecified Category: Medical Plan: Continue Vitamin D2 70009 units once a week (7) Lumbar degenerative disc disease: Code(s): M51.36 - Other intervertebral disc degeneration, lumbar region Category: Medical Qualifiers: Disc-related pain type: discogenic back pain only Qualified Code(s): M51.360 - Other intervertebral disc degeneration, lumbar region with discogenic back pain only Plan: Reinforced activity and weight-lifting restrictions He had MBB trial a couple of years ago with reportedly around 85% symptomatic improvement; subsequently had TFESI in May 2023 and later on had a Sprint PNS trial which he states helped a lot with significant pain relief over his left lower back but he unfortunately did not respond as well over his right lower back and states that he wakes at night often now with increased right lower back pain He had his Sprint lead removed a year ago due to increasing pain with the leads in place Follow up with [facility] Pain Management as scheduled Continue Tramadol 50 mg TID PRN - Rx refilled (8) Constipation: Code(s): K59.00 - Constipation, unspecified Category: Medical Qualifiers: Constipation type: unspecified constipation type Qualified Code(s): K59.00 - Constipation, unspecified Plan: Improved - encouraged increased oral fluids and dietary fiber Continue Bisacodyl 5 mg BID PRM (9) GERD without esophagitis: Code(s): K21.9 - Gastro-esophageal reflux disease without esophagitis Category: Medical Plan: Dietary restrictions reinforced Continue Omeprazole 40 mg QD Follow up with GI as scheduled (10) Overactive bladder: Code(s): N32.81 - Overactive bladder Category: Medical Plan: Continue Myrbetriq ER 50 mg QD Follow up with urology as scheduled (11) Benign prostatic hyperplasia: Code(s): N40.0 - Benign prostatic hyperplasia without lower urinary tract symptoms Category: Medical Qualifiers: Lower urinary tract symptom presence: symptoms present Lower urinary tract symptom detail: urinary frequency Qualified Code(s): N40.1 - Benign prostatic hyperplasia with lower urinary tract symptoms; R35.0 - Frequency of micturition Plan: Follow up with urology as scheduled (12) Insomnia: Code(s): G47.00 - Insomnia, unspecified Category: Medical Qualifiers: Insomnia type: unspecified Qualified Code(s): G47.00 - Insomnia, unspecified Plan: Sleep hygiene reinforced Continue Zolpidem 10 mg Q HS PRN (13) Anxiety: Code(s): F41.9 - Anxiety disorder, unspecified Category: Medical Plan: Continue Lorazepam 0.5 mg BID PRN (14) Obesity (BMI 30-39.9): Code(s): E66.9 - Obesity, unspecified Category: Medical Plan: Reinforced diet/exercise as tolerated/lose weight Plan Follow up in 4 months Orders: Orders Comprehensive [place]. Panel Fast 4 Months E78.00 - Pure hypercholesterolemia, unspecified Lipid Panel 4 Months E78.00 - Pure hypercholesterolemia, unspecified UA CC w/rflx Micro + Cult 4 Months R30.0 - Dysuria Vitamin B12 and Folate 4 Months E53.8 - Deficiency of other specified B group vitamins Complete Blood Count Auto Diff 4 Months D64.9 - Anemia, unspecified Hemoglobin A1c 4 Months R73.01 - Impaired fasting glucose TSH reflex Free T4 4 Months E78.00 - Pure hypercholesterolemia, unspecified Vitamin D 25-OH Total 4 Months E55.9 - Vitamin D deficiency, unspecified Medications: Refilled zolpidem 10 mg PO BEDTIME PRN 30 tabs 1RF insomnia 30 days ergocalciferol (vitamin D2) (Vitamin D2) 1,250 mcg PO QWEEK 13 caps 3RF 3 months E55.9 - Vitamin D deficiency, unspecified tramadol 50 mg PO TID PRN 90 tabs 0RF pain 30 days M51.36 - Other intervertebral disc degeneration, lumbar region
== END 2025-05-16 13:57 | disposition home or self-care (01) ==
LOC: HO.HMCH 13:01
PROVIDERS: PCP Internal Medicine; Visit Provider Internal Medicine
DX: I10 Essential (primary) hypertension (principal); E78.5 Hyperlipidemia, unspecified; G47.33 Obstructive sleep apnea (adult) (pediatric); R73.01 Impaired fasting glucose; J45.20 Mild intermittent asthma, uncomplicated; E55.9 Vitamin D deficiency, unspecified; M51.360 Other intervertebral disc degeneration, lumbar region with discogenic back pain only; K59.00 Constipation, unspecified; K21.9 Gastro-esophageal reflux disease without esophagitis; N32.81 Overactive bladder; N40.1 Benign prostatic hyperplasia with lower urinary tract symptoms; R35.0 Frequency of micturition

== ENCOUNTER 2025-08-30 06:12 | Outpatient (REF) | payer OTHER, SELFPAY ==
--- OUTSIDE RECORDS SUMMARY | 2025-08-30 06:15 | XMS_ITS | Clinical Summary ---
Author Organization [facility] Address [address] [place] [phone] Phone Care Team Providers Care Combination Machine Tender Name Role Phone Unknown, Unknown Primary Care [...] HEPATITIS C SCREENING 1991 HIV ONE-TIME SCREENING (18-65 YEARS) 1991 COLOGUARD 2018 COLONOSCOPY 2018 COLORECTAL CANCER SCREENING 2018 FIT TEST 2018 FOBT 2018 SIGMOIDOSCOPY 2018 VIRTUAL COLONOSCOPY 2018 PNEUMOCOCCAL VACCINES (50+ years) (1 of 1 - PCV) 2023 ZOSTER VACCINES (1 of 2) 2023 INFLUENZA VACCINE (#1) 2025 8, 05/05/2017, 06/17/2016, Additional history exists COVID-19 VACCINE (2 - 2024- season) 2025 11/28/2020 Adult Td,Tdap Booster 12/11/2028 12/11/2018, 013 RSV VACCINE (1 - 1-dose 75+ series) 02/08/2048 HEPATITIS A VACCINES Aged Out No long [...] file Insurance MEDICARE PART A & B [place] [address] [address] [facility]IC[facility] A & [facility] Member Subscriber Plan / Payer (Ef fective 2019-) Name:Enmanuel Fleming Member ID:[id number] Relation to Subscriber:Self Name:Enmanuel Fleming Subscriber ID:[id number] Payer ID:[id number] Group ID:Not on file Type:Medicare Address: [employer] [address] [facility] & B [facility] PART A & B [place] MEDICARE PART A & B [facility] & B [facility] MEDICARE PART A & B [facility] [employer] Care Teams Combination Machine Tender Relationship Specialty Start Date End Date Unknown, Unknown, PCP - General 10/12/19 Additional Source Comments The information contained in this document represents components of the legal health record. It is not the complete legal health record.[facility]
--- OUTSIDE RECORDS SUMMARY | 2025-08-30 06:15 | XMS_ITS | Data Portability ---
Author Organization [facility] [id number] Address [address] [place] [address] Assessment No assessment recorded. Plan of Treatment Reminders Order Date Submit Date Provider Last Modified By Organization Details Last Modified Time Details Appointments None recorded. Lab Mycobacteri um tuberculosi s stimulated gamma interferon, qual, blood 2023 024 [facility] [address] [place], [address], 4 14:06:54 Mycobacteri um tuberculosi s stimulated gamma interferon, qual, blood 2023 024 [facility]), [address] [place], [address], 4 12:06:27 Referral None recorded. Procedures None recorded. Surgeries None recorded. Imaging None recorded. Medication Orders None recorded. Patient TargetsNo targets recorded. Patient Instructions Encounter Date Encounter Id Patient Instructions Last Modified By Organization Details Last Modified Time 02/29/2024 [id number] learning about tuberculosis (TB) [email or web address] Not available [...] clini grant indic ated. Not Available [facility] ([facility]) [address] [place], [address], 02/25/2024 12:06:27 02/22/20 24 02/25/2024 QUANT IFERO N-TB GOLD PLUS quantiferon- TB gold plus TNP Test not perfo rmed Not Available [facility] ([facility]) [address] [place], [address], 02/25/2024 12:06:27 02/22/20 24 02/25/[address] PROBL EM request problem TNP Test not perfo rmed. The speci men submi tted does not meet the labor randyy 's crite tad for accep tabil ity (spec imen was not recei tanner withi n 16 hours of colle ction ). Pleas e resub iwona if clini grant indic ated. TEST: [id number] 9 Quant iFERO N-TB Gold Plus Not Available [facility] ([facility]) [address] [place], [address], 02/25/2024 12:06:28 02/29/20 24 03/02/2024 QUANT IFERO N-TB GOLD PLUS quantiferon incubation INCUBA TION PERFOR MED. Not Available [facility] ([facility]) [address] [place], [address], 03/03/2024 14:06:54 02/29/20 24 03/02/2024 QUANT IFERO [...] ol for the test. Not Available [facility] ([facility]) [address] [place], [address], 03/03/2024 14:06:54 02/29/20 24 03/03/2024 QUANT IFERO N-TB GOLD PLUS quantiferon TB1 Ag value 0.03 IU/mL Not Available [facility] ([facility]) [address] [place], [address], 03/03/2024 14:06:54 02/29/20 24 03/03/2024 QUANT IFERO N-TB GOLD PLUS quantiferon TB2 Ag value 0.02 IU/mL Not Available [facility] ([facility]) [address] [place], [address], 03/03/2024 14:06:54 02/29/20 24 03/03/2024 QUANT IFERO N-TB GOLD PLUS quantiferon nil value 0.02 IU/mL Not Available [facility] ([facility]) [address] [place], [address], 03/03/2024 14:06:54 02/29/20 24 03/03/2024 QUANT IFERO N-TB GOLD PLUS quantiferon mitogen value >10.00 IU/mL Not Available [facility] ([facility]) [address] [place], [address], 03/03/2024 14:06:54 02/29/20 24 03/03/2024 QUANT IFERO [...] y metho dolog y Not Available [facility] ([facility]) [address], [place], [address], 03/03/2024 14:06:54 Result Notes None recorded. Procedures [...] Diagnosis SNOMED-CT Code Diagnosis ICD10 Code Diagnosis IMO Codes Diagnosis Note [id number] Aquilino DO Ezequiel [address] [address] 02/22/2024 08:53:41 02/22/2024 09:30:14 History and physical examination, occupation [id number] Z02.1 [id number] Saundra Soriano NP [address] [address] 02/29/2024 09:58:51 02/29/2024 10:50:41 Tuberculosis screening [id number] Z11.1 Health Concerns Section Related Observation LastModified by Organization Detai ls LastModified Time None Recorded Concern Status LastModified by Organization Details LastModified Time None Recorded Advance Directives Directive None Recorded Payers Insurance Date Sequence Insurance Name Policy Number Policy Gonsalves Covered Member ID Gonsalves Member ID Guarantor Name 02/22/2024 OC-ESCREEN [facility] OC-ESCREEN Enmanuel Fleming
[2025-08-30 06:25] LABS: MANUAL DIFF FLAG NO
[2025-08-30 07:18] LABS: Hematocrit 45.2 % (42.0-52.0); Hemoglobin 14.8 g/dl (14.0-18.0); Imm Gran Abs Auto 0.05 X10*3/uL (0.00-0.03); Imm Gran Pct Auto 0.7 % (0.0-0.4); Lymphocytes Absolute Auto 2.6 X10*3/uL (1.2-4.9); Mean Corpuscular HGB Conc 32.7 g/dl (31.0-36.0); Mean Corpuscular Hemoglobin 29.0 pg (27.0-33.0); Mean Corpuscular Volume 88.6 fL (80.0-98.0); NRBC Abs Auto 0.000 X10*3/uL (0.0-0.012); NRBC Pct Auto 0.0 /100WBC (0.0-0.2); Platelet Count 308 X10*3/uL (160-400); Red Blood Count 5.10 X10*6/uL (4.60-5.80); White Blood Count 7.1 X10*3/uL (4.8-10.8)
[2025-08-30 07:42] LABS: Appearance Urine Cloudy; Glucose Urine UA Negative (Negative); PH 5.5 (5.0-9.0); Specific Gravity - Urine 1.025 (1.005-1.025)
[2025-08-30 07:52] LABS: Alanine Aminotransferase 9 U/L (0-40); Albumin Level 4.0 g/dL (3.5-5.0); Alkaline Phosphatase 83 U/L (39-117); Anion Gap 12 (12-20); Aspartate Amino Transferase 24 U/L (5-37); Blood Urea Nitrogen 10 mg/dL (9-16); Calcium 8.8 mg/dL (8.4-10.2); Carbon Dioxide 23 mmol/L (22-29); Chloride 109 mmol/L (96-108); Cholesterol 145 mg/dL (<200); Estimated Glomerular Filt Rate > 60; HDL Cholesterol 30 mg/dL (>40); Potassium 3.8 mmol/L (3.3-5.1); Sodium 140 mmol/L (135-145); Total Protein 6.5 g/dL (6.5-8.0); Triglycerides 93 mg/dL (<150)
[2025-08-30 08:15] LABS: Folate 8.8 ng/mL (> or = 4.0); Vitamin B12 851 pg/mL (200-900)
== END 2025-08-30 06:13 ==
LOC: HO.LAB 06:12
PROVIDERS: PCP Internal Medicine; Visit Provider Internal Medicine
DX: E53.8 Deficiency of other specified B group vitamins (principal); E78.00 Pure hypercholesterolemia, unspecified; D64.9 Anemia, unspecified; E55.9 Vitamin D deficiency, unspecified; R73.01 Impaired fasting glucose; R30.0 Dysuria
CPT/HCPCS: 36415; 80053; 80061; 81003; 82306; 82607; 82746; 83036; 84443; 85025

== ENCOUNTER 2025-08-30 15:45 | Outpatient (AMB) | payer OTHER, SELFPAY ==
[2025-08-30 15:48] VITALS: BP 122/82; PULSE 70; RESP 18; O2SAT 98; BMI 33.1
--- NOTE | 2025-08-30 15:48 | MHC.PC.OV ---
Vital Signs 08/30/25 15:48 Height 5 ft 9 in Weight 224 lb 4 oz BMI 33.1 BP 122/82 Blood Pressure Location Lt brachial Position Sitting Respiration 18 Pulse 70 Pulse Source Pulse Oximeter Temp Source Temporal Artery Scan Pulse Oximetry (%) 98 Oxygen Delivery Method Room Air Intake Visit Reasons: hyperlipidemia, IFG Steel Placer Required: No Accompanied by: Self / Same As Patient Allergies adhesive tape Allergy (Intermediate, Verified 08/30/25 16:37) Skin sloughing with cardiac leads and IV securement device gabapentin (GABAPENTIN) Allergy (Unknown, Verified 08/30/25 16:37) SEVERE H/A,BLURRY VISION,MOOD CHANGE Medication List - Last Reconciled 08/30/25 by Aayush Jay MD [adjustable straight point cane with offset handle As directed] albuterol sulfate 90 mcg/actuation 2 puffs inhalation Q4-6H PRN 30 days amlodipine 5 mg PO DAILY 90 days bisacodyl (Dulcolax (bisacodyl)) 20 mg (4 x 5 mg) PO ONCE 1 day bisacodyl (Dulcolax (bisacodyl)) 20 mg (4 x 5 mg) PO ONCE 1 day cetirizine 10 mg PO DAILY PRN 90 days ergocalciferol (vitamin D2) (Vitamin D2) 1,250 mcg PO QWEEK 3 months [HANDHELD SHOWER HEAD As directed] lorazepam 0.5 mg PO BID PRN 30 days metformin ER 500 mg PO QPM 90 days mirabegron ER (Myrbetriq) 50 mg PO DAILY 30 days oxycodone 5 mg PO Q4H PRN pantoprazole 40 mg PO DAILY polyethylene glycol 3350 (Miralax) 238 grams PO ONCE tramadol 50 mg PO TID PRN 30 days zolpidem 10 mg PO BEDTIME PRN 30 days Tobacco use date assessed: 08/30/25 Dental Screening Dental Screen Date: 08/30/25 Did you have a dental visit in the last 12 months?: Yes Did you have a dental problem in the last 6 months where you did not have access to dental care?: No Was dental information given to patient?: Patient has dentist HPI hyperlipidemia, IFG HPI Details Patient comes in today for his follow up visit - States that he feels okay He denies any headaches or dizziness Denies any chest pains, no increased shortness of breath No nausea/vomiting, no abdominal pain No change in bowel habits noted States that he has been experiencing increased urinary frequency especially at night over the past few months now and this is starting to affect/disrupt his sleep; he denies any dysuria States that his chronic low back pain and joint pains remain adequate controlled on his current Rx He had his follow up labs done earlier today - to discuss his results [facility] Medical History Lumbar degenerative disc disease Abdominal pain Blurred vision, right eye Environmental allergies Throat discomfort Onychomycosis Otitis media Hemorrhoids Colon cancer screening Pneumonia Muscle spasm of back Low back pain Malaise and fatigue Elevated C-reactive protein Right knee pain Allergic rhinitis Anxiety Insomnia Benign prostatic hyperplasia Obstructive sleep apnea Constipation Impaired fasting glucose Asthma Dyslipidemia Benign essential hypertension Obesity (BMI 30-39.9) Overactive bladder Vitamin D deficiency Hypertension Surgical History History of surgery History of prostate surgery Hx of eye surgery Hx of hemorrhoidectomy Hx of rectal sphincterotomy H/O colonoscopy Family History Brother Diabetes Social History Household Members: None Housing: Apartment Are you a primary child care associate to a significant other at home: No Do you presently have visiting nurse or other home services: No Alcohol intake: current Alcohol intake frequency: does not drink Comment: counts correct Patient Tobacco Use Status: Former Tobacco user Tobacco use type: Cigarette Years Smoked: 20 e-Cigarette/Vaping Use: Never Used Second Hand Smoke Exposure: No service: No Current occupational status: employed 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 Depression Screening Interpretation: Negative Depression Screening Done: Yes Source: Developed by Drs. Александр Andre, Muriel Guido, Shiv Treadwell and colleagues, with an educational sharon from [employer] Thrive Questionnaire Date Thrive assessed: 08/30/25 I am a: Patient What is your living situation today?: I have a steady place to live Within the past 12 months, did the food you bought not last and you didn't have the money to get more?: I choose not to answer this question Within the past 12 months, did you worry whether your food would run out before you got money to buy more?: I choose not to answer this question Do you have trouble paying for medicines?: I choose not to answer this question Do you have trouble getting transportation to medical appointments?: I choose not to answer this question Do you have trouble paying your heating and electricity bill?: I choose not to answer this question Do you have trouble taking care of your child, family member or friend?: I choose not to answer this question Do you have trouble with day-to-day activities such as bathing, preparing meals, shopping, managing finances, etc.?: I choose not to answer this question Are you currently unemployed and looking for a job?: I choose not to answer this question Are you interested in more education?: I choose not to answer this question Please select the resources that you would like help with: None Currently or been in a relationship where the following occur: I choose not to answer THRIVE Score: 0 WILMER-7 AMB Questionnaire WILMER-7 Date WILMER - 7 assessed: 09/21/24 Source: Developed by Drs. Александр Andre, Muriel Guido, Shiv Treadwell and colleagues, with an educational sharon from [employer]. Review of Systems Const Denies chills, Denies fatigue, Denies fever(s) and Denies headache(s) ENT Denies dysphagia, Denies dizziness, Denies otalgia, Denies headache(s), Denies odynophagia and Denies sore throat Card Denies chest pain, Denies palpitations and Denies dyspnea Resp Denies chest congestion, Denies cough and Denies dyspnea GI Denies abdominal pain, Denies constipation, Denies dysphagia, Denies heartburn, Denies diarrhea, Denies nausea, Denies odynophagia and Denies vomiting Denies difficulty urinating, Denies dysuria, Reports nocturia and Denies urinary frequency Musc Reports back pain (over the lumbar spine - chronic) Skin/Breast Denies rash Neuro Denies dizziness and Denies headache(s) Endo Denies fatigue and Denies palpitations Physical exam (Primary Care) Vital Signs: Last Vital Signs Pulse 70 08/30/25 15:48 Resp 18 08/30/25 15:48 BP 122/82 08/30/25 15:48 Pulse Ox 98 08/30/25 15:48 Oxygen Delivery Method Room Air 08/30/25 15:48 BMI result Body Mass Index 33.1 Tobacco/Smoking Status: Tobacco use Status Tobacco use date assessed 08/30/25 08/30/25 15:59 Patient Tobacco Use Status Former Tobacco user 08/30/25 15:59 Tobacco use type Cigarette 08/30/25 15:59 e-Cigarette/Vaping Use Never Used 08/30/25 15:59 Depression Screening Interpretation: Negative Thrive Assessment: Date of Thrive Assessment Date Thrive assessed 08/30/25 08/30/25 15:59 Currently or been in a relationship where the following occur: I choose not to answer Const General: no acute distress and alert HENMT Ears: TM's normal bilaterally and EAC's normal Throat: Yes posterior oropharynx normal and Yes tonsils normal (no TP congestion) Neck Neck: Yes supple and No lymphadenopathy Thyroid: Thyroid normal Resp Auscultation: clear to auscultation bilaterally, no rales and no wheezes Cardio Rate: regular rate Rhythm: regular rhythm Heart sounds: no murmurs GI Palpation (GI): Soft to palpation and nontender Auscultation: normal bowel sounds General: Yes no CVA tenderness Back/Spine/Pelvis Back: no CVA tenderness Thoracic/Lumbar Spine: lumbar spinal tenderness (R>L) Skin Rashes: no rashes Extrem General: Yes no clubbing, cyanosis or edema Results Reviewed Results Reviewed: Laboratory Tests 08/30/25 08/30/25 06:19 06:23 WBC 7.1 Hgb 14.8 Hct 45.2 Plt Count 308 Sodium 140 Potassium 3.8 Creatinine 0.84 Estimated GFR > 60 Fasting Glucose 111 H Hemoglobin A1c % 5.8 Calcium 8.8 AST 24 ALT 9 Triglycerides 93 Cholesterol 145 LDL Cholesterol, Calc 97 HDL Cholesterol 30 L Vitamin B12 851 25-OH Vitamin D Total 31.7 TSH 1.01 Ur Specific [place] 1.025 Urine Protein Negative Urine Glucose (UA) Negative Urine Blood Negative Urine Nitrite Negative Ur Leukocyte Esterase Negative Coding Level of Care Code Est Pt Level 4 (26155) Diagnoses Benign essential hypertension I10 Dyslipidemia E78.5 Obstructive sleep apnea G47.33 Impaired fasting glucose R73.01 Mild intermittent asthma without complication J45.20 Asthma complication type: uncomplicated Asthma persistence: intermittent Asthma severity: mild Vitamin D deficiency E55.9 Degeneration of intervertebral disc of lumbar region with discogenic back pain M51.360 Disc-related pain type: discogenic back pain only Constipation, unspecified constipation type K59.00 Constipation type: unspecified constipation type GERD without esophagitis K21.9 Overactive bladder N32.81 Benign prostatic hyperplasia with urinary frequency N40.1; R35.0 Lower urinary tract symptom detail: urinary frequency Lower urinary tract symptom presence: symptoms present Insomnia, unspecified type G47.00 Insomnia type: unspecified Anxiety F41.9 Obesity (BMI 30-39.9) E66.9 Assessment & Plan Assessment & Plan (1) Benign essential hypertension: Code(s): I10 - Essential (primary) hypertension Category: Medical Plan: Reinforced low sodium diet - goal is systolic BP of 120 mm or less Continue Amlodipine 5 mg QD (2) Dyslipidemia: Code(s): E78.5 - Hyperlipidemia, unspecified Category: Medical Plan: Results of his labs done earlier this morning reviewed and discussed with patient Reinforced low cholesterol diet Will recheck his labs and fasting lipids again in 4 months for follow up (3) Obstructive sleep apnea: Comment: no cpap used Code(s): G47.33 - Obstructive sleep apnea (adult) (pediatric) Category: Medical Plan: Follow up with Sleep Medicine as scheduled (4) Impaired fasting glucose: Code(s): R73.01 - Impaired fasting glucose Category: Medical Plan: His HgbA1c was at 5.8% on his labs done earlier this morning; was previously at 6.1% a few months ago Reinforced low calorie diet/exercise as tolerated (5) Asthma: Code(s): J45.909 - Unspecified asthma, uncomplicated Category: Medical Qualifiers: Asthma complication type: uncomplicated Asthma persistence: intermittent Asthma severity: mild Qualified Code(s): J45.20 - Mild intermittent asthma, uncomplicated Plan: Controlled Continue Xolair injections 300 mg every 2 weeks, Breo Ellipta 200-25 mcg 1 inhalation QD and Albuterol HFA 2 inhalations Q 6 hours PRN Follow up with Dr. Garber (pulmonary) as scheduled (6) Vitamin D deficiency: Code(s): E55.9 - Vitamin D deficiency, unspecified Category: Medical Plan: Continue Vitamin D2 86797 units once a week (7) Lumbar degenerative disc disease: Code(s): M51.36 - Other intervertebral disc degeneration, lumbar region Category: Medical Qualifiers: Disc-related pain type: discogenic back pain only Qualified Code(s): M51.360 - Other intervertebral disc degeneration, lumbar region with discogenic back pain only Plan: Reinforced activity and weight-lifting restrictions He had MBB trial a couple of years ago with reportedly around 85% symptomatic improvement; subsequently had TFESI in May 2023 and later on had a Sprint PNS trial which he states helped a lot with significant pain relief over his left lower back but he unfortunately did not respond as well over his right lower back and states that he wakes at night often now with increased right lower back pain He had his Sprint lead removed a year ago due to increasing pain with the leads in place Follow up with [facility] as scheduled Continue Tramadol 50 mg TID PRN (8) Constipation: Code(s): K59.00 - Constipation, unspecified Category: Medical Qualifiers: Constipation type: unspecified constipation type Qualified Code(s): K59.00 - Constipation, unspecified Plan: Improved - encouraged increased oral fluids and dietary fiber Continue Bisacodyl 5 mg BID PRM (9) GERD without esophagitis: Code(s): K21.9 - Gastro-esophageal reflux disease without esophagitis Category: Medical Plan: Dietary restrictions reinforced Continue Omeprazole 40 mg QD Follow up with GI as scheduled (10) Overactive bladder: Code(s): N32.81 - Overactive bladder Category: Medical Plan: Continue Myrbetriq ER 50 mg QD Follow up with urology as scheduled (11) Benign prostatic hyperplasia: Code(s): N40.0 - Benign prostatic hyperplasia without lower urinary tract symptoms Category: Medical Qualifiers: Lower urinary tract symptom detail: urinary frequency Lower urinary tract symptom presence: symptoms present Qualified Code(s): N40.1 - Benign prostatic hyperplasia with lower urinary tract symptoms; R35.0 - Frequency of micturition Plan: Will refer him back to urology for further evaluation and management (12) Insomnia: Code(s): G47.00 - Insomnia, unspecified Category: Medical Qualifiers: Insomnia type: unspecified Qualified Code(s): G47.00 - Insomnia, unspecified Plan: Sleep hygiene reinforced Continue Zolpidem 10 mg Q HS PRN (13) Anxiety: Code(s): F41.9 - Anxiety disorder, unspecified Category: Medical Plan: Continue Lorazepam 0.5 mg BID PRN (14) Obesity (BMI 30-39.9): Code(s): E66.9 - Obesity, unspecified Category: Medical Plan: Reinforced diet/exercise as tolerated/lose weight Plan Follow up in 4 months Orders: Orders Hemoglobin A1c 4 Months E11.9 - Type 2 diabetes mellitus without complications Complete Blood Count Auto Diff 4 Months D64.9 - Anemia, unspecified Comprehensive [place]. Panel Fast 4 Months E78.00 - Pure hypercholesterolemia, unspecified Lipid Panel 4 Months E78.00 - Pure hypercholesterolemia, unspecified TSH reflex Free T4 4 Months E78.00 - Pure hypercholesterolemia, unspecified Microalbumin, Random (w Creat) 4 Months E11.9 - Type 2 diabetes mellitus without complications UA CC w/rflx Micro + Cult 4 Months R30.0 - Dysuria Referrals Urology Referral N40.1 - Benign prostatic hyperplasia with lower urinary tract symptoms, R35.0 - Frequency of micturition
--- OUTSIDE RECORDS SUMMARY | 2025-08-30 20:37 | XMS_ITS | Clinical Summary ---
Author Organization [facility] Address [address] [place] [address] Phone Care Team Providers Care Lard Refiner Name Role Phone Aayush Jay MD Primary Care Provider [phone] Allergies Active Allergy Reactions Criticality Noted Date [...] 1 Active cholecalciferol (VITAMIN D-3) 1.25 MG (78331 UT) tablet Take by mouth Activ e docusate sodium (COLACE) 100 MG capsule Take 100 mg by mouth 2 (two) times a day 1 Active ergocalciferol 1.25 MG (10987 UT) capsule Take 50,000 Units by mouth [...] (#1) 2025 Insurance ([id number]) ([id number]) Care Teams Lard Refiner Relationship Specialty Start Date End Date Aayush Jay MD [address] [place] [address] PCP - General 09/24/20
--- OUTSIDE RECORDS SUMMARY | 2025-08-30 20:37 | XMS_ITS | Clinical Summary ---
Author Organization [facility] Address [address] [place] [id number] Phone Care Team Providers Care Production Supply Equipment Tender Name Role Phone Unknown, Unknown Primary [...] Insurance MEDICARE PART A & B [facility] ([place]) [address] [address] [facility]ICARE PART A & B [facility] Member Subscriber Plan / Payer (Ef fective 2019-) Name:Enmanuel Fleming Member ID:[id number] Relation to Subscriber:Self Name:Enmanuel Fleming Subscriber ID:[id number] Payer ID:[id number] Group ID:Not on file Type:Medicare Address: [employer] [address] [facility] B [place] [facility] PART A & [facility] & B [facility] MEDIC[place] PART A & B [facility] [employer]URANCE Care Teams Production Supply Equipment Tender Relationship Specialty Start Date End Date Unknown, Unknown, PCP - General 10/12/19 Additional Source Comments The information contained in this document represents components of the legal health record. It is not the complete legal health record.[facility]
== END 2025-08-30 16:51 | disposition home or self-care (01) ==
LOC: HO.HMCH 15:46
PROVIDERS: PCP Internal Medicine; Visit Provider Internal Medicine
DX: I10 Essential (primary) hypertension (principal); E78.5 Hyperlipidemia, unspecified; G47.33 Obstructive sleep apnea (adult) (pediatric); R73.01 Impaired fasting glucose; J45.20 Mild intermittent asthma, uncomplicated; E55.9 Vitamin D deficiency, unspecified; M51.360 Other intervertebral disc degeneration, lumbar region with discogenic back pain only; K59.00 Constipation, unspecified; K21.9 Gastro-esophageal reflux disease without esophagitis; N32.81 Overactive bladder; N40.1 Benign prostatic hyperplasia with lower urinary tract symptoms; Z68.33 Body mass index [BMI] 33.0-33.9, adult; R35.0 Frequency of micturition; G47.00 Insomnia, unspecified; F41.9 Anxiety disorder, unspecified; E66.9 Obesity, unspecified